=== PATIENT | female | born 1980 | race Caucasian/White ===

== ENCOUNTER 2017-10-05 00:05 | Outpatient (CLI) | payer OTHER | END 2017-10-05 00:06 | disposition critical access hospital (66) | LOC: EMS 00:05 | PROVIDERS: ATTEND Surgery | DX: R07.9 Chest pain, unspecified (principal); M54.5 Low back pain | CPT/HCPCS: A0425; A0427 ==

== ENCOUNTER 2017-10-05 00:23 | Emergency (ER) | payer OTHER ==
[2017-10-05 00:50] LABS: BASOPHILS % (AUTO) 0.3 %; EOSINOPHILS # (AUTO) 0.1 10^3/uL (0.0-0.7); HGB - HEMOGLOBIN 13.8 g/dL (12.0-16.0); LYMPHOCYTES # (AUTO) 1.8 10^3/uL (1.5-3.5); LYMPHOCYTES % (AUTO) 35.9 %; MEAN CORPUSCULAR HEMOGLOBIN 30.7 pg (27.0-31.0); MEAN CORPUSCULAR HGB CONC 33.8 g/dL (32.0-36.0); MEAN PLATELET VOLUME 7.9 fL (7.9-10.8); MONOCYTES # (AUTO) 0.5 10^3/uL (0.0-1.0); NEUTROPHILS # (AUTO) 2.5 10^3/uL (1.5-6.6); NEUTROPHILS % (AUTO) 50.8 %; PLT - PLATELET COUNT 204 10^3/uL (130-450); RED BLOOD COUNT 4.48 10^6/uL (4.20-5.40); RED CELL DISTRIBUTION WIDTH 13.4 % (12.0-15.0); WHITE BLOOD COUNT 4.9 x10^3/uL (4.8-10.8)
[2017-10-05 01:00] LABS: ALBUMIN 4.2 g/dL (3.2-5.5); ALBUMIN/GLOBULIN RATIO 1.2 (1.0-2.2); BILIRUBIN,TOTAL 0.5 mg/dL (0.2-1.0); CALCIUM 9.5 mg/dL (8.5-10.3); CREATININE 0.6 mg/dL (0.4-1.0); TOTAL PROTEIN 7.6 g/dL (6.7-8.2)
--- NOTE | 2017-10-05 02:07 | XRAY Report ---
EXAM: CHEST RADIOGRAPHY EXAM DATE: 10/05/2017 01:57 AM. CLINICAL HISTORY: Chest pain. COMPARISON: 02/28/2009 x-ray and CT cervical spine. TECHNIQUE: 2 views. FINDINGS: Lungs/Pleura: No focal opacities evident. No pleural effusion. No pneumothorax. Normal volumes. Mediastinum: Heart and mediastinal contours are unremarkable. Other: None. IMPRESSION: Normal 2-view chest radiography. [facility] Referring Provider Line: [phone] SITE ID: [id number]
--- NOTE | 2017-10-05 02:30 | ED Physician Documentation ---
PD HPI CHEST PAIN - Stated complaint Stated Complaint: CP - Chief complaint Chief Complaint: Cardiac - History obtained from History obtained from: Patient - History of Present Illness Timing - onset: Today Timing - onset during: Rest Timing - details: Abrupt onset, Waxing and waning Pain level now: 2 Quality: Pain Location: Substernal, Left chest Radiation: Left upper extremity Improved by: Nothing Worsened by: No: Exertion, Inspiration, Eating, Movement, Palpation, Position Associated symptoms: Nausea, Vomiting. No: Shortness of air Similar symptoms before: No diagnosis Recently seen: Not recently seen Review of Systems Constitutional: reports: Reviewed and negative Cardiac: reports: Chest pain / pressure. denies: Palpitations, Pedal edema, Calf pain Respiratory: reports: Reviewed and negative GI: reports: Abdominal Pain, Nausea, Vomiting : denies: Dysuria, Frequency PD PAST MEDICAL HISTORY - Past Medical History Past Medical History: Yes Respiratory: Asthma Psych: Depression Musculoskeletal: Fibromyalgia - Past Surgical History Past Surgical History: Yes Ortho: Carpal Tunnel surgery, Other - Present Medications Home Medications: Ambulatory Orders Medication Instructions Recorded Confirmed ARIPiprazole [Abilify] 1 tab PO DAILY 10/05/17 Albuterol Sulfate [Proair Hfa 2 puffs INH TID PRN 10/05/17 Inhaler] Amitriptyline [Elavil] 1 tab PO DAILY 10/05/17 Duloxetine HCl [Cymbalta] 1 cap PO DAILY 10/05/17 Meloxicam [Mobic] 1 tab PO BID 10/05/17 Methocarbamol 750 mg PO BID 10/05/17 Morphine Sulfate [Morphine Sulfate 30 mg PO BID PRN 10/05/17 ER] Pregabalin [Lyrica] 100 mg PO DAILY 10/05/17 Spironolactone 1 tab PO DAILY 10/05/17 Terazosin [Hytrin] 10 mg PO DAILY 10/05/17 oxyCODONE [Roxicodone] 30 mg PO Q6HR PRN 10/05/17 raNITIdine [Zantac] 1 tab PO DAILY 10/05/17 - Allergies Allergies/Adverse Reactions: Allergies Allergy/AdvReac Type Severity Reaction Status Date / Time carisoprodol [From Soma] Allergy Unknown Verified 10/05/17 00:29 - Social History Does the pt smoke?: Yes Smoking Status: Current every day smoker - POLST Patient has POLST: No PD ED PE NORMAL - Vitals Vital signs reviewed: Yes - General General: Alert and oriented X 3, No acute distress, Well developed/nourished - Cardiac Cardiac: RRR, No murmur, No gallop, No rub - Respiratory Respiratory: No respiratory distress, Clear bilaterally - Abdomen Abdomen: Soft, Non tender - Back Back: No CVA TTP - Derm Derm: No rash Results - Vitals Vitals: Oxygen O2 Source Room air - EKG (time done) No standard instances Rate: Rate (enter#) (122), Tachy Rhythm: Sinus tachycardia [place]: Normal Intervals: Normal [place] QRS: Normal Ischemia: Normal ST segments - Labs Labs: Laboratory Tests 10/05/17 10/05/17 10/05/17 00:40 00:40 00:40 WBC 4.9 RBC 4.48 Hgb 13.8 Hct 40.8 MCV 91.0 MCH 30.7 MCHC 33.8 RDW 13.4 Plt Count 204 MPV 7.9 Neut # 2.5 Lymph # 1.8 Lane # 0.5 Eos # 0.1 Baso # 0.0 Absolute Nucleated RBC 0.00 Nucleated RBC % 0.0 Sodium 139 Potassium 2.9 L Chloride 102 Carbon Dioxide 26 Anion Gap 11.0 BUN 8 Creatinine 0.6 Estimated GFR (MDRD) 114 Glucose 104 H Calcium 9.5 Total Bilirubin 0.5 AST 35 ALT 29 Alkaline Phosphatase 67 Troponin I < 0.04 Total Protein 7.6 Albumin 4.2 Globulin 3.4 Albumin/Globulin Ratio 1.2 Lipase 12 L - Rads (name of study) chest xray Radiology: Prelim report reviewed, See rad report CT chest Radiology: Prelim report reviewed, See rad report PD MEDICAL DECISION MAKING - ED course Complexity details: reviewed results, re-evaluated patient, considered differential, d/w patient Departure - Departure Disposition: 01 Home, Self Care Clinical Impression: Chest pain Qualifiers: Chest pain type: unspecified Qualified Code(s): R07.9 - Chest pain, unspecified Condition: Good Instructions: ED Chest Pain Atypical Unkn Cause Follow-Up: Tanya Ford MD [Physician No Access] - Within 1 week Discharge Date/Time: 10/05/17 05:24
[2017-10-05] MEDS ORDERED: POTASSIUM BICARB 25 MEQ TABLET PO STA (02:31)
[2017-10-05] MEDS ORDERED: MORPHINE 2 MG/ML CARPUJECT IVP STA (02:55)
[2017-10-05] MEDS ORDERED: IOPAMIDOL-300 100 ML VIAL ONE (03:24)
[2017-10-05] MEDS ORDERED: IOPAMIDOL-300 100 ML VIAL IVP ONE (03:48)
--- NOTE | 2017-10-05 03:57 | CT Report ---
EXAM: CT ANGIOGRAM CHEST EXAM DATE: 10/05/2017 03:48 AM. CLINICAL HISTORY: Chest pain, dyspnea, tachycardia. Back pain. COMPARISON: None. TECHNIQUE: Routine helical imaging was performed through the chest in the pulmonary arterial phase. I V Contrast: Nonionic. Reconstructions: Coronal 3-D MIP reconstructions.Sagittal and coronal. In accordance with CT protocol optimization, one or more of the following dose reduction techniques w ere utilized for this exam: automated exposure control, adjustment of mA and/or KV based on patient s ize, or use of iterative reconstructive technique. FINDINGS: Pulmonary Arteries: Diagnostic quality: Adequate through the segmental arteries. No evidence for acute or chronic pulmona ry emboli. No evidence of right heart strain. Lungs/Pleura: No alveolar consolidation or pleural effusion. There may be mild interstitial edema. No pneumothorax. Mediastinum: Mild cardiomegaly. No lymphadenopathy seen. Wall thickening in the distal esophagus. Thoracic Aorta: Unremarkable. Upper Abdomen: Unremarkable. Other: None. IMPRESSION: 1. No pulmonary emboli seen. 2. Mild cardiomegaly. There could be trace interstitial edema. 3. Wall thickening in the distal esophagus. Correlate for any symptoms of esophagitis. [facility] Referring Provider Line: [phone] SITE ID: [id number]
[2017-10-05 04:43] VITALS: BP 123/75
== END 2017-10-05 05:24 | disposition home or self-care (01) ==
LOC: EDUNIT# → ED 00:23
DX: R07.9 Chest pain, unspecified (principal); R00.0 Tachycardia, unspecified; F17.200 Nicotine dependence, unspecified, uncomplicated
CPT/HCPCS: 71046; 71275; 80053; 83690; 84484; 85025; 93005; 96374; 99284; A9270; Q9967; 36415

== ENCOUNTER 2017-11-14 20:03 | Outpatient (CLI) | payer OTHER | END 2017-11-14 20:04 | disposition critical access hospital (66) | LOC: EMS 20:03 | PROVIDERS: ATTEND Surgery | DX: R40.20 Unspecified coma (principal) | CPT/HCPCS: A0425; A0427 ==

== ENCOUNTER 2017-11-14 20:21 | Emergency (ER) | payer OTHER ==
[2017-11-14] MEDS ORDERED: SODIUM CHLORIDE 0.9% 1,000 ML IV ONE ×2 (20:53→21:40)
[2017-11-14 20:56] LABS: BASOPHILS % (AUTO) 0.5 %; EOSINOPHILS # (AUTO) 0.1 10^3/uL (0.0-0.7); EOSINOPHILS % (AUTO) 2.1 %; HGB - HEMOGLOBIN 13.1 g/dL (12.0-16.0); LYMPHOCYTES # (AUTO) 1.8 10^3/uL (1.5-3.5); LYMPHOCYTES % (AUTO) 32.2 %; MEAN CORPUSCULAR HEMOGLOBIN 31.8 pg (27.0-31.0); MEAN CORPUSCULAR HGB CONC 33.9 g/dL (32.0-36.0); MEAN CORPUSCULAR VOLUME 93.7 fL (81.0-99.0); MEAN PLATELET VOLUME 8.3 fL (7.9-10.8); MONOCYTES # (AUTO) 0.7 10^3/uL (0.0-1.0); MONOCYTES % (AUTO) 11.5 %; NEUTROPHILS # (AUTO) 3.1 10^3/uL (1.5-6.6); NEUTROPHILS % (AUTO) 53.7 %; PLT - PLATELET COUNT 216 10^3/uL (130-450); RED BLOOD COUNT 4.13 10^6/uL (4.20-5.40); RED CELL DISTRIBUTION WIDTH 13.2 % (12.0-15.0); WHITE BLOOD COUNT 5.7 x10^3/uL (4.8-10.8)
[2017-11-14] MEDS ORDERED: LORazepam 2 MG/ML VIAL ONE (21:04)
[2017-11-14 21:09] LABS: ALBUMIN 4.1 g/dL (3.2-5.5); ALBUMIN/GLOBULIN RATIO 1.2 (1.0-2.2); ALKALINE PHOSPHATASE 64 IU/L (42-121); ALT ALANINE AMINOTRANSFERASE 17 IU/L (10-60); AST ASPARTATE AMINOTRANSFERASE 21 IU/L (10-42); BILIRUBIN,TOTAL 0.4 mg/dL (0.2-1.0); BUN - BLOOD UREA NITROGEN 12 mg/dL (6-20); CALCIUM 9.1 mg/dL (8.5-10.3); CARBON DIOXIDE - CO2 28 mmol/L (21-32); CHLORIDE 107 mmol/L (101-111); CREATININE 0.7 mg/dL (0.4-1.0); GFR - MDRD 95 (>89); GLUCOSE 79 mg/dL (70-100); LIPASE 20 U/L (22-51); MAGNESIUM 2.3 mg/dL (1.7-2.8); PHOSPHORUS 2.6 mg/dL (2.5-4.6); SALICYLATE < 6.0 mg/dL; SODIUM 141 mmol/L (135-145); TOTAL PROTEIN 7.6 g/dL (6.7-8.2)
[2017-11-14 21:14] LABS: ACETAMINOPHEN < 10 ug/mL (10-30)
[2017-11-14 21:14] LABS: VBG PCO2 45.7 mmHg (41-51); VBG PH 7.253 (7.31-7.41)
[2017-11-14 21:15] LABS: VBG BASE EXCESS -7.4 mmol/L (-2 - +2); VBG TOTAL CO2 21.1 mmol/L (24-29)
[2017-11-14 21:27] LABS: MUDS CUTOFF CONCENTRATIONS CUTOFF CONC BELOW:
[2017-11-14 21:32] LABS: BILIRUBIN,URINE NEGATIVE (NEGATIVE); GLUCOSE, URINE (UA) NEGATIVE (NEGATIVE); KETONES,URINE (UA) NEGATIVE (NEGATIVE); LEUKOCYTE ESTERASE, URINE NEGATIVE (NEGATIVE); NITRITE,URINE NEGATIVE (NEGATIVE); OCCULT BLOOD,URINE NEGATIVE (NEGATIVE); PROTEIN,URINE NEGATIVE (NEGATIVE); UROBILINOGEN,URINE 0.2 (NORMAL) E.U./dL (NORMAL)
[2017-11-14 21:34] LABS: CLARITY,URINE CLEAR (CLEAR)
[2017-11-14 21:35] LABS: HCG UR QUAL NEGATIVE
[2017-11-14 21:40] LABS: AMPHETAMINE SCREEN,URINE NEGATIVE (NEGATIVE); BENZODIAZEPINES SCREEN, URINE NEGATIVE (NEGATIVE); COCAINE SCREEN URINE NEGATIVE (NEGATIVE); METHADONE SCREEN, URINE NEGATIVE (NEGATIVE); METHAMPHETAMINES SCREEN, URINE NEGATIVE (NEGATIVE); OPIATE SCREEN, URINE POSITIVE (NEGATIVE); OXYCODONE SCREEN, URINE POSITIVE (NEGATIVE); PROPOXYPHENE SCREEN, URINE NEGATIVE (NEGATIVE); TRICYCLIC ANTIDEPRESSANT,URINE NEGATIVE (NEGATIVE)
[2017-11-14 23:29] VITALS: BP 159/100
--- NOTE | 2017-11-14 23:39 | ED Physician Documentation ---
PD HPI ALTERED MENTAL STATUS - Stated complaint Stated Complaint: ETOH/ALOC - Chief complaint Chief Complaint: Neuro - History obtained from History obtained from: Patient, Family, EMS - History of Present Illness Timing - onset: Today Timing - details: Gradual onset, Still present, Still present in ED Quality / character: Less responsive, Unresponsive Contributing factors: Intoxicated, Substance abuse [place] status: Alert and oriented X 3 Treatment [employer]: Accucheck Similar symptoms before: Has not had sx before Recently seen: Not recently seen - Additional information Additional information: patient is a 36 year old female with multiple co morbidities who is presentig to the emergency department for ams. According to family and ems patient [place] the [place], vomiting and then passed out. states that she drank 4 double rum and cokes within an hour. Patient is also on chronic opiates and diazapam but he doesn't think she took any extra medication. It was not a suicide attempt. it was the husbands birthday tomorrow so they were celebrating. Review of Systems Unable to obtain: Intoxicated PD PAST MEDICAL HISTORY - Past Medical History Past Medical History: Yes Respiratory: Asthma Psych: Depression Musculoskeletal: Fibromyalgia - Past Surgical History Past Surgical History: Yes Ortho: Carpal Tunnel surgery, Other - Present Medications Home Medications: Ambulatory Orders Medication Instructions Recorded Confirmed ARIPiprazole [Abilify] 1 tab PO DAILY 10/05/17 Albuterol Sulfate [Proair Hfa 2 puffs INH TID PRN 10/05/17 Inhaler] Amitriptyline [Elavil] 1 tab PO DAILY 10/05/17 Duloxetine HCl [Cymbalta] 1 cap PO DAILY 10/05/17 Meloxicam [Mobic] 1 tab PO BID 10/05/17 Methocarbamol 750 mg PO BID 10/05/17 Morphine Sulfate [Morphine Sulfate 30 mg PO BID PRN 10/05/17 ER] Pregabalin [Lyrica] 100 mg PO DAILY 10/05/17 Spironolactone 1 tab PO DAILY 10/05/17 Terazosin [Hytrin] 10 mg PO DAILY 10/05/17 oxyCODONE [Roxicodone] 30 mg PO Q6HR PRN 10/05/17 raNITIdine [Zantac] 1 tab PO DAILY 10/05/17 - Allergies Allergies/Adverse Reactions: Allergies Allergy/AdvReac Type Severity Reaction Status Date / Time carisoprodol [From Soma] Allergy Unknown Verified 11/14/17 20:33 - Social History Does the pt smoke?: Yes Smoking Status: Current every day smoker Does the pt drink ETOH?: Yes ETOH Use: Liquor - Immunizations Immunizations are current?: Yes - POLST Patient has POLST: No PD ED PE NORMAL - HEENT HEENT: Atraumatic - Neck Neck: No JVD - Cardiac Cardiac: RRR - Respiratory Respiratory: No respiratory distress, Clear bilaterally - Abdomen Abdomen: Soft, Non distended - Derm Derm: Normal color, Warm and dry - Extremities Extremities: No deformity PD ED PE EXPANDED - General General: Unresponsive - Eyes Eyes: Both eyes (dilated pupils) - GCS Eye Opening: None Motor: Withdraws to Pain Verbal: Incomprehensible Total: 7 Results - Vitals Vitals: Vital Signs - 24 hr 11/14/17 11/14/17 11/14/17 20:25 20:51 20:55 Temperature 36.6 C Heart Rate 98 100 199 H Respiratory 20 29 H 33 H Rate Blood Pressure 146/92 H 146/92 H 146/92 H O2 Saturation 98 96 99 11/14/17 11/14/17 11/14/17 20:58 21:05 21:20 Temperature Heart Rate 128 H 108 H 85 Respiratory 24 14 19 Rate Blood Pressure 136/85 H 149/116 H 141/76 H O2 Saturation 98 98 95 11/14/17 11/14/17 11/14/17 21:21 21:46 22:20 Temperature Heart Rate 108 H 110 H 102 H Respiratory 19 16 16 Rate Blood Pressure 149/116 H 141/76 H 145/93 H O2 Saturation 97 97 96 11/14/17 23:15 Temperature Heart Rate 94 Respiratory 18 Rate Blood Pressure 159/100 H O2 Saturation 100 Oxygen O2 Source Room air - EKG (time done) 2032 Rate: Rate (enter#) (103) Rhythm: Sinus tachycardia [place]: Normal Ischemia: Normal ST segments Other comments: Other comments (rvh) Compare to prior EKG: Old EKG unavailable - Labs Labs: Laboratory Tests 11/14/17 11/14/17 11/14/17 20:49 20:49 20:49 WBC 5.7 RBC 4.13 L Hgb 13.1 Hct 38.7 MCV 93.7 MCH 31.8 H MCHC 33.9 RDW 13.2 Plt Count 216 MPV 8.3 Neut # 3.1 Lymph # 1.8 [place] # 0.7 Eos # 0.1 Baso # 0.0 Absolute Nucleated RBC 0.00 Nucleated RBC % 0.0 VBG pH VBG pCO2 VBG pO2 VBG HCO3 VBG Total CO2 VBG O2 Saturation VBG Base Excess Sodium 141 Potassium 3.8 Chloride 107 Carbon Dioxide 28 Anion Gap 6.0 BUN 12 Creatinine 0.7 Estimated GFR (MDRD) 95 Glucose 79 Calcium 9.1 Phosphorus 2.6 Magnesium 2.3 Total Bilirubin 0.4 AST 21 ALT 17 Alkaline Phosphatase 64 Troponin I < 0.04 Total Protein 7.6 Albumin 4.1 Globulin 3.5 Albumin/Globulin Ratio 1.2 Lipase 20 L Urine Color Urine Clarity Urine pH Ur Specific [place] Urine Protein Urine Glucose (UA) Urine Ketones Urine Occult Blood Urine Nitrite Urine Bilirubin Urine Urobilinogen Ur Leukocyte Esterase Ur Microscopic Review Urine Culture Comments Urine HCG, Qual Salicylates < 6.0 Urine Opiates Screen Ur Oxycodone Screen Urine Methadone Screen Ur Propoxyphene Screen Acetaminophen < 10 L Ur Barbiturates Screen Ur Tricyclics Screen Ur Phencyclidine Scrn Ur Amphetamine Screen U Methamphetamines Scrn U Benzodiazepines Scrn Urine Cocaine Screen U Cannabinoids Screen Ethyl Alcohol 122.0 11/14/17 11/14/17 11/14/17 21:05 21:18 21:18 WBC RBC Hgb Hct MCV MCH MCHC RDW Plt Count MPV Neut # Lymph # [place] # Eos # Baso # Absolute Nucleated RBC Nucleated RBC % VBG pH 7.253 L VBG pCO2 45.7 VBG pO2 40.0 VBG HCO3 19.7 L VBG Total CO2 21.1 L VBG O2 Saturation 72.6 VBG Base Excess -7.4 L Sodium Potassium Chloride Carbon Dioxide Anion Gap BUN Creatinine Estimated GFR (MDRD) Glucose Calcium Phosphorus Magnesium Total Bilirubin AST ALT Alkaline Phosphatase Troponin I Total Protein Albumin Globulin Albumin/Globulin Ratio Lipase Urine Color YELLOW Urine Clarity CLEAR Urine pH 5.0 Ur Specific [place] <=1.005 <=1.005 Urine Protein NEGATIVE Urine Glucose (UA) NEGATIVE Urine Ketones NEGATIVE Urine Occult Blood NEGATIVE Urine Nitrite NEGATIVE Urine Bilirubin NEGATIVE Urine Urobilinogen 0.2 (NORMAL) Ur Leukocyte Esterase NEGATIVE Ur Microscopic Review NOT INDICATED Urine Culture Comments NOT INDICATED Urine HCG, Qual NEGATIVE Salicylates Urine Opiates Screen POSITIVE H Ur Oxycodone Screen POSITIVE H Urine Methadone Screen NEGATIVE Ur Propoxyphene Screen NEGATIVE Acetaminophen Ur Barbiturates Screen NEGATIVE Ur Tricyclics Screen NEGATIVE Ur Phencyclidine Scrn NEGATIVE Ur Amphetamine Screen NEGATIVE U Methamphetamines Scrn NEGATIVE U Benzodiazepines Scrn NEGATIVE Urine Cocaine Screen NEGATIVE U Cannabinoids Screen NEGATIVE Ethyl Alcohol PD MEDICAL DECISION MAKING - ED course Complexity details: reviewed old records, reviewed results, re-evaluated patient , considered differential, d/w patient, d/w family ED course: Patient was seen and examined at bedside. patient was unresponsive but maintaining her airway. IV access was gained and labs were drawn. Urine was collected. patient was observed. Within about an hour patient started to wake up and become combative. Patient had to be restrained for the safety of herself and others. Patient was allowed to metabolize her alcohol with her at bedside. patient was observed until she could attend to conversation and ambulate without difficulty. Patient was stable for discharge home in the care of the who agreed to take care of her. Departure - Departure Disposition: 01 Home, Self Care Clinical Impression: Alcohol intoxication Condition: Good Instructions: ED Alcohol Intoxication Follow-Up: primary,care provider [Other] - As Needed Comments: Your symptoms today are secondary to alcohol intoxication. You should refrain from such excessive alcohol use. With all of your other medications, there are many sedatives and you should not combine with alcohol. You may return to the emergency department at any time for new, worsening or uncontrollable symptoms. Discharge Date/Time: 11/14/17 23:45
== END 2017-11-14 23:45 | disposition home or self-care (01) ==
LOC: EDUNIT# → ED 20:21
DX: F10.129 Alcohol abuse with intoxication, unspecified (principal); F17.200 Nicotine dependence, unspecified, uncomplicated; M79.7 Fibromyalgia; F32.9 Major depressive disorder, single episode, unspecified; J45.909 Unspecified asthma, uncomplicated
CPT/HCPCS: 36415; 51702; 80053; 80306; 80307; 80320; 80329; 81001; 81003; 81025; 82803; 83690; 83735; 84100; 84484; 85025; 87086; 93005; 96360; 99284; 99285

== ENCOUNTER 2018-07-08 20:43 | Emergency (ER) | payer OTHER ==
--- NOTE | 2018-07-08 22:49 | ED Physician Documentation ---
History of Present Illness - Stated complaint Stated Complaint: FEMALE - Chief complaint Chief Complaint: Abd Pain - History obtained from History obtained from: Patient, Family - History of Present Illness Timing: How many hours ago (3) Pain level max: 5 Pain level now: 5 - Additonal information Additional information: Patient is a 37-year-old female who states she has been unable to urinate today. States this is happened 3 times in the past. Normally has a catheter inserted for a few days. States it is usually due to her medications that she is taking. Has chronic back pain and is on chronic narcotic pain medication, no changes in her back pain. Denies any fevers. States had mild dysuria. No vaginal discharge or bleeding. No recent fall or injury. nothing makes it better or worse. 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 HEENT: None Psych: Depression Musculoskeletal: Fibromyalgia Derm: None - Past Surgical History Past Surgical History: Yes Ortho: Carpal Tunnel surgery, Other - Present Medications Home Medications: Ambulatory Orders Medication Instructions Recorded Confirmed ARIPiprazole [Abilify] 1 tab PO DAILY 10/05/17 Albuterol Sulfate [Proair Hfa 2 puffs INH TID PRN 10/05/17 Inhaler] Amitriptyline [Elavil] 1 tab PO DAILY 10/05/17 Duloxetine HCl [Cymbalta] 1 cap PO DAILY 10/05/17 Meloxicam [Mobic] 1 tab PO BID 10/05/17 Methocarbamol 750 mg PO BID 10/05/17 Morphine Sulfate [Morphine Sulfate 30 mg PO BID PRN 10/05/17 ER] Pregabalin [Lyrica] 100 mg PO DAILY 10/05/17 Spironolactone 1 tab PO DAILY 10/05/17 Terazosin [Hytrin] 10 mg PO DAILY 10/05/17 oxyCODONE [Roxicodone] 30 mg PO Q6HR PRN 10/05/17 raNITIdine [Zantac] 1 tab PO DAILY 10/05/17 - Allergies Allergies/Adverse Reactions: Allergies Allergy/AdvReac Type Severity Reaction Status Date / Time carisoprodol [From Soma] Allergy Unknown Verified 11/14/17 20:33 - Social History Does the pt smoke?: Yes Smoking Status: Current every day smoker Does the pt drink ETOH?: No Does the pt have substance abuse?: No - Immunizations Immunizations are current?: Yes - POLST Patient has POLST: No PD ED PE NORMAL - Vitals Vital signs reviewed: Yes - General General: Alert and oriented X 3, No acute distress - HEENT HEENT: PERRL - Neck Neck: Supple, no meningeal sign - Cardiac Cardiac: RRR - Respiratory Respiratory: No respiratory distress, Clear bilaterally - Abdomen Abdomen: Soft, Non tender, Non distended - Back Back: No spinal TTP (no midline TTP to palpation or percussion. ) - Derm Derm: Warm and dry - Extremities Extremities: Other (normal bilateral lower extremity patellar and ankle jerk reflexes. Normal great toe extension bilaterally. no saddle anesthesia) - Neuro Neuro: Alert and oriented X 3, No motor deficit, No sensory deficit - Psych Psych: Normal mood, Normal affect Results - Vitals Vitals: Oxygen O2 Source Room air - Labs Labs: Laboratory Tests 07/08/18 23:05 Urine Color YELLOW Urine Clarity CLEAR Urine pH 5.5 Ur Specific [place] <=1.005 Urine Protein NEGATIVE Urine Glucose (UA) NEGATIVE Urine Ketones NEGATIVE Urine Occult Blood NEGATIVE Urine Nitrite NEGATIVE Urine Bilirubin NEGATIVE Urine Urobilinogen 0.2 (NORMAL) Ur Leukocyte Esterase NEGATIVE Ur Microscopic Review NOT INDICATED Urine Culture Comments NOT INDICATED Urine HCG, Qual NEGATIVE PD MEDICAL DECISION MAKING - ED course Complexity details: reviewed results, re-evaluated patient, considered differential, d/w patient ED course: 37-year-old female with urinary retention. Unclear etiology. Likely related to her medications. This is happened to her in the past. Recommend she follow-up with her doctor for an outpatient MRI of her back to ensure that this is not worsened. Currently has no saddle anesthesia or numbness or tingling in the legs. Also does not have any fecal incontinence. No cauda equina or epidural abscess. Patient counseled regarding signs and symptoms for which I believe and urgent re-evaluation would be necessary. Patient with good understanding of and agreement to plan and is comfortable going home at this time This document was made in part using voice recognition software. While efforts are made to proofread this document, sound alike and grammatical errors may occur. Departure - Departure Disposition: 01 Home, Self Care Clinical Impression: Urinary retention Condition: Good Instructions: ED Retention Urinary Female Follow-Up: MONO BERNARDO [Primary Care Provider] - Within 3 Days Comments: Follow-up with your doctor in 3 days for catheter removal. This may be due to your medications, but they may want to repeat an MRI of your lower back to ensure there are no changes. Return if you worsen Discharge Date/Time: 07/09/18 00:12
[2018-07-08 23:13] LABS: BILIRUBIN,URINE NEGATIVE (NEGATIVE); GLUCOSE, URINE (UA) NEGATIVE (NEGATIVE); KETONES,URINE (UA) NEGATIVE (NEGATIVE); LEUKOCYTE ESTERASE, URINE NEGATIVE (NEGATIVE); NITRITE,URINE NEGATIVE (NEGATIVE); OCCULT BLOOD,URINE NEGATIVE (NEGATIVE); PH,URINE 5.5 PH (5.0-7.5); PROTEIN,URINE NEGATIVE (NEGATIVE); UROBILINOGEN,URINE 0.2 (NORMAL) E.U./dL (NORMAL)
[2018-07-08 23:16] LABS: CLARITY,URINE CLEAR (CLEAR); HCG UR QUAL NEGATIVE
[2018-07-09 00:08] VITALS: BP 138/81
== END 2018-07-09 00:12 | disposition home or self-care (01) ==
LOC: ED 20:43
DX: R33.9 Retention of urine, unspecified (principal); Z96.0 Presence of urogenital implants; F17.200 Nicotine dependence, unspecified, uncomplicated; Z79.1 Long term (current) use of non-steroidal anti-inflammatories (NSAID)
CPT/HCPCS: 51702; 81001; 81003; 81025; 87086; 99283

== ENCOUNTER 2018-10-08 03:43 | Outpatient (CLI) | payer OTHER | END 2018-10-08 03:44 | disposition critical access hospital (66) | LOC: EMS 03:43 | PROVIDERS: ATTEND Surgery | DX: R40.4 Transient alteration of awareness (principal) | CPT/HCPCS: A0425; A0429 ==

== ENCOUNTER 2018-10-08 04:02 | Emergency (ER) | payer OTHER ==
[2018-10-08] MEDS ORDERED: SODIUM CHLORIDE 0.9% 2,000 ML IV ONE (04:11)
[2018-10-08] MEDS ORDERED: NALOXONE 2 MG in SODIUM CHLORIDE 0.9% 495 ML IV STA (04:12)
[2018-10-08] MEDS ORDERED: NALOXONE 0.4 MG/ML VIAL IVP STA (04:19)
[2018-10-08] MEDS ORDERED: NALOXONE 0.4 MG/ML VIAL ONE (04:22)
[2018-10-08] MEDS ORDERED: ONDANSETRON 4 MG/2 ML VIAL IVP STA (04:25)
[2018-10-08 04:26] LABS: BASOPHILS % (AUTO) 0.5 %; EOSINOPHILS # (AUTO) 0.1 10^3/uL (0.0-0.7); EOSINOPHILS % (AUTO) 1.8 %; HGB - HEMOGLOBIN 12.3 g/dL (12.0-16.0); LYMPHOCYTES # (AUTO) 1.8 10^3/uL (1.5-3.5); LYMPHOCYTES % (AUTO) 32.7 %; MEAN CORPUSCULAR HEMOGLOBIN 27.4 pg (27.0-31.0); MEAN CORPUSCULAR HGB CONC 33.3 g/dL (32.0-36.0); MEAN CORPUSCULAR VOLUME 82.3 fL (81.0-99.0); MEAN PLATELET VOLUME 8.2 fL (7.9-10.8); MONOCYTES # (AUTO) 0.5 10^3/uL (0.0-1.0); MONOCYTES % (AUTO) 9.7 %; NEUTROPHILS % (AUTO) 55.3 %; PLT - PLATELET COUNT 205 10^3/uL (130-450); RED BLOOD COUNT 4.48 10^6/uL (4.20-5.40); RED CELL DISTRIBUTION WIDTH 14.1 % (12.0-15.0); WHITE BLOOD COUNT 5.4 x10^3/uL (4.8-10.8)
[2018-10-08] MEDS ORDERED: ONDANSETRON 4 MG/2 ML VIAL ONE (04:29)
[2018-10-08 04:37] LABS: ACETAMINOPHEN < 10 ug/mL (10-30); ALBUMIN/GLOBULIN RATIO 1.1 (1.0-2.2); SALICYLATE < 6.0 mg/dL
[2018-10-08] MEDS ORDERED: HALOPERIDOL 5 MG/ML VIAL IVP ONE (04:38)
[2018-10-08] MEDS ORDERED: FAMOTIDINE 20 MG/2 ML VIAL IVP STA (04:39)
[2018-10-08 04:41] LABS: ALBUMIN 4.1 g/dL (3.2-5.5); ALKALINE PHOSPHATASE 74 IU/L (42-121); ALT ALANINE AMINOTRANSFERASE 19 IU/L (10-60); AST ASPARTATE AMINOTRANSFERASE 22 IU/L (10-42); BILIRUBIN,TOTAL 0.5 mg/dL (0.2-1.0); BUN - BLOOD UREA NITROGEN 8 mg/dL (6-20); CALCIUM 9.3 mg/dL (8.5-10.3); CARBON DIOXIDE - CO2 27 mmol/L (21-32); CHLORIDE 104 mmol/L (101-111); CREATININE 0.5 mg/dL (0.4-1.0); GFR - MDRD 140 (>89); GLUCOSE 135 mg/dL (70-100); LIPASE 26 U/L (22-51); SODIUM 142 mmol/L (135-145); TOTAL PROTEIN 7.8 g/dL (6.7-8.2)
[2018-10-08 05:14] LABS: MUDS CUTOFF CONCENTRATIONS CUTOFF CONC BELOW:
[2018-10-08 05:20] LABS: BILIRUBIN,URINE NEGATIVE (NEGATIVE); GLUCOSE, URINE (UA) NEGATIVE (NEGATIVE); KETONES,URINE (UA) NEGATIVE (NEGATIVE); LEUKOCYTE ESTERASE, URINE NEGATIVE (NEGATIVE); NITRITE,URINE NEGATIVE (NEGATIVE); OCCULT BLOOD,URINE NEGATIVE (NEGATIVE); PH,URINE 6.5 PH (5.0-7.5); PROTEIN,URINE NEGATIVE (NEGATIVE); UROBILINOGEN,URINE 0.2 (NORMAL) E.U./dL (NORMAL)
[2018-10-08 05:26] LABS: CLARITY,URINE CLEAR (CLEAR)
[2018-10-08 05:27] LABS: HCG UR QUAL NEGATIVE
[2018-10-08 05:28] LABS: AMPHETAMINE SCREEN,URINE NEGATIVE (NEGATIVE); BENZODIAZEPINES SCREEN, URINE NEGATIVE (NEGATIVE); COCAINE SCREEN URINE NEGATIVE (NEGATIVE); METHADONE SCREEN, URINE NEGATIVE (NEGATIVE); METHAMPHETAMINES SCREEN, URINE NEGATIVE (NEGATIVE); OPIATE SCREEN, URINE POSITIVE (NEGATIVE); OXYCODONE SCREEN, URINE POSITIVE (NEGATIVE); PROPOXYPHENE SCREEN, URINE NEGATIVE (NEGATIVE); TRICYCLIC ANTIDEPRESSANT,URINE NEGATIVE (NEGATIVE)
[2018-10-08 05:45] LABS: HCG,QUALITATIVE BLOOD NEGATIVE
--- NOTE | 2018-10-08 05:52 | XRAY Report ---
Reason: ALOC Procedure Date: 10/08/2018 Accession Number: [id number] / [id number] Procedure: XR - Chest 1 View X-Ray CPT Code: 31077 FULL RESULT: EXAM: CHEST RADIOGRAPHY EXAM DATE: 10/08/2018 05:36 AM. CLINICAL HISTORY: Altered level of consciousness. COMPARISON: CHEST 2 VIEW 10/05/2017 1:44 AM, CHEST ANGIO 10/05/2017 3:35 AM. TECHNIQUE: 1 view. FINDINGS: Lungs/Pleura: No focal opacities evident. No pleural effusion. No pneumothorax. Mediastinum: Within exam limitations, the cardiomediastinal contour is normal. Other: None. IMPRESSION: Stable negative single view chest. [facility]
--- NOTE | 2018-10-08 06:14 | ED Physician Documentation ---
PD HPI OVERDOSE - Stated complaint Stated Complaint: UNRESPONSIVE - Chief complaint Chief Complaint: Critical Care - History obtained from History obtained from: EMS - History of Present Illness Timing - onset: Unknown Subtance(s) ingested: EtOH Associated symptoms: Resp depression, Unresponsive Pain level max: 0 Pain level now: 0 Severity Comments: severe Treatment HADOOP ARCHITECT: No: Narcan, D50, Zofran - Additional information Additional information: 37-year-old female found down after drinking approximately 1 bottle of rum. No other known ingestions. 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 HEENT: None Psych: Depression Musculoskeletal: Fibromyalgia Derm: None - Past Surgical History Past Surgical History: Yes Ortho: Carpal Tunnel surgery, Other - Present Medications Home Medications: Ambulatory Orders Medication Instructions Recorded Confirmed ARIPiprazole [Abilify] 5 mg PO DAILY 10/05/17 Albuterol Sulfate [Proair Hfa 2 puffs INH TID PRN 10/05/17 Inhaler] Amitriptyline [Elavil] 25 tab PO DAILY 10/05/17 Duloxetine HCl [Cymbalta] 60 mg PO DAILY 10/05/17 Meloxicam [Mobic] 1 tab PO BID 10/05/17 Morphine Sulfate [Morphine Sulfate 30 mg PO BID PRN 10/05/17 ER] Pregabalin [Lyrica] 150 mg PO BID 10/05/17 Spironolactone 50 mg PO BID 10/05/17 Terazosin [Hytrin] 10 mg PO DAILY 10/05/17 oxyCODONE [Roxicodone] 30 mg PO Q6HR PRN 10/05/17 raNITIdine [Zantac] 150 mg PO DAILY 10/05/17 Cyclobenzaprine [Flexeril] 10 mg PO QID 10/08/18 10/08/18 Furosemide [Lasix] 20 mg PO DAILY 10/08/18 10/08/18 Levothyroxine [Synthroid] 50 mcg PO QDAC 10/08/18 10/08/18 Lubiprostone [Amitiza] 24 mcg PO BID 10/08/18 10/08/18 Metoprolol Succinate 25 mg PO DAILY 10/08/18 10/08/18 Metoprolol Tartrate [Lopressor] 50 mg PO BID 10/08/18 10/08/18 Omeprazole 20 mg PO DAILY 10/08/18 10/08/18 Oxycodone HCl [Roxicodone] 15 mg PO QID 10/08/18 10/08/18 diazePAM [Diazepam] 5 mg PO PRN PRN 10/08/18 10/08/18 tiZANidine [Zanaflex] 4 mg PO Q8H 10/08/18 10/08/18 - Allergies Allergies/Adverse Reactions: Allergies Allergy/AdvReac Type Severity Reaction Status Date / Time carisoprodol [From Soma] Allergy Unknown Verified 11/14/17 20:33 - Social History Does the pt smoke?: Yes Smoking Status: Current every day smoker Does the pt drink ETOH?: Yes ETOH Use: Liquor Does the pt have substance abuse?: No - Immunizations Immunizations are current?: Yes - POLST Patient has POLST: No PD ED PE NORMAL - Vitals Vital signs reviewed: Yes - General General: No acute distress, Other (Obtunded) - HEENT HEENT: Atraumatic, PERRL - Neck Neck: Supple, no meningeal sign - Cardiac Cardiac: No murmur, Other (Tachycardic) - Respiratory Respiratory: Clear bilaterally - Abdomen Abdomen: Normal bowel sounds, Soft, Non tender, Non distended - Derm Derm: Warm and dry - Extremities Extremities: No deformity - Neuro Neuro: Other (Obtunded with GCS of 3.) Eye Opening: None Motor: None Verbal: None GCS Score: 3 - Psych Psych: Normal mood, Normal affect Results - Vitals Vitals: Vital Signs - 24 hr 10/08/18 10/08/18 10/08/18 03:59 04:15 04:39 Heart Rate 108 H 136 H 138 H Respiratory 19 19 Rate Blood Pressure 152/94 H 137/74 H O2 Saturation 98 100 99 10/08/18 10/08/18 05:09 05:37 Heart Rate 108 H 107 H Respiratory 12 12 Rate Blood Pressure 138/80 H 122/93 H O2 Saturation 98 96 Oxygen O2 Source Nasal cannula - EKG (time done) 0408 Rate: Rate (enter#) (111), Tachy Rhythm: Sinus tachycardia [place]: Normal Intervals: Normal LA, RBBB QRS: Normal Ischemia: Normal ST segments. No: T wave inversion - Labs Labs: Laboratory Tests 10/08/18 10/08/18 10/08/18 04:11 04:11 04:11 WBC 5.4 RBC 4.48 Hgb 12.3 Hct 36.9 L MCV 82.3 MCH 27.4 MCHC 33.3 RDW 14.1 Plt Count 205 MPV 8.2 Neut # (Auto) 3.0 Lymph # (Auto) 1.8 [place] # (Auto) 0.5 Eos # (Auto) 0.1 Baso # (Auto) 0.0 Absolute Nucleated RBC 0.00 Nucleated RBC % 0.0 Sodium 142 Potassium 3.2 L Chloride 104 Carbon Dioxide 27 Anion Gap 11.0 BUN 8 Creatinine 0.5 Estimated GFR (MDRD) 140 Glucose 135 H Calcium 9.3 Total Bilirubin 0.5 AST 22 ALT 19 Alkaline Phosphatase 74 Total Protein 7.8 Albumin 4.1 Globulin 3.7 Albumin/Globulin Ratio 1.1 Lipase 26 TSH 3.15 Serum HCG, Qual Urine Color Urine Clarity Urine pH Ur Specific [place] Urine Protein Urine Glucose (UA) Urine Ketones Urine Occult Blood Urine Nitrite Urine Bilirubin Urine Urobilinogen Ur Leukocyte Esterase Ur Microscopic Review Urine Culture Comments Urine HCG, Qual Salicylates < 6.0 Urine Opiates Screen Ur Oxycodone Screen Urine Methadone Screen Ur Propoxyphene Screen Acetaminophen < 10 L Ur Barbiturates Screen Ur Tricyclics Screen Ur Phencyclidine Scrn Ur Amphetamine Screen U Methamphetamines Scrn U Benzodiazepines Scrn Urine Cocaine Screen U Cannabinoids Screen Ethyl Alcohol 95.8 10/08/18 10/08/18 10/08/18 04:11 05:00 05:00 WBC RBC Hgb Hct MCV MCH MCHC RDW Plt Count MPV Neut # (Auto) Lymph # (Auto) [place] # (Auto) Eos # (Auto) Baso # (Auto) Absolute Nucleated RBC Nucleated RBC % Sodium Potassium Chloride Carbon Dioxide Anion Gap BUN Creatinine Estimated GFR (MDRD) Glucose Calcium Total Bilirubin AST ALT Alkaline Phosphatase Total Protein Albumin Globulin Albumin/Globulin Ratio Lipase TSH Serum HCG, Qual NEGATIVE Urine Color YELLOW Urine Clarity CLEAR Urine pH 6.5 Ur Specific [place] <=1.005 Urine Protein NEGATIVE Urine Glucose (UA) NEGATIVE Urine Ketones NEGATIVE Urine Occult Blood NEGATIVE Urine Nitrite NEGATIVE Urine Bilirubin NEGATIVE Urine Urobilinogen 0.2 (NORMAL) Ur Leukocyte Esterase NEGATIVE Ur Microscopic Review NOT INDICATED Urine Culture Comments NOT INDICATED Urine HCG, Qual NEGATIVE Salicylates Urine Opiates Screen POSITIVE H Ur Oxycodone Screen POSITIVE H Urine Methadone Screen NEGATIVE Ur Propoxyphene Screen NEGATIVE Acetaminophen Ur Barbiturates Screen NEGATIVE Ur Tricyclics Screen NEGATIVE Ur Phencyclidine Scrn NEGATIVE Ur Amphetamine Screen NEGATIVE U Methamphetamines Scrn NEGATIVE U Benzodiazepines Scrn NEGATIVE Urine Cocaine Screen NEGATIVE U Cannabinoids Screen NEGATIVE Ethyl Alcohol - Rads (name of study) Chest xray Radiology: Final report received (WNL) PD MEDICAL DECISION MAKING - ED course Complexity details: reviewed results, re-evaluated patient, considered differential, d/w patient, d/w family ED course: 37-year-old female arrives in severe respiratory distress and with altered mental status. Patient obtunded. No response to pain. Patient placed on supplemental oxygen given 2 mg IV Narcan. Patient became awake and began active ly withdrawing. Patient treated with IV Zofran and Haldol. After some time patient requested to leave AGAINST MEDICAL ADVICE. Patient verbalized understanding of the risks of discharge including or permanent disability. Given patient's intoxication she was held in the emergency department until she could be released with a responsible family member. She is encouraged to return any time to continue treatment. - Critical Care Time(min): 30 Time Includes: Direct patient care, Review records, Reassess patient, Document care, Coordinate care, Family consult for tx dec, See progress note Data interpretation: Labs, Pulse ox, CXR, See progress note Procedures included in critical care time: See progress note Procedures excluded from critical care time: See progress note Departure - Departure Disposition: 01 Home, Self Care Clinical Impression: Alcohol abuse Opioid overdose Qualifiers: Encounter type: initial encounter Injury intent: accidental or unintentional Qualified Code(s): T40.2X1A - Poisoning by other opioids, accidental (unintentional), initial encounter Condition: Serious
[2018-10-08 06:34] VITALS: BP 124/75
== END 2018-10-08 06:47 | disposition left against medical advice (07) ==
LOC: EDUNIT# → EDBD → ED 04:02
DX: F10.129 Alcohol abuse with intoxication, unspecified (principal); T40.2X1A Poisoning by other opioids, accidental (unintentional), initial encounter; R06.03 Acute respiratory distress; R40.2432 Glasgow coma scale score 3-8, at arrival to emergency department; R00.0 Tachycardia, unspecified; I45.10 Unspecified right bundle-branch block; F17.200 Nicotine dependence, unspecified, uncomplicated; Z53.20 Procedure and treatment not carried out because of patient's decision for unspecified reasons
CPT/HCPCS: 36415; 71045; 80053; 80306; 80307; 80320; 80329; 81001; 81003; 81025; 83690; 84443; 84703; 85025; 87086; 93005; 96361; 96374; 96375; 99285; 99291

== ENCOUNTER 2018-11-22 10:20 | Outpatient (CLI) | payer OTHER | END 2018-11-22 10:21 | disposition home or self-care (01) | LOC: NS 10:20 | PROVIDERS: ATTEND Family Medicine | DX: Z71.3 Dietary counseling and surveillance (principal); E66.01 Morbid (severe) obesity due to excess calories; Z68.39 Body mass index [BMI] 39.0-39.9, adult | CPT/HCPCS: 97802 ==

== ENCOUNTER 2019-05-05 16:26 | Outpatient (CLI) | payer OTHER | END 2019-05-05 16:27 | disposition critical access hospital (66) | LOC: EMS 16:26 | PROVIDERS: ATTEND Surgery | DX: R07.9 Chest pain, unspecified (principal) | CPT/HCPCS: A0425; A0427 ==

== ENCOUNTER 2019-05-05 16:45 | Observation (INO) | payer OTHER ==
--- NOTE | 2019-05-05 17:14 | ED Physician Documentation ---
PD HPI CHEST PAIN - Stated complaint Stated Complaint: CP - Chief complaint Chief Complaint: Cardiac - History obtained from History obtained from: Patient - History of Present Illness Timing - onset: How many days ago (4) Timing - onset during: Light activity Timing - duration: Days (4) Timing - details: Abrupt onset, Still present Quality: Aching, Sharp, Pain Location: Substernal, Left chest Radiation: Back Improved by: No: Rest Worsened by: Exertion (just walking in house), Inspiration. No: Movement, Palpation Associated symptoms: Shortness of air, Feeling faint / dizzy, General Weakness. No: Nausea, Palpitations, Cough Similar symptoms before: Has not had sx before Recently seen: Emergency Dept (She was seen at [facility] 3 days ago for leg swelling in the chest pain. We will obtain records from there. The patient says it sounds like they ultrasound her leg and did some basic labs.) Review of Systems Constitutional: denies: Fever, Chills Nose: denies: Rhinorrhea / runny nose, Congestion Throat: denies: Sore throat Cardiac: reports: Chest pain / pressure, Pedal edema (for a week or so, both legs), Calf pain (for few days). denies: Palpitations Respiratory: reports: Dyspnea. denies: Cough GI: reports: Nausea. denies: Abdominal Pain, Vomiting, Diarrhea, Hematemesis, Bloody / black stool : denies: Dysuria, Frequency, Hematuria Musculoskeletal: reports: Back pain (chronic). denies: Neck pain Neurologic: reports: Generalized weakness. 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 HEENT: None Psych: Depression Musculoskeletal: Fibromyalgia, Chronic back pain Derm: None - Past Surgical History Past Surgical History: Yes Ortho: Carpal Tunnel surgery, Other - Present Medications Home Medications: Ambulatory Orders Medication Instructions Recorded Confirmed ARIPiprazole [Abilify] 5 mg PO DAILY 10/05/17 Albuterol Sulfate [Proair Hfa 2 puffs INH TID PRN 10/05/17 Inhaler] Amitriptyline [Elavil] 25 tab PO DAILY 10/05/17 Duloxetine HCl [Cymbalta] 60 mg PO DAILY 10/05/17 Meloxicam [Mobic] 1 tab PO BID 10/05/17 Morphine Sulfate [Morphine Sulfate 30 mg PO BID PRN 10/05/17 ER] Pregabalin [Lyrica] 150 mg PO BID 10/05/17 Spironolactone 50 mg PO BID 10/05/17 Terazosin [Hytrin] 10 mg PO DAILY 10/05/17 oxyCODONE [Roxicodone] 30 mg PO Q6HR PRN 10/05/17 raNITIdine [Zantac] 150 mg PO DAILY 10/05/17 Cyclobenzaprine [Flexeril] 10 mg PO QID 10/08/18 10/08/18 Furosemide [Lasix] 20 mg PO DAILY 10/08/18 10/08/18 Levothyroxine [Synthroid] 50 mcg PO QDAC 10/08/18 10/08/18 Lubiprostone [Amitiza] 24 mcg PO BID 10/08/18 10/08/18 Metoprolol Succinate 25 mg PO DAILY 10/08/18 10/08/18 Metoprolol Tartrate [Lopressor] 50 mg PO BID 10/08/18 10/08/18 Omeprazole 20 mg PO DAILY 10/08/18 10/08/18 Oxycodone HCl [Roxicodone] 15 mg PO QID 10/08/18 10/08/18 diazePAM [Diazepam] 5 mg PO PRN PRN 10/08/18 10/08/18 tiZANidine [Zanaflex] 4 mg PO Q8H 10/08/18 10/08/18 - Allergies Allergies/Adverse Reactions: Allergies Allergy/AdvReac Type Severity Reaction Status Date / Time carisoprodol [From Soma] Allergy Unknown Verified 05/05/19 17:02 - Living Situation Living Situation: reports: With spouse/s.o. Living Arrangement: reports: At home, Other (Fairly sedentary lifestyle due to chronic pains of fibromyalgia and back pain.) - Social History Does the pt smoke?: Yes Smoking Status: Current every day smoker Does the pt drink ETOH?: Yes Does the pt have substance abuse?: No - Immunizations Immunizations are current?: Yes - POLST Patient has POLST: No PD ED PE NORMAL - Vitals Vital signs reviewed: Yes (tachycardic and tachypneic with guarded respirations) - General General: Alert and oriented X 3, Well developed/nourished - HEENT HEENT: Moist mucous membranes, Pharynx benign - Neck Neck: Supple, no meningeal sign, No adenopathy, No JVD - Cardiac Cardiac: No murmur, No rub. No: RRR (tachycardic but regular) - Respiratory Respiratory: Clear bilaterally, Other (no chestwall tenderness) - Abdomen Abdomen: Normal bowel sounds, Soft, Non distended, No organomegaly, Other (some tenderness RUQ abdomen) - Female Female : Deferred - Rectal Rectal: Deferred - Back Back: No CVA TTP - Derm Derm: Normal color, Warm and dry - Extremities Extremities: No tenderness to palpate, Other (She has some edema in both legs. She has calf tenderness and medial thigh tenderness on the left leg.) - Neuro Neuro: Alert and oriented X 3, No motor deficit, Normal speech Eye Opening: Spontaneous Motor: Obeys Commands Verbal: Oriented GCS Score: 15 Results - Vitals Vitals: Vital Signs - 24 hr 05/05/19 05/05/19 05/05/19 16:48 19:01 19:26 Temperature 36.6 C Heart Rate 104 H 106 H 98 Respiratory 18 17 16 Rate Blood Pressure 148/76 H 132/81 H 119/93 H O2 Saturation 95 95 95 Oxygen O2 Source Room air - Labs Labs: Laboratory Tests 05/05/19 05/05/19 05/05/19 17:30 17:30 17:30 WBC 5.9 RBC 3.77 L Hgb 10.9 L Hct 33.9 L MCV 89.9 MCH 28.9 MCHC 32.2 RDW 13.4 Plt Count 173 MPV 9.6 Neut # (Auto) 4.3 Lymph # (Auto) 0.9 L [place] # (Auto) 0.5 Eos # (Auto) 0.1 Baso # (Auto) 0.0 Absolute Nucleated RBC 0.00 Nucleated RBC % 0.0 D-Dimer 398.9 H Sodium 142 Potassium 4.0 Chloride 104 Carbon Dioxide 32 Anion Gap 6.0 BUN 7 Creatinine 0.6 Estimated GFR (MDRD) 112 Glucose 133 H Calcium 9.0 Total Bilirubin 0.4 AST 19 ALT 18 Alkaline Phosphatase 64 Troponin I High Sens B-Natriuretic Peptide Total Protein 6.7 Albumin 3.5 Globulin 3.2 Albumin/Globulin Ratio 1.1 Lipase 21 L 05/05/19 05/05/19 17:30 17:30 WBC RBC Hgb Hct MCV MCH MCHC RDW Plt Count MPV Neut # (Auto) Lymph # (Auto) [place] # (Auto) Eos # (Auto) Baso # (Auto) Absolute Nucleated RBC Nucleated RBC % D-Dimer Sodium Potassium Chloride Carbon Dioxide Anion Gap BUN Creatinine Estimated GFR (MDRD) Glucose Calcium Total Bilirubin AST ALT Alkaline Phosphatase Troponin I High Sens 2.4 B-Natriuretic Peptide 32 Total Protein Albumin Globulin Albumin/Globulin Ratio Lipase PD MEDICAL DECISION MAKING - ED course Complexity details: reviewed results (The patient does have [address] angiogram as read by the radiologist. Presumably 1 of them was 4 days ago when her symptoms first started. Unclear whether she has had a second embolus more recently she did feel more short of breath today. We will start her on blood thinners. I will talk with the hospitalist regarding having her in the hospital for further evaluation and ensure she is stable. She is still tachycardic and having pleuritic pain though is improved after medicines. There is no signs of heart failure.), re-evaluated patient, considered differential (Concern for OK versus angina versus pneumonia versus heart failure versus blood clots. We will test for high risk processes.), d/w patient Departure - Departure Disposition: ED Place in Observation Clinical Impression: Leg edema Chest pain Qualifiers: Chest pain type: chest pain on breathing Qualified Code(s): R07.1 - Chest pain on breathing; R07.81 - Pleurodynia Dyspnea Qualifiers: Dyspnea type: dyspnea on exertion Qualified Code(s): R06.09 - Other forms of dyspnea Acute pulmonary embolism without acute cor pulmonale Qualifiers: Pulmonary embolism type: other Qualified Code(s): I26.99 - Other pulmonary embolism without acute cor pulmonale Condition: Stable Record reviewed to determine appropriate education?: Yes
[2019-05-05 17:33] LABS: BASOPHILS % (AUTO) 0.3 %; EOSINOPHILS # (AUTO) 0.1 10^3/uL (0.0-0.7); EOSINOPHILS % (AUTO) 1.9 %; HGB - HEMOGLOBIN 10.9 g/dL (12.0-16.0); LYMPHOCYTES # (AUTO) 0.9 10^3/uL (1.5-3.5); LYMPHOCYTES % (AUTO) 15.5 %; MEAN CORPUSCULAR HEMOGLOBIN 28.9 pg (27.0-31.0); MEAN CORPUSCULAR HGB CONC 32.2 g/dL (32.0-36.0); MEAN CORPUSCULAR VOLUME 89.9 fL (81.0-99.0); MEAN PLATELET VOLUME 9.6 fL (7.9-10.8); MONOCYTES # (AUTO) 0.5 10^3/uL (0.0-1.0); MONOCYTES % (AUTO) 9.2 %; NEUTROPHILS # (AUTO) 4.3 10^3/uL (1.5-6.6); NEUTROPHILS % (AUTO) 72.6 %; PLT - PLATELET COUNT 173 10^3/uL (130-450); RED BLOOD COUNT 3.77 10^6/uL (4.20-5.40); RED CELL DISTRIBUTION WIDTH 13.4 % (12.0-15.0); WHITE BLOOD COUNT 5.9 x10^3/uL (4.8-10.8)
[2019-05-05] MEDS ORDERED: HYDROmorphone 1 MG/ML CARPUJECT IVP STA (17:34)
[2019-05-05] MEDS ORDERED: KETOROLAC 15 MG/ML VIAL IVP STA (17:34)
[2019-05-05 17:48] LABS: ALBUMIN 3.5 g/dL (3.2-5.5); ALBUMIN/GLOBULIN RATIO 1.1 (1.0-2.2); BILIRUBIN,TOTAL 0.4 mg/dL (0.2-1.0); CREATININE 0.6 mg/dL (0.4-1.0); TOTAL PROTEIN 6.7 g/dL (6.7-8.2)
--- NOTE | 2019-05-05 17:55 | XRAY Report ---
Reason: chest pain Procedure Date: 05/05/2019 Accession Number: [id number] / [id number] Procedure: XR - Chest 1 View X-Ray CPT Code: 32624 FULL RESULT: EXAM: CHEST RADIOGRAPHY EXAM DATE: 05/05/2019 05:22 PM. CLINICAL HISTORY: Chest pain. COMPARISON: CHEST 1 VIEW 10/08/2018 5:25 AM. TECHNIQUE: 1 view. FINDINGS: Lungs/Pleura: No focal opacities evident. No pleural effusion. No pneumothorax. Mediastinum: Within exam limitations, the cardiomediastinal contour is normal. Other: None. IMPRESSION: No focal consolidation. RADIA
[2019-05-05] MEDS ORDERED: IOVERSOL 320 100 ML VIAL IVP ONE ×2 (18:48→19:16)
[2019-05-05] MEDS ORDERED: FUROSEMIDE 40 MG/4 ML VIAL IVP STA (19:05)
--- NOTE | 2019-05-05 19:15 | Ultrasound Report ---
Reason: RUQ/chest pain for several days Procedure Date: 05/05/2019 Accession Number: [id number] / [id number] Procedure: US - Abdomen Limited CPT Code: FULL RESULT: EXAM: ABDOMEN ULTRASOUND LIMITED, RUQ EXAM DATE: 05/05/2019 06:39 PM. CLINICAL HISTORY: RUQ/chest pain for several days. COMPARISON: None. TECHNIQUE: Real-time scanning was performed with static images obtained. FINDINGS: Liver: Borderline in size. Heterogeneous without focal solid mass identified. 18.6 cm. Main portal vein flow: Hepatopetal. Gallbladder: Normal. No stones, wall thickening, or sonographic Masterson's sign. Biliary System: CBD measures 4 mm. No intrahepatic or extrahepatic ductal dilatation. Other: Right kidney measures 12.5 cm in length without evidence of hydronephrosis. IMPRESSION: No gallstones or findings of acute cholecystitis or biliary dilatation. RADIA
--- NOTE | 2019-05-05 19:57 | CT Report ---
Reason: chest pain; dyspnea; elevated d-dimer Procedure Date: 05/05/2019 Accession Number: [id number] / [id number] Procedure: CT - ANGIO CHEST W/WO CPT Code: FULL RESULT: EXAM: CT ANGIOGRAM CHEST EXAM DATE: 05/05/2019 07:16 PM. CLINICAL HISTORY: Chest pain; dyspnea; elevated d-dimer. COMPARISON: CHEST ANGIO 10/05/2017 3:35 AM. TECHNIQUE: Routine helical imaging was performed through the chest in the pulmonary arterial phase. IV Contrast: OPTI 320 80ML. Reconstructions: Coronal 3-D MIP reconstructions.Sagittal and coronal. In accordance with CT protocol optimization, one or more of the following dose reduction techniques were utilized for this exam: automated exposure control, adjustment of mA and/or KV based on patient size, or use of iterative reconstructive technique. FINDINGS: Pulmonary Arteries: Diagnostic quality: Suboptimal through the segmental arteries. Acute pulmonary embolus in the segmental branch of the pulmonary artery supplying the right upper lobe posteriorly. There is thrombus in the subsegmental pulmonary artery supplying the right lung base. RV/LV is within normal limits. There is no interventricular septal bowing. There is no reflux of contrast material in the IVC. Lungs/Pleura: No consolidation, nodules, or edema. No effusions or pneumothorax. Mediastinum: Normal. No cardiac enlargement or adenopathy. Thoracic Aorta: Unremarkable. Upper Abdomen: Unremarkable. Other: None. IMPRESSION: 1. Acute pulmonary emboli in the segmental arteries supplying the right upper lobe posteriorly and right lung base. 2. No evidence of heart strain. RADIA The above critical result findings were discussed with Yury Mccullough by Dr. Zo Machuca at 07:56 PM on 05/05/2019.
[2019-05-05] MEDS ORDERED: ENOXAPARIN 100 MG/ML SYRINGE SUBQ STA (20:23)
[2019-05-05] MEDS ORDERED: RIVAROXABAN 15 MG TABLET PO STA (20:23)
[2019-05-05] MEDS ORDERED: SODIUM CHLORIDE FLUSH 0.9% 10 ML SYRINGE IVP PRN (20:34)
[2019-05-05] MEDS ORDERED: ACETAMINOPHEN 325 MG TABLET PO PRN (20:34)
--- NOTE | 2019-05-05 20:47 | HISTORY & PHYSICAL EXAMINATION ---
Chief Complaint - Chief Complaint Chief Complaint: Chest pain History of Present Illness - Admitted From Admitted From:: Home - History Obtained From Records Reviewed: Yes History obtained from: Patient, ER Physician - History of Present Illness HPI Comment/Other: This is a 38 year old female with a past medical history significant for hypertension, obesity, mood disorder, hypothyroidism, and chronic pain who presents from home complaining of chest pain for the past four days. Her chest pain became more severe and so she sought medical attention. The pain is located substernally and also over the right chest. She reports it radiates to her right arm. Denies nausea, vomiting, dyspnea, diaphoresis. She reports no cough, fevers, and chills. She did notice her lower extremites becoming swollen over the last 2-3 days. She denies a personal and family history of DVT/PE. She reports having an L4/L5 fusion surgery on March 12. She reports being h ospitalized for two days and that she was active postoperatively. Denies recent trauma, long flight/car rides, and OCP use. She does not believe that she can be . Denies history of malignancy. Reports last PAP smear was a few years ago and was normal from what she can recall. She denies a history of bleeding but she does report heavy menses. In the ER, she was found to be tachycardic but not hypoxic or tachypinic. Labs were significant for a hemoglobin of 10.9, and an elevated D-dimer. Troponin and BNP were negative. She underwent a CTA of the chest which revealed right segmental PE's. She was given Lovenox in the ER. Medicine was consulted for admission given that the patient is tachycardic. History - Past Medical History Cardiovascular: reports: None Respiratory: reports: Asthma Neuro: reports: None Endocrine/Autoimmune: reports: None GI: reports: None ONSITE CASE MANAGER: reports: None : reports: Retention HEENT: reports: None Psych: reports: Depression Musculoskeletal: reports: Fibromyalgia, Chronic back pain Derm: reports: None MRSA Hx?: No - Past Surgical History Ortho: reports: Carpal Tunnel surgery, Other (L4/L5 spinal fusion.) - Family & Social History Family History Comment/Other: She reports no family history of DVT/PE. She has one uncle that had pancreatic cancer and diabetes. Living arrangement: At home, Other (Fairly sedentary lifestyle due to chronic pains of fibromyalgia and back pain.) Living Situation: With spouse/s.o. 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 No longer working due to her chronic back pain. She no longer smokes after quiting this past November. Previously smoked a pack per day for approximately 20 years. Drinks alcohol occasionally. Does not use illict drugs. - Substance History Use: Uses substance without health or social issues: NONE - POLST Patient has POLST: No Meds/Allgy - Home Medications Home Medications: Ambulatory Orders Medication Instructions Recorded Confirmed ARIPiprazole [Abilify] 5 mg PO DAILY 10/05/17 Albuterol Sulfate [Proair Hfa 2 puffs INH TID PRN 10/05/17 Inhaler] Amitriptyline [Elavil] 25 tab PO DAILY 10/05/17 Duloxetine HCl [Cymbalta] 60 mg PO DAILY 10/05/17 Meloxicam [Mobic] 1 tab PO BID 10/05/17 Morphine Sulfate [Morphine Sulfate 30 mg PO BID PRN 10/05/17 ER] Pregabalin [Lyrica] 150 mg PO BID 10/05/17 Spironolactone 50 mg PO BID 10/05/17 Terazosin [Hytrin] 10 mg PO DAILY 10/05/17 oxyCODONE [Roxicodone] 30 mg PO Q6HR PRN 10/05/17 raNITIdine [Zantac] 150 mg PO DAILY 10/05/17 Cyclobenzaprine [Flexeril] 10 mg PO QID 10/08/18 10/08/18 Furosemide [Lasix] 20 mg PO DAILY 10/08/18 10/08/18 Levothyroxine [Synthroid] 50 mcg PO QDAC 10/08/18 10/08/18 Lubiprostone [Amitiza] 24 mcg PO BID 10/08/18 10/08/18 Metoprolol Succinate 25 mg PO DAILY 10/08/18 10/08/18 Metoprolol Tartrate [Lopressor] 50 mg PO BID 10/08/18 10/08/18 Omeprazole 20 mg PO DAILY 10/08/18 10/08/18 Oxycodone HCl [Roxicodone] 15 mg PO QID 10/08/18 10/08/18 diazePAM [Diazepam] 5 mg PO PRN PRN 10/08/18 10/08/18 tiZANidine [Zanaflex] 4 mg PO Q8H 10/08/18 10/08/18 - Allergies Allergies/Adverse Reactions: Allergies Allergy/AdvReac Type Severity Reaction Status Date / Time carisoprodol [From Soma] Allergy Unknown Verified 05/05/19 17:02 Review of Systems - Constitutional Constitutional: denies: Fatigue, Fever, Chills, Weakness, Diaphoresis - Cardiovascular Cariovascular: reports: Chest pain. denies: Palpitations, Exertional dyspnea, Decr. exercise tolerance - Respiratory Respiratory: denies: Cough, SOB at rest, SOB with exertion - Gastrointestinal Gastrointestinal: denies: Abdominal pain, Constipation, Diarrhea, Nausea, Vomiting - Genitourinary Genitourinary: denies: Dysuria, Frequency, Urgency - Integumentary Integumentary: denies: Rash - Neurological Neurological: reports: Numbness - Hematologic/Lymphatic Hematologic/Lymphatic: denies: Bruising, Bleeding tendencies - All Other Systems All Other Systems: reports: Reviewed and negative Prior Level of Functionality: Independent with ADL's. Exam - Vital Signs Reviewed Vital Signs: Yes Vital Signs: Vital Signs x48h Temp Pulse Resp BP Pulse Ox 05/05/19 19:26 98 16 119/93 H 95 05/05/19 19:01 106 H 17 132/81 H 95 05/05/19 16:48 36.6 C 104 H 18 148/76 H 95 - Physical Exam General Appearance: positive: No acute distress Eyes Bilateral: positive: Normal inspection ENT: positive: ENT inspection nml Neck: positive: Nml inspection Respiratory: positive: No respiratory distress. negative: Wheezes, Rales, Rhonchi Cardiovascular: positive: No murmur, Tachycardia. negative: Systolic murmur, Diastolic murmur Abdomen: positive: Non-tender, Nml bowel sounds, No distention. negative: Tenderness, Guarding, Rebound Skin: positive: Color nml, No rash, Warm Extremities: positive: Full ROM, Pedal edema (+1 pitting edema in bilateral lower extremities.), Guillermo's sign/cords (Postive Guillermo's sign.) Neurologic/Psychiatric: positive: Oriented x3, Disoriented to time. negative: Disoriented to person, Disoriented to place Conclusion/Plan - Problem List (1) Acute pulmonary embolism without acute cor pulmonale Conclusion/Plan: She has acute PE in the segmental arteries of the right upper lobe and right lung base. May be provoked secondary to her spinal fusion surgery back on March 12. No other risk factors except for obesity. Not hypoxic but she is tachycardic. Troponin and BNP negative. No evidence of right heart stain on EKG or CT. - Lovenox 1 mg/kg as her BMI is >40 and NOAC's have not been studied in these patients - She will require Coumadin on penitentiary basis for minimum of 3 months - Check lower extremity doppler - Will hold off on Echocardiogram as these are small PE's and she has no elevation in troponin or BNP and is otherwise hemodynamically stable - Check urine for - Monitor for bleeding Qualifiers: Pulmonary embolism type: other Qualified Code(s): I26.99 - Other pulmonary embolism without acute cor pulmonale (2) Hypertension Conclusion/Plan: Hypertensive at this time. Will resume home Metoprolol. (3) Mood disorder Conclusion/Plan: Stable. Will continue home Abilify. (4) Chronic back pain Conclusion/Plan: Stable. Will resume home Morphine, Oxycodone, and Lyrica. (5) Urinary retention Conclusion/Plan: Newly diagnosed last week. Has cho catheter in place and is scheduled to follow up with PCP tomorrow. - Continue cho catheter - Consider voiding trial in AM (6) Hypothyroidism Conclusion/Plan: Stable. Continue home Synthroid. - Lab Results Lab results reviewed: Yes Fish Bones: 05/05/19 17:30 05/05/19 17:30 - Diagnostic Imaging Results Diagnostic Imaging Results: positive: Final report reviewed - EKG Results EKG Interpreted Independently: Yes EKG Comparison: Unchanged from prior EKG EKG Findings: Sinus tachycardia with RBBB. Core Measures - Anticipated LOS I expect patient to be DC'd or transferred within 96 hours.: Yes - Issues Hospital Issues and Management Plan: Acute PE with tachycardia. Will admit to initiate anticoagulation. - DVT/VTE - Prophylaxis VTE/DVT Device ordered at admit?: No Not Ordered - Medical Reason: Contraindicated VTE/DVT Prophylaxis med ordered at admit?: Yes
[2019-05-05 20:55] LABS: INR 0.9 (0.8-1.2); PT - PROTHROMBIN TIME 10.8 secs (9.9-12.6)
[2019-05-05 21:08] LABS: HCG UR QUAL NEGATIVE
[2019-05-05] MEDS ORDERED: MORPHINE 2 MG/ML CARPUJECT IVP STA (21:50)
[2019-05-05] MEDS ORDERED: oxyCODONE 5 MG TABLET PO PRN (22:41)
[2019-05-05] MEDS ORDERED: AMITRIPTYLINE 25 MG TABLET PO SCH (22:42)
[2019-05-05] MEDS ORDERED: ARIPiprazole 5 MG TABLET PO SCH (22:42)
[2019-05-05] MEDS ORDERED: traZODone 50 MG TABLET PO STA (23:07)
[2019-05-05] MEDS: MORPHINE SULFATE ER 30 MG TABLET PO SCH (23:13)
[2019-05-05] MEDS: PREGABALIN 25 MG CAPSULE PO SCH (23:14)
[2019-05-05] MEDS: METOPROLOL TARTRATE 50 MG TABLET PO SCH (23:15)
--- NOTE | 2019-05-06 00:02 | Ultrasound Report ---
Reason: Pulmonary Embolism. Procedure Date: 05/05/2019 Accession Number: [id number] / [id number] Procedure: US - Duplex Ext Veins Bilateral CPT Code: FULL RESULT: EXAM: BILATERAL LOWER EXTREMITY VENOUS ULTRASOUND. EXAM DATE: 05/05/2019 09:54 PM. CLINICAL HISTORY: Pulmonary embolism. COMPARISON: CHEST ANGIO 05/05/2019 7:05 PM. TECHNIQUE: Real-time sonographic vascular imaging was performed by the fire extinguisher technician through the lower extremities utilizing both color-flow and Doppler spectral analysis. Multiple claims customer service representative static images were saved for review. FINDINGS: Right: Common Femoral Vein (CFV): Normal. CFV-GSV Junction: Normal. Profunda Femoral Vein (PFV): Normal. Femoral Vein (FV) Prox: Normal. Femoral Vein (FV) Mid: Normal. Femoral Vein (FV) Dist: Poorly seen without gross thrombus. Popliteal Vein: Poorly seen without gross thrombus. Posterior Tibial Veins: Poorly seen without gross thrombus. Peroneal Veins: Not seen due to body habitus. Left: Common Femoral Vein (CFV): Normal. CFV-GSV Junction: Normal. Profunda Femoral Vein (PFV): Normal. Femoral Vein (FV) Prox: Normal. Femoral Vein (FV) Mid: Poorly seen without gross thrombus. Femoral Vein (FV) Dist: Poorly seen without gross thrombus. Popliteal Vein: Poorly seen without gross thrombus. Posterior Tibial Veins: Poorly seen without gross thrombus. Peroneal Veins: Not seen due to body habitus. Other: None. IMPRESSION: No evidence for deep venous thrombosis bilaterally with limitations as above. RADIA
[2019-05-06] MEDS: SODIUM CHLORIDE FLUSH 0.9% 10 ML SYRINGE IVP SCH ×2 (01:30→09:10)
[2019-05-06 05:40] LABS: BASOPHILS % (AUTO) 0.3 %; EOSINOPHILS # (AUTO) 0.1 10^3/uL (0.0-0.7); HGB - HEMOGLOBIN 10.5 g/dL (12.0-16.0); LYMPHOCYTES # (AUTO) 1.4 10^3/uL (1.5-3.5); LYMPHOCYTES % (AUTO) 23.2 %; MEAN CORPUSCULAR HEMOGLOBIN 27.9 pg (27.0-31.0); MEAN CORPUSCULAR HGB CONC 31.3 g/dL (32.0-36.0); MEAN CORPUSCULAR VOLUME 89.4 fL (81.0-99.0); MONOCYTES # (AUTO) 0.5 10^3/uL (0.0-1.0); MONOCYTES % (AUTO) 8.7 %; NEUTROPHILS # (AUTO) 3.9 10^3/uL (1.5-6.6); NEUTROPHILS % (AUTO) 65.5 %; PLT - PLATELET COUNT 184 10^3/uL (130-450); RED BLOOD COUNT 3.76 10^6/uL (4.20-5.40); RED CELL DISTRIBUTION WIDTH 13.7 % (12.0-15.0)
[2019-05-06 05:47] LABS: CALCIUM 8.7 mg/dL (8.5-10.3); CREATININE 0.6 mg/dL (0.4-1.0)
[2019-05-06] MEDS ORDERED: LEVOTHYROXINE 25 MCG TABLET PO SCH (07:00)
--- NOTE | 2019-05-06 08:04 | Discharge Plan ---
Discharge Plan Problem Reviewed?: Yes Disposition: Home, Self Care Condition: Stable Prescriptions: Enoxaparin [Lovenox] 120 mg SUBQ BID #14 syringe Warfarin [Coumadin] 5 mg PO QDWARFARIN #30 tablet Diet: Regular Activity Restrictions: Activity as Tolerated Shower Restrictions: No Driving Restrictions: No Instruction Topics: Embolism Pulmonary Health Concerns: Admitted with chest pain and found to have clot in lung (pulmonary embolism). Plan of Treatment: Lovenox injections until the Coumadin dose is in correct range of INRs (blood tests). This will need close follow-up and management by your PCP. Care Goals: Management of clot in lings. Assessment: Patient is agreeable with the plan. Additional Instructions or Follow Up instructions: You will need blood tests frequently (possibly daily) for several days, until the Coumadin dose is right. Until then, you will need twice a day Lovenox injections. This should all be managed, and any questions directed to your PCP, or to Dr Vargas while your PCP is out. No Smoking: If you smoke, Please STOP! Call for help. Follow-up with: MONO BERNARDO [Physician No Access] -
[2019-05-06 08:21] VITALS: BP 139/81
[2019-05-06] MEDS ORDERED: WARFARIN 5 MG TABLET PO SCH (08:30)
[2019-05-06] MEDS ORDERED: DOCUSATE SODIUM 250 MG CAPSULE PO SCH (09:00)
[2019-05-06] MEDS ORDERED: ENOXAPARIN 120 MG/0.8 ML SYRINGE SUBQ SCH (09:00)
[2019-05-06] MEDS ORDERED: POLYETHYLENE GLYCOL 3350 17 GM PACKET PO SCH (09:00)
[2019-05-06] MEDS: PREGABALIN 25 MG CAPSULE PO SCH (09:07)
[2019-05-06] MEDS: MORPHINE SULFATE ER 30 MG TABLET PO SCH (09:08)
[2019-05-06] MEDS: METOPROLOL TARTRATE 50 MG TABLET PO SCH (09:08)
--- NOTE | 2019-05-12 16:36 | DISCHARGE SUMMARY ---
Discharge Summary Admit Date: 05/05/19 Discharge Date: 05/06/19 Discharging Provider: Dr Erin Story Primary Care Provider: Dr Lilo Villanueva Code Status: Attempt Resuscitation Condition at Discharge: Stable Discharge Disposition: 01 Home, Self Care - DIAGNOSES Admission Diagnoses: (1) Acute pulmonary embolism without acute cor pulmonale (2) Hypertension (3) Mood disorder (4) Chronic back pain (5) Urinary retention (6) Hypothyroidism Discharge Diagnoses with Status of Each Condition: See below - HPI History of Present Illness: From the admission H&P of Dr Edwin Thomas: This is a 38 year old female with a past medical history significant for hypertension, obesity, mood disorder, hypothyroidism, and chronic pain who prese nts from home complaining of chest pain for the past four days. Her chest pain became more severe and so she sought medical attention. The pain is located substernally and also over the right chest. She reports it radiates to her right arm. Denies nausea, vomiting, dyspnea, diaphoresis. She reports no cough, fevers, and chills. She did notice her lower extremities becoming swollen over the last 2-3 days. She denies a personal and family history of DVT/PE. She reports having an L4/L5 fusion surgery on March 12. She reports being hospitalized for two days and that she was active postoperatively. Denies recent trauma, long flight/car rides, and OCP use. She does not believe that she can be . Denies history of malignancy. Reports last PAP smear was a few years ago and was normal from what she can recall. She denies a history of bleeding but she does report heavy menses. In the ER, she was found to be tachycardic but not hypoxic or tachypinic. Labs were significant for a hemoglobin of 10.9, and an elevated D-dimer. Troponin and BNP were negative. She underwent a CTA of the chest which revealed right segmental Pulmonary Emboli. She was given Lovenox in the ER. Hospitalist team was consulted for further management, given that the patient is tachycardic. - HOSPITAL COURSE Hospital Course: (1) Acute pulmonary embolism without acute cor pulmonale She had acute PE's in the segmental arteries of the right upper lobe and right lung base. These may have been "provoked PE's" secondary to her spinal fusion surgery back on March 12, 2019. No other risk factors noted, except for obesity. She was not hypoxic but she was tachycardic. Troponin and BNP negative. No evidence of right heart stain on EKG or CT. She had lower extremity Dopplers done that were neg for DVT. She was put on Lovenox 1 mg/kg, as a bridge to Coumadin. Since her BMI is >40, the NOAC's are not indicated for use as they have not been studied in these patients. She will require Coumadin on a relatively shelter basis: for minimum of 3 months. She did not undergo an Echocardiogram, as these were small PE's and she had no elevation in troponin or BNP and was relatively hemodynamically stable. She was educated about bleeding risk and told that she needs close outpatient monitoring of INR lab tests and Coumadin dosing. Her first appointment with her PCP was later that day of discharge. (2) Hypertension Her home Metoprolol was used while here. (3) Mood disorder Continued on home Abilify. (4) Chronic back pain Stable. Her home doses of Morphine, Oxycodone, and Lyrica were ordered. (5) Urinary retention This was newly diagnosed last week. She had a Carey catheter in place while here, and was scheduled to follow up with PCP for this on the day of discharge. (6) Hypothyroidism She was continued on her home Synthroid dose. - ALLERGIES Allergies/Adverse Reactions: Allergies Allergy/AdvReac Type Severity Reaction Status Date / Time carisoprodol [From Soma] Allergy Unknown Verified 05/09/19 21:53 - MEDICATIONS Home Medications: Ambulatory Orders Medication Instructions Recorded Confirmed ARIPiprazole [Abilify] 5 mg PO DAILY 10/05/17 05/09/19 Albuterol Sulfate [Proair Hfa 2 puffs INH TID PRN 10/05/17 05/09/19 Inhaler] Amitriptyline [Elavil] 25 tab PO DAILY 10/05/17 05/09/19 Duloxetine HCl [Cymbalta] 60 mg PO DAILY 10/05/17 05/09/19 Meloxicam [Mobic] 1 tab PO BID 10/05/17 05/09/19 Pregabalin [Lyrica] 150 mg PO BID 10/05/17 05/09/19 Terazosin [Hytrin] 5 mg PO QPM 10/05/17 05/09/19 raNITIdine [Zantac] 150 mg PO DAILY 10/05/17 05/09/19 Cyclobenzaprine [Flexeril] 10 mg PO TID PRN 10/08/18 05/09/19 Furosemide [Lasix] 20 mg PO DAILY 10/08/18 05/09/19 Levothyroxine [Synthroid] 50 mcg PO QDAC 10/08/18 05/09/19 Lubiprostone [Amitiza] 24 mcg PO BID 10/08/18 05/09/19 Metoprolol Tartrate [Lopressor] 50 mg PO BID 10/08/18 05/09/19 Omeprazole 20 mg PO BID 10/08/18 05/09/19 diazePAM [Diazepam] 5 mg PO PRN PRN 10/08/18 05/09/19 tiZANidine [Zanaflex] 4 mg PO Q8H 10/08/18 05/09/19 Docusate Calcium 240 mg PO BID 05/06/19 05/09/19 Enoxaparin [Lovenox] 120 mg SUBQ BID #14 syringe 05/06/19 05/09/19 Ibuprofen [Motrin] 05/06/19 Morphine ER [Ms Contin] 15 mg PO Q12H 05/06/19 05/09/19 Oxycodone HCl [Roxicodone] 7.5 - 15 mg PO .Q6-8H PRN MDD 15 MG 05/06/19 05/09/19 Warfarin [Coumadin] 5 mg PO QDWARFARIN #30 tablet 05/06/19 05/09/19 traZODone [Desyrel] 50 mg PO HS PRN 05/06/19 05/09/19 HYDROmorphone [Dilaudid] 4 mg PO Q4HR PRN 05/09/19 05/09/19 - PHYSICAL EXAM AT DISCHARGE General Appearance: positive: No acute distress, Alert Eyes Bilateral: positive: Normal inspection ENT: positive: ENT inspection nml Neck: positive: No JVD, Other (Sipple neck, Obses) Respiratory: positive: No respiratory distress, Breath sounds nml Cardiovascular: positive: Regular rate & rhythm, No murmur, Other (Distant heart sounds) Abdomen: positive: Non-tender, Other (Obese with a pannus) Skin: positive: Color nml Extremities: positive: Other (Trace pre-tibial edema, no tenderness) - LABS Result Diagrams: 05/06/19 05:24 05/06/19 05:24 - DIAGNOSTIC IMAGING Diagnostic Imaging Results: Final report reviewed - FOLLOW UP Follow Up: See PCP (or her substitute), keep the appointment for today, for further management of Coumadin dosing and lab tests and for hosptal follow-up and management of the Carey catheter. - TIME SPENT Time Spent in Discharge (Minutes): 45
== END 2019-05-06 10:05 | disposition home or self-care (01) ==
LOC: EDUNIT# → ED 16:45 → MS2 20:34
PROVIDERS: ADMIT Internal Medicine; ATTEND Internal Medicine
DX: I26.99 Other pulmonary embolism without acute cor pulmonale (principal); I10 Essential (primary) hypertension; F39 Unspecified mood [affective] disorder; G89.29 Other chronic pain; M54.9 Dorsalgia, unspecified; R33.9 Retention of urine, unspecified; E03.9 Hypothyroidism, unspecified; E66.9 Obesity, unspecified; Z68.41 Body mass index [BMI] 40.0-44.9, adult; F32.9 Major depressive disorder, single episode, unspecified; M79.7 Fibromyalgia; Z87.891 Personal history of nicotine dependence; Z79.51 Long term (current) use of inhaled steroids; Z79.891 Long term (current) use of opiate analgesic
CPT/HCPCS: 36415; 71045; 71275; 76705; 80048; 80053; 81025; 83690; 83880; 84484; 85025; 85379; 85610; 93005; 93970; 96372; 96374; 96375; 99285; A9270; G0378; J1170; J1650; Q9967

== ENCOUNTER 2019-05-09 19:10 | Outpatient (CLI) | payer OTHER | END 2019-05-09 19:11 | disposition critical access hospital (66) | LOC: EMS 19:10 | PROVIDERS: ATTEND Surgery | DX: R07.9 Chest pain, unspecified (principal); R10.10 Upper abdominal pain, unspecified | CPT/HCPCS: A0425; A0427 ==

== ENCOUNTER 2019-07-07 08:50 | Emergency (ER) | payer OTHER ==
[2019-07-07] MEDS ORDERED: IOVERSOL 320 100 ML VIAL IVP ONE ×2 (09:19→10:53)
--- NOTE | 2019-07-07 09:20 | ED Physician Documentation ---
History of Present Illness - Stated complaint Stated Complaint: CHEST PAIN - Chief complaint Chief Complaint: Cardiac - Additonal information Additional information: This is a 38-year-old female with a history of pulmonary embolisms in the s etting of lumbar fusion, these were diagnosed on 05/05 of this year, she was discharged on warfarin Lovenox. She is now on warfarin along but has at times been subtherapeutic as her INR is at times been below 2. She presents with continued chest pain and shortness of breath, which has increased over the last 48 hours. No vomiting, no radiation to the arms or jaw. 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 HEENT: None Psych: Depression Musculoskeletal: Fibromyalgia, Chronic back pain Derm: None - Past Surgical History Past Surgical History: Yes Ortho: Carpal Tunnel surgery, Other (L4/L5 spinal fusion.) - Present Medications Home Medications: Ambulatory Orders Medication Instructions Recorded Confirmed ARIPiprazole [Abilify] 5 mg PO DAILY 10/05/17 05/09/19 Albuterol Sulfate [Proair Hfa 2 puffs INH TID PRN 10/05/17 05/09/19 Inhaler] Amitriptyline [Elavil] 25 tab PO DAILY 10/05/17 05/09/19 Duloxetine HCl [Cymbalta] 60 mg PO DAILY 10/05/17 05/09/19 Meloxicam [Mobic] 1 tab PO BID 10/05/17 05/09/19 Pregabalin [Lyrica] 150 mg PO BID 10/05/17 05/09/19 Terazosin [Hytrin] 5 mg PO QPM 10/05/17 05/09/19 raNITIdine [Zantac] 150 mg PO DAILY 10/05/17 05/09/19 Cyclobenzaprine [Flexeril] 10 mg PO TID PRN 10/08/18 05/09/19 Furosemide [Lasix] 20 mg PO DAILY 10/08/18 05/09/19 Levothyroxine [Synthroid] 50 mcg PO QDAC 10/08/18 05/09/19 Lubiprostone [Amitiza] 24 mcg PO BID 10/08/18 05/09/19 Metoprolol Tartrate [Lopressor] 50 mg PO BID 10/08/18 05/09/19 Omeprazole 20 mg PO BID 10/08/18 05/09/19 diazePAM [Diazepam] 5 mg PO PRN PRN 10/08/18 05/09/19 tiZANidine [Zanaflex] 4 mg PO Q8H 10/08/18 05/09/19 Docusate Calcium 240 mg PO BID 05/06/19 05/09/19 Enoxaparin [Lovenox] 120 mg SUBQ BID #14 syringe 05/06/19 05/09/19 Ibuprofen [Motrin] 05/06/19 Morphine ER [Ms Contin] 15 mg PO Q12H 05/06/19 05/09/19 Oxycodone HCl [Roxicodone] 7.5 - 15 mg PO .Q6-8H PRN MDD 15 MG 05/06/19 05/09/19 Warfarin [Coumadin] 5 mg PO QDWARFARIN #30 tablet 05/06/19 05/09/19 traZODone [Desyrel] 50 mg PO HS PRN 05/06/19 05/09/19 HYDROmorphone [Dilaudid] 4 mg PO Q4HR PRN 05/09/19 05/09/19 Doxycycline Hyclate 100 mg PO BID #14 capsule 07/07/19 - Allergies Allergies/Adverse Reactions: Allergies Allergy/AdvReac Type Severity Reaction Status Date / Time carisoprodol [From Soma] Allergy Unknown Verified 07/07/19 09:08 - Social History Does the pt smoke?: Yes Smoking Status: Never smoker Does the pt drink ETOH?: Yes Does the pt have substance abuse?: No - Immunizations Immunizations are current?: Yes - POLST Patient has POLST: No PD ED PE NORMAL - Vitals Vital signs reviewed: Yes - General General: Alert and oriented X 3, No acute distress - HEENT HEENT: PERRL - Neck Neck: Supple, no meningeal sign - Cardiac Cardiac: RRR, No murmur - Respiratory Respiratory: Clear bilaterally - Abdomen Abdomen: Soft, Non tender, Non distended - Derm Derm: Warm and dry - Extremities Extremities: No deformity - Neuro Neuro: Alert and oriented X 3 - Psych Psych: Normal mood, Normal affect Results - Vitals Vitals: Oxygen O2 Source Room air - EKG (time done) 9:06 Other comments: Other comments (Rate 93, rhythm sinus, there is a right bundle branch block. There is no ST segment elevation or depression, no significant change from prior. Computer is reading a recent lateral infarct, I disagree with this interpretation.) - Labs Labs: Laboratory Tests 07/07/19 07/07/19 07/07/19 09:38 09:38 09:38 WBC 5.7 RBC 3.93 L Hgb 10.3 L Hct 35.2 L MCV 89.6 MCH 26.2 L MCHC 29.3 L RDW 14.6 Plt Count 240 MPV 10.1 Neut # (Auto) 3.9 Lymph # (Auto) 1.0 L Pepin # (Auto) 0.5 Eos # (Auto) 0.2 Baso # (Auto) 0.0 Absolute Nucleated RBC 0.00 Nucleated RBC % 0.0 PT 24.4 H INR 2.2 H Sodium 138 Potassium 4.2 Chloride 101 Carbon Dioxide 28 Anion Gap 9.0 BUN 8 Creatinine 0.6 Estimated GFR (MDRD) 112 Glucose 130 H Calcium 8.9 Total Bilirubin 0.4 AST 24 ALT 25 Alkaline Phosphatase 64 Troponin I High Sens Total Protein 7.5 Albumin 3.9 Globulin 3.6 Albumin/Globulin Ratio 1.1 Lipase 24 07/07/19 09:38 WBC RBC Hgb Hct MCV MCH MCHC RDW Plt Count MPV Neut # (Auto) Lymph # (Auto) Pepin # (Auto) Eos # (Auto) Baso # (Auto) Absolute Nucleated RBC Nucleated RBC % PT INR Sodium Potassium Chloride Carbon Dioxide Anion Gap BUN Creatinine Estimated GFR (MDRD) Glucose Calcium Total Bilirubin AST ALT Alkaline Phosphatase Troponin I High Sens < 2.3 L Total Protein Albumin Globulin Albumin/Globulin Ratio Lipase - Rads (name of study) CT PE Radiology: Other (No pulmonary embolism. Right middle lobe infiltrate.) PD MEDICAL DECISION MAKING - ED course Complexity details: considered differential (Pulmonary embolism, subtherapeutic anticoagulation, ACS, dysrhythmia, pneumothorax, pneumonia, musculoskeletal pain) ED course: On arrival patient is nontoxic-appearing. She has normal oxygen saturation and heart rate. Her EKG reveals a stable right bundle branch block, no acute changes suggestive of ischemia or dysrhythmia. Labs reveal stable anemia, negative troponin. Given the fact that her symptoms have been ongoing for 48 hours, a single troponin is sufficient. No signs of ACS at this time. Given the worsening of her symptoms as well as her reported intermittent subtherapeutic INR, CT PE scan was obtained showing No pulmonary embolism but it does show a right middle lobe infiltrate. Patient is afebrile but she does have a cough, and given her symptoms we will treat for early pneumonia with a course of doxycycline. She has a therapeutic INR. I discussed the results of her work- up, return precautions, and primary care follow-up with the patient. She agrees with this plan and was discharged home in care of family. Departure - Departure Disposition: 01 Home, Self Care Clinical Impression: Pneumonia Qualifiers: Pneumonia type: due to unspecified organism Laterality: right Lung location: middle lobe of lung Qualified Code(s): J18.9 - Pneumonia, unspecified organism Condition: Good Instructions: Pneumonia Dc Follow-Up: MONO BERNARDO [Primary Care Provider] - Within 1 week Prescriptions: Doxycycline Hyclate 100 mg PO BID #14 capsule Comments: We do not see signs of blood clots in your lungs, you do appear to have an early pneumonia, please take the antibiotic as prescribed, you may take Tylenol for fever or discomfort. If you are having severely worsening pain, or increased difficulty breathing, or other concerning symptoms return to the emergency department Discharge Date/Time: 07/07/19 12:30
[2019-07-07 10:07] LABS: BASOPHILS % (AUTO) 0.5 %; EOSINOPHILS # (AUTO) 0.2 10^3/uL (0.0-0.7); EOSINOPHILS % (AUTO) 3.3 %; HGB - HEMOGLOBIN 10.3 g/dL (12.0-16.0); LYMPHOCYTES % (AUTO) 18.2 %; MEAN CORPUSCULAR HEMOGLOBIN 26.2 pg (27.0-31.0); MEAN CORPUSCULAR HGB CONC 29.3 g/dL (32.0-36.0); MEAN CORPUSCULAR VOLUME 89.6 fL (81.0-99.0); MEAN PLATELET VOLUME 10.1 fL (7.9-10.8); MONOCYTES # (AUTO) 0.5 10^3/uL (0.0-1.0); MONOCYTES % (AUTO) 9.4 %; NEUTROPHILS # (AUTO) 3.9 10^3/uL (1.5-6.6); NEUTROPHILS % (AUTO) 68.3 %; PLT - PLATELET COUNT 240 10^3/uL (130-450); RED BLOOD COUNT 3.93 10^6/uL (4.20-5.40); RED CELL DISTRIBUTION WIDTH 14.6 % (12.0-15.0); WHITE BLOOD COUNT 5.7 x10^3/uL (4.8-10.8)
[2019-07-07 10:19] LABS: ALBUMIN 3.9 g/dL (3.2-5.5); ALBUMIN/GLOBULIN RATIO 1.1 (1.0-2.2); BILIRUBIN,TOTAL 0.4 mg/dL (0.2-1.0); CALCIUM 8.9 mg/dL (8.5-10.3); CREATININE 0.6 mg/dL (0.4-1.0); TOTAL PROTEIN 7.5 g/dL (6.7-8.2)
[2019-07-07 10:35] LABS: INR 2.2 (0.8-1.2); PT - PROTHROMBIN TIME 24.4 secs (9.9-12.6)
--- NOTE | 2019-07-07 11:11 | CT Report ---
Reason: Hx PE, increasing CP and SOB Procedure Date: 07/07/2019 Accession Number: [id number] / [id number] Procedure: CT - ANGIO CHEST W/WO CPT Code: Final Report FULL RESULT: EXAM: CT ANGIOGRAM CHEST EXAM DATE: 07/07/2019 10:40 AM. CLINICAL HISTORY: Hx PE, increasing CP and SOB. COMPARISON: CHEST ANGIO 05/05/2019 7:05 PM. TECHNIQUE: Routine helical imaging was performed through the chest in the pulmonary arterial phase. IV Contrast: OPTI 320 80ML. Reconstructions: Coronal 3-D MIP reconstructions.Sagittal and coronal. In accordance with CT protocol optimization, one or more of the following dose reduction techniques were utilized for this exam: automated exposure control, adjustment of mA and/or KV based on patient size, or use of iterative reconstructive technique. FINDINGS: Pulmonary Arteries: Diagnostic quality: Adequate through the segmental arteries. No evidence for acute or chronic pulmonary emboli. RV/LV is within normal limits. There is no interventricular septal bowing. There is no reflux of contrast material in the IVC. Lungs/Pleura: Right middle lobe peribronchial thickening, infiltrate. No effusion. No pneumothorax Mediastinum: Normal. No cardiac enlargement or adenopathy. Thoracic Aorta: Unremarkable. Upper Abdomen: Unremarkable. Other: None. IMPRESSION: 1. No pulmonary emboli. 2. Right middle lobe infiltrate RADIA
[2019-07-07] MEDS ORDERED: DOXYCYCLINE 100 MG TABLET PO STA (12:10)
[2019-07-07 12:26] VITALS: BP 146/82
== END 2019-07-07 12:30 | disposition home or self-care (01) ==
LOC: ED 08:50
DX: J18.9 Pneumonia, unspecified organism (principal)
CPT/HCPCS: 36415; 71275; 80053; 83690; 84484; 85025; 85610; 93005; 99284; A9270; Q9967

== ENCOUNTER 2019-07-12 04:08 | Emergency (ER) | payer OTHER ==
[2019-07-12] MEDS ORDERED: DEXAMETHASONE 10 MG/ML VIAL PO STA (05:18)
[2019-07-12] MEDS ORDERED: KETOROLAC 60 MG/2 ML VIAL IM STA (05:18)
[2019-07-12] MEDS ORDERED: CHERRY SYRUP 10 ML UDC PO ONE (05:18)
[2019-07-12] MEDS ORDERED: cefTRIAXone 1 GM VIAL IM STA (05:18)
[2019-07-12] MEDS ORDERED: LIDOCAINE 1% 2 ML VIAL MC ONE (05:18)
[2019-07-12] MEDS ORDERED: IPRATROPIUM/ALBUTEROL 3 ML NEB INH STA (05:18)
--- NOTE | 2019-07-12 05:54 | XRAY Report ---
Reason: cough RML pneumonia persistent Procedure Date: 07/12/2019 Accession Number: [id number] / [id number] Procedure: XR - Chest 2 View X-Ray CPT Code: 18840 Final Report FULL RESULT: EXAM: CHEST RADIOGRAPHY EXAM DATE: 07/12/2019 05:40 AM. CLINICAL HISTORY: Cough RML pneumonia persistent. COMPARISON: CHEST 1 VIEW 05/09/2019 9:21 PM CHEST ANGIO 07/07/2019 10:32 AM. TECHNIQUE: 2 views. FINDINGS: Lungs/Pleura: Subsegmental opacity in the middle lobe. The remaining portions of the lungs are clear. No pleural effusion. No pneumothorax. Normal volumes. Mediastinum: Heart and mediastinal contours are unremarkable. Other: None. IMPRESSION: Right middle lobe pneumonia versus atelectasis. RADIA
--- NOTE | 2019-07-12 05:57 | ED Physician Documentation ---
PD HPI URI - Stated complaint Stated Complaint: COUGH - Chief complaint Chief Complaint: Resp - History obtained from History obtained from: Patient, Family - History of Present Illness Timing - onset: How many weeks ago (2) Timing duration: Weeks (2) Timing details: Gradual onset, Still present Associated symptoms: Nasal congestion, Productive cough, Chest pain, Dyspnea Improves by: Rest, Medication Similar symptoms before: Diagnosis (pneumonia and PE) Recently seen: Emergency Dept - Additional information Additional information: 38-year-old female with a history of pulmonary embolism has been diagnosed with pneumonia about [address] angiogram. She was placed on doxycycline and she has finished 6 days of the doxycycline and has worsening of her symptoms. She has now developed chest pain across the lower portion of her chest and it hurts to take a breath. She has used an inhaler previously and feels like she could probably use an inhaler now but she has not been using her inhaler. She is continuing to cough up yellow and green phlegm and she has come back to the emergency department with no improvement in the past week and increased chest pain. Review of Systems Constitutional: denies: Fever Eyes: denies: Decreased vision Ears: denies: Ear pain Nose: reports: Rhinorrhea / runny nose, Congestion Throat: denies: Sore throat Cardiac: reports: Chest pain / pressure. 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 HEENT: None Psych: Depression Musculoskeletal: Fibromyalgia, Chronic back pain Derm: None - Past Surgical History Past Surgical History: Yes Ortho: Carpal Tunnel surgery, Other - Present Medications Home Medications: Ambulatory Orders Medication Instructions Recorded Confirmed ARIPiprazole [Abilify] 5 mg PO DAILY 10/05/17 05/09/19 Albuterol Sulfate [Proair Hfa 2 puffs INH TID PRN 10/05/17 05/09/19 Inhaler] Amitriptyline [Elavil] 25 tab PO DAILY 10/05/17 05/09/19 Duloxetine HCl [Cymbalta] 60 mg PO DAILY 10/05/17 05/09/19 Meloxicam [Mobic] 1 tab PO BID 10/05/17 05/09/19 Pregabalin [Lyrica] 150 mg PO BID 10/05/17 05/09/19 Terazosin [Hytrin] 5 mg PO QPM 10/05/17 05/09/19 raNITIdine [Zantac] 150 mg PO DAILY 10/05/17 05/09/19 Cyclobenzaprine [Flexeril] 10 mg PO TID PRN 10/08/18 05/09/19 Furosemide [Lasix] 20 mg PO DAILY 10/08/18 05/09/19 Levothyroxine [Synthroid] 50 mcg PO QDAC 10/08/18 05/09/19 Lubiprostone [Amitiza] 24 mcg PO BID 10/08/18 05/09/19 Metoprolol Tartrate [Lopressor] 50 mg PO BID 10/08/18 05/09/19 Omeprazole 20 mg PO BID 10/08/18 05/09/19 diazePAM [Diazepam] 5 mg PO PRN PRN 10/08/18 05/09/19 tiZANidine [Zanaflex] 4 mg PO Q8H 10/08/18 05/09/19 Docusate Calcium 240 mg PO BID 05/06/19 05/09/19 Enoxaparin [Lovenox] 120 mg SUBQ BID #14 syringe 05/06/19 05/09/19 Ibuprofen [Motrin] 05/06/19 Morphine ER [Ms Contin] 15 mg PO Q12H 05/06/19 05/09/19 Oxycodone HCl [Roxicodone] 7.5 - 15 mg PO .Q6-8H PRN MDD 15 MG 05/06/19 05/09/19 Warfarin [Coumadin] 5 mg PO QDWARFARIN #30 tablet 05/06/19 05/09/19 traZODone [Desyrel] 50 mg PO HS PRN 05/06/19 05/09/19 HYDROmorphone [Dilaudid] 4 mg PO Q4HR PRN 05/09/19 05/09/19 Doxycycline Hyclate 100 mg PO BID #14 capsule 07/07/19 Albuterol Sulf [Ventolin Hfa 1 - 2 puffs INH Q4HR PRN #1 inhaler 07/12/19 Inhaler] Amox/Clav 875/125 [Augmentin] 1 each PO Q12H #20 tablet 07/12/19 predniSONE [Prednisone] 40 mg PO DAILY #10 tablet 07/12/19 - Allergies Allergies/Adverse Reactions: Allergies Allergy/AdvReac Type Severity Reaction Status Date / Time carisoprodol [From Soma] Allergy Unknown Verified 07/12/19 04:36 - Social History Does the pt smoke?: Yes Smoking Status: Current every day smoker Does the pt drink ETOH?: Yes Does the pt have substance abuse?: No - Immunizations Immunizations are current?: Yes - POLST Patient has POLST: No PD ED PE NORMAL - Vitals Vital signs reviewed: Yes (tachy and hypertensive) - General General: Alert and oriented X 3, No acute distress, Well developed/nourished - HEENT HEENT: Atraumatic, PERRL, EOMI, Other (TM's are obscured bilaterally with cerumen ) - Neck Neck: Supple, no meningeal sign, No bony TTP - Cardiac Cardiac: RRR, No murmur - Respiratory Respiratory: No respiratory distress, Other (diminished breath sounds and anterior chest wall tenderness. ) - Abdomen Abdomen: Soft, Non tender - Back Back: No CVA TTP, No spinal TTP - Derm Derm: Normal color, Warm and dry, No rash - Extremities Extremities: No deformity, No edema, No calf tenderness / cord - Neuro Neuro: Alert and oriented X 3, No motor deficit, No sensory deficit, Normal speech Eye Opening: Spontaneous Motor: Obeys Commands Verbal: Oriented GCS Score: 15 - Psych Psych: Normal mood, Normal affect Results - Vitals Vitals: Vital Signs - 24 hr 07/12/19 07/12/19 07/12/19 04:29 05:48 06:25 Temperature 36.7 C Heart Rate 129 H 114 H 96 Respiratory 18 99 H 16 Rate Blood Pressure 138/81 H O2 Saturation 95 96 Oxygen O2 Source Room air - Labs Labs: Laboratory Tests 07/12/19 06:26 Whole Blood INR 2.0 H - Rads (name of study) chest 2 view Radiology: Prelim report reviewed (Pression: Right middle lobe pneumonia versus atelectasis.), EMP read indepedently, See rad report PD MEDICAL DECISION MAKING - ED course Complexity details: reviewed results, re-evaluated patient, considered differential, d/w patient, d/w family ED course: 38-year-old female failing outpatient management of pneumonia with doxycycline appears to have some reactive airway disease associated with her illness and she has now got chest wall fatigue. Here in the emergency department she is administered dexamethasone 10 mg orally Rocephin 1 g IM and a DuoNeb treatment she feels much improved after the DuoNeb treatment and she is given Toradol as well with some improvement in her chest pain. A repeat chest x-ray shows persistence of a right middle lobe infiltrate. We have given her an injection of Rocephin this morning and we will change her antibiotic to Augmentin and prescribe an inhaler as well as a 5-day course of prednisone. Her INR is rechecked at 2. Departure - Departure Disposition: 01 Home, Self Care Clinical Impression: Pneumonia Qualifiers: Pneumonia type: due to unspecified organism Laterality: right Lung location: middle lobe of lung Qualified Code(s): J18.9 - Pneumonia, unspecified organism Reactive airway disease Qualifiers: Asthma severity: mild Asthma persistence: intermittent Asthma complication type: with acute exacerbation Qualified Code(s): J45.21 - Mild intermittent asthma with (acute) exacerbation Condition: Stable Instructions: ED Reactive Airway Disease, ED Pneumonia Adult Follow-Up: MONO BERNARDO [Primary Care Provider] - Prescriptions: Albuterol Sulf [Ventolin Hfa Inhaler] 1 - 2 puffs INH Q4HR PRN #1 inhaler PRN Reason: Shortness Of Air/Wheezing Amox/Clav 875/125 [Augmentin] 1 each PO Q12H #20 tablet predniSONE [Prednisone] 40 mg PO DAILY #10 tablet Comments: Today we have placed you on an antibiotic and the recommendation is to have your INR rechecked in about 3 days.
[2019-07-12 06:49] VITALS: BP 129/80
== END 2019-07-12 06:49 | disposition home or self-care (01) ==
LOC: ED 04:08
DX: J18.9 Pneumonia, unspecified organism (principal); J45.21 Mild intermittent asthma with (acute) exacerbation; F17.200 Nicotine dependence, unspecified, uncomplicated; Z86.711 Personal history of pulmonary embolism; Z79.01 Long term (current) use of anticoagulants
CPT/HCPCS: 71046; 85610; 94640; 96372; 99283; 99284; A9270

== ENCOUNTER 2019-08-15 10:04 | Emergency (ER) | payer OTHER ==
--- NOTE | 2019-08-15 10:42 | ED Physician Documentation ---
History of Present Illness - Stated complaint Stated Complaint: CHEST PX/TIMOTEO LEG SWELLING - Chief complaint Chief Complaint: Resp - Additonal information Additional information: This is a 38-year-old female with a history pulmonary embolism was provoked by a lumbar fusion who presents with chest pain and shortness of breath. Patient was diagnosed with a pneumonia in the last week but she has Not been improving on treatment. She states that she stopped her warfarin around a week ago, and today she developed sharp chest discomfort which is over the left side of her chest and worse with breathing. She also has some increased swelling in her legs despite taking 40 mg of Lasix in the morning 20 mg Lasix at night. She was seen in the walk-in clinic today and sent here given her history of pulmonary embolism. 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 HEENT: None Psych: Depression Musculoskeletal: Fibromyalgia, Chronic back pain Derm: None - Past Surgical History Past Surgical History: Yes Ortho: Carpal Tunnel surgery, Other - Present Medications Home Medications: Ambulatory Orders Medication Instructions Recorded Confirmed ARIPiprazole [Abilify] 5 mg PO DAILY 10/05/17 05/09/19 Albuterol Sulfate [Proair Hfa 2 puffs INH TID PRN 10/05/17 05/09/19 Inhaler] Amitriptyline [Elavil] 25 tab PO DAILY 10/05/17 05/09/19 Duloxetine HCl [Cymbalta] 60 mg PO DAILY 10/05/17 05/09/19 Meloxicam [Mobic] 1 tab PO BID 10/05/17 05/09/19 Pregabalin [Lyrica] 150 mg PO BID 10/05/17 05/09/19 Terazosin [Hytrin] 5 mg PO QPM 10/05/17 05/09/19 raNITIdine [Zantac] 150 mg PO DAILY 10/05/17 05/09/19 Cyclobenzaprine [Flexeril] 10 mg PO TID PRN 10/08/18 05/09/19 Furosemide [Lasix] 20 mg PO DAILY 10/08/18 05/09/19 Levothyroxine [Synthroid] 50 mcg PO QDAC 10/08/18 05/09/19 Lubiprostone [Amitiza] 24 mcg PO BID 10/08/18 05/09/19 Metoprolol Tartrate [Lopressor] 50 mg PO BID 10/08/18 05/09/19 Omeprazole 20 mg PO BID 10/08/18 05/09/19 diazePAM [Diazepam] 5 mg PO PRN PRN 10/08/18 05/09/19 tiZANidine [Zanaflex] 4 mg PO Q8H 10/08/18 05/09/19 Docusate Calcium 240 mg PO BID 05/06/19 05/09/19 Enoxaparin [Lovenox] 120 mg SUBQ BID #14 syringe 05/06/19 05/09/19 Ibuprofen [Motrin] 05/06/19 Morphine ER [Ms Contin] 15 mg PO Q12H 05/06/19 05/09/19 Oxycodone HCl [Roxicodone] 7.5 - 15 mg PO .Q6-8H PRN MDD 15 MG 05/06/19 05/09/19 Warfarin [Coumadin] 5 mg PO QDWARFARIN #30 tablet 05/06/19 05/09/19 traZODone [Desyrel] 50 mg PO HS PRN 05/06/19 05/09/19 HYDROmorphone [Dilaudid] 4 mg PO Q4HR PRN 05/09/19 05/09/19 Doxycycline Hyclate 100 mg PO BID #14 capsule 07/07/19 Albuterol Sulf [Ventolin Hfa 1 - 2 puffs INH Q4HR PRN #1 inhaler 07/12/19 Inhaler] Amox/Clav 875/125 [Augmentin] 1 each PO Q12H #20 tablet 07/12/19 predniSONE [Prednisone] 40 mg PO DAILY #10 tablet 07/12/19 Levofloxacin [Levaquin] 750 mg PO DAILY 5 Days #5 tablet 08/15/19 - Allergies Allergies/Adverse Reactions: Allergies Allergy/AdvReac Type Severity Reaction Status Date / Time carisoprodol [From Soma] Allergy Unknown Verified 08/15/19 10:14 - Social History Does the pt smoke?: Yes Smoking Status: Current every day smoker Does the pt drink ETOH?: Yes Does the pt have substance abuse?: No - Immunizations Immunizations are current?: Yes - POLST Patient has POLST: No PD ED PE NORMAL - Vitals Vital signs reviewed: Yes - General General: Alert and oriented X 3, No acute distress - HEENT HEENT: PERRL - Neck Neck: Supple, no meningeal sign - Cardiac Cardiac: No murmur, Other (Borderline tachycardia on my exam, Regular rhythm) - Respiratory Respiratory: No respiratory distress, Clear bilaterally - Abdomen Abdomen: Soft, Non tender - Derm Derm: Warm and dry - Extremities Extremities: No deformity, Other (Trace edema in the bilateral lower extremities, symmetric.) - Neuro Neuro: Alert and oriented X 3 - Psych Psych: Normal mood, Normal affect Results - Vitals Vitals: Vital Signs - 24 hr 08/15/19 08/15/19 08/15/19 10:12 10:14 12:14 Temperature 36.6 C Heart Rate 98 98 88 Respiratory 16 14 14 Rate Blood Pressure 145/75 H 145/75 H 123/84 H O2 Saturation 100 100 97 08/15/19 14:08 Temperature Heart Rate 89 Respiratory 16 Rate Blood Pressure 110/56 L O2 Saturation 96 Oxygen O2 Source Room air - EKG (time done) 10:08 Other comments: Other comments (Time 10: Awake, rhythm sinus, rate 94, there is no ST segment elevation or depression. There is a right bundle branch block, EKG is unchanged from prior.) - Labs Labs: Laboratory Tests 08/15/19 08/15/19 08/15/19 11:35 11:35 11:35 WBC 6.6 RBC 3.68 L Hgb 9.7 L Hct 32.8 L MCV 89.1 MCH 26.4 L MCHC 29.6 L RDW 14.4 Plt Count 298 MPV 9.9 Neut # (Auto) 4.7 Lymph # (Auto) 1.0 L Hardy # (Auto) 0.6 Eos # (Auto) 0.2 Baso # (Auto) 0.0 Absolute Nucleated RBC 0.00 Nucleated RBC % 0.0 PT INR Sodium 137 Potassium 4.4 Chloride 100 L Carbon Dioxide 30 Anion Gap 7.0 BUN 10 Creatinine 0.7 Estimated GFR (MDRD) 94 Glucose 128 H Calcium 8.9 Total Bilirubin 0.6 AST 17 ALT 14 Alkaline Phosphatase 70 Troponin I High Sens 2.4 B-Natriuretic Peptide Total Protein 7.1 Albumin 3.6 Globulin 3.5 Albumin/Globulin Ratio 1.0 Lipase 27 Serum HCG, Qual 08/15/19 08/15/19 08/15/19 11:35 11:35 11:35 WBC RBC Hgb Hct MCV MCH MCHC RDW Plt Count MPV Neut # (Auto) Lymph # (Auto) Hardy # (Auto) Eos # (Auto) Baso # (Auto) Absolute Nucleated RBC Nucleated RBC % PT 13.6 H INR 1.2 Sodium Potassium Chloride Carbon Dioxide Anion Gap BUN Creatinine Estimated GFR (MDRD) Glucose Calcium Total Bilirubin AST ALT Alkaline Phosphatase Troponin I High Sens B-Natriuretic Peptide 48 Total Protein Albumin Globulin Albumin/Globulin Ratio Lipase Serum HCG, Qual NEGATIVE - Rads (name of study) CT PE Radiology: Other (No signs of pulmonary embolism. Persistent right middle lobe infiltrate.) PD MEDICAL DECISION MAKING - ED course Complexity details: considered differential (Pulmonary embolism, pneumonia, pneumothorax, pleural effusion, ACS, dysrhythmia, musculoskeletal pain) ED course: On arrival patient is nontoxic-appearing, her heart rate is in the 90s, her oxygen saturation is normal on room air. Her EKG is unchanged from prior with a right bundle branch block. Labs were drawn and she has no leukocytosis, she is a stable anemia, her high-sensitivity troponin is normal, and her BNP is also within normal range. ACS unlikely given her negative troponin, or unchanged EKG, and she does not have a history of CAD. Her hCG is negative. Given her history of pulmonary embolism and the fact that she recently stopped her warfarin, a CT PE was obtained and this is negative for pulmonary embolism. It does show a persistent right middle lobe infiltrate. This is been treated with antibiotics, but patient still does have symptoms of pneumonia with intermittent fever as well as cough. She is currently on doxycycline, I discussed options of treatment with her, and she would like to broaden coverage, which we will do with levofloxacin. I did discuss the black box warnings of fluoroquinolones with the patient. 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 I recommend that she follow-up with her primary care provider to recheck her symptoms and discuss referral to pulmonology if needed. Regarding her trace bilateral lower extremity edema, she states that she has a history of an enlarged heart, and she is on Lasix for this. She also said that she has had dietary changes recently after coming off warfarin, and I am concerned she may have some low level of cardiac dysfunction which was exacerbated by saltier meals or other dietary changes during the holidays. No signs of pulmonary edema or hypoxia. I recommend that she monitor her diet carefully, follow-up with her primary care provider closely and monitor her weight to ensure that she is not continuing to swell or gain water weight. Patient agrees with this plan and was discharged home. Departure - Departure Disposition: 01 Home, Self Care Clinical Impression: Pneumonia Qualifiers: Pneumonia type: due to unspecified organism Laterality: right Lung location: middle lobe of lung Qualified Code(s): J18.9 - Pneumonia, unspecified organism Condition: Good Follow-Up: MONO BERNARDO [Primary Care Provider] - Within 1 week (For follow up on your right middle lobe infiltrate, your symptoms, and consideration of referral to pulmonology) Prescriptions: Levofloxacin [Levaquin] 750 mg PO DAILY 5 Days #5 tablet Comments: Your CT scan today showed a persistent infiltrate in your right middle lobe. Given that you have a fever and cough I worry this is a persistent pneumonia that may not been treated appropriately with the past antibiotics. There is also possibility that it is another inflammatory or infectious process. Given that you have had this for many weeks, if you are not improving with the new antibiotic please discuss with your primary care provider a referral to pulmonology. If you develop worsening symptoms such as increased difficulty breathing or chest pain, return to the emergency department. You also have an anemia which is stable, follow-up with your primary care provider on this Discharge Date/Time: 08/15/19 15:56
[2019-08-15] MEDS ORDERED: IOVERSOL 320 100 ML VIAL IVP ONE (11:16)
[2019-08-15 11:51] LABS: BASOPHILS % (AUTO) 0.6 %; EOSINOPHILS # (AUTO) 0.2 10^3/uL (0.0-0.7); HGB - HEMOGLOBIN 9.7 g/dL (12.0-16.0); LYMPHOCYTES % (AUTO) 15.7 %; MEAN CORPUSCULAR HEMOGLOBIN 26.4 pg (27.0-31.0); MEAN CORPUSCULAR HGB CONC 29.6 g/dL (32.0-36.0); MEAN CORPUSCULAR VOLUME 89.1 fL (81.0-99.0); MEAN PLATELET VOLUME 9.9 fL (7.9-10.8); MONOCYTES # (AUTO) 0.6 10^3/uL (0.0-1.0); MONOCYTES % (AUTO) 8.9 %; NEUTROPHILS # (AUTO) 4.7 10^3/uL (1.5-6.6); NEUTROPHILS % (AUTO) 71.3 %; PLT - PLATELET COUNT 298 10^3/uL (130-450); RED BLOOD COUNT 3.68 10^6/uL (4.20-5.40); RED CELL DISTRIBUTION WIDTH 14.4 % (12.0-15.0); WHITE BLOOD COUNT 6.6 x10^3/uL (4.8-10.8)
[2019-08-15 11:57] LABS: INR 1.2 (0.8-1.2); PT - PROTHROMBIN TIME 13.6 secs (9.9-12.6)
[2019-08-15 12:03] LABS: ALBUMIN 3.6 g/dL (3.2-5.5); BILIRUBIN,TOTAL 0.6 mg/dL (0.2-1.0); CALCIUM 8.9 mg/dL (8.5-10.3); CREATININE 0.7 mg/dL (0.4-1.0); TOTAL PROTEIN 7.1 g/dL (6.7-8.2)
[2019-08-15 13:49] LABS: HCG,QUALITATIVE BLOOD NEGATIVE
[2019-08-15 14:08] VITALS: BP 110/56
--- NOTE | 2019-08-15 14:58 | CT Report ---
Reason: Hx PE, recently off warfarin. CP, SOB Procedure Date: 08/15/2019 Accession Number: [id number] / [id number] Procedure: CT - ANGIO CHEST W/WO CPT Code: Final Report FULL RESULT: EXAM: CT ANGIOGRAM CHEST EXAM DATE: 08/15/2019 02:23 PM. CLINICAL HISTORY: Hx PE, recently off warfarin. CP, SOB. COMPARISON: CHEST ANGIO 07/07/2019 10:32 AM. TECHNIQUE: Routine helical imaging was performed through the chest in the pulmonary arterial phase. IV Contrast: OPTI 320 80 mL. Reconstructions: Coronal 3-D MIP reconstructions.Sagittal and coronal. In accordance with CT protocol optimization, one or more of the following dose reduction techniques were utilized for this exam: automated exposure control, adjustment of mA and/or KV based on patient size, or use of iterative reconstructive technique. Examination is limited by patient body habitus, motion and what appears to be interrupted bolus presumably by Valsalva maneuver. FINDINGS: Pulmonary Arteries: Diagnostic quality: Adequate through the most proximal segmental arteries. No evidence for acute or chronic pulmonary emboli. RV/LV is within normal limits. There is no interventricular septal bowing. There is no reflux of contrast material in the IVC. Lungs/Pleura: Evaluation of the lungs is markedly limited by motion artifact. The previously seen right middle lobe infiltrate is redemonstrated, possibly minimally increased. No pleural effusion or pneumothorax. Mediastinum: No hilar or mediastinal lymphadenopathy by size criteria. No pericardial effusion. Thoracic Aorta: Unremarkable. Upper Abdomen: Unremarkable. Other: None. IMPRESSION: Redemonstration of right middle lobe infiltrate. No pulmonary embolism. RADIA
== END 2019-08-15 15:56 | disposition home or self-care (01) ==
LOC: ED 10:04
DX: J18.9 Pneumonia, unspecified organism (principal); I45.10 Unspecified right bundle-branch block; D64.9 Anemia, unspecified; Z86.711 Personal history of pulmonary embolism; F17.200 Nicotine dependence, unspecified, uncomplicated
CPT/HCPCS: 36415; 71275; 80053; 83690; 83880; 84484; 84703; 85025; 85610; 93005; 99284; Q9967

== ENCOUNTER 2019-11-28 15:44 | Emergency (ER) | payer OTHER ==
--- NOTE | 2019-11-28 16:06 | ED Physician Documentation ---
History of Present Illness - Stated complaint Stated Complaint: CATHETER ISSUE - Chief complaint Chief Complaint: UTI - History obtained from History obtained from: Patient - History of Present Illness Timing: Today Pain level max: 3 Pain level now: 3 - Additonal information Additional information: 38 year old female, had a catheter placed yesterday. States increased pain today. Draining clear urine. 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 HEENT: None Psych: Depression Musculoskeletal: Fibromyalgia, Chronic back pain Derm: None - Past Surgical History Past Surgical History: Yes Ortho: Carpal Tunnel surgery, Other - Present Medications Home Medications: Ambulatory Orders Medication Instructions Recorded Confirmed ARIPiprazole [Abilify] 5 mg PO DAILY 10/05/17 05/09/19 Albuterol Sulfate [Proair Hfa 2 puffs INH TID PRN 10/05/17 05/09/19 Inhaler] Amitriptyline [Elavil] 25 tab PO DAILY 10/05/17 05/09/19 Duloxetine HCl [Cymbalta] 60 mg PO DAILY 10/05/17 05/09/19 Meloxicam [Mobic] 1 tab PO BID 10/05/17 05/09/19 Pregabalin [Lyrica] 150 mg PO BID 10/05/17 05/09/19 Terazosin [Hytrin] 5 mg PO QPM 10/05/17 05/09/19 raNITIdine [Zantac] 150 mg PO DAILY 10/05/17 05/09/19 Cyclobenzaprine [Flexeril] 10 mg PO TID PRN 10/08/18 05/09/19 Furosemide [Lasix] 20 mg PO DAILY 10/08/18 05/09/19 Levothyroxine [Synthroid] 50 mcg PO QDAC 10/08/18 05/09/19 Lubiprostone [Amitiza] 24 mcg PO BID 10/08/18 05/09/19 Metoprolol Tartrate [Lopressor] 50 mg PO BID 10/08/18 05/09/19 Omeprazole 20 mg PO BID 10/08/18 05/09/19 diazePAM [Diazepam] 5 mg PO PRN PRN 10/08/18 05/09/19 tiZANidine [Zanaflex] 4 mg PO Q8H 10/08/18 05/09/19 Docusate Calcium 240 mg PO BID 05/06/19 05/09/19 Enoxaparin [Lovenox] 120 mg SUBQ BID #14 syringe 05/06/19 05/09/19 Ibuprofen [Motrin] 05/06/19 Morphine ER [Ms Contin] 15 mg PO Q12H 05/06/19 05/09/19 Oxycodone HCl [Roxicodone] 7.5 - 15 mg PO .Q6-8H PRN MDD 15 MG 05/06/19 05/09/19 Warfarin [Coumadin] 5 mg PO QDWARFARIN #30 tablet 05/06/19 05/09/19 traZODone [Desyrel] 50 mg PO HS PRN 05/06/19 05/09/19 HYDROmorphone [Dilaudid] 4 mg PO Q4HR PRN 05/09/19 05/09/19 Doxycycline Hyclate 100 mg PO BID #14 capsule 07/07/19 Albuterol Sulf [Ventolin Hfa 1 - 2 puffs INH Q4HR PRN #1 inhaler 07/12/19 Inhaler] Amox/Clav 875/125 [Augmentin] 1 each PO Q12H #20 tablet 07/12/19 predniSONE [Prednisone] 40 mg PO DAILY #10 tablet 07/12/19 Levofloxacin [Levaquin] 750 mg PO DAILY 5 Days #5 tablet 08/15/19 - Allergies Allergies/Adverse Reactions: Allergies Allergy/AdvReac Type Severity Reaction Status Date / Time carisoprodol [From Soma] Allergy Unknown Verified 11/28/19 15:47 - Social History Does the pt smoke?: Yes Smoking Status: Current every day smoker Does the pt drink ETOH?: Yes Does the pt have substance abuse?: No - Immunizations Immunizations are current?: Yes - POLST Patient has POLST: No PD ED PE NORMAL - Vitals Vital signs reviewed: Yes - General General: Alert and oriented X 3, No acute distress - HEENT HEENT: Moist mucous membranes - Neck Neck: Supple, no meningeal sign - Cardiac Cardiac: RRR - Respiratory Respiratory: No respiratory distress, Clear bilaterally - Abdomen Abdomen: Soft, Non tender, Non distended - Derm Derm: Warm and dry - Neuro Neuro: Alert and oriented X 3 - Psych Psych: Normal mood, Normal affect Results - Vitals Vitals: Vital Signs - 24 hr 11/28/19 15:47 Temperature 36.8 C Heart Rate 98 Respiratory 15 Rate Blood Pressure 146/79 H O2 Saturation 99 Oxygen O2 Source Room air PD MEDICAL DECISION MAKING - ED course Complexity details: reviewed results, re-evaluated patient, considered differential, d/w patient ED course: Carey catheter removed. Patient drank water and passed a voiding trial. We will leave the catheter out at this time. We will have her follow-up with her doctor for further care. Patient counseled regarding signs and symptoms for which I believe and urgent re-evaluation would be necessary. Patient with good understanding of and agreement to plan and is comfortable going home at this time This document was made in part using voice recognition software. While efforts are made to proofread this document, sound alike and grammatical errors may occur. Departure - Departure Disposition: 01 Home, Self Care Clinical Impression: Encounter for Carey catheter removal Condition: Good Instructions: ED Retention Urinary Female Follow-Up: MONO BERNARDO [Primary Care Provider] - Within 1 week Comments: Your catheter was removed today. Return if you worsen. Follow-up with your doctor for further care.
[2019-11-28 17:07] VITALS: BP 138/76
== END 2019-11-28 17:08 | disposition home or self-care (01) ==
LOC: ED 15:44
DX: R52 Pain, unspecified (principal); R33.9 Retention of urine, unspecified; F17.200 Nicotine dependence, unspecified, uncomplicated; Z46.6 Encounter for fitting and adjustment of urinary device
CPT/HCPCS: 51702; 51798; 81001; 81003; 81025; 99282; 99283; 99284

== ENCOUNTER 2019-12-01 20:27 | Outpatient (CLI) | payer OTHER | END 2019-12-01 20:28 | disposition EMS.NT | LOC: EMS 20:27 | PROVIDERS: ATTEND Surgery | DX: R06.00 Dyspnea, unspecified (principal); R40.0 Somnolence; R46.4 Slowness and poor responsiveness ==

== ENCOUNTER 2019-12-05 22:19 | Outpatient (CLI) | payer OTHER | END 2019-12-05 23:59 | disposition critical access hospital (66) | LOC: EMS 22:19 | PROVIDERS: ATTEND Surgery | DX: R40.20 Unspecified coma (principal) | CPT/HCPCS: A0425; A0427 ==

== ENCOUNTER 2019-12-05 22:36 | Emergency (ER) | payer OTHER ==
--- NOTE | 2019-12-05 22:40 | ED Physician Documentation ---
PD HPI ALTERED MENTAL STATUS - Stated complaint Stated Complaint: UNRESPONSIVE - History obtained from History obtained from: EMS - History of Present Illness Timing - onset: Today Timing - details: Still present in ED Quality / character: Less responsive, Unresponsive, Agitated Basline status: Alert and oriented X 3, Ambulatory, Independent Recently seen: Other (12th [facility] ED visit since September 2017) - Additional information Additional information: BIBA for AMS. per medic report, patients called 911 due to patient being unresponsive. medics were told by that patient drank some alcohol tonight and then took one dose each of her prescribed medications (oxycodone and morphine). medics state that on their arrival, patient was unresponsive to verbal/tactile, and also had difficulty keeping her head in a position that didnt compromise her airway. given narcan en route by medics significant response (more awake, alert, although she then had emesis). on arrival, patient is drowsy but responds to some questions, albeit with glib/flippant responses that often dont answer question being asked. I ask her what happened, and she tells me I dont know, I wasnt there. 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 HEENT: None Psych: Depression Musculoskeletal: Fibromyalgia, Chronic back pain Derm: None - Past Surgical History Past Surgical History: Yes Ortho: Carpal Tunnel surgery, Other - Present Medications Home Medications: Ambulatory Orders Medication Instructions Recorded Confirmed ARIPiprazole [Abilify] 5 mg PO DAILY 10/05/17 05/09/19 Albuterol Sulfate [Proair Hfa 2 puffs INH TID PRN 10/05/17 05/09/19 Inhaler] Amitriptyline [Elavil] 25 tab PO DAILY 10/05/17 05/09/19 Duloxetine HCl [Cymbalta] 60 mg PO DAILY 10/05/17 05/09/19 Meloxicam [Mobic] 1 tab PO BID 10/05/17 05/09/19 Pregabalin [Lyrica] 150 mg PO BID 10/05/17 05/09/19 Terazosin [Hytrin] 5 mg PO QPM 10/05/17 05/09/19 raNITIdine [Zantac] 150 mg PO DAILY 10/05/17 05/09/19 Cyclobenzaprine [Flexeril] 10 mg PO TID PRN 10/08/18 05/09/19 Furosemide [Lasix] 20 mg PO DAILY 10/08/18 05/09/19 Levothyroxine [Synthroid] 50 mcg PO QDAC 10/08/18 05/09/19 Lubiprostone [Amitiza] 24 mcg PO BID 10/08/18 05/09/19 Metoprolol Tartrate [Lopressor] 50 mg PO BID 10/08/18 05/09/19 Omeprazole 20 mg PO BID 10/08/18 05/09/19 diazePAM [Diazepam] 5 mg PO PRN PRN 10/08/18 05/09/19 tiZANidine [Zanaflex] 4 mg PO Q8H 10/08/18 05/09/19 Docusate Calcium 240 mg PO BID 05/06/19 05/09/19 Enoxaparin [Lovenox] 120 mg SUBQ BID #14 syringe 05/06/19 05/09/19 Ibuprofen [Motrin] 05/06/19 Morphine ER [Ms Contin] 15 mg PO Q12H 05/06/19 05/09/19 Oxycodone HCl [Roxicodone] 7.5 - 15 mg PO .Q6-8H PRN MDD 15 MG 05/06/19 05/09/19 Warfarin [Coumadin] 5 mg PO QDWARFARIN #30 tablet 05/06/19 05/09/19 traZODone [Desyrel] 50 mg PO HS PRN 05/06/19 05/09/19 HYDROmorphone [Dilaudid] 4 mg PO Q4HR PRN 05/09/19 05/09/19 Doxycycline Hyclate 100 mg PO BID #14 capsule 07/07/19 Albuterol Sulf [Ventolin Hfa 1 - 2 puffs INH Q4HR PRN #1 inhaler 07/12/19 Inhaler] Amox/Clav 875/125 [Augmentin] 1 each PO Q12H #20 tablet 07/12/19 predniSONE [Prednisone] 40 mg PO DAILY #10 tablet 07/12/19 Levofloxacin [Levaquin] 750 mg PO DAILY 5 Days #5 tablet 08/15/19 - Allergies Allergies/Adverse Reactions: Allergies Allergy/AdvReac Type Severity Reaction Status Date / Time carisoprodol [From Soma] Allergy Unknown Verified 12/05/19 22:46 - Social History Does the pt smoke?: Yes Smoking Status: Current every day smoker Does the pt drink ETOH?: Yes Does the pt have substance abuse?: No - Immunizations Immunizations are current?: Yes - POLST Patient has POLST: No PD ED PE NORMAL - Vitals Vital signs reviewed: Yes - General General: Well developed/nourished, Other (asleep but awakens to tactile, then agitated and argumentative. does not answer any orietation questions) - HEENT HEENT: Atraumatic, PERRL, EOMI, Moist mucous membranes - Neck Neck: Supple, no meningeal sign - Cardiac Cardiac: RRR, No murmur - Respiratory Respiratory: No respiratory distress - Abdomen Abdomen: Soft, Non tender - Back Back: No CVA TTP, No spinal TTP - Derm Derm: Normal color, Warm and dry, No rash Results - Vitals Vitals: Vital Signs - 24 hr 12/06/19 12/06/19 04:18 06:11 Heart Rate 90 98 Respiratory 14 16 Rate Blood Pressure 131/70 H 131/76 H O2 Saturation 93 95 Oxygen O2 Source Nasal cannula - Labs Labs: Laboratory Tests 12/06/19 12/06/19 12/06/19 00:25 00:25 00:25 WBC 6.0 RBC 3.77 L Hgb 9.4 L Hct 31.6 L MCV 83.8 MCH 24.9 L MCHC 29.7 L RDW 16.6 H Plt Count 213 MPV 10.3 Neut # (Auto) 3.5 Lymph # (Auto) 1.6 [place] # (Auto) 0.7 Eos # (Auto) 0.3 Baso # (Auto) 0.0 Absolute Nucleated RBC 0.00 Nucleated RBC % 0.0 Sodium 140 Potassium 3.1 L Chloride 102 Carbon Dioxide 25 Anion Gap 13.0 BUN 13 Creatinine 0.7 Estimated GFR (MDRD) 94 Glucose 134 H Calcium 8.5 Total Bilirubin < 0.2 L AST 23 ALT 14 Alkaline Phosphatase 76 Total Creatine Kinase 327 H CK-MB (CK-2) 7.3 H Total Protein 7.0 Albumin 3.5 Globulin 3.5 Albumin/Globulin Ratio 1.0 Lipase 31 Urine Color Urine Clarity Urine pH Ur Specific [place] Urine Protein Urine Glucose (UA) Urine Ketones Urine Occult Blood Urine Nitrite Urine Bilirubin Urine Urobilinogen Ur Leukocyte Esterase Ur Microscopic Review Urine Culture Comments Urine HCG, Qual Salicylates < 6.0 Urine Opiates Screen Ur Oxycodone Screen Urine Methadone Screen Ur Propoxyphene Screen Acetaminophen < 10 L Ur Barbiturates Screen Ur Tricyclics Screen Ur Phencyclidine Scrn Ur Amphetamine Screen U Methamphetamines Scrn U Benzodiazepines Scrn Urine Cocaine Screen U Cannabinoids Screen Ethyl Alcohol 86.4 12/06/19 12/06/19 02:05 02:05 WBC RBC Hgb Hct MCV MCH MCHC RDW Plt Count MPV Neut # (Auto) Lymph # (Auto) [place] # (Auto) Eos # (Auto) Baso # (Auto) Absolute Nucleated RBC Nucleated RBC % Sodium Potassium Chloride Carbon Dioxide Anion Gap BUN Creatinine Estimated GFR (MDRD) Glucose Calcium Total Bilirubin AST ALT Alkaline Phosphatase Total Creatine Kinase CK-MB (CK-2) Total Protein Albumin Globulin Albumin/Globulin Ratio Lipase Urine Color YELLOW Urine Clarity CLEAR Urine pH 6.0 Ur Specific [place] 1.010 Urine Protein NEGATIVE Urine Glucose (UA) NEGATIVE Urine Ketones NEGATIVE Urine Occult Blood NEGATIVE Urine Nitrite NEGATIVE Urine Bilirubin NEGATIVE Urine Urobilinogen 0.2 (NORMAL) Ur Leukocyte Esterase NEGATIVE Ur Microscopic Review NOT INDICATED Urine Culture Comments NOT INDICATED Urine HCG, Qual NEGATIVE Salicylates Urine Opiates Screen POSITIVE H Ur Oxycodone Screen POSITIVE H Urine Methadone Screen NEGATIVE Ur Propoxyphene Screen NEGATIVE Acetaminophen Ur Barbiturates Screen NEGATIVE Ur Tricyclics Screen POSITIVE H Ur Phencyclidine Scrn NEGATIVE Ur Amphetamine Screen NEGATIVE U Methamphetamines Scrn NEGATIVE U Benzodiazepines Scrn NEGATIVE Urine Cocaine Screen NEGATIVE U Cannabinoids Screen NEGATIVE Ethyl Alcohol PD MEDICAL DECISION MAKING - ED course Complexity details: reviewed old records, reviewed results, re-evaluated patient, considered differential, d/w patient ED course: early in ED stay, patient became angry and argumentative, demanding to leave despite gait that is so unsteady as to not allow her to ambulate more than 2-3 steps. she tried to leave but had to be helped to ground due to drowsiness and unsteady gait. upon being helped to ground, she immediately fell asleep. ED RNs got patient back onto stretcher, patient awoke and was beligerent, combative, required physical and chemical restraints (yelling loudly, combative, not amenable to discussion/redirection). she eventually slept after IM zyprexa, then haldol and ativan. reassessed in AM, eventually woke and was AAOX3, conversant and appropriate. she still does not recall events leading to ED transport. she says she feels well and at baseline and requests d/c home. denies si/hi Departure - Departure Disposition: 01 Home, Self Care Clinical Impression: Hypokalemia Altered mental status Qualifiers: Altered mental status type: delirium Qualified Code(s): R41.0 - Disorientation, unspecified Condition: Good Instructions: ED Altered Loc, ED Potassium Deficiency Follow-Up: MONO BERNARDO [Primary Care Provider] - Discharge Date/Time: 12/06/19 06:11
[2019-12-05] MEDS ORDERED: SODIUM CHLORIDE 0.9% 1,000 ML IV STA (23:06)
[2019-12-05] MEDS ORDERED: OLANZapine 10 MG VIAL IM STA (23:08)
[2019-12-05] MEDS ORDERED: OLANZapine 10 MG VIAL IM ONE (23:12)
[2019-12-05] MEDS ORDERED: HALOPERIDOL 5 MG/ML VIAL IM STA (23:46)
[2019-12-05] MEDS ORDERED: LORazepam 2 MG/ML VIAL IVP STA (23:46)
[2019-12-05] MEDS ORDERED: LORazepam 2 MG/ML VIAL ONE (23:51)
[2019-12-06 00:45] LABS: BASOPHILS % (AUTO) 0.3 %; EOSINOPHILS # (AUTO) 0.3 10^3/uL (0.0-0.7); HGB - HEMOGLOBIN 9.4 g/dL (12.0-16.0); LYMPHOCYTES # (AUTO) 1.6 10^3/uL (1.5-3.5); LYMPHOCYTES % (AUTO) 25.9 %; MEAN CORPUSCULAR HEMOGLOBIN 24.9 pg (27.0-31.0); MEAN CORPUSCULAR HGB CONC 29.7 g/dL (32.0-36.0); MEAN CORPUSCULAR VOLUME 83.8 fL (81.0-99.0); MEAN PLATELET VOLUME 10.3 fL (7.9-10.8); MONOCYTES # (AUTO) 0.7 10^3/uL (0.0-1.0); MONOCYTES % (AUTO) 11.1 %; NEUTROPHILS # (AUTO) 3.5 10^3/uL (1.5-6.6); NEUTROPHILS % (AUTO) 57.5 %; PLT - PLATELET COUNT 213 10^3/uL (130-450); RED BLOOD COUNT 3.77 10^6/uL (4.20-5.40); RED CELL DISTRIBUTION WIDTH 16.6 % (12.0-15.0)
[2019-12-06 00:50] LABS: ACETAMINOPHEN < 10 ug/mL (10-30); ALBUMIN 3.5 g/dL (3.2-5.5); ALKALINE PHOSPHATASE 76 IU/L (42-121); ALT ALANINE AMINOTRANSFERASE 14 IU/L (10-60); AST ASPARTATE AMINOTRANSFERASE 23 IU/L (10-42); BILIRUBIN,TOTAL < 0.2 mg/dL (0.2-1.0); BUN - BLOOD UREA NITROGEN 13 mg/dL (6-20); CALCIUM 8.5 mg/dL (8.5-10.3); CARBON DIOXIDE - CO2 25 mmol/L (21-32); CHLORIDE 102 mmol/L (101-111); CK- CREATINE KINASE 327 IU/L (22-269); CREATININE 0.7 mg/dL (0.4-1.0); GLUCOSE 134 mg/dL (70-100); LIPASE 31 U/L (22-51); SALICYLATE < 6.0 mg/dL; SODIUM 140 mmol/L (135-145)
[2019-12-06 02:08] LABS: MUDS CUTOFF CONCENTRATIONS CUTOFF CONC BELOW:
[2019-12-06 02:12] LABS: BILIRUBIN,URINE NEGATIVE (NEGATIVE); GLUCOSE, URINE (UA) NEGATIVE (NEGATIVE); KETONES,URINE (UA) NEGATIVE (NEGATIVE); LEUKOCYTE ESTERASE, URINE NEGATIVE (NEGATIVE); NITRITE,URINE NEGATIVE (NEGATIVE); OCCULT BLOOD,URINE NEGATIVE (NEGATIVE); PROTEIN,URINE NEGATIVE (NEGATIVE); UROBILINOGEN,URINE 0.2 (NORMAL) E.U./dL (NORMAL)
[2019-12-06 02:15] LABS: CLARITY,URINE CLEAR (CLEAR); HCG UR QUAL NEGATIVE
[2019-12-06 02:28] LABS: AMPHETAMINE SCREEN,URINE NEGATIVE (NEGATIVE); BENZODIAZEPINES SCREEN, URINE NEGATIVE (NEGATIVE); COCAINE SCREEN URINE NEGATIVE (NEGATIVE); METHAMPHETAMINES SCREEN, URINE NEGATIVE (NEGATIVE); OPIATE SCREEN, URINE POSITIVE (NEGATIVE)
[2019-12-06 02:29] LABS: METHADONE SCREEN, URINE NEGATIVE (NEGATIVE); OXYCODONE SCREEN, URINE POSITIVE (NEGATIVE); PROPOXYPHENE SCREEN, URINE NEGATIVE (NEGATIVE); TRICYCLIC ANTIDEPRESSANT,URINE POSITIVE (NEGATIVE)
[2019-12-06] MEDS ORDERED: POTASSIUM CHLORIDE 20 MEQ TABLET PO STA (06:02)
[2019-12-06 06:13] VITALS: BP 131/76
== END 2019-12-06 06:11 | disposition home or self-care (01) ==
LOC: EDUNIT# → ED 22:36
DX: R41.0 Disorientation, unspecified (principal); E87.6 Hypokalemia; F17.200 Nicotine dependence, unspecified, uncomplicated; Z78.1 Physical restraint status
CPT/HCPCS: 36415; 80053; 80320; 80329; 81003; 81025; 82550; 82553; 83690; 85025; 96361; 96372; 96374; 99281; 99285; A9270; J2060; 80306; 80307; 81001; 87086

== ENCOUNTER 2019-12-09 16:29 | Outpatient (CLI) | payer OTHER | END 2019-12-09 16:30 | disposition critical access hospital (66) | LOC: EMS 16:29 | PROVIDERS: ATTEND Surgery | DX: R41.82 Altered mental status, unspecified (principal) | CPT/HCPCS: A0425; A0427 ==

== ENCOUNTER 2019-12-09 16:48 | Observation (INO) | payer OTHER ==
--- NOTE | 2019-12-09 16:56 | ED Physician Documentation ---
<Yury Layne - Last Filed: 12/09/19 19:11> PD HPI ALTERED MENTAL STATUS - Stated complaint Stated Complaint: ALOC - History obtained from History obtained from: Patient - History of Present Illness Timing - onset: Today (Patient is brought in because of decreased responsiveness at home. Reportedly she had been having some alcohol ingestion but states she does not daily and has not really had an increased amount over baseline. She is on chronic pain medicines but has not taken any extra above normal and states her gives out and controls her medication dosings. She has had a few episodes of poor responsiveness where her could not rouse her. She was seen here in the ER at [facility] for 5 days ago with an episode and then was at [facility] yesterday with a similar as well. During her stay at [facility] she had an episode of shallow rapid breathing associated with increased muscle tone generally but did not have tremors per se. There was consideration of a seizure episode. Records from [facility] are obtained. She had another episode of poor responsiveness today and was brought in. Medics gave Narcan on route and there seemed to be some slight improvement. She is also having chest pain today which she states is her main complaint for coming to the hospital.) Timing - duration: Minutes Timing - details: Abrupt onset, Now resolved (Improved alertness on route and if she is able to talk and answer questions.) Quality / character: Less responsive, Unresponsive Associated symptoms: Cough, Other (chest pain). No: Fever, Headache Contributing factors: Diabetic. 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 denies: Fever, Chills Nose: denies: Rhinorrhea / runny nose, Congestion Throat: denies: Sore throat Cardiac: reports: Chest pain / pressure (today, with increased cough overnight into today. Chest pain right sided.) Respiratory: reports: Dyspnea, Cough GI: denies: Abdominal Pain, Nausea, Vomiting : denies: Dysuria Skin: denies: Rash, Lesions Neurologic: reports: Generalized weakness, Altered mental status. 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 HEENT: None Psych: Depression Musculoskeletal: Fibromyalgia, Chronic back pain Derm: None - Past Surgical History Past Surgical History: Yes Ortho: Carpal Tunnel surgery, Other - Present Medications Home Medications: Ambulatory Orders Medication Instructions Recorded Confirmed ARIPiprazole [Abilify] 5 mg PO DAILY 10/05/17 05/09/19 Albuterol Sulfate [Proair Hfa 2 puffs INH TID PRN 10/05/17 05/09/19 Inhaler] Amitriptyline [Elavil] 25 tab PO DAILY 10/05/17 05/09/19 Duloxetine HCl [Cymbalta] 60 mg PO DAILY 10/05/17 05/09/19 Meloxicam [Mobic] 1 tab PO BID 10/05/17 05/09/19 Pregabalin [Lyrica] 150 mg PO BID 10/05/17 05/09/19 Terazosin [Hytrin] 5 mg PO QPM 10/05/17 05/09/19 raNITIdine [Zantac] 150 mg PO DAILY 10/05/17 05/09/19 Cyclobenzaprine [Flexeril] 10 mg PO TID PRN 10/08/18 05/09/19 Furosemide [Lasix] 20 mg PO DAILY 10/08/18 05/09/19 Levothyroxine [Synthroid] 50 mcg PO QDAC 10/08/18 05/09/19 Lubiprostone [Amitiza] 24 mcg PO BID 10/08/18 05/09/19 Metoprolol Tartrate [Lopressor] 50 mg PO BID 10/08/18 05/09/19 Omeprazole 20 mg PO BID 10/08/18 05/09/19 diazePAM [Diazepam] 5 mg PO PRN PRN 10/08/18 05/09/19 tiZANidine [Zanaflex] 4 mg PO Q8H 10/08/18 05/09/19 Docusate Calcium 240 mg PO BID 05/06/19 05/09/19 Enoxaparin [Lovenox] 120 mg SUBQ BID #14 syringe 05/06/19 05/09/19 Ibuprofen [Motrin] 05/06/19 Morphine ER 15 mg PO Q12H 05/06/19 05/09/19 Oxycodone HCl [Roxicodone] 7.5 - 15 mg PO .Q6-8H PRN MDD 15 MG 05/06/19 05/09/19 Warfarin [Coumadin] 5 mg PO QDWARFARIN #30 tablet 05/06/19 05/09/19 traZODone [Desyrel] 50 mg PO HS PRN 05/06/19 05/09/19 HYDROmorphone [Dilaudid] 4 mg PO Q4HR PRN 05/09/19 05/09/19 Doxycycline Hyclate 100 mg PO BID #14 capsule 07/07/19 Albuterol Sulf [Ventolin Hfa 1 - 2 puffs INH Q4HR PRN #1 inhaler 07/12/19 Inhaler] Amox/Clav 875/125 [Augmentin 1 each PO Q12H #20 tablet 07/12/19 875/125] predniSONE [Prednisone] 40 mg PO DAILY #10 tablet 07/12/19 Levofloxacin [Levaquin] 750 mg PO DAILY 5 Days #5 tablet 08/15/19 Enoxaparin [Lovenox] 135 mg SUBQ BID #20 syringe 12/10/19 Warfarin [Coumadin] 5 mg PO QDWARFARIN #30 tablet 12/10/19 - Allergies Allergies/Adverse Reactions: Allergies Allergy/AdvReac Type Severity Reaction Status Date / Time carisoprodol [From Soma] Allergy Unknown Verified 12/05/19 22:46 - Social History Does the pt smoke?: Yes Smoking Status: Current every day smoker Does the pt drink ETOH?: Yes Does the pt have substance abuse?: No - Immunizations Immunizations are current?: Yes - POLST Patient has POLST: No PD ED PE NORMAL - Vitals Vital signs reviewed: Yes - General General: Alert and oriented X 3, Well developed/nourished - HEENT HEENT: Pharynx benign - Neck Neck: Supple, no meningeal sign, No adenopathy - Cardiac Cardiac: RRR (mild tachycardia), No murmur - Respiratory Respiratory: Clear bilaterally - Abdomen Abdomen: Soft - Derm Derm: Normal color, Warm and dry - Extremities Extremities: No deformity, Other (Generalized edema in both legs and arms which she states she has had for a month or 2.) - Neuro Neuro: Alert and oriented X 3, No motor deficit, Normal speech Results - Rads (name of study) chest xray Radiology: Prelim report reviewed (No acute process), See rad report PD MEDICAL DECISION MAKING - ED course Complexity details: reviewed results (The patient is concerned about some cough and trouble breathing that developed overnight into today and some chest pain with history of blood clots in the past. She is not currently on any anticoagulants. D-dimer is moderately elevated by our lab so we can get a scan to further evaluate.), re-evaluated patient (The patient did have an episode abruptly of shallow rapid breathing associated with general muscle tone in both arms and legs but then would be limp in her arms as well. There is no tremoring or seizure-like activity per se. She did seem to flinch a bit in response to an Accu-Chek. I put her arm overhead and there was no arm drop onto herself. Unclear if this was hyperventilating episode or such. It did last for several minutes and was given Ativan 1 mg IV which did seem to improve her symptoms.), considered differential, d/w patient ED course: The patient with several episodes now of's and not clearly seizure type activity. The notes from [facility] yesterday's refer to her consultation with neurology that suggested starting Keppra twice daily. However the ER physician held that as not wanting to increase her polypharmacy. The patient does have general edema and of her medicines Lyrica does list edema as a side effect. She has an appointment with a line crewman tomorrow. Her kidney function however seems normal. At this point we can get a chest GONZALEZ to exclude blood clots. Consider starting the low-dose Keppra at this point and could decrease her Lyrica slightly to see if that helps with the edema. Follow-up with her line crewman appointment tomorrow and then her primary care regarding neurology consultation. At this point the CT is yet pending. Departure - Departure Disposition: 66 [facility] DC/Xfer Clinical Impression: Pulmonary embolism Qualifiers: Pulmonary embolism type: unspecified Chronicity: acute Acute cor pulmonale presence: unspecified Qualified Code(s): I26.99 - Other pulmonary embolism without acute cor pulmonale Condition: Poor Discharge Date/Time: 12/09/19 22:45 <Jermaine Reich - Last Filed: 12/10/19 07:13> Results - Vitals Vitals: Vital Signs - 24 hr 04/28/20 04/28/20 04/28/20 16:49 17:22 18:28 Temperature 36.8 C Heart Rate 106 H 111 H Respiratory 16 19 Rate Blood Pressure 132/80 H 157/114 H O2 Saturation 97 96 12/09/19 12/09/19 20:13 20:59 Temperature Heart Rate 104 H 104 H Respiratory 13 17 Rate Blood Pressure 145/81 H 141/85 H O2 Saturation 95 94 Oxygen O2 Source Room air - Labs Labs: Laboratory Tests 12/09/19 12/09/19 12/09/19 18:04 18:25 18:25 WBC RBC Hgb Hct MCV MCH MCHC RDW Plt Count MPV Neut # (Auto) Lymph # (Auto) [place] # (Auto) Eos # (Auto) Baso # (Auto) Absolute Nucleated RBC Nucleated RBC % PT INR APTT D-Dimer 338.4 H Sodium Potassium Chloride Carbon Dioxide Anion Gap BUN Creatinine Estimated GFR (MDRD) Glucose POC Whole Bld Glucose 117 H Calcium Magnesium Total Bilirubin AST ALT Alkaline Phosphatase Troponin I High Sens B-Natriuretic Peptide 63 Total Protein Albumin Globulin Albumin/Globulin Ratio Lipase TSH Urine Color Urine Clarity Urine pH Ur Specific [place] Urine Protein Urine Glucose (UA) Urine Ketones Urine Occult Blood Urine Nitrite Urine Bilirubin Urine Urobilinogen Ur Leukocyte Esterase Ur Microscopic Review Urine Culture Comments Urine Opiates Screen Ur Oxycodone Screen Urine Methadone Screen Ur Propoxyphene Screen Ur Barbiturates Screen Ur Tricyclics Screen Ur Phencyclidine Scrn Ur Amphetamine Screen U Methamphetamines Scrn U Benzodiazepines Scrn Urine Cocaine Screen U Cannabinoids Screen Ethyl Alcohol 12/09/19 12/09/19 12/09/19 18:25 18:25 18:25 WBC 5.1 RBC 3.92 L Hgb 9.8 L Hct 32.5 L MCV 82.9 MCH 25.0 L MCHC 30.2 L RDW 17.0 H Plt Count 192 MPV 9.8 Neut # (Auto) 3.2 Lymph # (Auto) 1.0 L [place] # (Auto) 0.6 Eos # (Auto) 0.3 Baso # (Auto) 0.0 Absolute Nucleated RBC 0.00 Nucleated RBC % 0.0 PT INR APTT D-Dimer Sodium Potassium Chloride Carbon Dioxide Anion Gap BUN Creatinine Estimated GFR (MDRD) Glucose POC Whole Bld Glucose Calcium Magnesium Total Bilirubin AST ALT Alkaline Phosphatase Troponin I High Sens 5.8 B-Natriuretic Peptide Total Protein Albumin Globulin Albumin/Globulin Ratio Lipase TSH 2.20 Urine Color Urine Clarity Urine pH Ur Specific [place] Urine Protein Urine Glucose (UA) Urine Ketones Urine Occult Blood Urine Nitrite Urine Bilirubin Urine Urobilinogen Ur Leukocyte Esterase Ur Microscopic Review Urine Culture Comments Urine Opiates Screen Ur Oxycodone Screen Urine Methadone Screen Ur Propoxyphene Screen Ur Barbiturates Screen Ur Tricyclics Screen Ur Phencyclidine Scrn Ur Amphetamine Screen U Methamphetamines Scrn U Benzodiazepines Scrn Urine Cocaine Screen U Cannabinoids Screen Ethyl Alcohol 12/09/19 12/09/19 12/09/19 18:25 21:08 21:15 WBC RBC Hgb Hct MCV MCH MCHC RDW Plt Count MPV Neut # (Auto) Lymph # (Auto) [place] # (Auto) Eos # (Auto) Baso # (Auto) Absolute Nucleated RBC Nucleated RBC % PT 10.8 INR 0.9 APTT 24.8 L D-Dimer Sodium 137 Potassium 3.1 L Chloride 98 L Carbon Dioxide 27 Anion Gap 12.0 BUN 7 Creatinine 0.6 Estimated GFR (MDRD) 112 Glucose 116 H POC Whole Bld Glucose Calcium 8.8 Magnesium 2.2 Total Bilirubin < 0.2 L AST 25 ALT 18 Alkaline Phosphatase 86 Troponin I High Sens B-Natriuretic Peptide Total Protein 7.4 Albumin 3.8 Globulin 3.6 Albumin/Globulin Ratio 1.1 Lipase 18 L TSH Urine Color YELLOW Urine Clarity CLEAR Urine pH 7.0 Ur Specific [place] <=1.005 Urine Protein NEGATIVE Urine Glucose (UA) NEGATIVE Urine Ketones NEGATIVE Urine Occult Blood NEGATIVE Urine Nitrite NEGATIVE Urine Bilirubin NEGATIVE Urine Urobilinogen 0.2 (NORMAL) Ur Leukocyte Esterase NEGATIVE Ur Microscopic Review NOT INDICATED Urine Culture Comments NOT INDICATED Urine Opiates Screen POSITIVE H Ur Oxycodone Screen POSITIVE H Urine Methadone Screen NEGATIVE Ur Propoxyphene Screen NEGATIVE Ur Barbiturates Screen POSITIVE H Ur Tricyclics Screen POSITIVE H Ur Phencyclidine Scrn NEGATIVE Ur Amphetamine Screen NEGATIVE U Methamphetamines Scrn NEGATIVE U Benzodiazepines Scrn POSITIVE H Urine Cocaine Screen NEGATIVE U Cannabinoids Screen NEGATIVE Ethyl Alcohol < 5.0 PD MEDICAL DECISION MAKING - ED course Complexity details: other (Patient signed out to me at shift change by dr. layne, cta shows pe, will admit. ) - Consults Consults: Discussed case with (21:[address] buck, will admit, patient updated and agreeable to be admitted.), Request economic consultant admit patient
[2019-12-09] MEDS ORDERED: KETOROLAC 30 MG/ML VIAL IVP STA (17:51)
[2019-12-09] MEDS ORDERED: ACETAMINOPHEN 1,000 MG/100 ML 100 ML IV ONE (17:52)
[2019-12-09] MEDS ORDERED: LORazepam 2 MG/ML VIAL ONE (18:03)
[2019-12-09] MEDS ORDERED: LORazepam 2 MG/ML VIAL IVP STA (18:08)
[2019-12-09 18:36] LABS: BASOPHILS % (AUTO) 0.8 %; EOSINOPHILS # (AUTO) 0.3 10^3/uL (0.0-0.7); EOSINOPHILS % (AUTO) 4.9 %; HGB - HEMOGLOBIN 9.8 g/dL (12.0-16.0); MEAN CORPUSCULAR HGB CONC 30.2 g/dL (32.0-36.0); MEAN CORPUSCULAR VOLUME 82.9 fL (81.0-99.0); MEAN PLATELET VOLUME 9.8 fL (7.9-10.8); MONOCYTES # (AUTO) 0.6 10^3/uL (0.0-1.0); MONOCYTES % (AUTO) 11.7 %; NEUTROPHILS # (AUTO) 3.2 10^3/uL (1.5-6.6); NEUTROPHILS % (AUTO) 62.2 %; PLT - PLATELET COUNT 192 10^3/uL (130-450); RED BLOOD COUNT 3.92 10^6/uL (4.20-5.40); WHITE BLOOD COUNT 5.1 x10^3/uL (4.8-10.8)
--- NOTE | 2019-12-09 18:47 | XRAY Report ---
Reason: chest pain/cough Procedure Date: 12/09/2019 Accession Number: [id number] / [id number] Procedure: XR - Chest 1 View X-Ray CPT Code: 89935 Final Report FULL RESULT: EXAM: CHEST RADIOGRAPHY EXAM DATE: 12/09/2019 06:38 PM. CLINICAL HISTORY: Chest pain/cough. COMPARISON: CHEST 2 VIEW 07/12/2019 5:32 AM. TECHNIQUE: Upright AP view. FINDINGS: The study is underpenetrated. Lungs/Pleura: No focal opacities evident. No pleural effusion. No pneumothorax. Mediastinum: Within exam limitations, the cardiomediastinal contour is normal. Other: None. IMPRESSION: Normal single view chest accounting for underpenetration. RADIA
[2019-12-09 19:17] LABS: ALBUMIN 3.8 g/dL (3.2-5.5); ALBUMIN/GLOBULIN RATIO 1.1 (1.0-2.2); ALKALINE PHOSPHATASE 86 IU/L (42-121); ALT ALANINE AMINOTRANSFERASE 18 IU/L (10-60); AST ASPARTATE AMINOTRANSFERASE 25 IU/L (10-42); BILIRUBIN,TOTAL < 0.2 mg/dL (0.2-1.0); BUN - BLOOD UREA NITROGEN 7 mg/dL (6-20); CALCIUM 8.8 mg/dL (8.5-10.3); CARBON DIOXIDE - CO2 27 mmol/L (21-32); CHLORIDE 98 mmol/L (101-111); CREATININE 0.6 mg/dL (0.4-1.0); GLUCOSE 116 mg/dL (70-100); LIPASE 18 U/L (22-51); MAGNESIUM 2.2 mg/dL (1.7-2.8); SODIUM 137 mmol/L (135-145); TOTAL PROTEIN 7.4 g/dL (6.7-8.2)
[2019-12-09] MEDS ORDERED: IOVERSOL 320 100 ML VIAL IVP ONE ×2 (19:23→20:06)
--- NOTE | 2019-12-09 20:25 | CT Report ---
Reason: chest pain, elevated d-dimer Procedure Date: 12/09/2019 Accession Number: [id number] / [id number] Procedure: CT - ANGIO CHEST W/WO CPT Code: Final Report FULL RESULT: EXAM: CT ANGIOGRAM CHEST EXAM DATE: 12/09/2019 08:02 PM. CLINICAL HISTORY: Chest pain, elevated d-dimer. COMPARISON: CHEST ANGIO 08/15/2019 2:17 PM. TECHNIQUE: Routine helical imaging was performed through the chest in the pulmonary arterial phase. IV Contrast: 56 ml of OPTIRAY 320. Reconstructions: Coronal 3-D MIP reconstructions. Sagittal and coronal. In accordance with CT protocol optimization, one or more of the following dose reduction techniques were utilized for this exam: automated exposure control, adjustment of mA and/or KV based on patient size, or use of iterative reconstructive technique. FINDINGS: Pulmonary Arteries: Diagnostic quality: Adequate through the segmental arteries. Hypodense linear filling defects in right lower lobe pulmonary artery extending into segmental arteries (image 67 series 5). Hypodense filling defect also seen in right upper lobe pulmonary artery (image 55 on series 5). RV/LV is within normal limits. There is no interventricular septal bowing. There is no reflux of contrast material in the IVC. Lungs/Pleura: No consolidation, nodules, or edema. No effusions or pneumothorax. Mediastinum: Normal. No cardiac enlargement or adenopathy. Thoracic Aorta: Unremarkable. Upper Abdomen: Unremarkable. Other: None. IMPRESSION: Pulmonary emboli in right upper lobe and right lower lobe pulmonary arteries. Emboli extend into segmental arteries in right lower lobe. Overall mild to moderate clot burden. No pulmonary infarcts. No right heart strain. No suggestion of acute pulmonary arterial hypertension. RADIA
[2019-12-09 21:22] LABS: INR 0.9 (0.8-1.2); PT - PROTHROMBIN TIME 10.8 secs (9.9-12.6)
[2019-12-09 21:25] LABS: BILIRUBIN,URINE NEGATIVE (NEGATIVE); GLUCOSE, URINE (UA) NEGATIVE (NEGATIVE); KETONES,URINE (UA) NEGATIVE (NEGATIVE); LEUKOCYTE ESTERASE, URINE NEGATIVE (NEGATIVE); MUDS CUTOFF CONCENTRATIONS CUTOFF CONC BELOW:; NITRITE,URINE NEGATIVE (NEGATIVE); OCCULT BLOOD,URINE NEGATIVE (NEGATIVE); PROTEIN,URINE NEGATIVE (NEGATIVE); UROBILINOGEN,URINE 0.2 (NORMAL) E.U./dL (NORMAL)
[2019-12-09 21:27] LABS: CLARITY,URINE CLEAR (CLEAR)
[2019-12-09 21:29] LABS: PARTIAL THROMBOPLASTIN TIME 24.8 secs (24.9-33.3)
[2019-12-09 21:38] LABS: AMPHETAMINE SCREEN,URINE NEGATIVE (NEGATIVE); BENZODIAZEPINES SCREEN, URINE POSITIVE (NEGATIVE); COCAINE SCREEN URINE NEGATIVE (NEGATIVE); METHADONE SCREEN, URINE NEGATIVE (NEGATIVE); METHAMPHETAMINES SCREEN, URINE NEGATIVE (NEGATIVE); OPIATE SCREEN, URINE POSITIVE (NEGATIVE); OXYCODONE SCREEN, URINE POSITIVE (NEGATIVE); PROPOXYPHENE SCREEN, URINE NEGATIVE (NEGATIVE); TRICYCLIC ANTIDEPRESSANT,URINE POSITIVE (NEGATIVE)
[2019-12-09] MEDS ORDERED: CYCLOBENZAPRINE 10 MG TABLET PO PRN (21:59)
[2019-12-09] MEDS ORDERED: diazePAM 5 MG TABLET PO PRN (21:59)
[2019-12-09] MEDS ORDERED: traZODone 50 MG TABLET PO PRN (21:59)
[2019-12-09] MEDS ORDERED: MORPHINE ER 15 MG TABLET PO SCH (22:00)
[2019-12-09] MEDS ORDERED: ACETAMINOPHEN 325 MG TABLET PO PRN (22:03)
[2019-12-09] MEDS ORDERED: IBUPROFEN 600 MG TABLET PO PRN (22:03)
[2019-12-09] MEDS ORDERED: ONDANSETRON ODT 4 MG TABLET TL PRN (22:03)
[2019-12-09] MEDS ORDERED: SODIUM CHLORIDE FLUSH 0.9% 10 ML SYRINGE IVP PRN (22:03)
[2019-12-09] MEDS ORDERED: ZOLPIDEM 5 MG TABLET PO PRN (22:03)
--- NOTE | 2019-12-09 22:07 | HISTORY & PHYSICAL EXAMINATION ---
Chief Complaint - Chief Complaint Chief Complaint: Chest pain History of Present Illness - Admitted From Admitted From:: Home - History Obtained From Records Reviewed: Yes History obtained from: Patient and ER records Exam Limitations: None - History of Present Illness HPI Comment/Other: Patient is a 38-year-old female with a past medical history significant for morbid obesity, chronic pain status post 4 spinal fusions with opioid dependence, hypertension, asthma, alcohol abuse, diabetes mellitus type 2, GERD, depression, obstructive sleep apnea and a history of pulmonary embolism previously on anticoagulation with Coumadin but it was stopped by her primary care physician who now presented to the emergency department with chest pain. The patient states that this is her fourth emergency room visit in the last week . She states that last week she was having urinary retention for which she was seen in the emergency department, then later in the week she had an episode where after drinking and taking her opiate pain medication she became unresponsive and had to be brought to the emergency department to receive reversal of her narcotics and was also in the emergency room last night and [facility] due to having seizure activity. The patient states the seizure was aborted and she did not get placed on any antiepileptic medications but will follow-up with neurology. The patient is also scheduled to see nephrology tomorrow due to bilateral lower extremity swelling. The patient states that she was in her normal state of health today when this evening she had 4 glasses of vodka and cranberry juice. She states that during the time she was drinking she noticed she was having severe chest pain. She states that it was located in the substernal area without radiation. She states that she has had chronic chest pain since her previous PE but stated that this was much worse than her usual pain. She states that it made it hard for her to take a deep breath but she denies feeling short of breath. She does admit to feeling fatigued but that is been going on for some time. She then passed out on her couch and when her came to wake her up he could not therefore he called 911. On arrival paramedics also had a difficult time arousing the patient therefore she was given several doses of Narcan and brought to the emergency department. The patient denies any headaches, blurred vision, runny nose, sore throat, nasal congestion, she does admit to some wheezing and mild shortness of breath. She denies any orthopnea, PND, abdominal pain, vomiting or diarrhea. She does admit to some nausea. She denies any dysuria, increased urinary frequency, neck stiffness, recent unintentional weight loss, night sweats, polyuria, polydipsia or any focal neurologic deficits. On presentation to the emergency department the patient was hypertensive, tachycardic with a heart rate of 111 but was not in any respiratory distress. Her oxygen saturation remained above 92%. The patient's lab work did reveal a low potassium of 3.1, mild anemia with hemoglobin of 9.8 and an elevated d- dimer. The patient's INR was 0.9. Patient's blood glucose was 116. The patient's UA was negative. The patient's urine tox screen was positive for benzodiazepines, tricyclics, oxycodone and opiates. The patient's alcohol screen was negative. Given her tachycardia and elevated d-dimer in the setting of her previous pulmonary embolism for which she was no longer on anticoagulation the patient underwent a CT angiogram of her lungs. The CT angiogram revealed pulmonary embolism in the right upper lobe and right lower lobe pulmonary arteries. Emboli extended into segmental arteries in the right lower lobe. Overall mild to moderate clot burden. No pulmonary infarcts. No right heart strain. No suggestion of acute pulmonary arterial hypertension. Although the patient remained hemodynamically stable she was placed in observation for close monitoring overnight as she was at high risk for deterioration. 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 She has one uncle that had pancreatic cancer and diabetes. 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 No longer working due to her chronic back pain. She no longer smokes a fter quiting this past November. Previously smoked a pack per day for approximately 20 years. Drinks alcohol occasionally. Does not use illict drugs. - Substance History Use: Uses substance without health or social issues: NONE - POLST Patient has POLST: No POLST Status: Full Code Meds/Allgy - Home Medications Home Medications: Ambulatory Orders Medication Instructions Recorded Confirmed ARIPiprazole [Abilify] 5 mg PO DAILY 10/05/17 05/09/19 Albuterol Sulfate [Proair Hfa 2 puffs INH TID PRN 10/05/17 05/09/19 Inhaler] Amitriptyline [Elavil] 25 tab PO DAILY 10/05/17 05/09/19 Duloxetine HCl [Cymbalta] 60 mg PO DAILY 10/05/17 05/09/19 Meloxicam [Mobic] 1 tab PO BID 10/05/17 05/09/19 Pregabalin [Lyrica] 150 mg PO BID 10/05/17 05/09/19 Terazosin [Hytrin] 5 mg PO QPM 10/05/17 05/09/19 raNITIdine [Zantac] 150 mg PO DAILY 10/05/17 05/09/19 Cyclobenzaprine [Flexeril] 10 mg PO TID PRN 10/08/18 05/09/19 Furosemide [Lasix] 20 mg PO DAILY 10/08/18 05/09/19 Levothyroxine [Synthroid] 50 mcg PO QDAC 10/08/18 05/09/19 Lubiprostone [Amitiza] 24 mcg PO BID 10/08/18 05/09/19 Metoprolol Tartrate [Lopressor] 50 mg PO BID 10/08/18 05/09/19 Omeprazole 20 mg PO BID 10/08/18 05/09/19 diazePAM [Diazepam] 5 mg PO PRN PRN 10/08/18 05/09/19 tiZANidine [Zanaflex] 4 mg PO Q8H 10/08/18 05/09/19 Docusate Calcium 240 mg PO BID 05/06/19 05/09/19 Enoxaparin [Lovenox] 120 mg SUBQ BID #14 syringe 05/06/19 05/09/19 Ibuprofen [Motrin] 05/06/19 Morphine ER [Ms Contin] 15 mg PO Q12H 05/06/19 05/09/19 Oxycodone HCl [Roxicodone] 7.5 - 15 mg PO .Q6-8H PRN MDD 15 MG 05/06/19 05/09/19 Warfarin [Coumadin] 5 mg PO QDWARFARIN #30 tablet 05/06/19 05/09/19 traZODone [Desyrel] 50 mg PO HS PRN 05/06/19 05/09/19 HYDROmorphone [Dilaudid] 4 mg PO Q4HR PRN 05/09/19 05/09/19 Doxycycline Hyclate 100 mg PO BID #14 capsule 07/07/19 Albuterol Sulf [Ventolin Hfa 1 - 2 puffs INH Q4HR PRN #1 inhaler 07/12/19 Inhaler] Amox/Clav 875/125 [Augmentin] 1 each PO Q12H #20 tablet 07/12/19 predniSONE [Prednisone] 40 mg PO DAILY #10 tablet 07/12/19 Levofloxacin [Levaquin] 750 mg PO DAILY 5 Days #5 tablet 08/15/19 - Allergies Allergies/Adverse Reactions: Allergies Allergy/AdvReac Type Severity Reaction Status Date / Time carisoprodol [From Soma] Allergy Unknown Verified 12/05/19 22:46 Review of Systems - Other Findings Other Findings: A comprehensive review of systems was performed the pertinent positives and negatives are stated above in the HPI and the remainder of the review of systems is negative. Prior Level of Functionality: Patient lives at home with her . They live in [place]. They do not have any children. She is limited by her back pain and asthma but is able to ambulate without any assistance. Exam - Vital Signs Reviewed Vital Signs: Yes Vital Signs: Vital Signs x48h Temp Pulse Resp BP Pulse Ox 12/09/19 22:04 112 H 18 152/110 H 95 12/09/19 20:59 104 H 17 141/85 H 94 12/09/19 20:13 104 H 13 145/81 H 95 12/09/19 18:28 111 H 19 157/114 H 96 12/09/19 17:22 132/80 H 12/09/19 16:49 36.8 C 106 H 16 97 - Physical Exam General Appearance: positive: No acute distress, Alert, Other (Morbidly obese) Eyes Bilateral: positive: Normal inspection, PERRL, EOMI, No lid inflammation, Conjunctivae nml, No scleral icterus ENT: positive: ENT inspection nml, Pharynx nml, No signs of dehydration. negative: Purulent nasal drainage, Pharyngeal erythema, Oral lesions, Dry mucous membranes Neck: positive: Nml inspection, Thyroid nml, No JVD, Trachea midline. negative: Thyromegaly, Lymphadenopathy (R), Lymphadenopathy (L), Stiff neck Respiratory: positive: Chest non-tender, No respiratory distress, Wheezes, Other (Mild wheezes in the right lung) Cardiovascular: positive: No murmur, No gallop, Tachycardia Peripheral Pulses: positive: 2+ Abdomen: positive: Non-tender, No organomegaly, Nml bowel sounds, Other (Obese abdomen). negative: Tenderness, Guarding, Rebound, Hepatomegaly Back: positive: Nml inspection. negative: CVA tenderness (R), CVA tenderness (L) Skin: positive: Color nml, No rash, Warm. negative: Cyanosis Extremities: positive: Non-tender, Full ROM, Nml appearance, Pedal edema, Other (Bilateral lower extremity edema) Neurologic/Psychiatric: positive: Oriented x3, CN's nml (2-12), Motor nml, Sensation nml, Mood/affect nml Conclusion/Plan - Problem List (1) Pulmonary embolism Conclusion/Plan: Patient has history of pulmonary embolism and was previously on anticoagulation with Coumadin which was stopped after she completed treatment. She presented to the emergency department with chest pain and had elevated d- dimer along with sinus tachycardia. CT of the lungs reveals pulmonary emboli in right upper lobe and right lower lobe pulmonary arteries. Emboli extend into segmental arteries and right lower lobe. Overall mild to moderate clot burden. No pulmonary infarcts. No right heart strain. No suggestion of acute pulmonary arterial hypertension. The patient appears hemodynamically stable but continues to have chest pain and tachycardia. She has been placed in observation for monitoring overnight of her vital signs and respiratory status. She will be started on Lovenox 1 mg/kg twice daily and bridged to Coumadin She needs a full hypercoagulability work-up which will be deferred to outpatient and may benefit from referral to hematology. The patient has had previous spontaneous and should be tested for antiphospholipid syndrome if she has not already. Patient can consider starting on a NOAC as an outpatient. Telemetry monitoring Echocardiogram Qualifiers: Pulmonary embolism type: unspecified Chronicity: acute Acute cor pulmo nale presence: unspecified Qualified Code(s): I26.99 - Other pulmonary embolism without acute cor pulmonale (2) Hypertension Conclusion/Plan: Patient's blood pressure is elevated on presentation We will restart the patient's home dose of metoprolol Monitor blood pressure closely Qualifiers: Hypertension type: essential hypertension Qualified Code(s): I10 - Ess ential (primary) hypertension (3) Opioid dependence Conclusion/Plan: Unfortunately appears the last week patient has had 2 episodes of overdose with opioids or mixing opiates and alcohol causing her to have respiratory depression and decreased level of consciousness. To avoid the patient going into withdrawal I will restart her extended release morphine 15 mg 3 times daily and oxycodone as needed. We will monitor closely for respiratory depression (4) Diabetes mellitus Conclusion/Plan: Patient is recently diagnosed with diabetes but is awaiting appointment with her consumer insights specialist before starting metformin. For now we will just monitor her blood glucose daily and put her on a carb controlled diet Qualifiers: Diabetes mellitus type: type 2 Diabetes mellitus senior care insulin use: without senior care use Diabetes mellitus complication status: without complication Qualified Code(s): E11.9 - Type 2 diabetes mellitus without complications (5) Asthma Conclusion/Plan: Patient has mild asthma and did have some wheezes on examination Patient placed on bronchodilator protocol Qualifiers: Asthma severity: mild Asthma persistence: intermittent (6) GERD (gastroesophageal reflux disease) Conclusion/Plan: Patient has history of GERD and is on omeprazole at home Patient will be placed on Pepcid while she is hospitalized Qualifiers: Esophagitis presence: without esophagitis Qualified Code(s): K21.9 - Gastro -esophageal reflux disease without esophagitis (7) Depression Conclusion/Plan: Patient has history of depression and uses Cymbalta and Abilify We will restart her home medications She does not currently appear to be depressed but has been drinking more freq uently recently Qualifiers: Depression Type: unspecified Qualified Code(s): F32.9 - Major depressive disorder, single episode, unspecified (8) DERREK (obstructive sleep apnea) Conclusion/Plan: Patient is noncompliant with CPAP Patient counseled (9) Seizures Conclusion/Plan: Patient had new onset seizures yesterday in the emergency department at [place] We will monitor for further seizure activity but she does not appear to be having seizures at this time She has not on any antiepileptics She is to follow-up with neurology as an outpatient Etiology of her seizures is unknown at this time (10) Alcohol abuse Conclusion/Plan: Patient has been drinking regularly for the last few weeks Her alcohol level was negative on presentation She does not appear to be withdrawing We will monitor her closely if needed we can place her on alcohol withdrawal protocol She was counseled (11) Chronic back pain Conclusion/Plan: Patient has had 4 spinal fusions and has chronic back pain This is why she is on chronic opiates We will continue her home dose of opioids as she is dependent on opioids and I do not want to see her withdraw. (12) Hypokalemia Conclusion/Plan: Replace potassium Monitor (13) Hypothyroidism Conclusion/Plan: Continue levothyroxine TSH is normal - Lab Results Lab results reviewed: Yes Fish Bones: 12/09/19 18:25 12/09/19 18:25 Other Lab Results: Laboratory Tests 12/09/19 12/09/19 12/09/19 18:25 18:25 18:25 WBC RBC Hgb Hct MCV MCH MCHC RDW Plt Count MPV Neut # (Auto) Lymph # (Auto) [place] # (Auto) Eos # (Auto) Baso # (Auto) Absolute Nucleated RBC Nucleated RBC % PT INR APTT D-Dimer 338.4 H Sodium Potassium Chloride Carbon Dioxide Anion Gap BUN Creatinine Estimated GFR (MDRD) Glucose Calcium Magnesium Total Bilirubin AST ALT Alkaline Phosphatase Troponin I High Sens B-Natriuretic Peptide 63 Total Protein Albumin Globulin Albumin/Globulin Ratio Lipase TSH 2.20 Urine Color Urine Clarity Urine pH Ur Specific [place] Urine Protein Urine Glucose (UA) Urine Ketones Urine Occult Blood Urine Nitrite Urine Bilirubin Urine Urobilinogen Ur Leukocyte Esterase Ur Microscopic Review Urine Culture Comments Urine Opiates Screen Ur Oxycodone Screen Urine Methadone Screen Ur Propoxyphene Screen Ur Barbiturates Screen Ur Tricyclics Screen Ur Phencyclidine Scrn Ur Amphetamine Screen U Methamphetamines Scrn U Benzodiazepines Scrn Urine Cocaine Screen U Cannabinoids Screen Ethyl Alcohol 12/09/19 12/09/19 12/09/19 18:25 18:25 18:25 WBC 5.1 RBC 3.92 L Hgb 9.8 L Hct 32.5 L MCV 82.9 MCH 25.0 L MCHC 30.2 L RDW 17.0 H Plt Count 192 MPV 9.8 Neut # (Auto) 3.2 Lymph # (Auto) 1.0 L [place] # (Auto) 0.6 Eos # (Auto) 0.3 Baso # (Auto) 0.0 Absolute Nucleated RBC 0.00 Nucleated RBC % 0.0 PT INR APTT D-Dimer Sodium 137 Potassium 3.1 L Chloride 98 L Carbon Dioxide 27 Anion Gap 12.0 BUN 7 Creatinine 0.6 Estimated GFR (MDRD) 112 Glucose 116 H Calcium 8.8 Magnesium 2.2 Total Bilirubin < 0.2 L AST 25 ALT 18 Alkaline Phosphatase 86 Troponin I High Sens 5.8 B-Natriuretic Peptide Total Protein 7.4 Albumin 3.8 Globulin 3.6 Albumin/Globulin Ratio 1.1 Lipase 18 L TSH Urine Color Urine Clarity Urine pH Ur Specific [place] Urine Protein Urine Glucose (UA) Urine Ketones Urine Occult Blood Urine Nitrite Urine Bilirubin Urine Urobilinogen Ur Leukocyte Esterase Ur Microscopic Review Urine Culture Comments Urine Opiates Screen Ur Oxycodone Screen Urine Methadone Screen Ur Propoxyphene Screen Ur Barbiturates Screen Ur Tricyclics Screen Ur Phencyclidine Scrn Ur Amphetamine Screen U Methamphetamines Scrn U Benzodiazepines Scrn Urine Cocaine Screen U Cannabinoids Screen Ethyl Alcohol < 5.0 12/09/19 12/09/19 21:08 21:15 WBC RBC Hgb Hct MCV MCH MCHC RDW Plt Count MPV Neut # (Auto) Lymph # (Auto) [place] # (Auto) Eos # (Auto) Baso # (Auto) Absolute Nucleated RBC Nucleated RBC % PT 10.8 INR 0.9 APTT 24.8 L D-Dimer Sodium Potassium Chloride Carbon Dioxide Anion Gap BUN Creatinine Estimated GFR (MDRD) Glucose Calcium Magnesium Total Bilirubin AST ALT Alkaline Phosphatase Troponin I High Sens B-Natriuretic Peptide Total Protein Albumin Globulin Albumin/Globulin Ratio Lipase TSH Urine Color YELLOW Urine Clarity CLEAR Urine pH 7.0 Ur Specific [place] <=1.005 Urine Protein NEGATIVE Urine Glucose (UA) NEGATIVE Urine Ketones NEGATIVE Urine Occult Blood NEGATIVE Urine Nitrite NEGATIVE Urine Bilirubin NEGATIVE Urine Urobilinogen 0.2 (NORMAL) Ur Leukocyte Esterase NEGATIVE Ur Microscopic Review NOT INDICATED Urine Culture Comments NOT INDICATED Urine Opiates Screen POSITIVE H Ur Oxycodone Screen POSITIVE H Urine Methadone Screen NEGATIVE Ur Propoxyphene Screen NEGATIVE Ur Barbiturates Screen POSITIVE H Ur Tricyclics Screen POSITIVE H Ur Phencyclidine Scrn NEGATIVE Ur Amphetamine Screen NEGATIVE U Methamphetamines Scrn NEGATIVE U Benzodiazepines Scrn POSITIVE H Urine Cocaine Screen NEGATIVE U Cannabinoids Screen NEGATIVE Ethyl Alcohol - Diagnostic Imaging Results Diagnostic Imaging Results: positive: Final report reviewed Diagnostic Imaging Results Comments: Chest x-ray Normal single view chest accounting for underpenetration CT angiogram chest: Pulmonary emboli in right upper lobe and right lower lobe pulmonary arteries. Emboli extend into segmental arteries in the right lower lobe. Overall mild to moderate clot burden. No pulmonary infarct. No right heart strain. No suggestion of acute pulmonary arterial hypertension. - EKG Results EKG Interpreted Independently: Yes EKG Findings: Sinus tachycardia Core Measures - Anticipated LOS I expect patient to be DC'd or transferred within 96 hours.: Yes - DVT/VTE - Prophylaxis VTE/DVT Prophylaxis med ordered at admit?: Yes
[2019-12-09] MEDS ORDERED: oxyCODONE 5 MG TABLET PO PRN (22:28)
[2019-12-09] MEDS ORDERED: PROCHLORPERAZINE 10 MG/2 ML VIAL IVP PRN (22:29)
[2019-12-10] MEDS ORDERED: SODIUM CHLORIDE FLUSH 0.9% 10 ML SYRINGE IVP SCH (01:00)
[2019-12-10 02:56] VITALS: BP 119/78
[2019-12-10 05:45] LABS: BASOPHILS % (AUTO) 0.4 %; EOSINOPHILS # (AUTO) 0.2 10^3/uL (0.0-0.7); EOSINOPHILS % (AUTO) 3.4 %; HGB - HEMOGLOBIN 9.3 g/dL (12.0-16.0); LYMPHOCYTES # (AUTO) 1.3 10^3/uL (1.5-3.5); LYMPHOCYTES % (AUTO) 23.5 %; MEAN CORPUSCULAR HEMOGLOBIN 24.7 pg (27.0-31.0); MEAN CORPUSCULAR HGB CONC 29.5 g/dL (32.0-36.0); MEAN CORPUSCULAR VOLUME 83.8 fL (81.0-99.0); MEAN PLATELET VOLUME 10.6 fL (7.9-10.8); MONOCYTES # (AUTO) 0.5 10^3/uL (0.0-1.0); NEUTROPHILS # (AUTO) 3.5 10^3/uL (1.5-6.6); NEUTROPHILS % (AUTO) 63.3 %; PLT - PLATELET COUNT 191 10^3/uL (130-450); RED BLOOD COUNT 3.76 10^6/uL (4.20-5.40); RED CELL DISTRIBUTION WIDTH 16.7 % (12.0-15.0); WHITE BLOOD COUNT 5.5 x10^3/uL (4.8-10.8)
--- NOTE | 2019-12-10 06:57 | DISCHARGE SUMMARY ---
Discharge Summary Admit Date: 12/09/19 Discharge Date: 12/10/19 Discharging Provider: Tyron Weber MD Primary Care Provider: Meri Villanueva Code Status: Attempt Resuscitation Condition at Discharge: Poor Discharge Disposition: 07 Against Medical Advice - DIAGNOSES Admission Diagnoses: 1. Pulmonary embolism 2. Hypertension 3. Opioid dependence 4. Diabetes mellitus type 2 5. Asthma 6. GERD 7. Depression 8. Obstructive sleep apnea 9. Seizures 10. Alcohol abuse 11. Chronic pain 12. Hypokalemia 13. Hypothyroidism Discharge Diagnoses with Status of Each Condition: 1. Pulmonary embolism: Poor 2. Hypertension: Guarded 3. Opioid dependence: Poor 4. Diabetes mellitus type 2: Stable 5. Asthma: Stable 6. GERD: Stable 7. Depression: Stable 8. Obstructive sleep apnea: Stable 9. Seizures: Stable 10. Alcohol abuse: Stable 11. Chronic pain: Stable 12. Hypokalemia: Stable 13. Hypothyroidism: Stable - HPI History of Present Illness: Patient is a 38-year-old female with a past medical history significant for morbid obesity, chronic pain status post 4 spinal fusions with opioid dependence, hypertension, asthma, alcohol abuse, diabetes mellitus type 2, GERD, depression, obstructive sleep apnea and a history of pulmonary embolism previously on anticoagulation with Coumadin but it was stopped by her primary care physician who now presented to the emergency department with chest pain. The patient states that this is her fourth emergency room visit in the last week. She states that last week she was having urinary retention for which she was seen in the emergency department, then later in the week she had an episode where after drinking and taking her opiate pain medication she became unresponsive and had to be brought to the emergency department to receive reversal of her narcotics and was also in the emergency room last night and [place] due to having seizure activity. The patient states the seizure was aborted and she did not get placed on any antiepileptic medications but will follow-up with neurology. The patient is also scheduled to see nephrology tomorrow due to bilateral lower extremity swelling. The patient states that she was in her normal state of health today when this evening she had 4 glasses of vodka and cranberry juice. She states that during the time she was drinking she noticed she was having severe chest pain. She st ates that it was located in the substernal area without radiation. She states that she has had chronic chest pain since her previous PE but stated that this was much worse than her usual pain. She states that it made it hard for her to take a deep breath but she denies feeling short of breath. She does admit to feeling fatigued but that is been going on for some time. She then passed out on her couch and when her came to wake her up he could not therefore he called 911. On arrival paramedics also had a difficult time arousing the patient therefore she was given several doses of Narcan and brought to the emergency department. The patient denies any headaches, blurred vision, runny nose, sore throat, nasal congestion, she does admit to some wheezing and mild shortness of breath. She denies any orthopnea, PND, abdominal pain, vomiting or diarrhea. She does admit to some nausea. She denies any dysuria, increased urinary frequency, neck stiffness, recent unintentional weight loss, night sweats, polyuria, polydipsia or any focal neurologic deficits. On presentation to the emergency department the patient was hypertensive, tachycardic with a heart rate of 111 but was not in any respiratory distress. Her oxygen saturation remained above 92%. The patient's lab work did reveal a low potassium of 3.1, mild anemia with hemoglobin of 9.8 and an elevated d- dimer. The patient's INR was 0.9. Patient's blood glucose was 116. The patient's UA was negative. The patient's urine tox screen was positive for benzodiazepines, tricyclics, oxycodone and opiates. The patient's alcohol screen was negative. Given her tachycardia and elevated d-dimer in the setting of her previous pulmonary embolism for which she was no longer on anticoagulation the patient underwent a CT angiogram of her lungs. The CT angiogram revealed pulmonary embolism in the right upper lobe and right lower lobe pulmonary arteries. Emboli extended into segmental arteries in the right lower lobe. Overall mild to moderate clot burden. No pulmonary infarcts. No right heart strain. No suggestion of acute pulmonary arterial hypertension. Although the patient remained hemodynamically stable she was placed in observation for close monitoring overnight as she was at high risk for deterioration. - HOSPITAL COURSE Hospital Course: Patient was admitted to the hospital on 12/09/2019 in the evening for her pulmonary embolism. Plan was to get bilateral lower extremity Doppler ultrasound to rule out DVT in her legs as she did have bilateral lower extremity swelling, monitor her on telemetry and get an echocardiogram. 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 Despite much efforts to calm her down and have her stay for the remaining test she insisted that she needed to get to a nephrology appointment at 12:00 PM. I explained to her that we could easily get the test done before she had to get to the appointment but the patient refused. She stated that she was not treated well by staff here at [facility]. She stated that they accused her of overdosing on opioids and she did not appreciate this. I did send a prescription for Lovenox and Coumadin to her pharmacy at [facility]. I explained to the patient the risks of her leaving and that she could have further respiratory decompensation and could . Despite these risks the patient still decided to leave. - ALLERGIES Allergies/Adverse Reactions: Allergies Allergy/AdvReac Type Severity Reaction Status Date / Time carisoprodol [From Soma] Allergy Unknown Verified 12/05/19 22:46 - MEDICATIONS Home Medications: Ambulatory Orders Medication Instructions Recorded Confirmed ARIPiprazole [Abilify] 5 mg PO DAILY 10/05/17 05/09/19 Albuterol Sulfate [Proair Hfa 2 puffs INH TID PRN 10/05/17 05/09/19 Inhaler] Amitriptyline [Elavil] 25 tab PO DAILY 10/05/17 05/09/19 Duloxetine HCl [Cymbalta] 60 mg PO DAILY 10/05/17 05/09/19 Meloxicam [Mobic] 1 tab PO BID 10/05/17 05/09/19 Pregabalin [Lyrica] 150 mg PO BID 10/05/17 05/09/19 Terazosin [Hytrin] 5 mg PO QPM 10/05/17 05/09/19 raNITIdine [Zantac] 150 mg PO DAILY 10/05/17 05/09/19 Cyclobenzaprine [Flexeril] 10 mg PO TID PRN 10/08/18 05/09/19 Furosemide [Lasix] 20 mg PO DAILY 10/08/18 05/09/19 Levothyroxine [Synthroid] 50 mcg PO QDAC 10/08/18 05/09/19 Lubiprostone [Amitiza] 24 mcg PO BID 10/08/18 05/09/19 Metoprolol Tartrate [Lopressor] 50 mg PO BID 10/08/18 05/09/19 Omeprazole 20 mg PO BID 10/08/18 05/09/19 diazePAM [Diazepam] 5 mg PO PRN PRN 10/08/18 05/09/19 tiZANidine [Zanaflex] 4 mg PO Q8H 10/08/18 05/09/19 Docusate Calcium 240 mg PO BID 05/06/19 05/09/19 Enoxaparin [Lovenox] 120 mg SUBQ BID #14 syringe 05/06/19 05/09/19 Ibuprofen [Motrin] 05/06/19 Morphine ER [Ms Contin] 15 mg PO Q12H 05/06/19 05/09/19 Oxycodone HCl [Roxicodone] 7.5 - 15 mg PO .Q6-8H PRN MDD 15 MG 05/06/19 05/09/19 Warfarin [Coumadin] 5 mg PO QDWARFARIN #30 tablet 05/06/19 05/09/19 traZODone [Desyrel] 50 mg PO HS PRN 05/06/19 05/09/19 HYDROmorphone [Dilaudid] 4 mg PO Q4HR PRN 05/09/19 05/09/19 Doxycycline Hyclate 100 mg PO BID #14 capsule 07/07/19 Albuterol Sulf [Ventolin Hfa 1 - 2 puffs INH Q4HR PRN #1 inhaler 07/12/19 Inhaler] Amox/Clav 875/125 [Augmentin] 1 each PO Q12H #20 tablet 07/12/19 predniSONE [Prednisone] 40 mg PO DAILY #10 tablet 07/12/19 Levofloxacin [Levaquin] 750 mg PO DAILY 5 Days #5 tablet 08/15/19 - PHYSICAL EXAM AT DISCHARGE General Appearance: positive: No acute distress, Alert Eyes Bilateral: positive: Normal inspection, PERRL, EOMI, No lid inflammation, Conjunctivae nml, No scleral icterus ENT: positive: ENT inspection nml, Pharynx nml, No signs of dehydration. negative: Purulent nasal drainage, Pharyngeal erythema, Oral lesions, Dry mucous membranes Neck: positive: Nml inspection, Thyroid nml, No JVD, Trachea midline. negative: Thyromegaly, Lymphadenopathy (R), Lymphadenopathy (L), Stiff neck, Carotid bruit Respiratory: positive: Chest non-tender, No respiratory distress, Wheezes (Right lung wheezing) Cardiovascular: positive: No murmur, No gallop, Tachycardia Peripheral Pulses: positive: 2+ Abdomen: positive: Non-tender, No organomegaly, Nml bowel sounds, No distention. negative: Guarding, Rebound, Hepatomegaly Back: positive: Nml inspection. negative: CVA tenderness (R), CVA tenderness (L) Skin: positive: Color nml, No rash, Warm Extremities: positive: Non-tender, Full ROM, Nml appearance, Pedal edema Neurologic/Psychiatric: positive: Oriented x3, CN's nml (2-12), Motor nml, Sensation nml, Mood/affect nml - LABS Result Diagrams: 12/10/19 05:15 12/09/19 18:25 Other Lab Results: Laboratory Tests 12/09/19 12/09/19 12/09/19 18:04 18:25 18:25 WBC RBC Hgb Hct MCV MCH MCHC RDW Plt Count MPV Neut # (Auto) Lymph # (Auto) Divide # (Auto) Eos # (Auto) Baso # (Auto) Absolute Nucleated RBC Nucleated RBC % PT INR APTT D-Dimer 338.4 H Sodium Potassium Chloride Carbon Dioxide Anion Gap BUN Creatinine Estimated GFR (MDRD) Glucose POC Whole Bld Glucose 117 H Calcium Magnesium Total Bilirubin AST ALT Alkaline Phosphatase Troponin I High Sens B-Natriuretic Peptide 63 Total Protein Albumin Globulin Albumin/Globulin Ratio Lipase TSH Urine Color Urine Clarity Urine pH Ur Specific [place] Urine Protein Urine Glucose (UA) Urine Ketones Urine Occult Blood Urine Nitrite Urine Bilirubin Urine Urobilinogen Ur Leukocyte Esterase Ur Microscopic Review Urine Culture Comments Urine Opiates Screen Ur Oxycodone Screen Urine Methadone Screen Ur Propoxyphene Screen Ur Barbiturates Screen Ur Tricyclics Screen Ur Phencyclidine Scrn Ur Amphetamine Screen U Methamphetamines Scrn U Benzodiazepines Scrn Urine Cocaine Screen U Cannabinoids Screen Ethyl Alcohol 12/09/19 12/09/19 12/09/19 18:25 18:25 18:25 WBC 5.1 RBC 3.92 L Hgb 9.8 L Hct 32.5 L MCV 82.9 MCH 25.0 L MCHC 30.2 L RDW 17.0 H Plt Count 192 MPV 9.8 Neut # (Auto) 3.2 Lymph # (Auto) 1.0 L Divide # (Auto) 0.6 Eos # (Auto) 0.3 Baso # (Auto) 0.0 Absolute Nucleated RBC 0.00 Nucleated RBC % 0.0 PT INR APTT D-Dimer Sodium Potassium Chloride Carbon Dioxide Anion Gap BUN Creatinine Estimated GFR (MDRD) Glucose POC Whole Bld Glucose Calcium Magnesium Total Bilirubin AST ALT Alkaline Phosphatase Troponin I High Sens 5.8 B-Natriuretic Peptide Total Protein Albumin Globulin Albumin/Globulin Ratio Lipase TSH 2.20 Urine Color Urine Clarity Urine pH Ur Specific [place] Urine Protein Urine Glucose (UA) Urine Ketones Urine Occult Blood Urine Nitrite Urine Bilirubin Urine Urobilinogen Ur Leukocyte Esterase Ur Microscopic Review Urine Culture Comments Urine Opiates Screen Ur Oxycodone Screen Urine Methadone Screen Ur Propoxyphene Screen Ur Barbiturates Screen Ur Tricyclics Screen Ur Phencyclidine Scrn Ur Amphetamine Screen U Methamphetamines Scrn U Benzodiazepines Scrn Urine Cocaine Screen U Cannabinoids Screen Ethyl Alcohol 12/09/19 12/09/19 12/09/19 18:25 21:08 21:15 WBC RBC Hgb Hct MCV MCH MCHC RDW Plt Count MPV Neut # (Auto) Lymph # (Auto) Divide # (Auto) Eos # (Auto) Baso # (Auto) Absolute Nucleated RBC Nucleated RBC % PT 10.8 INR 0.9 APTT 24.8 L D-Dimer Sodium 137 Potassium 3.1 L Chloride 98 L Carbon Dioxide 27 Anion Gap 12.0 BUN 7 Creatinine 0.6 Estimated GFR (MDRD) 112 Glucose 116 H POC Whole Bld Glucose Calcium 8.8 Magnesium 2.2 Total Bilirubin < 0.2 L AST 25 ALT 18 Alkaline Phosphatase 86 Troponin I High Sens B-Natriuretic Peptide Total Protein 7.4 Albumin 3.8 Globulin 3.6 Albumin/Globulin Ratio 1.1 Lipase 18 L TSH Urine Color YELLOW Urine Clarity CLEAR Urine pH 7.0 Ur Specific [place] <=1.005 Urine Protein NEGATIVE Urine Glucose (UA) NEGATIVE Urine Ketones NEGATIVE Urine Occult Blood NEGATIVE Urine Nitrite NEGATIVE Urine Bilirubin NEGATIVE Urine Urobilinogen 0.2 (NORMAL) Ur Leukocyte Esterase NEGATIVE Ur Microscopic Review NOT INDICATED Urine Culture Comments NOT INDICATED Urine Opiates Screen POSITIVE H Ur Oxycodone Screen POSITIVE H Urine Methadone Screen NEGATIVE Ur Propoxyphene Screen NEGATIVE Ur Barbiturates Screen POSITIVE H Ur Tricyclics Screen POSITIVE H Ur Phencyclidine Scrn NEGATIVE Ur Amphetamine Screen NEGATIVE U Methamphetamines Scrn NEGATIVE U Benzodiazepines Scrn POSITIVE H Urine Cocaine Screen NEGATIVE U Cannabinoids Screen NEGATIVE Ethyl Alcohol < 5.0 12/10/19 12/10/19 05:15 05:15 WBC 5.5 RBC 3.76 L Hgb 9.3 L Hct 31.5 L MCV 83.8 MCH 24.7 L MCHC 29.5 L RDW 16.7 H Plt Count 191 MPV 10.6 Neut # (Auto) 3.5 Lymph # (Auto) 1.3 L Divide # (Auto) 0.5 Eos # (Auto) 0.2 Baso # (Auto) 0.0 Absolute Nucleated RBC 0.00 Nucleated RBC % 0.0 PT INR APTT D-Dimer Sodium Potassium Chloride Carbon Dioxide Anion Gap BUN Creatinine Estimated GFR (MDRD) Glucose POC Whole Bld Glucose Calcium Magnesium Total Bilirubin AST ALT Alkaline Phosphatase Troponin I High Sens 5.7 B-Natriuretic Peptide Total Protein Albumin Globulin Albumin/Globulin Ratio Lipase TSH Urine Color Urine Clarity Urine pH Ur Specific [place] Urine Protein Urine Glucose (UA) Urine Ketones Urine Occult Blood Urine Nitrite Urine Bilirubin Urine Urobilinogen Ur Leukocyte Esterase Ur Microscopic Review Urine Culture Comments Urine Opiates Screen Ur Oxycodone Screen Urine Methadone Screen Ur Propoxyphene Screen Ur Barbiturates Screen Ur Tricyclics Screen Ur Phencyclidine Scrn Ur Amphetamine Screen U Methamphetamines Scrn U Benzodiazepines Scrn Urine Cocaine Screen U Cannabinoids Screen Ethyl Alcohol - FOLLOW UP Follow Up: With PCP - TIME SPENT Time Spent in Discharge (Minutes): 45
[2019-12-10] MEDS ORDERED: LEVOTHYROXINE 25 MCG TABLET PO SCH (07:00)
--- NOTE | 2019-12-10 07:05 | Discharge Plan ---
Discharge Plan Problem Reviewed?: Yes Disposition: 07 Against Medical Advice Condition: Poor Prescriptions: Enoxaparin [Lovenox] 135 mg SUBQ BID #20 syringe Warfarin [Coumadin] 5 mg PO QDWARFARIN #30 tablet Diet: Diabetic Activity Restrictions: Activity as Tolerated Shower Restrictions: No Driving Restrictions: No No Smoking: If you smoke, Please STOP! Call for help. Follow-up with: MONO BERNARDO [Primary Care Provider] -
[2019-12-10] MEDS ORDERED: ARIPiprazole 5 MG TABLET PO SCH (09:00)
[2019-12-10] MEDS ORDERED: METOPROLOL TARTRATE 50 MG TABLET PO SCH (09:00)
[2019-12-10] MEDS ORDERED: AMITRIPTYLINE 25 MG TABLET PO SCH (09:00)
[2019-12-10] MEDS ORDERED: FAMOTIDINE 20 MG TABLET PO SCH (09:00)
[2019-12-10] MEDS ORDERED: PREGABALIN 25 MG CAPSULE PO SCH (09:00)
[2019-12-10] MEDS ORDERED: ENOXAPARIN 150 MG/ML SYRINGE SUBQ SCH (09:00)
[2019-12-10] MEDS ORDERED: DULoxetine 30 MG CAPSULE PO SCH (09:00)
[2019-12-10] MEDS ORDERED: WARFARIN 5 MG TABLET PO SCH (14:00)
== END 2019-12-10 07:00 | disposition left against medical advice (07) ==
LOC: EDUNIT# → ED 16:48 → MS2 22:03
PROVIDERS: ADMIT Internal Medicine; ATTEND Internal Medicine
DX: I26.99 Other pulmonary embolism without acute cor pulmonale (principal); I10 Essential (primary) hypertension; F11.20 Opioid dependence, uncomplicated; E11.9 Type 2 diabetes mellitus without complications; J45.20 Mild intermittent asthma, uncomplicated; K21.9 Gastro-esophageal reflux disease without esophagitis; F32.9 Major depressive disorder, single episode, unspecified; G47.33 Obstructive sleep apnea (adult) (pediatric); R56.9 Unspecified convulsions; R60.0 Localized edema; F10.10 Alcohol abuse, uncomplicated; M54.9 Dorsalgia, unspecified; G89.29 Other chronic pain; E87.6 Hypokalemia; E03.9 Hypothyroidism, unspecified; D64.9 Anemia, unspecified; R79.1 Abnormal coagulation profile; Z98.1 Arthrodesis status; E66.01 Morbid (severe) obesity due to excess calories; Z68.42 Body mass index [BMI] 45.0-49.9, adult; Z53.29 Procedure and treatment not carried out because of patient's decision for other reasons
CPT/HCPCS: 36415; 71045; 71275; 80320; 81003; 83690; 83735; 83880; 84484; 85025; 85379; 85610; 85730; 93005; 96365; 96375; 99284; 99285; A9270; G0378; J0131; J2060; Q9967; 80053; 80306; 81001; 84443; 87086

== ENCOUNTER 2019-12-11 00:12 | Emergency (ER) | payer OTHER ==
--- NOTE | 2019-12-11 00:21 | ED Physician Documentation ---
History of Present Illness - Stated complaint Stated Complaint: UNCONCIOUS - History obtained from History obtained from: Patient, Family (Patient is a 38-year-old female brought in by her for a continued seizure. The patient was seen here yesterday and admitted to the hospital for pulmonary embolism the patient left AGAINST MEDICAL ADVICE the patient's significant other reports that she has had seizures off and on throughout the day as well as multiple seizures throughout the last week.She has multiple comorbidities to include hypertension, pulmonary embolism, hyperlipidemia, chronic pain And morbid obesity.), EMS Review of Systems Unable to obtain: AMS PD PAST MEDICAL HISTORY - Past Medical History Cardiovascular: Hypertension, Pulmonary embolism Respiratory: Asthma, Sleep apnea Neuro: None Endocrine/Autoimmune: Type 2 diabetes, HyPOthyroidism, Other GI: [employer]: None : Retention HEENT: None Psych: Depression Musculoskeletal: Fibromyalgia, Chronic back pain Derm: None - Past Surgical History Past Surgical History: Yes Ortho: Carpal Tunnel surgery, Other - Present Medications Home Medications: Ambulatory Orders Medication Instructions Recorded Confirmed ARIPiprazole [Abilify] 5 mg PO DAILY 10/05/17 05/09/19 Albuterol Sulfate [Proair Hfa 2 puffs INH TID PRN 10/05/17 05/09/19 Inhaler] Amitriptyline [Elavil] 25 tab PO DAILY 10/05/17 05/09/19 Duloxetine HCl [Cymbalta] 60 mg PO DAILY 10/05/17 05/09/19 Meloxicam [Mobic] 1 tab PO BID 10/05/17 05/09/19 Pregabalin [Lyrica] 150 mg PO BID 10/05/17 05/09/19 Terazosin [Hytrin] 5 mg PO QPM 10/05/17 05/09/19 raNITIdine [Zantac] 150 mg PO DAILY 10/05/17 05/09/19 Cyclobenzaprine [Flexeril] 10 mg PO TID PRN 10/08/18 05/09/19 Furosemide [Lasix] 20 mg PO DAILY 10/08/18 05/09/19 Levothyroxine [Synthroid] 50 mcg PO QDAC 10/08/18 05/09/19 Lubiprostone [Amitiza] 24 mcg PO BID 10/08/18 05/09/19 Metoprolol Tartrate [Lopressor] 50 mg PO BID 10/08/18 05/09/19 Omeprazole 20 mg PO BID 10/08/18 05/09/19 diazePAM [Diazepam] 5 mg PO PRN PRN 10/08/18 05/09/19 tiZANidine [Zanaflex] 4 mg PO Q8H 10/08/18 05/09/19 Docusate Calcium 240 mg PO BID 05/06/19 05/09/19 Enoxaparin [Lovenox] 120 mg SUBQ BID #14 syringe 05/06/19 05/09/19 Ibuprofen [Motrin] 05/06/19 Morphine ER 15 mg PO Q12H 05/06/19 05/09/19 Oxycodone HCl [Roxicodone] 7.5 - 15 mg PO .Q6-8H PRN MDD 15 MG 05/06/19 05/09/19 Warfarin [Coumadin] 5 mg PO QDWARFARIN #30 tablet 05/06/19 05/09/19 traZODone [Desyrel] 50 mg PO HS PRN 05/06/19 05/09/19 HYDROmorphone [Dilaudid] 4 mg PO Q4HR PRN 05/09/19 05/09/19 Doxycycline Hyclate 100 mg PO BID #14 capsule 07/07/19 Albuterol Sulf [Ventolin Hfa 1 - 2 puffs INH Q4HR PRN #1 inhaler 07/12/19 Inhaler] Amox/Clav 875/125 [Augmentin 1 each PO Q12H #20 tablet 07/12/19 875/125] predniSONE [Prednisone] 40 mg PO DAILY #10 tablet 07/12/19 Levofloxacin [Levaquin] 750 mg PO DAILY 5 Days #5 tablet 08/15/19 Enoxaparin [Lovenox] 135 mg SUBQ BID #20 syringe 12/10/19 Warfarin [Coumadin] 5 mg PO QDWARFARIN #30 tablet 12/10/19 - Allergies Allergies/Adverse Reactions: Allergies Allergy/AdvReac Type Severity Reaction Status Date / Time carisoprodol [From Soma] Allergy Unknown Verified 12/05/19 22:46 - Social History Does the pt smoke?: Yes Smoking Status: Former smoker Does the pt drink ETOH?: Yes Does the pt have substance abuse?: No - Immunizations Immunizations are current?: Yes - POLST Patient has POLST: No POLST Status: Full Code PD ED PE NORMAL - Vitals Vital signs reviewed: Yes - General General: Other (Unresponsive to pain, no signs of trauma protecting her airway appears to be actively be having a seizure.) - HEENT HEENT: Atraumatic, Other (Pupils are 4 to 5 mm bilaterally and unreactive with nystagmus present) - Neck Neck: Supple, no meningeal sign, Other (Trachea midline) - Cardiac Cardiac: No murmur, Other (Tachycardic and regular rhythm) - Respiratory Respiratory: No respiratory distress, Other (Crackles at the bases bilaterally) - Abdomen Abdomen: Normal bowel sounds, Soft, Non tender, Non distended, Other (Obese, soft, no midline abdominal pulsatile mass.) - Derm Derm: Warm and dry - Extremities Extremities: No deformity, Other (2+ edema to bilateral lower extremities) - Neuro Neuro: Other (Unresponsive, not following commands, generalized tonic-clonic m otion present) - Psych Psych: Normal mood, Normal affect Results - Vitals Vitals: Vital Signs - 24 hr 12/11/19 12/11/19 12/11/19 00:15 00:38 00:55 Temperature 36.5 C Heart Rate 101 H 102 H 107 H Respiratory 20 17 19 Rate Blood Pressure 142/92 H 143/97 H 143/97 H O2 Saturation 93 100 96 12/11/19 12/11/19 12/11/19 01:09 01:15 01:32 Temperature Heart Rate 106 H 108 H 108 H Respiratory 20 19 20 Rate Blood Pressure 133/78 H O2 Saturation 97 100 12/11/19 12/11/19 12/11/19 01:49 02:00 02:04 Temperature 36.0 C L Heart Rate 111 H 112 H 115 H Respiratory 23 21 16 Rate Blood Pressure 132/81 H 132/81 H 131/82 H O2 Saturation 98 97 96 12/11/19 12/11/19 12/11/19 02:08 02:41 02:58 Temperature 36.4 C L Heart Rate 118 H 113 H 112 H Respiratory 20 19 22 Rate Blood Pressure 131/80 H 122/72 122/72 O2 Saturation 97 92 95 12/11/19 12/11/19 12/11/19 03:05 03:23 03:42 Temperature Heart Rate 114 H 115 H 112 H Respiratory 22 26 H 21 Rate Blood Pressure 137/84 H 137/84 H 124/63 O2 Saturation 91 L 94 91 L 12/11/19 12/11/19 03:44 04:10 Temperature 36.5 C 36.8 C Heart Rate 113 H 113 H Respiratory 25 H 24 Rate Blood Pressure 136/69 H 135/82 H O2 Saturation 98 97 Oxygen O2 Source Nasal cannula Oxygen Flow Rate 2 - EKG (time done) 00:36 Rate: Other (no stemi) - Labs Labs: Laboratory Tests 12/11/19 12/11/19 12/11/19 00:30 00:30 00:35 WBC 5.3 RBC 3.79 L Hgb 9.4 L Hct 32.0 L MCV 84.4 MCH 24.8 L MCHC 29.4 L RDW 16.7 H Plt Count 199 MPV 10.1 Neut # (Auto) 2.5 Lymph # (Auto) 2.0 [place] # (Auto) 0.6 Eos # (Auto) 0.2 Baso # (Auto) 0.0 Absolute Nucleated RBC 0.00 Nucleated RBC % 0.0 PT INR APTT Sodium Potassium Chloride Carbon Dioxide Anion Gap BUN Creatinine Estimated GFR (MDRD) Glucose Lactic Acid Calcium Total Bilirubin AST ALT Alkaline Phosphatase Total Creatine Kinase Troponin I High Sens B-Natriuretic Peptide Total Protein Albumin Globulin Albumin/Globulin Ratio Lipase TSH Urine Color COLORLESS Urine Clarity CLEAR Urine pH 6.5 Ur Specific [place] <=1.005 Urine Protein NEGATIVE Urine Glucose (UA) NEGATIVE Urine Ketones NEGATIVE Urine Occult Blood NEGATIVE Urine Nitrite NEGATIVE Urine Bilirubin NEGATIVE Urine Urobilinogen 0.2 (NORMAL) Ur Leukocyte Esterase NEGATIVE Ur Microscopic Review NOT INDICATED Urine Culture Comments NOT INDICATED Urine HCG, Qual NEGATIVE Salicylates Urine Opiates Screen POSITIVE H Ur Oxycodone Screen NEGATIVE Urine Methadone Screen NEGATIVE Ur Propoxyphene Screen NEGATIVE Acetaminophen Ur Barbiturates Screen POSITIVE H Ur Tricyclics Screen NEGATIVE Ur Phencyclidine Scrn NEGATIVE Ur Amphetamine Screen NEGATIVE U Methamphetamines Scrn NEGATIVE U Benzodiazepines Scrn NEGATIVE Urine Cocaine Screen NEGATIVE U Cannabinoids Screen NEGATIVE Ethyl Alcohol 12/11/19 12/11/19 12/11/19 00:35 00:35 00:35 WBC RBC Hgb Hct MCV MCH MCHC RDW Plt Count MPV Neut # (Auto) Lymph # (Auto) [place] # (Auto) Eos # (Auto) Baso # (Auto) Absolute Nucleated RBC Nucleated RBC % PT 11.3 INR 1.0 APTT 30.7 Sodium 138 Potassium 3.3 L Chloride 101 Carbon Dioxide 28 Anion Gap 9.0 BUN 9 Creatinine 0.8 Estimated GFR (MDRD) 81 L Glucose 115 H Lactic Acid Calcium 8.9 Total Bilirubin < 0.2 L AST 19 ALT 16 Alkaline Phosphatase 84 Total Creatine Kinase 259 Troponin I High Sens B-Natriuretic Peptide 41 Total Protein 7.2 Albumin 3.6 Globulin 3.6 Albumin/Globulin Ratio 1.0 Lipase 19 L TSH Urine Color Urine Clarity Urine pH Ur Specific [place] Urine Protein Urine Glucose (UA) Urine Ketones Urine Occult Blood Urine Nitrite Urine Bilirubin Urine Urobilinogen Ur Leukocyte Esterase Ur Microscopic Review Urine Culture Comments Urine HCG, Qual Salicylates < 6.0 Urine Opiates Screen Ur Oxycodone Screen Urine Methadone Screen Ur Propoxyphene Screen Acetaminophen < 10 L Ur Barbiturates Screen Ur Tricyclics Screen Ur Phencyclidine Scrn Ur Amphetamine Screen U Methamphetamines Scrn U Benzodiazepines Scrn Urine Cocaine Screen U Cannabinoids Screen Ethyl Alcohol 122.6 12/11/19 12/11/19 12/11/19 00:35 00:35 00:35 WBC RBC Hgb Hct MCV MCH MCHC RDW Plt Count MPV Neut # (Auto) Lymph # (Auto) [place] # (Auto) Eos # (Auto) Baso # (Auto) Absolute Nucleated RBC Nucleated RBC % PT INR APTT Sodium Potassium Chloride Carbon Dioxide Anion Gap BUN Creatinine Estimated GFR (MDRD) Glucose Lactic Acid 1.7 Calcium Total Bilirubin AST ALT Alkaline Phosphatase Total Creatine Kinase Troponin I High Sens 4.9 B-Natriuretic Peptide Total Protein Albumin Globulin Albumin/Globulin Ratio Lipase TSH 3.52 Urine Color Urine Clarity Urine pH Ur Specific [place] Urine Protein Urine Glucose (UA) Urine Ketones Urine Occult Blood Urine Nitrite Urine Bilirubin Urine Urobilinogen Ur Leukocyte Esterase Ur Microscopic Review Urine Culture Comments Urine HCG, Qual Salicylates Urine Opiates Screen Ur Oxycodone Screen Urine Methadone Screen Ur Propoxyphene Screen Acetaminophen Ur Barbiturates Screen Ur Tricyclics Screen Ur Phencyclidine Scrn Ur Amphetamine Screen U Methamphetamines Scrn U Benzodiazepines Scrn Urine Cocaine Screen U Cannabinoids Screen Ethyl Alcohol PD MEDICAL DECISION MAKING - ED course Complexity details: considered differential (Status epilepticus, acute metabolic encephalopathy, Pulmonary embolism, ACS, overdose) - Consults Consults: Discussed case with (dr. robles neurologist at [facility], will accept patient for MRI, EEG, spoke with hospitalist dr. navarro who also agrees to accept this patient to [facility]. ), Request home service consultant accept pt in transfer - Critical Care Time(min): 30 Time Includes: Direct patient care, Review records, Reassess patient, Document care, Coordinate care, Medical consult, Family consult for tx dec Data interpretation: Labs, CXR, Prior EKG Procedures included in critical care time: Peripheral IV Procedures excluded from critical care time: EKG Departure - Departure Disposition: 02 Transfer Acute Care Hosp Clinical Impression: Seizures AMS (altered mental status) Qualifiers: Altered mental status type: unspecified Qualified Code(s): R41.82 - Altered mental status, unspecified Pulmonary embolism Qualifiers: Pulmonary embolism type: unspecified Chronicity: unspecified Acute cor pulmonale presence: unspecified Qualified Code(s): I26.99 - Other pulmonary embolism without acute cor pulmonale Alcohol intoxication Qualifiers: Complication of substance-induced condition: uncomplicated Qualified Code(s): F10.920 - Alcohol use, unspecified with intoxication, uncomplicated Condition: Stable Discharge Date/Time: 12/11/19 04:17
[2019-12-11] MEDS ORDERED: SODIUM CHLORIDE 0.9% 1,000 ML IV ONE (00:22)
[2019-12-11] MEDS ORDERED: NALOXONE 0.4 MG/ML VIAL IVP STA (00:23)
[2019-12-11 00:45] LABS: MUDS CUTOFF CONCENTRATIONS CUTOFF CONC BELOW:
[2019-12-11 00:47] LABS: BILIRUBIN,URINE NEGATIVE (NEGATIVE); GLUCOSE, URINE (UA) NEGATIVE (NEGATIVE); KETONES,URINE (UA) NEGATIVE (NEGATIVE); LEUKOCYTE ESTERASE, URINE NEGATIVE (NEGATIVE); NITRITE,URINE NEGATIVE (NEGATIVE); OCCULT BLOOD,URINE NEGATIVE (NEGATIVE); PH,URINE 6.5 PH (5.0-7.5); PROTEIN,URINE NEGATIVE (NEGATIVE); UROBILINOGEN,URINE 0.2 (NORMAL) E.U./dL (NORMAL)
[2019-12-11] MEDS ORDERED: LORazepam 2 MG/ML VIAL IVP STA (00:47)
[2019-12-11 00:50] LABS: CLARITY,URINE CLEAR (CLEAR); HCG UR QUAL NEGATIVE
[2019-12-11 00:51] LABS: BASOPHILS % (AUTO) 0.4 %; EOSINOPHILS # (AUTO) 0.2 10^3/uL (0.0-0.7); EOSINOPHILS % (AUTO) 3.4 %; HGB - HEMOGLOBIN 9.4 g/dL (12.0-16.0); LYMPHOCYTES % (AUTO) 37.5 %; MEAN CORPUSCULAR HEMOGLOBIN 24.8 pg (27.0-31.0); MEAN CORPUSCULAR HGB CONC 29.4 g/dL (32.0-36.0); MEAN CORPUSCULAR VOLUME 84.4 fL (81.0-99.0); MEAN PLATELET VOLUME 10.1 fL (7.9-10.8); MONOCYTES # (AUTO) 0.6 10^3/uL (0.0-1.0); NEUTROPHILS # (AUTO) 2.5 10^3/uL (1.5-6.6); NEUTROPHILS % (AUTO) 46.3 %; PLT - PLATELET COUNT 199 10^3/uL (130-450); RED BLOOD COUNT 3.79 10^6/uL (4.20-5.40); RED CELL DISTRIBUTION WIDTH 16.7 % (12.0-15.0); WHITE BLOOD COUNT 5.3 x10^3/uL (4.8-10.8)
[2019-12-11] MEDS ORDERED: LORazepam 2 MG/ML VIAL ONE (00:51)
[2019-12-11 00:52] LABS: PT - PROTHROMBIN TIME 11.3 secs (9.9-12.6)
[2019-12-11 00:58] LABS: COCAINE SCREEN URINE NEGATIVE (NEGATIVE); METHAMPHETAMINES SCREEN, URINE NEGATIVE (NEGATIVE); OPIATE SCREEN, URINE POSITIVE (NEGATIVE)
[2019-12-11 00:59] LABS: AMPHETAMINE SCREEN,URINE NEGATIVE (NEGATIVE); BENZODIAZEPINES SCREEN, URINE NEGATIVE (NEGATIVE); METHADONE SCREEN, URINE NEGATIVE (NEGATIVE); OXYCODONE SCREEN, URINE NEGATIVE (NEGATIVE); PROPOXYPHENE SCREEN, URINE NEGATIVE (NEGATIVE); TRICYCLIC ANTIDEPRESSANT,URINE NEGATIVE (NEGATIVE)
[2019-12-11 00:59] LABS: PARTIAL THROMBOPLASTIN TIME 30.7 secs (24.9-33.3)
[2019-12-11 01:04] LABS: ACETAMINOPHEN < 10 ug/mL (10-30); ALBUMIN 3.6 g/dL (3.2-5.5); ALKALINE PHOSPHATASE 84 IU/L (42-121); ALT ALANINE AMINOTRANSFERASE 16 IU/L (10-60); AST ASPARTATE AMINOTRANSFERASE 19 IU/L (10-42); BILIRUBIN,TOTAL < 0.2 mg/dL (0.2-1.0); BUN - BLOOD UREA NITROGEN 9 mg/dL (6-20); CALCIUM 8.9 mg/dL (8.5-10.3); CARBON DIOXIDE - CO2 28 mmol/L (21-32); CHLORIDE 101 mmol/L (101-111); CK- CREATINE KINASE 259 IU/L (22-269); CREATININE 0.8 mg/dL (0.4-1.0); GLUCOSE 115 mg/dL (70-100); LIPASE 19 U/L (22-51); SALICYLATE < 6.0 mg/dL; SODIUM 138 mmol/L (135-145); TOTAL PROTEIN 7.2 g/dL (6.7-8.2)
--- NOTE | 2019-12-11 01:43 | CT Report ---
Reason: AMS Procedure Date: 12/11/2019 Accession Number: [id number] / [id number] Procedure: CT - HEAD WO CPT Code: Final Report FULL RESULT: EXAM: CT HEAD EXAM DATE: 12/11/2019 01:29 AM. CLINICAL HISTORY: AMS. COMPARISON: None. TECHNIQUE: Multiaxial CT images were obtained from the foramen magnum to the vertex. Reformats: Sagittal and coronal. IV contrast: None. In accordance with CT protocol optimization, one or more of the following dose reduction techniques were utilized for this exam: automated exposure control, adjustment of mA and/or KV based on patient size, or use of iterative reconstructive technique. FINDINGS: Parenchyma: No intraparenchymal hemorrhage. No evidence of mass, midline shift, or CT findings of infarction. Olmedo-white differentiation is distinct. Extraaxial Spaces: Normal for age. No subdural or epidural collections identified. Ventricles: Normal in size and position. Sinuses and Orbits: Imaged paranasal sinuses, orbits, and mastoids show no significant abnormality. Bones: No evidence of fracture or calvarial defect. Other: None. IMPRESSION: No acute intracranial abnormality. RADIA
--- NOTE | 2019-12-11 01:43 | XRAY Report ---
Reason: AMS Procedure Date: 12/11/2019 Accession Number: [id number] / [id number] Procedure: XR - Chest 1 View X-Ray CPT Code: 65350 Final Report FULL RESULT: EXAM: CHEST RADIOGRAPHY EXAM DATE: 12/11/2019 01:08 AM. CLINICAL HISTORY: Decreased mental status. COMPARISON: CHEST 1 VIEW 12/09/2019 6:14 PM. TECHNIQUE: 1 view. FINDINGS: Lungs/Pleura: Pulmonary vascular congestion. No alveolar consolidation or pleural effusion seen. No pneumothorax. Mediastinum: Within exam limitations, heart size is upper normal. Other: None. IMPRESSION: 1. Borderline heart size with pulmonary vascular congestion. RADIA
[2019-12-11] MEDS ORDERED: levETIRAcetam INJ 1,000 MG in SODIUM CHLORIDE 0.9% 100ML 100 ML IV STA (02:08)
[2019-12-11 04:36] VITALS: BP 135/82
== END 2019-12-11 04:17 | disposition short-term general hospital (02) ==
LOC: ED 00:12
DX: R56.9 Unspecified convulsions (principal); R41.82 Altered mental status, unspecified; I26.99 Other pulmonary embolism without acute cor pulmonale; F10.120 Alcohol abuse with intoxication, uncomplicated; I10 Essential (primary) hypertension; E11.9 Type 2 diabetes mellitus without complications; Z87.891 Personal history of nicotine dependence; Z79.01 Long term (current) use of anticoagulants
CPT/HCPCS: 36415; 51702; 70450; 71045; 80320; 80329; 81003; 81025; 82550; 83605; 83690; 83880; 84484; 85610; 85730; 93005; 96361; 96365; 96375; 99285; 99291; J2060; 80053; 80306; 80307; 81001; 84443; 85025; 87086

== ENCOUNTER 2019-12-11 04:18 | Outpatient (CLI) | payer OTHER | END 2019-12-11 04:19 | disposition short-term general hospital (02) | LOC: EMS 04:18 | PROVIDERS: ATTEND Surgery | DX: G40.901 Epilepsy, unspecified, not intractable, with status epilepticus (principal) | CPT/HCPCS: A0425; A0426 ==

== ENCOUNTER 2019-12-12 23:08 | Outpatient (CLI) | payer OTHER | END 2019-12-12 23:09 | disposition critical access hospital (66) | LOC: EMS 23:08 | PROVIDERS: ATTEND Surgery | DX: R07.9 Chest pain, unspecified (principal); R06.4 Hyperventilation | CPT/HCPCS: A0425; A0429 ==

== ENCOUNTER 2019-12-12 23:23 | Emergency (ER) | payer OTHER ==
--- NOTE | 2019-12-12 23:34 | ED Physician Documentation ---
PD HPI CHEST PAIN - Stated complaint Stated Complaint: CP, ANXIETY - Chief complaint Chief Complaint: Resp - History obtained from History obtained from: Patient - History of Present Illness Timing - onset: How many hours ago (approximately 1 hour [employer]) Timing - onset during: Rest Timing - details: Abrupt onset Pain level now: 5 Quality: Sharp, Stabbing, Pain Location: Right chest Radiation: Other (does not radiate) Improved by: Nothing Worsened by: Inspiration Associated symptoms: Shortness of air. No: Diaphoresis, Palpitations, Cough Similar symptoms before: Diagnosis (PE) Recently seen: Emergency Dept, Admitted - Additional information Additional information: BIBA. Patient was evaluated in this ED 12/08 and found to have right-sided PE for which she was then admitted to [facility]. The next day, she left AMA before completion of recommended treatment and testing. She came back to [facility] ED 12/10 for seizure- like activity and was transferred to [facility]. Tonight, approximately 1 hour [employer], patient says she had worsening right-sided chest pain and shortness of breath and was told at time of discharge from [place] to call 911 if she should develop these symptoms. Patient was also evaluated in this ED ([facility]) 11/26, 11/27 for problems, and 12/04 for AMS. Patient says she is taking warfarin and lovenox; she says she started these 2-3 days ago. Medics report that shortly after they arrived on scene, patient began hyperventilating with respiratory rates as high as 70-100 but pulse ox on room air remained 99% Review of Systems Constitutional: denies: Fever, Chills, Sweats Cardiac: reports: Chest pain / pressure. denies: Palpitations, Pedal edema, Calf pain Respiratory: reports: Dyspnea. 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 HEENT: None Psych: Depression Musculoskeletal: Fibromyalgia, Chronic back pain Derm: None - Past Surgical History Past Surgical History: Yes Ortho: Carpal Tunnel surgery, Other - Present Medications Home Medications: Ambulatory Orders Medication Instructions Recorded Confirmed ARIPiprazole [Abilify] 5 mg PO DAILY 10/05/17 05/09/19 Albuterol Sulfate [Proair Hfa 2 puffs INH TID PRN 10/05/17 05/09/19 Inhaler] Amitriptyline [Elavil] 25 tab PO DAILY 10/05/17 05/09/19 Duloxetine HCl [Cymbalta] 60 mg PO DAILY 10/05/17 05/09/19 Meloxicam [Mobic] 1 tab PO BID 10/05/17 05/09/19 Pregabalin [Lyrica] 150 mg PO BID 10/05/17 05/09/19 Terazosin [Hytrin] 5 mg PO QPM 10/05/17 05/09/19 raNITIdine [Zantac] 150 mg PO DAILY 10/05/17 05/09/19 Cyclobenzaprine [Flexeril] 10 mg PO TID PRN 10/08/18 05/09/19 Furosemide [Lasix] 20 mg PO DAILY 10/08/18 05/09/19 Levothyroxine [Synthroid] 50 mcg PO QDAC 10/08/18 05/09/19 Lubiprostone [Amitiza] 24 mcg PO BID 10/08/18 05/09/19 Metoprolol Tartrate [Lopressor] 50 mg PO BID 10/08/18 05/09/19 Omeprazole 20 mg PO BID 10/08/18 05/09/19 diazePAM [Diazepam] 5 mg PO PRN PRN 10/08/18 05/09/19 tiZANidine [Zanaflex] 4 mg PO Q8H 10/08/18 05/09/19 Docusate Calcium 240 mg PO BID 05/06/19 05/09/19 Enoxaparin [Lovenox] 120 mg SUBQ BID #14 syringe 05/06/19 05/09/19 Ibuprofen [Motrin] 05/06/19 Morphine ER 15 mg PO Q12H 05/06/19 05/09/19 Oxycodone HCl [Roxicodone] 7.5 - 15 mg PO .Q6-8H PRN MDD 15 MG 05/06/19 05/09/19 Warfarin [Coumadin] 5 mg PO QDWARFARIN #30 tablet 05/06/19 05/09/19 traZODone [Desyrel] 50 mg PO HS PRN 05/06/19 05/09/19 HYDROmorphone [Dilaudid] 4 mg PO Q4HR PRN 05/09/19 05/09/19 Doxycycline Hyclate 100 mg PO BID #14 capsule 07/07/19 Albuterol Sulf [Ventolin Hfa 1 - 2 puffs INH Q4HR PRN #1 inhaler 07/12/19 Inhaler] Amox/Clav 875/125 [Augmentin 1 each PO Q12H #20 tablet 07/12/19 875/125] predniSONE [Prednisone] 40 mg PO DAILY #10 tablet 07/12/19 Levofloxacin [Levaquin] 750 mg PO DAILY 5 Days #5 tablet 08/15/19 Enoxaparin [Lovenox] 135 mg SUBQ BID #20 syringe 12/10/19 Warfarin [Coumadin] 5 mg PO QDWARFARIN #30 tablet 12/10/19 - Allergies Allergies/Adverse Reactions: Allergies Allergy/AdvReac Type Severity Reaction Status Date / Time carisoprodol [From [place]] Allergy Unknown Verified 12/05/19 22:46 - Social History Does the pt smoke?: Yes Smoking Status: Former smoker Does the pt drink ETOH?: Yes Does the pt have substance abuse?: No - Immunizations Immunizations are current?: Yes - POLST Patient has POLST: No POLST Status: Full Code PD ED PE NORMAL - Vitals Vital signs reviewed: Yes - General General: Alert and oriented X 3, No acute distress, Well developed/nourished - HEENT HEENT: Moist mucous membranes - Neck Neck: Supple, no meningeal sign - Cardiac Cardiac: RRR, No murmur, No gallop, No rub - Respiratory Respiratory: No respiratory distress, Clear bilaterally - Abdomen Abdomen: Soft, Non tender - Derm Derm: Normal color, Warm and dry, No rash - Extremities Extremities: No edema - Neuro Neuro: Alert and oriented X 3, 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, No motor deficit, No sensory deficit, Normal speech Results - Vitals Vitals: Vital Signs - 24 hr 12/12/19 12/13/19 12/13/19 23:29 00:30 01:53 Temperature 37.4 C Heart Rate 102 H 102 H 103 H Respiratory 96 H 18 19 Rate Blood Pressure 126/75 126/76 131/98 H O2 Saturation 97 93 96 12/13/19 03:18 Temperature Heart Rate 95 Respiratory 18 Rate Blood Pressure 127/76 O2 Saturation 97 Oxygen O2 Source Room air - EKG (time done) No standard instances Rate: Rate (enter#) (101) Rhythm: Sinus tachycardia [place]: Normal Intervals: Normal [place], RBBB QRS: Normal Ischemia: Normal ST segments Compare to prior EKG: Unchanged from prior EKG (RBBB noted on previous EKGs) - Labs Labs: Laboratory Tests 12/12/19 12/12/19 12/12/19 23:55 23:55 23:55 WBC 8.0 RBC 4.20 Hgb 10.3 L Hct 34.8 L MCV 82.9 MCH 24.5 L MCHC 29.6 L RDW 16.4 H Plt Count 246 MPV 10.5 Neut # (Auto) 5.1 Lymph # (Auto) 1.9 [place] # (Auto) 0.8 Eos # (Auto) 0.1 Baso # (Auto) 0.1 Absolute Nucleated RBC 0.00 Nucleated RBC % 0.0 PT 14.5 H INR 1.3 H APTT 36.7 H Sodium 132 L Potassium 3.1 L Chloride 95 L Carbon Dioxide 24 Anion Gap 13.0 BUN 10 Creatinine 0.6 Estimated GFR (MDRD) 112 Glucose 139 H Lactic Acid Calcium 9.0 Total Bilirubin 0.3 AST 28 ALT 20 Alkaline Phosphatase 96 Troponin I High Sens B-Natriuretic Peptide Total Protein 8.1 Albumin 4.0 Globulin 4.1 Albumin/Globulin Ratio 1.0 Lipase 25 TSH Urine Color Urine Clarity Urine pH Ur Specific [place] Urine Protein Urine Glucose (UA) Urine Ketones Urine Occult Blood Urine Nitrite Urine Bilirubin Urine Urobilinogen Ur Leukocyte Esterase Urine RBC Urine WBC Ur Squamous Epith Cells Urine Bacteria Urine Mucus Ur Microscopic Review Urine Culture Comments Urine HCG, Qual Urine Opiates Screen Ur Oxycodone Screen Urine Methadone Screen Ur Propoxyphene Screen Ur Barbiturates Screen Ur Tricyclics Screen Ur Phencyclidine Scrn Ur Amphetamine Screen U Methamphetamines Scrn U Benzodiazepines Scrn Urine Cocaine Screen U Cannabinoids Screen Ethyl Alcohol < 5.0 12/12/19 12/12/19 12/12/19 23:55 23:55 23:55 WBC RBC Hgb Hct MCV MCH MCHC RDW Plt Count MPV Neut # (Auto) Lymph # (Auto) [place] # (Auto) Eos # (Auto) Baso # (Auto) Absolute Nucleated RBC Nucleated RBC % PT INR APTT Sodium Potassium Chloride Carbon Dioxide Anion Gap BUN Creatinine Estimated GFR (MDRD) Glucose Lactic Acid 1.9 Calcium Total Bilirubin AST ALT Alkaline Phosphatase Troponin I High Sens 7.1 B-Natriuretic Peptide 32 Total Protein Albumin Globulin Albumin/Globulin Ratio Lipase TSH Urine Color Urine Clarity Urine pH Ur Specific [place] Urine Protein Urine Glucose (UA) Urine Ketones Urine Occult Blood Urine Nitrite Urine Bilirubin Urine Urobilinogen Ur Leukocyte Esterase Urine RBC Urine WBC Ur Squamous Epith Cells Urine Bacteria Urine Mucus Ur Microscopic Review Urine Culture Comments Urine HCG, Qual Urine Opiates Screen Ur Oxycodone Screen Urine Methadone Screen Ur Propoxyphene Screen Ur Barbiturates Screen Ur Tricyclics Screen Ur Phencyclidine Scrn Ur Amphetamine Screen U Methamphetamines Scrn U Benzodiazepines Scrn Urine Cocaine Screen U Cannabinoids Screen Ethyl Alcohol 12/12/19 12/13/19 12/13/19 23:55 00:10 00:10 WBC RBC Hgb Hct MCV MCH MCHC RDW Plt Count MPV Neut # (Auto) Lymph # (Auto) [place] # (Auto) Eos # (Auto) Baso # (Auto) Absolute Nucleated RBC Nucleated RBC % PT INR APTT Sodium Potassium Chloride Carbon Dioxide Anion Gap BUN Creatinine Estimated GFR (MDRD) Glucose Lactic Acid Calcium Total Bilirubin AST ALT Alkaline Phosphatase Troponin I High Sens B-Natriuretic Peptide Total Protein Albumin Globulin Albumin/Globulin Ratio Lipase TSH 4.09 Urine Color YELLOW Urine Clarity SL. CLOUDY Urine pH 6.5 Ur Specific [place] 1.020 Urine Protein TRACE Urine Glucose (UA) NEGATIVE Urine Ketones TRACE Urine Occult Blood LARGE H Urine Nitrite NEGATIVE Urine Bilirubin NEGATIVE Urine Urobilinogen 0.2 (NORMAL) Ur Leukocyte Esterase TRACE H Urine RBC TNTC H Urine WBC 4-5 Ur Squamous Epith Cells MOD Squamous H Urine Bacteria Rare Urine Mucus Moderate Strands Ur Microscopic Review INDICATED Urine Culture Comments NOT INDICATED Urine HCG, Qual NEGATIVE Urine Opiates Screen POSITIVE H Ur Oxycodone Screen POSITIVE H Urine Methadone Screen NEGATIVE Ur Propoxyphene Screen NEGATIVE Ur Barbiturates Screen POSITIVE H Ur Tricyclics Screen POSITIVE H Ur Phencyclidine Scrn NEGATIVE Ur Amphetamine Screen NEGATIVE U Methamphetamines Scrn NEGATIVE U Benzodiazepines Scrn POSITIVE H Urine Cocaine Screen NEGATIVE U Cannabinoids Screen NEGATIVE Ethyl Alcohol - Rads (name of study) CTA chest Radiology: Prelim report reviewed, See rad report PD MEDICAL DECISION MAKING - ED course Complexity details: reviewed old records, reviewed results, re-evaluated patient, considered differential, d/w patient ED course: Shortly after patient arrived, she stopped hyperventilating without intervention. I asked her to open her eyes which she initially did not respond to; when I tried to open her eyes, she was resisting by tightly closing her eyes. I asked her to not resist this, and she suddenly opened her eyes and began following commands and immediately was conversant and provided HPI and ROS. Information requested from [place]; this was faxed to us and I reviewed the chart. It indicated that patient had several episodes of tachypnea and not responding to commands; these episodes occurred during EEG monitoring. 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 This was discussed with the patient, and psychological counseling was recommended. The pt was advised to not drive until she has been free of unresponsive spells for at least 1 month." CTA chest performed tonight reveals the previously noted pulmonary emboli with "Clot volume is similar or slightly decreased compared with the prior CT" (per radiologist's interpretation). No new findings on this study including no new clots and no evidence of right heart strain. similarly, her blood tests and EKG were reassuring and did not reveal emergent pathology. Results d/w patient; she requests pain medication. She was given one dose of 5mg oxycodone and then discharged. She was in NAD and speaking in full sentences prior to discharge. Departure - Departure Disposition: 01 Home, Self Care Clinical Impression: Chest pain Qualifiers: Chest pain type: pleurodynia Qualified Code(s): R07.81 - Pleurodynia Condition: Good Instructions: ED Chest Pain Pleurisy Follow-Up: MONO BERNARDO [Primary Care Provider] - Comments: There is no evidence of infection (the discharge instructions indicate pleurisy is typically caused by an infection). Your pleurisy is likely a result of the pulmonary emboli (blood clots in the lung). The tests tonight do not indicate any new condition nor worsening of your current medical problems. Discharge Date/Time: 12/13/19 03:18
[2019-12-13 00:02] LABS: BASOPHILS # (AUTO) 0.1 10^3/uL (0.0-0.1); BASOPHILS % (AUTO) 0.6 %; EOSINOPHILS # (AUTO) 0.1 10^3/uL (0.0-0.7); EOSINOPHILS % (AUTO) 1.1 %; HGB - HEMOGLOBIN 10.3 g/dL (12.0-16.0); LYMPHOCYTES # (AUTO) 1.9 10^3/uL (1.5-3.5); MEAN CORPUSCULAR HEMOGLOBIN 24.5 pg (27.0-31.0); MEAN CORPUSCULAR HGB CONC 29.6 g/dL (32.0-36.0); MEAN CORPUSCULAR VOLUME 82.9 fL (81.0-99.0); MEAN PLATELET VOLUME 10.5 fL (7.9-10.8); MONOCYTES # (AUTO) 0.8 10^3/uL (0.0-1.0); MONOCYTES % (AUTO) 9.8 %; NEUTROPHILS # (AUTO) 5.1 10^3/uL (1.5-6.6); PLT - PLATELET COUNT 246 10^3/uL (130-450); RED CELL DISTRIBUTION WIDTH 16.4 % (12.0-15.0)
[2019-12-13 00:07] LABS: INR 1.3 (0.8-1.2); PT - PROTHROMBIN TIME 14.5 secs (9.9-12.6)
[2019-12-13 00:12] LABS: MUDS CUTOFF CONCENTRATIONS CUTOFF CONC BELOW:
[2019-12-13 00:13] LABS: BILIRUBIN,URINE NEGATIVE (NEGATIVE); GLUCOSE, URINE (UA) NEGATIVE (NEGATIVE); KETONES,URINE (UA) TRACE mg/dL (NEGATIVE); LEUKOCYTE ESTERASE, URINE TRACE (NEGATIVE); NITRITE,URINE NEGATIVE (NEGATIVE); OCCULT BLOOD,URINE LARGE (NEGATIVE); PH,URINE 6.5 PH (5.0-7.5); PROTEIN,URINE TRACE mg/dL (NEGATIVE); UROBILINOGEN,URINE 0.2 (NORMAL) E.U./dL (NORMAL)
[2019-12-13 00:14] LABS: CLARITY,URINE SL. CLOUDY (CLEAR)
[2019-12-13 00:15] LABS: ALKALINE PHOSPHATASE 96 IU/L (42-121); ALT ALANINE AMINOTRANSFERASE 20 IU/L (10-60); AST ASPARTATE AMINOTRANSFERASE 28 IU/L (10-42); BILIRUBIN,TOTAL 0.3 mg/dL (0.2-1.0); BUN - BLOOD UREA NITROGEN 10 mg/dL (6-20); CARBON DIOXIDE - CO2 24 mmol/L (21-32); CHLORIDE 95 mmol/L (101-111); CREATININE 0.6 mg/dL (0.4-1.0); GLUCOSE 139 mg/dL (70-100); LIPASE 25 U/L (22-51); PARTIAL THROMBOPLASTIN TIME 36.7 secs (24.9-33.3); SODIUM 132 mmol/L (135-145); TOTAL PROTEIN 8.1 g/dL (6.7-8.2)
[2019-12-13 00:16] LABS: HCG UR QUAL NEGATIVE
[2019-12-13 00:19] LABS: BACTERIA,URINE Rare /HPF (None Seen); MUCUS,URINE Moderate Strands; RBC,URINE TNTC /HPF (0-5); SQUAMOUS EPITHELIAL CELL,UR MOD Squamous (<= Few)
[2019-12-13 00:25] LABS: AMPHETAMINE SCREEN,URINE NEGATIVE (NEGATIVE); BENZODIAZEPINES SCREEN, URINE POSITIVE (NEGATIVE); COCAINE SCREEN URINE NEGATIVE (NEGATIVE); METHADONE SCREEN, URINE NEGATIVE (NEGATIVE); METHAMPHETAMINES SCREEN, URINE NEGATIVE (NEGATIVE); OPIATE SCREEN, URINE POSITIVE (NEGATIVE); OXYCODONE SCREEN, URINE POSITIVE (NEGATIVE); PROPOXYPHENE SCREEN, URINE NEGATIVE (NEGATIVE); TRICYCLIC ANTIDEPRESSANT,URINE POSITIVE (NEGATIVE)
--- NOTE | 2019-12-13 00:53 | XRAY Report ---
Reason: chest pain Procedure Date: 12/13/2019 Accession Number: [id number] / [id number] Procedure: XR - Chest 1 View X-Ray CPT Code: 52386 Final Report FULL RESULT: EXAM: CHEST RADIOGRAPHY EXAM DATE: 12/13/2019 12:05 AM. CLINICAL HISTORY: Chest pain. COMPARISON: CHEST 1 VIEW 12/11/2019 1:08 AM. TECHNIQUE: 1 view. FINDINGS: Lungs/Pleura: No alveolar consolidation or pleural effusion seen. No pneumothorax. Mediastinum: Within exam limitations, heart size is upper normal. Other: None. IMPRESSION: 1. Heart size upper normal. No acute abnormality seen. RADIA
[2019-12-13] MEDS ORDERED: IOVERSOL 320 100 ML VIAL IVP ONE ×2 (00:56→01:50)
--- NOTE | 2019-12-13 02:27 | CT Report ---
Reason: PE study Procedure Date: 12/13/2019 Accession Number: [id number] / [id number] Procedure: CT - ANGIO CHEST W/WO CPT Code: Final Report FULL RESULT: EXAM: CT ANGIOGRAM CHEST EXAM DATE: 12/13/2019 01:48 AM. CLINICAL HISTORY: Chest pain. COMPARISON: ANGIO CHEST W/WO 12/09/2019 7:48 PM. TECHNIQUE: Routine helical imaging was performed through the chest in the pulmonary arterial phase. IV Contrast: OPTIRAY 320. Reconstructions: Coronal 3-D MIP reconstructions. Sagittal and coronal. In accordance with CT protocol optimization, one or more of the following dose reduction techniques were utilized for this exam: automated exposure control, adjustment of mA and/or KV based on patient size, or use of iterative reconstructive technique. FINDINGS: Pulmonary Arteries: Diagnostic quality: Adequate through the segmental arteries. Persistent pulmonary emboli seen on the right involving the upper lobe artery, interlobar artery, and the middle lobe and lower lobe arteries. Clot volume is similar or slightly decreased compared with the prior CT. No new pulmonary emboli are identified. No evidence of right heart strain. RV/LV ratio is less than 1.0. Lungs/Pleura: No alveolar consolidation or pleural effusion seen. No pneumothorax. Mediastinum: Heart size is normal. No lymphadenopathy is seen. Thoracic Aorta: Unremarkable. Upper Abdomen: Unremarkable. Other: None. IMPRESSION: 1. Persistent pulmonary emboli seen on the right. Clot volume is similar or slightly decreased compared with the prior exam. 2. No new pulmonary emboli seen. RADIA
[2019-12-13] MEDS ORDERED: oxyCODONE 5 MG TABLET PO STA (02:44)
[2019-12-13] MEDS ORDERED: POTASSIUM CHLORIDE 20 MEQ TABLET PO STA (02:52)
[2019-12-13 03:18] VITALS: BP 127/76
== END 2019-12-13 03:18 | disposition home or self-care (01) ==
LOC: EDUNIT# → ED 23:23
DX: I26.99 Other pulmonary embolism without acute cor pulmonale (principal); F44.5 Conversion disorder with seizures or convulsions; I10 Essential (primary) hypertension; E11.9 Type 2 diabetes mellitus without complications; Z87.891 Personal history of nicotine dependence; Z79.01 Long term (current) use of anticoagulants
CPT/HCPCS: 36415; 71045; 71275; 80320; 81001; 81025; 83605; 83690; 83880; 84484; 85610; 85730; 93005; 99284; A9270; Q9967; 80053; 80306; 81003; 84443; 85025; 87086

== ENCOUNTER 2019-12-14 03:53 | Emergency (ER) | payer OTHER ==
--- NOTE | 2019-12-14 04:26 | ED Physician Documentation ---
PD HPI ALTERED MENTAL STATUS - Stated complaint Stated Complaint: SZ - Chief complaint Chief Complaint: Neuro - History obtained from History obtained from: Patient - History of Present Illness Timing - onset: Today Timing - duration: Minutes Timing - details: Abrupt onset, Now resolved Quality / character: Unresponsive Associated symptoms: Dyspnea, Cough, NVD, Seizure activity. No: Fever, Headache, Stiff neck, Urinary sx, General weakness, Focal weakness Contributing factors: Anticoagulated, Diabetic, Recent illness, Known psych illness Basline status: Alert and oriented X 3, Ambulatory, Independent Similar symptoms before: Diagnosis (pseudo-seizure) Recently seen: Emergency Dept, Admitted, Transferred - Additional information Additional information: 38-year-old female with a history of type 2 diabetes, hypertension, morbid obesity, fibromyalgia, chronic back pain, urinary retention and anxiety has had a recent PE and DVT. She was admitted here left [facility] and then returned to the ED at [facility] and then back to [facility] and she was transferred to [facility] and had monitoring of what appeared to be seizure like activity without findings on EEG. She was diagnosed with pseudo seizure, had a scan to discover the DVT in the left leg and after discharge from the hospital she came back to [facility] and was again seen here last night with pseudo seizure consisting of hyperventilation and decreased responsiveness. This morning her called 911 when she was not responsive. She awoke when the medics were getting ready to apply an IO approach. She is now able to give us details including ROS. Review of Systems Constitutional: reports: Chills, Fatigue. denies: Fever, Myalgias Eyes: denies: Decreased vision Ears: denies: Ear pain Nose: denies: Rhinorrhea / runny nose, Congestion Throat: denies: Sore throat Cardiac: reports: Chest pain / pressure. denies: Palpitations, Pedal edema, Calf pain Respiratory: reports: Dyspnea, Cough GI: denies: Abdominal Pain, Vomiting : denies: Dysuria, Frequency Skin: denies: Rash, Lesions, Abrasion (s) Musculoskeletal: reports: Back pain. denies: Neck pain, Extremity pain Neurologic: reports: Altered mental status. 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: None : Retention HEENT: None Psych: Depression Musculoskeletal: Fibromyalgia, Chronic back pain Derm: None - Past Surgical History Past Surgical History: Yes Ortho: Carpal Tunnel surgery, Other - Present Medications Home Medications: Ambulatory Orders Medication Instructions Recorded Confirmed ARIPiprazole [Abilify] 5 mg PO DAILY 10/05/17 05/09/19 Albuterol Sulfate [Proair Hfa 2 puffs INH TID PRN 10/05/17 05/09/19 Inhaler] Amitriptyline [Elavil] 25 tab PO DAILY 10/05/17 05/09/19 Duloxetine HCl [Cymbalta] 60 mg PO DAILY 10/05/17 05/09/19 Meloxicam [Mobic] 1 tab PO BID 10/05/17 05/09/19 Pregabalin [Lyrica] 150 mg PO BID 10/05/17 05/09/19 Terazosin [Hytrin] 5 mg PO QPM 10/05/17 05/09/19 raNITIdine [Zantac] 150 mg PO DAILY 10/05/17 05/09/19 Cyclobenzaprine [Flexeril] 10 mg PO TID PRN 10/08/18 05/09/19 Furosemide [Lasix] 20 mg PO DAILY 10/08/18 05/09/19 Levothyroxine [Synthroid] 50 mcg PO QDAC 10/08/18 05/09/19 Lubiprostone [Amitiza] 24 mcg PO BID 10/08/18 05/09/19 Metoprolol Tartrate [Lopressor] 50 mg PO BID 10/08/18 05/09/19 Omeprazole 20 mg PO BID 10/08/18 05/09/19 diazePAM [Diazepam] 5 mg PO PRN PRN 10/08/18 05/09/19 tiZANidine [Zanaflex] 4 mg PO Q8H 10/08/18 05/09/19 Docusate Calcium 240 mg PO BID 05/06/19 05/09/19 Enoxaparin [Lovenox] 120 mg SUBQ BID #14 syringe 05/06/19 05/09/19 Ibuprofen [Motrin] 05/06/19 Morphine ER 15 mg PO Q12H 05/06/19 05/09/19 Oxycodone HCl [Roxicodone] 7.5 - 15 mg PO .Q6-8H PRN MDD 15 MG 05/06/19 05/09/19 Warfarin [Coumadin] 5 mg PO QDWARFARIN #30 tablet 05/06/19 05/09/19 traZODone [Desyrel] 50 mg PO HS PRN 05/06/19 05/09/19 HYDROmorphone [Dilaudid] 4 mg PO Q4HR PRN 05/09/19 05/09/19 Doxycycline Hyclate 100 mg PO BID #14 capsule 07/07/19 Albuterol Sulf [Ventolin Hfa 1 - 2 puffs INH Q4HR PRN #1 inhaler 07/12/19 Inhaler] Amox/Clav 875/125 [Augmentin 1 each PO Q12H #20 tablet 07/12/19 875/125] predniSONE [Prednisone] 40 mg PO DAILY #10 tablet 07/12/19 Levofloxacin [Levaquin] 750 mg PO DAILY 5 Days #5 tablet 08/15/19 Enoxaparin [Lovenox] 135 mg SUBQ BID #20 syringe 12/10/19 Warfarin [Coumadin] 5 mg PO QDWARFARIN #30 tablet 12/10/19 Azithromycin [Zithromax] 250 mg PO DAILY #4 tablet 12/14/19 - Allergies Allergies/Adverse Reactions: Allergies Allergy/AdvReac Type Severity Reaction Status Date / Time carisoprodol [From Soma] Allergy Unknown Verified 12/14/19 04:06 - Social History Does the pt smoke?: Yes Smoking Status: Former smoker Does the pt drink ETOH?: Yes Does the pt have substance abuse?: No - Immunizations Immunizations are current?: Yes - POLST Patient has POLST: No POLST Status: Full Code PD ED PE NORMAL - Vitals Vital signs reviewed: Yes (tachy and hypertensive ) - General General: Alert and oriented X 3, No acute distress, Well developed/nourished - HEENT HEENT: Atraumatic, PERRL, EOMI - Neck Neck: Supple, no meningeal sign, No bony TTP - Cardiac Cardiac: No murmur, Other (tachy to 110) - Respiratory Respiratory: No respiratory distress, Clear bilaterally - Abdomen Abdomen: Soft, Non tender, Other (obese) - Back Back: No CVA TTP, No spinal TTP - Derm Derm: Normal color, Warm and dry, No rash - Extremities Extremities: No deformity, No edema, No calf tenderness / cord - Neuro Neuro: Alert and oriented X 3, padding gluer 2-12 intact, No motor deficit, No sensory deficit, Normal speech Eye Opening: Spontaneous Motor: Obeys Commands Verbal: Oriented GCS Score: 15 - Psych Psych: Normal mood, Other (affect is flat) Results - Vitals Vitals: Vital Signs - 24 hr 12/14/19 12/14/19 12/14/19 03:58 05:37 06:45 Temperature 36.5 C Heart Rate 115 H 106 H 118 H Respiratory 18 18 22 Rate Blood Pressure 144/91 H 136/91 H 126/81 H O2 Saturation 97 95 Oxygen O2 Source Room air - Labs Labs: Laboratory Tests 12/14/19 12/14/19 12/14/19 04:45 04:45 04:45 WBC 7.4 RBC 4.14 L Hgb 10.3 L Hct 34.2 L MCV 82.6 MCH 24.9 L MCHC 30.1 L RDW 16.3 H Plt Count 238 MPV 10.7 Neut # (Auto) 5.1 Lymph # (Auto) 1.4 L [place] # (Auto) 0.6 Eos # (Auto) 0.1 Baso # (Auto) 0.0 Absolute Nucleated RBC 0.00 Nucleated RBC % 0.0 PT 23.2 H INR 2.1 H Sodium 136 Potassium 3.1 L Chloride 97 L Carbon Dioxide 28 Anion Gap 11.0 BUN 8 Creatinine 0.5 Estimated GFR (MDRD) 139 Glucose 170 H Calcium 8.9 Total Bilirubin 0.4 AST 27 ALT 22 Alkaline Phosphatase 87 Total Protein 7.1 Albumin 3.6 Globulin 3.5 Albumin/Globulin Ratio 1.0 Lipase 21 L Urine Color Urine Clarity Urine pH Ur Specific [place] Urine Protein Urine Glucose (UA) Urine Ketones Urine Occult Blood Urine Nitrite Urine Bilirubin Urine Urobilinogen Ur Leukocyte Esterase Ur Microscopic Review Urine Culture Comments Urine HCG, Qual Urine Opiates Screen Ur Oxycodone Screen Urine Methadone Screen Ur Propoxyphene Screen Ur Barbiturates Screen Ur Tricyclics Screen Ur Phencyclidine Scrn Ur Amphetamine Screen U Methamphetamines Scrn U Benzodiazepines Scrn Urine Cocaine Screen U Cannabinoids Screen Ethyl Alcohol < 5.0 12/14/19 12/14/19 05:05 05:05 WBC RBC Hgb Hct MCV MCH MCHC RDW Plt Count MPV Neut # (Auto) Lymph # (Auto) [place] # (Auto) Eos # (Auto) Baso # (Auto) Absolute Nucleated RBC Nucleated RBC % PT INR Sodium Potassium Chloride Carbon Dioxide Anion Gap BUN Creatinine Estimated GFR (MDRD) Glucose Calcium Total Bilirubin AST ALT Alkaline Phosphatase Total Protein Albumin Globulin Albumin/Globulin Ratio Lipase Urine Color YELLOW Urine Clarity CLEAR Urine pH 7.0 Ur Specific [place] 1.010 1.010 Urine Protein NEGATIVE Urine Glucose (UA) NEGATIVE Urine Ketones NEGATIVE Urine Occult Blood NEGATIVE Urine Nitrite NEGATIVE Urine Bilirubin NEGATIVE Urine Urobilinogen 0.2 (NORMAL) Ur Leukocyte Esterase NEGATIVE Ur Microscopic Review NOT INDICATED Urine Culture Comments NOT INDICATED Urine HCG, Qual NEGATIVE Urine Opiates Screen NEGATIVE Ur Oxycodone Screen POSITIVE H Urine Methadone Screen NEGATIVE Ur Propoxyphene Screen NEGATIVE Ur Barbiturates Screen POSITIVE H Ur Tricyclics Screen NEGATIVE Ur Phencyclidine Scrn NEGATIVE Ur Amphetamine Screen NEGATIVE U Methamphetamines Scrn NEGATIVE U Benzodiazepines Scrn NEGATIVE Urine Cocaine Screen NEGATIVE U Cannabinoids Screen NEGATIVE Ethyl Alcohol - Rads (name of study) chest Radiology: Prelim report reviewed (Impression: Patchy bibasilar airspace dise ase, new from previous), EMP read indepedently, See rad report Procedures - IVC sono (time) 0412 Bedside IVC sono: IVC measures (cm) (1.76), IVC collapsed c insp (cm) (1.10), Euvolemia PD MEDICAL DECISION MAKING - ED course Complexity details: reviewed old records, reviewed results, re-evaluated patient, considered differential, d/w patient ED course: 38-year-old female again with an episode of tachypnea followed by unres ponsiveness has regained consciousness and is alert oriented cooperative here in the emergency department. She is no longer hyperventilating. No evaluation this morning she has a cough and today has new bibasilar infiltrate. She is treated with Rocephin intravenously and a azithromycin and she is swabbed for covid 19. She has been in to 3 hospitals in the past week and she was tested last week somewhere. I suspect her "spells" are related to hyperventilation and she acknowledges a progression of numbness difficulty speaking and then unresponsive. This morning she was asleep in bed, her noted the tachypnea and she was un-responsive so he called 911. The patient takes multiple medications and I am wondering if one of her medications metabolized with resultant hyperventilation. Departure - Departure Disposition: 01 Home, Self Care Clinical Impression: Hyperventilation syndrome Pneumonia Qualifiers: Pneumonia type: due to unspecified organism Laterality: bilateral Lung location: lower lobe of lung Qualified Code(s): J18.9 - Pneumonia, unspecified organism Instructions: ED Hyperventilation Syndrome, ED Pneumonia Adult Follow-Up: MONO BERNARDO [Primary Care Provider] - Prescriptions: Azithromycin [Zithromax] 250 mg PO DAILY #4 tablet
--- NOTE | 2019-12-14 04:44 | XRAY Report ---
Reason: soa Procedure Date: 12/14/2019 Accession Number: [id number] / [id number] Procedure: XR - Chest 1 View X-Ray CPT Code: 11183 Final Report FULL RESULT: EXAM: CHEST RADIOGRAPHY EXAM DATE: 12/14/2019 04:36 AM. CLINICAL HISTORY: Soa. COMPARISON: CHEST 1 VIEW 12/12/2019 11:44 PM. TECHNIQUE: 1 view. FINDINGS: Lungs/Pleura: Patchy bibasilar airspace disease, new from previous. No effusion or pneumothorax. Mediastinum: Within exam limitations, the cardiomediastinal contour is normal. Other: None. IMPRESSION: Patchy bibasilar airspace disease, new from previous. RADIA
[2019-12-14] MEDS ORDERED: cefTRIAXone 1 GM in SODIUM CHLORIDE 0.9% MINIBAG 100 ML IV STA (04:49)
[2019-12-14] MEDS ORDERED: AZITHROMYCIN INJ 500 MG in SODIUM CHLORIDE 0.9% 250 ML IV STA (04:49)
[2019-12-14 04:51] LABS: BASOPHILS % (AUTO) 0.5 %; EOSINOPHILS # (AUTO) 0.1 10^3/uL (0.0-0.7); EOSINOPHILS % (AUTO) 1.9 %; HGB - HEMOGLOBIN 10.3 g/dL (12.0-16.0); LYMPHOCYTES # (AUTO) 1.4 10^3/uL (1.5-3.5); LYMPHOCYTES % (AUTO) 19.4 %; MEAN CORPUSCULAR HEMOGLOBIN 24.9 pg (27.0-31.0); MEAN CORPUSCULAR HGB CONC 30.1 g/dL (32.0-36.0); MEAN CORPUSCULAR VOLUME 82.6 fL (81.0-99.0); MEAN PLATELET VOLUME 10.7 fL (7.9-10.8); MONOCYTES # (AUTO) 0.6 10^3/uL (0.0-1.0); MONOCYTES % (AUTO) 8.5 %; NEUTROPHILS # (AUTO) 5.1 10^3/uL (1.5-6.6); NEUTROPHILS % (AUTO) 69.3 %; PLT - PLATELET COUNT 238 10^3/uL (130-450); RED BLOOD COUNT 4.14 10^6/uL (4.20-5.40); RED CELL DISTRIBUTION WIDTH 16.3 % (12.0-15.0); WHITE BLOOD COUNT 7.4 x10^3/uL (4.8-10.8)
[2019-12-14 04:57] LABS: INR 2.1 (0.8-1.2); PT - PROTHROMBIN TIME 23.2 secs (9.9-12.6)
[2019-12-14 05:04] LABS: ALBUMIN 3.6 g/dL (3.2-5.5); ALKALINE PHOSPHATASE 87 IU/L (42-121); ALT ALANINE AMINOTRANSFERASE 22 IU/L (10-60); AST ASPARTATE AMINOTRANSFERASE 27 IU/L (10-42); BILIRUBIN,TOTAL 0.4 mg/dL (0.2-1.0); BUN - BLOOD UREA NITROGEN 8 mg/dL (6-20); CALCIUM 8.9 mg/dL (8.5-10.3); CARBON DIOXIDE - CO2 28 mmol/L (21-32); CHLORIDE 97 mmol/L (101-111); CREATININE 0.5 mg/dL (0.4-1.0); GLUCOSE 170 mg/dL (70-100); LIPASE 21 U/L (22-51); SODIUM 136 mmol/L (135-145); TOTAL PROTEIN 7.1 g/dL (6.7-8.2)
[2019-12-14 05:11] LABS: MUDS CUTOFF CONCENTRATIONS CUTOFF CONC BELOW:
[2019-12-14 05:12] LABS: BILIRUBIN,URINE NEGATIVE (NEGATIVE); GLUCOSE, URINE (UA) NEGATIVE (NEGATIVE); KETONES,URINE (UA) NEGATIVE (NEGATIVE); LEUKOCYTE ESTERASE, URINE NEGATIVE (NEGATIVE); NITRITE,URINE NEGATIVE (NEGATIVE); OCCULT BLOOD,URINE NEGATIVE (NEGATIVE); PROTEIN,URINE NEGATIVE (NEGATIVE); UROBILINOGEN,URINE 0.2 (NORMAL) E.U./dL (NORMAL)
[2019-12-14 05:14] LABS: CLARITY,URINE CLEAR (CLEAR)
[2019-12-14 05:15] LABS: HCG UR QUAL NEGATIVE
[2019-12-14 05:23] LABS: AMPHETAMINE SCREEN,URINE NEGATIVE (NEGATIVE); BENZODIAZEPINES SCREEN, URINE NEGATIVE (NEGATIVE); COCAINE SCREEN URINE NEGATIVE (NEGATIVE); METHADONE SCREEN, URINE NEGATIVE (NEGATIVE); METHAMPHETAMINES SCREEN, URINE NEGATIVE (NEGATIVE); OPIATE SCREEN, URINE NEGATIVE (NEGATIVE); OXYCODONE SCREEN, URINE POSITIVE (NEGATIVE); PROPOXYPHENE SCREEN, URINE NEGATIVE (NEGATIVE); TRICYCLIC ANTIDEPRESSANT,URINE NEGATIVE (NEGATIVE)
[2019-12-14] MEDS ORDERED: ONDANSETRON 4 MG/2 ML VIAL ONE (05:51)
[2019-12-14] MEDS ORDERED: ONDANSETRON 4 MG/2 ML VIAL IVP STA ×2 (05:51)
[2019-12-14 06:45] VITALS: BP 126/81
== END 2019-12-14 06:56 | disposition home or self-care (01) ==
LOC: EDUNIT# → ED 03:53
DX: F45.8 Other somatoform disorders (principal); J18.9 Pneumonia, unspecified organism; I10 Essential (primary) hypertension; E11.9 Type 2 diabetes mellitus without complications
CPT/HCPCS: 71045; 80053; 80306; 80320; 81001; 81003; 81025; 81599; 83690; 85025; 85610; 87086; 96365; 96367; 96375; 99284

== ENCOUNTER 2019-12-14 08:23 | Outpatient (CLI) | payer OTHER | END 2019-12-14 08:24 | disposition critical access hospital (66) | LOC: EMS 08:23 | PROVIDERS: ATTEND Surgery | DX: R56.9 Unspecified convulsions (principal) | CPT/HCPCS: A0425; A0429 ==

== ENCOUNTER 2019-12-16 00:18 | Outpatient (CLI) | payer OTHER | END 2019-12-16 00:19 | disposition critical access hospital (66) | LOC: EMS 00:18 | PROVIDERS: ATTEND Surgery | DX: R56.9 Unspecified convulsions (principal) | CPT/HCPCS: A0425; A0429 ==

== ENCOUNTER 2019-12-16 00:35 | Emergency (ER) | payer OTHER ==
--- NOTE | 2019-12-16 00:41 | ED Physician Documentation ---
History of Present Illness - Stated complaint Stated Complaint: SZ - History obtained from History obtained from: Patient, EMS - History of Present Illness Timing: Prior to arrival Improved by: nothing Worsened by: no apparent inciting nor exacerbating factors - Additonal information Additional information: BIBA for "breakthrough seizure" (per medics; they were told this by patient's s.o. on scene); approximately 30 minutes LIFE TEACHER, patient's s.o. noted patient was hyperventilating and not responding to verbal stimuli, shaking of extremities. 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 : Retention HEENT: None Psych: Depression Musculoskeletal: Fibromyalgia, Chronic back pain Derm: None - Past Surgical History Past Surgical History: Yes Ortho: Carpal Tunnel surgery, Other - Present Medications Home Medications: Ambulatory Orders Medication Instructions Recorded Confirmed ARIPiprazole [Abilify] 5 mg PO DAILY 10/05/17 12/16/19 Amitriptyline [Elavil] 25 tab PO DAILY 10/05/17 12/16/19 Pregabalin [Lyrica] 150 mg PO BID 10/05/17 12/16/19 Terazosin [Hytrin] 5 mg PO QPM 10/05/17 12/16/19 Cyclobenzaprine [Flexeril] 10 mg PO TID PRN 10/08/18 12/16/19 Furosemide [Lasix] 20 mg PO DAILY 10/08/18 05/09/19 Levothyroxine [Synthroid] 50 mcg PO QDAC 10/08/18 12/16/19 Metoprolol Tartrate [Lopressor] 75 mg PO BID 10/08/18 05/09/19 Omeprazole 20 mg PO BID 10/08/18 12/16/19 Docusate Calcium 240 mg PO BID 05/06/19 12/16/19 Enoxaparin [Lovenox] 120 mg SUBQ BID #14 syringe 05/06/19 12/16/19 Morphine ER 15 mg PO Q8HR 05/06/19 12/16/19 Oxycodone HCl [Roxicodone] 7.5 - 15 mg PO .Q6-8H PRN MDD 15 MG 05/06/19 12/16/19 Albuterol Sulf [Ventolin Hfa 1 - 2 puffs INH Q4HR PRN #1 inhaler 07/12/19 12/16/19 Inhaler] Enoxaparin [Lovenox] 135 mg SUBQ BID #20 syringe 12/10/19 12/16/19 Azithromycin [Zithromax] 250 mg PO DAILY #4 tablet 12/14/19 12/16/19 Ipratropium/Albuterol Sulfate 1 neb PRN 12/16/19 [Iprat-Albut 0.5-3(2.5) mg/3 ml] Warfarin [Coumadin] 5 mg PO DAILY 12/16/19 12/16/19 - Allergies Allergies/Adverse Reactions: Allergies Allergy/AdvReac Type Severity Reaction Status Date / Time carisoprodol [From Soma] Allergy Unknown Verified 12/16/19 00:43 - Social History Does the pt smoke?: Yes Smoking Status: Former smoker Does the pt drink ETOH?: Yes Does the pt have substance abuse?: No - Immunizations Immunizations are current?: Yes - POLST Patient has POLST: No POLST Status: Full Code PD ED PE NORMAL - Vitals Vital signs reviewed: Yes - General General: Alert and oriented X 3, No acute distress, Other (obese) - HEENT HEENT: Moist mucous membranes - Neck Neck: Supple, no meningeal sign - Cardiac Cardiac: No murmur, No gallop, No rub - Respiratory Respiratory: No respiratory distress, Clear bilaterally - Abdomen Abdomen: Soft, Non tender - Derm Derm: Normal color, Warm and dry PD ED PE EXPANDED - Cardiac Cardiac: Tachy, Regular Rhythm Results - Vitals Vitals: Vital Signs - 24 hr 12/16/19 12/16/19 12/16/19 00:39 01:30 02:29 Temperature 36 C L Heart Rate 125 H 122 H 118 H Respiratory 20 18 18 Rate Blood Pressure 114/57 L 142/77 H 146/82 H O2 Saturation 96 98 97 Oxygen O2 Source Room air - Labs Labs: Laboratory Tests 12/16/19 12/16/19 12/16/19 01:12 01:12 01:12 WBC 6.5 RBC 4.16 L Hgb 10.1 L Hct 34.4 L MCV 82.7 MCH 24.3 L MCHC 29.4 L RDW 16.8 H Plt Count 268 MPV 10.5 Neut # (Auto) 3.8 Lymph # (Auto) 1.9 [place] # (Auto) 0.5 Eos # (Auto) 0.2 Baso # (Auto) 0.1 Absolute Nucleated RBC 0.02 Nucleated RBC % 0.3 PT 15.2 H INR 1.4 H Sodium 139 Potassium 3.2 L Chloride 99 L Carbon Dioxide 28 Anion Gap 12.0 BUN 7 Creatinine 0.6 Estimated GFR (MDRD) 112 Glucose 133 H Calcium 9.1 PD MEDICAL DECISION MAKING - ED course Complexity details: reviewed old records, reviewed results, re-evaluated patient, considered differential, d/w patient ED course: Patient has had 10 ED visits ([facility], ) since November 27, 2019. She was diagnosed with right-sided PE as well as LLE DVT and is on warfarin and lovenox. She was recently inpatient at [facility] where she was diagnosed as having PNES (three episodes occurred while EEG monitoring was taking place and there was no evidence of epileptiform EEG changes). Patient did not have any of these episodes during jaimie's ED stay, and she was AAOx3, conversant, and cooperative. I discussed test results with her, including improving hypokalemia but unexpected drop in her INR. I explained to her that as long as she is still taking the lovenox along with the warfarin, this is not something that would need to be addressed jaimie; however, I instructed her to call her prescribing physician in the morning (whomever is prescribing her warfarin and lovenox) and discuss jaimie's INR result with them (I provided her a copy of the test result). Departure - Departure Disposition: 01 Home, Self Care Clinical Impression: Pseudoseizures, Hypokalemia Condition: Good Instructions: ED Potassium Deficiency Discharge Date/Time: 12/16/19 02:29
[2019-12-16 01:49] LABS: HGB - HEMOGLOBIN 10.1 g/dL (12.0-16.0); INR 1.4 (0.8-1.2); LYMPHOCYTES % (AUTO) 28.5 %; MEAN CORPUSCULAR HEMOGLOBIN 24.3 pg (27.0-31.0); MEAN CORPUSCULAR HGB CONC 29.4 g/dL (32.0-36.0); MEAN CORPUSCULAR VOLUME 82.7 fL (81.0-99.0); MEAN PLATELET VOLUME 10.5 fL (7.9-10.8); MONOCYTES % (AUTO) 8.2 %; NEUTROPHILS % (AUTO) 58.5 %; PLT - PLATELET COUNT 268 10^3/uL (130-450); PT - PROTHROMBIN TIME 15.2 secs (9.9-12.6); RED BLOOD COUNT 4.16 10^6/uL (4.20-5.40); RED CELL DISTRIBUTION WIDTH 16.8 % (12.0-15.0); WHITE BLOOD COUNT 6.5 x10^3/uL (4.8-10.8)
[2019-12-16 01:50] LABS: BASOPHILS # (AUTO) 0.1 10^3/uL (0.0-0.1); BASOPHILS % (AUTO) 0.8 %; EOSINOPHILS # (AUTO) 0.2 10^3/uL (0.0-0.7); EOSINOPHILS % (AUTO) 3.4 %; LYMPHOCYTES # (AUTO) 1.9 10^3/uL (1.5-3.5); MONOCYTES # (AUTO) 0.5 10^3/uL (0.0-1.0); NEUTROPHILS # (AUTO) 3.8 10^3/uL (1.5-6.6)
[2019-12-16 01:54] LABS: CALCIUM 9.1 mg/dL (8.5-10.3); CREATININE 0.6 mg/dL (0.4-1.0)
[2019-12-16] MEDS ORDERED: POTASSIUM CHLORIDE 20 MEQ TABLET PO STA (02:19)
[2019-12-16 02:30] VITALS: BP 146/82
== END 2019-12-16 02:29 | disposition home or self-care (01) ==
LOC: ED 00:35
DX: G40.89 Other seizures (principal); E87.6 Hypokalemia; R79.1 Abnormal coagulation profile; Z86.711 Personal history of pulmonary embolism; Z86.718 Personal history of other venous thrombosis and embolism; Z79.01 Long term (current) use of anticoagulants; I10 Essential (primary) hypertension; E11.9 Type 2 diabetes mellitus without complications; Z87.891 Personal history of nicotine dependence
CPT/HCPCS: 36415; 80048; 85025; 85610; 99281; 99283; A9270

== ENCOUNTER 2020-07-15 16:20 | Outpatient (CLI) | payer OTHER | END 2020-07-15 16:21 | disposition short-term general hospital (02) | LOC: EMS 16:20 | PROVIDERS: ATTEND Surgery | DX: R56.9 Unspecified convulsions (principal) | CPT/HCPCS: A0425; A0429 ==

== ENCOUNTER 2022-04-15 08:00 | Outpatient (CLI) | payer OTHER ==
[2022-04-15 19:08] LABS: BASOPHILS % (AUTO) 0.6 %; EOSINOPHILS # (AUTO) 0.1 10^3/uL (0.0-0.7); EOSINOPHILS % (AUTO) 1.5 %; HCT - HEMATOCRIT 41.2 % (37.0-47.0); LYMPHOCYTES # (AUTO) 1.9 10^3/uL (1.5-3.5); LYMPHOCYTES % (AUTO) 25.8 %; MEAN CORPUSCULAR HEMOGLOBIN 27.3 pg (27.0-31.0); MEAN CORPUSCULAR HGB CONC 31.6 g/dL (32.0-36.0); MEAN CORPUSCULAR VOLUME 86.4 fL (81.0-99.0); MEAN PLATELET VOLUME 11.3 fL (7.9-10.8); MONOCYTES # (AUTO) 0.5 10^3/uL (0.0-1.0); MONOCYTES % (AUTO) 7.3 %; NEUTROPHILS # (AUTO) 4.7 10^3/uL (1.5-6.6); NEUTROPHILS % (AUTO) 64.5 %; PLT - PLATELET COUNT 296 10^3/uL (130-450); RED BLOOD COUNT 4.77 10^6/uL (4.20-5.40); RED CELL DISTRIBUTION WIDTH 14.1 % (12.0-15.0); WHITE BLOOD COUNT 7.3 x10^3/uL (4.8-10.8)
[2022-04-15 19:19] LABS: CALCIUM 9.9 mg/dL (8.5-10.3); POTASSIUM 3.8 mmol/L (3.5-5.0)
[2022-04-15 19:50] LABS: ALBUMIN 4.4 g/dL (3.2-5.5); ALBUMIN/GLOBULIN RATIO 1.1 (1.0-2.2); BILIRUBIN,TOTAL 0.3 mg/dL (0.2-1.0); CREATININE 0.7 mg/dL (0.4-1.0); TOTAL PROTEIN 8.3 g/dL (6.7-8.2)
== END 2022-04-15 23:59 | disposition home or self-care (01) ==
LOC: LAB.N 08:00
PROVIDERS: ATTEND Nurse Practitioner
DX: R19.7 Diarrhea, unspecified (principal)
CPT/HCPCS: 36415; 80053; 82150; 83690; 85025

== ENCOUNTER 2022-05-02 17:23 | Outpatient (CLI) | payer OTHER, MEDICARE | END 2022-05-02 17:24 | disposition critical access hospital (66) | LOC: EMS 17:23 | DX: F41.9 Anxiety disorder, unspecified (principal); R20.0 Anesthesia of skin; R06.4 Hyperventilation | CPT/HCPCS: A0425; A0429 ==

== ENCOUNTER 2022-05-02 17:43 | Emergency (ER) | payer OTHER, MEDICARE ==
--- NOTE | 2022-05-02 18:25 | ED Physician Documentation ---
History of Present Illness - Stated complaint Stated Complaint: REACTION/SOA - Chief complaint Chief Complaint: Neuro - History obtained from History obtained from: Patient, EMS - History of Present Illness Timing: Today Pain level max: 0 Pain level now: 0 - Additonal information Additional information: Patient is a 41-year-old female who presents to the emergency department for "not feeling right" after smoking a joint today. She states that this happens commonly after she uses marijuana. She states that she can "do edibles" but cannot smoke marijuana as it causes her to have anxiety. She has also had a cough for the past week. No fevers. Nothing makes it better or worse. Patient is currently feeling better after arriving at the hospital. 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 HEENT: None Psych: Depression Musculoskeletal: Fibromyalgia, Chronic back pain Derm: None - Past Surgical History Past Surgical History: Yes Ortho: Carpal Tunnel surgery, Other - Present Medications Home Medications: Ambulatory Orders Medication Instructions Recorded Confirmed ARIPiprazole [Abilify] 5 mg PO DAILY 10/05/17 12/16/19 Amitriptyline [Elavil] 25 tab PO DAILY 10/05/17 12/16/19 Pregabalin [Lyrica] 150 mg PO BID 10/05/17 12/16/19 Terazosin [Hytrin] 5 mg PO QPM 10/05/17 12/16/19 Cyclobenzaprine [Flexeril] 10 mg PO TID PRN 10/08/18 12/16/19 Furosemide [Lasix] 20 mg PO DAILY 10/08/18 05/09/19 Levothyroxine [Synthroid] 50 mcg PO QDAC 10/08/18 12/16/19 Metoprolol Tartrate [Lopressor] 75 mg PO BID 10/08/18 05/09/19 Omeprazole 20 mg PO BID 10/08/18 12/16/19 Docusate Calcium 240 mg PO BID 05/06/19 12/16/19 Enoxaparin [Lovenox] 120 mg SUBQ BID #14 syringe 05/06/19 12/16/19 Morphine ER [Morphine Sulfate ER] 15 mg PO Q8HR 05/06/19 12/16/19 Oxycodone HCl [Roxicodone] 7.5 - 15 mg PO .Q6-8H PRN MDD 15 MG 05/06/19 12/16/19 Albuterol Sulf [Ventolin Hfa 1 - 2 puffs INH Q4HR PRN #1 inhaler 07/12/19 12/16/19 Inhaler] Enoxaparin [Lovenox] 135 mg SUBQ BID #20 syringe 12/10/19 12/16/19 Azithromycin [Zithromax] 250 mg PO DAILY #4 tablet 12/14/19 12/16/19 Ipratropium/Albuterol Sulfate 1 neb PRN 12/16/19 [Iprat-Albut 0.5-3(2.5) mg/3 ml] Warfarin [Coumadin] 5 mg PO DAILY 12/16/19 12/16/19 Amox/Clav 875/125 [Augmentin] 1 tab PO Q12H #14 tablet 05/02/22 Azithromycin [Zithromax] 250 mg PO DAILY #4 tablet 05/02/22 - Allergies Allergies/Adverse Reactions: Allergies Allergy/AdvReac Type Severity Reaction Status Date / Time carisoprodol [From Soma] Allergy Unknown Verified 12/16/19 00:43 phenytoin Allergy Unknown Verified 05/02/22 17:54 - Social History Does the pt smoke?: Yes Smoking Status: Former smoker Does the pt drink ETOH?: Yes Does the pt have substance abuse?: No - Immunizations Immunizations are current?: Yes - POLST Patient has POLST: No POLST Status: Full Code PD ED PE NORMAL - Vitals Vital signs reviewed: Yes - General General: Alert and oriented X 3, No acute distress, Well developed/nourished - HEENT HEENT: PERRL, Moist mucous membranes - Neck Neck: Supple, no meningeal sign - Cardiac Cardiac: RRR, Strong equal pulses - Respiratory Respiratory: No respiratory distress, Clear bilaterally - Abdomen Abdomen: Soft, Non tender, Non distended - Back Back: No CVA TTP, No spinal TTP - Derm Derm: Warm and dry, No rash - Extremities Extremities: No edema, No calf tenderness / cord - Neuro Neuro: Alert and oriented X 3 - Psych Psych: Other (Anxious appearing) Results - Vitals Vitals: Vital Signs - 24 hr 05/02/22 05/02/22 05/02/22 17:54 19:28 19:44 Temperature 37.2 C 37.1 C 37.0 C Heart Rate 122 H 101 H 88 Respiratory 21 18 16 Rate Blood Pressure 191/96 H 155/91 H 130/90 H O2 Saturation 99 98 98 Oxygen O2 Source Room air - Rads (name of study) Chest x-ray Radiology: Final report received, EMP read contemporaneously, See rad report PD MEDICAL DECISION MAKING - ED course Complexity details: reviewed results, re-evaluated patient, considered differential, d/w patient, d/w family ED course: Patient appears to have a right-sided pneumonia on chest x-ray. Will place on antibiotics for this. They reaction from the marijuana use gradually resolved in the emergency department and she is back to her normal baseline. Patient is requesting to go home at this time. is comfortable taking her home. No hypoxia. No respiratory distress. We will have her follow-up with her doctor for further care. Counseled to not use marijuana in the future. Patient counseled regarding signs and symptoms for which I believe and urgent re- evaluation would be necessary. Patient with good understanding of and agreement to plan and is comfortable going home at this time This document was made in part using voice recognition software. While efforts are made to proofread this document, sound alike and grammatical errors may occur. Departure - Departure Disposition: 01 Home, Self Care Clinical Impression: Pneumonia Qualifiers: Pneumonia type: due to unspecified organism Laterality: right Lung location: lower lobe of lung Qualified Code(s): J18.9 - Pneumonia, unspecified organism Cannabis intoxication Qualifiers: Complication of substance-induced condition: with perceptual disturbance Qualified Code(s): F12.922 - Cannabis use, unspecified with intoxication with perceptual disturbance Condition: Good Instructions: ED Pneumonia Adult Follow-Up: MONO BERNARDO [Primary Care Provider] - Within 1 week Prescriptions: Amox/Clav 875/125 [Augmentin] 1 tab PO Q12H #14 tablet Azithromycin [Zithromax] 250 mg PO DAILY #4 tablet Comments: Your prescriptions were sent to [facility] in [place]. Please take all antibiotics until gone. Please return if you worsen. Please avoid any further marijuana use. Discharge Date/Time: 05/02/22 19:44
--- NOTE | 2022-05-02 19:06 | XRAY Report ---
PROCEDURE: Chest 1 View X-Ray INDICATIONS: cough TECHNIQUE: One view of the chest was acquired. COMPARISON: Chest radiograph 01/10/2020 FINDINGS: Surgical changes and devices: None. Lungs and pleura: Patchy opacities projecting over the right lower lung zone are new when compared t o the prior exam. No pleural effusion or pneumothorax. Mediastinum: Mediastinal contours appear normal. Heart size is normal. Bones and chest wall: No suspicious bony lesions. Overlying soft tissues appear unremarkable. IMPRESSION: Mild right basilar opacities may represent pneumonia or aspiration. Reviewed by: Germain King MD on 05/02/2022 7:04 PM PDT Approved by: Germain King MD on 05/02/2022 7:04 PM PDT Station ID: [id number]
[2022-05-02] MEDS ORDERED: AMOX/CLAV 875 MG/125 MG TABLET PO STA (19:17)
[2022-05-02] MEDS ORDERED: AZITHROMYCIN 250 MG TABLET PO STA (19:17)
[2022-05-02 19:45] VITALS: BP 130/90
== END 2022-05-02 19:44 | disposition home or self-care (01) ==
LOC: EDUNIT# → ED 17:43
DX: J18.9 Pneumonia, unspecified organism (principal); F12.929 Cannabis use, unspecified with intoxication, unspecified; Z87.891 Personal history of nicotine dependence
CPT/HCPCS: 71045; 99283; A9270

== ENCOUNTER 2022-09-27 19:11 | Outpatient (CLI) | payer OTHER, MEDICARE | END 2022-09-27 19:12 | disposition critical access hospital (66) | LOC: EMS 19:11 | DX: R42 Dizziness and giddiness (principal) | CPT/HCPCS: A0425; A0429 ==

== ENCOUNTER 2022-09-27 19:30 | Emergency (ER) | payer OTHER, MEDICARE ==
--- OUTSIDE RECORDS SUMMARY | 2022-09-27 19:44 | EXTERNAL MEDICAL SUMMARY RPT | Continuity of Care Document ---
:1980 Author Organization [facility] Address [address] [place] [address] Phone Care Team Providers Name Role Phone Unavailable Unavailable Unavailable Lilo Villanueva Unavailable Unavailable Allergies and Intolerances date description facility type (no date) [facility] (unknown) Encounters No information. Functional Status No information. Immunizations No information. Medications date description facility 2022-09-15 00:00 Spironolactone [facility] 2022-07-12 00:00 Terazosin [facility] 2022-07-03 00:00 Furosemide [facility] 2022-08-08 00:00 Furosemide [facility] 2022-09-15 00:00 Aripiprazole [facility] 2022-07-10 00:00 Norgestrel-Ethinyl Estradiol [facility] 2022-09-12 00:00 Norgestrel-Ethinyl Estradiol [facility] 2022-08-30 00:00 Cyclobenzaprine [facility] Problems date description facility 2022-09-06 08:12 Localized swelling, mass and lump, [facility] 2022-09-06 09:22 Localized swelling, mass and lump, [facility] 2022-09-20 14:41 [facility] 2022-09-20 14:44 [facility] Procedures date description facility 2022-09-06 00:00 [facility]00 X-ray of cervical spine, [facility] Results/Labs test date author facility value unit interpret ation Result panel 1 (unknown) (no date) (unknown) [facility] unknown) Result panel 2 (unknown) (no date) (unknown) [facility]) Result panel 3 (unknown) (no date) (unknown) [facility]) Result panel 4 (unknown) (no date) (unknown[facility]) Result panel 5 (unknown) (no date) (unknown[facility]) Result panel 6 (unknown) (no date) (unknown[facility]) Result panel 7 (unknown) (no date) (unknown[facility] Result panel 8 (unknown) (no date) (unknown[facility] Result panel 9 (unknown) (no (unknown) (unknown) (no value) (units (unk nown) date) unknown) (unknown) (no (unknown) (unknown) #12.9 grams 04/12/22 [Rx (units (unknown) date) Confirmed 07/25/22] unknown) (unknown) (no (unknown) (unknown) .COMPLEX #18 grams (units (unknown) date) 03/03/22 [Rx Confirmed unknown ) 07/25/22] (unknown) (no (unknown) (unknown) [id number] (units (unkn own) date) unknown) (unknown) (no (unknown) (unknown) 04/03/22 [Rx Confirmed (u nits (unknown) date) 07/25/22] unknown) (unknown) (no (unknown) (unknown) 04/13/22 [Rx Confirmed (u nits (unknown) date) 07/25/22] unknown) (unknown) (no (unknown) (unknown) 05/11/22 [Rx Confirmed (u nits (unknown) date) 07/25/22] unknown) (unknown) (no (unknown) (unknown) 05/22/22 [Rx Confirmed (u nits (unknown) date) 07/25/22] unknown) (unknown) (no (unknown) (unknown) 07/10/22 [Rx Confirmed (u nits (unknown) date) 07/25/22] unknown) (unknown) (no (unknown) (unknown) 07/25/22 (units (unkno wn) date) unknown) (unknown) (no (unknown) (unknown) 07/25/22] (units (unkn own) date) unknown) (unknown) (no (unknown) (unknown) 14:17 (units (unkno wn) date) unknown) (unknown) (no (unknown) (unknown) Acetaminophen overdose of (units (unknown) date) undetermined intent unknown) (03/2016) (unknown) (no (unknown) (unknown) Age/Sex: 41 / F Date of ( units (unknown) date) Service: unknown) (unknown) (no (unknown) (unknown) Alcoholism (units (unk nown) date) unknown) (unknown) (no (unknown) (unknown) Allergies (units (unkn own) date) unknown) (unknown) (no (unknown) (unknown) Amputation of fifth toe of (units (unknown) date) right foot unknown) (unknown) (no (unknown) (unknown) [facility] (units (unknown) date) unknown) (unknown) (no (unknown) (unknown) [place] [address] (unit s (unknown) date) unknown) (unknown) (no (unknown) (unknown) Asthma (units (unkno wn) date) unknown) (unknown) (no (unknown) (unknown) Attending Dr: Ry (un its (unknown) date) Jovan MENDEZ unknown) (unknown) (no (unknown) (unknown) BMI 45.7 (units (unkno wn) date) unknown) (unknown) (no (unknown) (unknown) BP 132/86 (units (unkn own) date) unknown) (unknown) (no (unknown) (unknown) Blood Pressure Location Lt (units (unknown) date) brachial unknown) (unknown) (no (unknown) (unknown) Compressioin Stockings #1 (units (unknown) date) ea 01/01/20 [Rx Confirmed unkn own) 07/25/22] (unknown) (no (unknown) (unknown) Confirmed 07/25/22] (unit s (unknown) date) unknown) (unknown) (no (unknown) (unknown) Cubital tunnel syndrome ( units (unknown) date) unknown) (unknown) (no (unknown) (unknown) DM type 2 (diabetes (unit s (unknown) date) mellitus, type 2) unknown) (unknown) (no (unknown) (unknown) : 1980 (units (unknown) date) Acct:[id number] unknown) (unknown) (no (unknown) (unknown) DVT (deep venous (units (unknown) date) thrombosis) unknown) (unknown) (no (unknown) (unknown) Dept at . (u nits (unknown) date) unknown) (unknown) (no (unknown) (unknown) Diet and Exercise (units (unknown) date) unknown) (unknown) (no (unknown) (unknown) Diskus) 1 puff inhalation (units (unknown) date) BID 09/29/19 [History unknown) Confirmed 07/25/22] (unknown) (no (unknown) (unknown) Documented By: (units (unknown) date) Ry Aldana 07/25/22 un known) 1415 (unknown) (no (unknown) (unknown) Draft (units (unkno wn) date) unknown) (unknown) (no (unknown) (unknown) Essential hypertension (u nits (unknown) date) unknown) (unknown) (no (unknown) (unknown) Family History (Reviewed (units (unknown) date) 06/28/22 @ 14:12 by Brian padilla) MD Lisa) (unknown) (no (unknown) (unknown) Family Practice Office (u nits (unknown) date) Visit unknown) (unknown) (no (unknown) (unknown) Family/Other Pancreatic ( units (unknown) date) cancer unknown) (unknown) (no (unknown) (unknown) Fibromyalgia (05/21/15) ( units (unknown) date) unknown) (unknown) (no (unknown) (unknown) Grandfather Diabetes (uni ts (unknown) date) mellitus unknown) (unknown) (no (unknown) (unknown) Height 5 ft 5 in (units (unknown) date) unknown) (unknown) (no (unknown) (unknown) History of carpal tunnel (units (unknown) date) repair (-01/18/15) unknown) (unknown) (no (unknown) (unknown) History of colonoscopy (u nits (unknown) date) unknown) (unknown) (no (unknown) (unknown) History of (units ([place] nown) date) esophagogastroduodenoscopy joey padilla) (EGD) (unknown) (no (unknown) (unknown) History of laminectomy (u nits (unknown) date) (-12/2016) unknown) (unknown) (no (unknown) (unknown) History of laminectomy (u nits (unknown) date) unknown) (unknown) (no (unknown) (unknown) History of lumbar spinal (units (unknown) date) fusion (03/12/19) unknown) (unknown) (no (unknown) (unknown) Hx of toe surgery (units (unknown) date) (08/04/20) unknown) (unknown) (no (unknown) (unknown) Hypoxia (units (unkno wn) date) unknown) (unknown) (no (unknown) (unknown) Intake Note: (units (u nknown) date) unknown) (unknown) (no (unknown) (unknown) Intake performed by: (uni ts (unknown) date) Antoine Mcneil unknown) (unknown) (no (unknown) (unknown) Intake (units (unkno wn) date) unknown) (unknown) (no (unknown) (unknown) Intake- Clincial Staff (u nits (unknown) date) unknown) (unknown) (no (unknown) (unknown) Intraoperative cardiac (u nits (unknown) date) arrest during non-cardiac unkn own) surgery (02/2014) (unknown) (no (unknown) (unknown) Last Menstural Cycle + (u nits (unknown) date) Details unknown) (unknown) (no (unknown) (unknown) Latex, Natural Rubber (un its (unknown) date) Adverse Reaction (Mild, unknow n) Verified 05/10/22 13:22) (unknown) (no (unknown) (unknown) [facility] Blood Glucose Test (units (unknown) date) Strips #180 ea 10/29/20 [Rx un known) Confirmed 07/25/22] (unknown) (no (unknown) (unknown) Loc: [facility] (units (unkno wn) date) unknown) (unknown) (no (unknown) (unknown) Lumbar spine pain (units (unknown) date) unknown) (unknown) (no (unknown) (unknown) Medical History (Reviewed (units (unknown) date) 06/28/22 @ 14:12 by Brian Gonzalez MD) (unknown) (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) (unknown) (no (unknown) (unknown) Medications (units (un known) date) unknown) (unknown) (no (unknown) (unknown) Morbid obesity (units (unknown) date) unknown) (unknown) (no (unknown) (unknown) Narcotic habituation, (un its (unknown) date) continuous unknown) (unknown) (no (unknown) (unknown) Nocturnal hypoxemia (unit s (unknown) date) unknown) (unknown) (no (unknown) (unknown) DERREK (obstructive sleep (u nits (unknown) date) apnea) unknown) (unknown) (no (unknown) (unknown) Obstipation (units (un known) date) unknown) (unknown) (no (unknown) (unknown) Other Menstrual Period: ( units (unknown) date) Uncertain (irregular ) unknown ) (unknown) (no (unknown) (unknown) Ovarian cyst (units (u nknown) date) unknown) (unknown) (no (unknown) (unknown) Oxygen Delivery Method (u nits (unknown) date) room air unknown) (unknown) (no (unknown) (unknown) PFSH (units (unkno wn) date) unknown) (unknown) (no (unknown) (unknown) PRN shortness of breath or (units (unknown) date) wheezing #15 grams 04/12/22 un known) [Rx Confirmed 07/25/22] (unknown) (no (unknown) (unknown) Patient: Sandy Dorman (units (unknown) date) MR#: M unknown) (unknown) (no (unknown) (unknown) Plantar fasciitis (units (unknown) date) unknown) (unknown) (no (unknown) (unknown) Position Sitting (units (unknown) date) unknown) (unknown) (no (unknown) (unknown) Psychogenic nonepileptic (units (unknown) date) seizure unknown) (unknown) (no (unknown) (unknown) Pt presents with pain (un its (unknown) date) below left knee down to unknow n) ankle. Started 4 days ago. Hurts (unknown) (no (unknown) (unknown) Pulmonary embolism (units (unknown) date) unknown) (unknown) (no (unknown) (unknown) Pulse 110 H (units (un known) date) unknown) (unknown) (no (unknown) (unknown) Pulse Oximetry (%) 99 (un its (unknown) date) unknown) (unknown) (no (unknown) (unknown) Pulse Source Monitor (uni ts (unknown) date) unknown) (unknown) (no (unknown) (unknown) RBBB (right bundle branch (units (unknown) date) block) unknown) (unknown) (no (unknown) (unknown) Rash (units (unkno wn) date) unknown) (unknown) (no (unknown) (unknown) Reason For Visit (units (unknown) date) unknown) (unknown) (no (unknown) (unknown) Respiration 14 (units (unknown) date) unknown) (unknown) (no (unknown) (unknown) S/P epidural steroid (uni ts (unknown) date) injection (02/2014) unknown) (unknown) (no (unknown) (unknown) Seizures (units (unkno wn) date) unknown) (unknown) (no (unknown) (unknown) Signed By: (units (unk nown) date) unknown) (unknown) (no (unknown) (unknown) Sinus tachycardia (units (unknown) date) unknown) (unknown) (no (unknown) (unknown) Smoking Status: Current ( units (unknown) date) some day smoker unknown) (unknown) (no (unknown) (unknown) Social History (units (unknown) date) unknown) (unknown) (no (unknown) (unknown) Status post dilation and (units (unknown) date) curettage (2008) unknown) (unknown) (no (unknown) (unknown) Status post laminectomy ( units (unknown) date) (03/03/16) unknown) (unknown) (no (unknown) (unknown) Suicide attempt (units (unknown) date) unknown) (unknown) (no (unknown) (unknown) Surgical History (Reviewed (units (unknown) date) 06/28/22 @ 14:12 by Brian Gonzalez MD) (unknown) (no (unknown) (unknown) TENS units #1 ea 04/30/19 (units (unknown) date) [Rx Confirmed 07/25/22] unknow n) (unknown) (no (unknown) (unknown) Temp 98.3 F (units (un known) date) unknown) (unknown) (no (unknown) (unknown) Temp Source Skin (units (unknown) date) unknown) (unknown) (no (unknown) (unknown) This note may have been ( units (unknown) date) all or partially generated unk nown) using voice recognition (unknown) (no (unknown) (unknown) Tobacco + Substance Use ( units (unknown) date) unknown) (unknown) (no (unknown) (unknown) Tobacco Status (units (unknown) date) unknown) (unknown) (no (unknown) (unknown) Tobacco abuse (units ( unknown) date) unknown) (unknown) (no (unknown) (unknown) Tylenol overdose (units (unknown) date) unknown) (unknown) (no (unknown) (unknown) Type(s) of exercise: (uni ts (unknown) date) normal ROM and activity and un known) sedentary lifestyle (unknown) (no (unknown) (unknown) Urinary retention (units (unknown) date) unknown) (unknown) (no (unknown) (unknown) Visit Reasons: Pain below (units (unknown) date) L knee unknown) (unknown) (no (unknown) (unknown) Vitals (units (unkno wn) date) unknown) (unknown) (no (unknown) (unknown) Weight 275 lb (units ( unknown) date) unknown) (unknown) (no (unknown) (unknown) [History Confirmed (units (unknown) date) 07/25/22] unknown) (unknown) (no (unknown) (unknown) [Rx Confirmed 07/25/22] ( units (unknown) date) unknown) (unknown) (no (unknown) (unknown) acetaminophen 500 mg (uni ts (unknown) date) tablet (Tylenol Extra unknown) Strength) 2,000 mg PO BID 12/12/18 (unknown) (no (unknown) (unknown) albuterol sulfate 90 (uni ts (unknown) date) mcg/actuation aerosol unknown) inhaler See Rx Instructions .Route (unknown) (no (unknown) (unknown) alcohol intake: current ( units (unknown) date) unknown) (unknown) (no (unknown) (unknown) aripiprazole 30 mg tablet (units (unknown) date) 30 mg PO DAILY 30 days #30 unk nown) tabs 03/21/22 [Rx Confirmed (unknown) (no (unknown) (unknown) caps 12/26/21 [Rx (units (unknown) date) Confirmed 07/25/22] unknown) (unknown) (no (unknown) (unknown) carisoprodol (units (u nknown) date) [CARISOPRODOL] Adverse unknown ) Reaction (Severe, Verified 05/10/22 13:22) (unknown) (no (unknown) (unknown) clobetasol 0.05 % topical (units (unknown) date) ointment 1 applic topical unkn own) BID #30 grams 05/30/22 [Rx (unknown) (no (unknown) (unknown) cyclobenzaprine 10 mg (un its (unknown) date) tablet See Rx Instructions unk nown) .Route .COMPLEX #90 tabs (unknown) (no (unknown) (unknown) diazepam 5 mg tablet (uni ts (unknown) date) (Valium) 5 mg PO SEE unknown) INSTRUCTIONS for use prior to MRI #2 (unknown) (no (unknown) (unknown) doxepin 100 mg capsule 200 (units (unknown) date) mg PO BEDTIME #60 caps unknown ) 03/21/22 [Rx Confirmed (unknown) (no (unknown) (unknown) ea 06/27/22 [Rx Confirmed (units (unknown) date) 07/25/22] unknown) (unknown) (no (unknown) (unknown) eating out: 1-3 times/week (units (unknown) date) unknown) (unknown) (no (unknown) (unknown) ferrous sulfate 325 mg (65 (units (unknown) date) mg iron) tablet 325 mg PO unkn own) DAILY Anemia 03/28/21 (unknown) (no (unknown) (unknown) fluconazole 150 mg tablet (units (unknown) date) 150 mg PO Q3D 2 doses #2 unkno wn) tabs 05/22/22 [Rx Confirmed (unknown) (no (unknown) (unknown) fluticasone 100 (units (unknown) date) mcg-salmeterol 50 mcg/dose unk nown) blistr powdr for inhalation (Advair (unknown) (no (unknown) (unknown) fosphenytoin Adverse (uni ts (unknown) date) Reaction (Severe, Verified unk nown) 05/10/22 13:22) (unknown) (no (unknown) (unknown) furosemide 40 mg tablet ( units (unknown) date) See Rx Instructions .Route unk nown) .COMPLEX #135 tabs 07/03/22 (unknown) (no (unknown) (unknown) have occurred. If there ( units (unknown) date) are any questions, please unkn own) contact the Medical Records (unknown) (no (unknown) (unknown) household members: spouse (units (unknown) date) unknown) (unknown) (no (unknown) (unknown) ipratropium bromide 17 (u nits (unknown) date) mcg/actuation HFA aerosol unkn own) inhaler 1 puff inhalation Q8H (unknown) (no (unknown) (unknown) lancets 33 gauge (Easy (u nits (unknown) date) Touch Twist Lancets) #100 unkn own) ea 02/26/19 [Rx Confirmed (unknown) (no (unknown) (unknown) levalbuterol tartrate 45 (units (unknown) date) mcg/actuation aerosol unknown) inhaler 1 puff inhalation Q4-6H (unknown) (no (unknown) (unknown) levothyroxine 25 mcg (uni ts (unknown) date) tablet See Rx Instructions unk nown) .Route .COMPLEX #30 tabs (unknown) (no (unknown) (unknown) magnesium 250 mg tablet ( units (unknown) date) 500 mg PO DAILY 09/17/19 unkno wn) [History Confirmed 07/25/22] (unknown) (no (unknown) (unknown) may occur. Occasional (un its (unknown) date) wrong-word or 'sound-alike' un known) substitutions may have (unknown) (no (unknown) (unknown) meclizine 25 mg tablet 50 (units (unknown) date) mg PO DAILY PRN dizziness unkn own) or vertigo #60 tabs 05/30/22 (unknown) (no (unknown) (unknown) metformin 500 mg tablet ( units (unknown) date) 1,000 mg PO BID #120 tabs unkn own) 01/12/22 [Rx Confirmed (unknown) (no (unknown) (unknown) methylprednisolone 4 mg ( units (unknown) date) tablets in a dose pack unknown ) (Medrol (Abiodun)) 4 mg PO DAILY #21 (unknown) (no (unknown) (unknown) most at night. No injury. (units (unknown) date) unknown) (unknown) (no (unknown) (unknown) nicotine 21 mg/24 hr daily (units (unknown) date) transdermal patch 1 patch unkn own) transdermal Q24H #14 ea (unknown) (no (unknown) (unknown) norgestrel 0.3 mg-ethinyl (units (unknown) date) estradiol 30 mcg tablet 2 unkn own) tab PO DAILY #52 tabs (unknown) (no (unknown) (unknown) occurred due to the (unit s (unknown) date) inherent limitations of unknow n) voice recognition software. Please (unknown) (no (unknown) (unknown) omeprazole 20 mg (units (unknown) date) capsule,delayed release See un known) Rx Instructions .Route .COMPLEX #60 (unknown) (no (unknown) (unknown) ondansetron 8 mg (units (unknown) date) disintegrating tablet 8 mg unk nown) PO Q8H PRN nausea and vomiting #20 (unknown) (no (unknown) (unknown) pregabalin 300 mg capsule (units (unknown) date) 300 mg PO BID #180 caps unknow n) 04/12/22 [Rx Confirmed (unknown) (no (unknown) (unknown) read the note carefully ( units (unknown) date) and recognize, using unknown) context, where these substitutions (unknown) (no (unknown) (unknown) rivaroxaban 20 mg tablet (units (unknown) date) (Xarelto) See Rx unknown) Instructions .Route .COMPLEX #30 tabs (unknown) (no (unknown) (unknown) software. 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 (unknown) (no (unknown) (unknown) spironolactone 25 mg (uni ts (unknown) date) tablet 12.5 mg PO DAILY #30 un known) tabs 09/12/21 [Rx Confirmed (unknown) (no (unknown) (unknown) tabs 04/22/22 [Rx (units (unknown) date) Confirmed 07/25/22] unknown) (unknown) (no (unknown) (unknown) tabs 07/06/17 [Rx (units (unknown) date) Confirmed 07/25/22] unknown) (unknown) (no (unknown) (unknown) terazosin 2 mg capsule See (units (unknown) date) Rx Instructions .Route unknown ) .COMPLEX #30 caps 07/12/22 [Rx (unknown) (no (unknown) (unknown) urinary retention (units (unknown) date) unknown) Result panel 10 (unknown) (no (unknown) (unknown) (no value) (units (unk nown) date) unknown) (unknown) (no (unknown) (unknown) #12.9 grams 04/12/22 [Rx (units (unknown) date) Confirmed 07/25/22] unknown) (unknown) (no (unknown) (unknown) (1) Pain in left lower (u nits (unknown) date) leg: unknown) (unknown) (no (unknown) (unknown) .COMPLEX #18 grams (units (unknown) date) 03/03/22 [Rx Confirmed unknown ) 07/25/22] (unknown) (no (unknown) (unknown) [id number] (units (unkn own) date) unknown) (unknown) (no (unknown) (unknown) 04/03/22 [Rx Confirmed (u nits (unknown) date) 07/25/22] unknown) (unknown) (no (unknown) (unknown) 04/13/22 [Rx Confirmed (u nits (unknown) date) 07/25/22] unknown) (unknown) (no (unknown) (unknown) 05/11/22 [Rx Confirmed (u nits (unknown) date) 07/25/22] unknown) (unknown) (no (unknown) (unknown) 05/22/22 [Rx Confirmed (u nits (unknown) date) 07/25/22] unknown) (unknown) (no (unknown) (unknown) 07/10/22 [Rx Confirmed (u nits (unknown) date) 07/25/22] unknown) (unknown) (no (unknown) (unknown) 07/25/22 1442 (units ( unknown) date) unknown) (unknown) (no (unknown) (unknown) 07/25/22 (units (unkno wn) date) unknown) (unknown) (no (unknown) (unknown) 07/25/22] (units (unkn own) date) unknown) (unknown) (no (unknown) (unknown) 14:17 (units (unkno wn) date) unknown) (unknown) (no (unknown) (unknown) 41-year-old female (units (unknown) date) presents to the walk-in unknow n) clinic with left lower leg pain x4 (unknown) (no (unknown) (unknown) 41-year-old female, (unit s (unknown) date) morbidly obese, presents to un known) the walk-in clinic with left (unknown) (no (unknown) (unknown) Acetaminophen overdose of (units (unknown) date) undetermined intent unknown) (03/2016) (unknown) (no (unknown) (unknown) Age/Sex: 41 / F Date of ( units (unknown) date) Service: unknown) (unknown) (no (unknown) (unknown) Alcoholism (units (unk nown) date) unknown) (unknown) (no (unknown) (unknown) Allergies (units (unkn own) date) unknown) (unknown) (no (unknown) (unknown) Amputation of fifth toe of (units (unknown) date) right foot unknown) (unknown) (no (unknown) (unknown) [facility] ([facility] ([facility]) [facility] unknown) (unknown) (no (unknown) (unknown) [place] [address] (unit s (unknown) date) unknown) (unknown) (no (unknown) (unknown) Assessment + Plan (units (unknown) date) unknown) (unknown) (no (unknown) (unknown) Asthma (units (unkno wn) date) unknown) (unknown) (no (unknown) (unknown) Attending Dr: Ry (un its (unknown) date) Jovan MENDEZ unknown) (unknown) (no (unknown) (unknown) BMI 45.7 (units (unkno wn) date) unknown) (unknown) (no (unknown) (unknown) BP 132/86 (units (unkn own) date) unknown) (unknown) (no (unknown) (unknown) Blood Pressure Location Lt (units (unknown) date) brachial unknown) (unknown) (no (unknown) (unknown) CARDIOVASCULAR: Denies (u nits (unknown) date) chest pain, palpitations, unkn own) edema. (unknown) (no (unknown) (unknown) Chief Complaint (units (unknown) date) unknown) (unknown) (no (unknown) (unknown) Chief Complaint: Left (un its (unknown) date) lower leg pain unknown) (unknown) (no (unknown) (unknown) Compressioin Stockings #1 (units (unknown) date) ea 01/01/20 [Rx Confirmed unkn own) 07/25/22] (unknown) (no (unknown) (unknown) Confirmed 07/25/22] (unit s (unknown) date) unknown) (unknown) (no (unknown) (unknown) Cubital tunnel syndrome ( units (unknown) date) unknown) (unknown) (no (unknown) (unknown) DM type 2 (diabetes (unit s (unknown) date) mellitus, type 2) unknown) (unknown) (no (unknown) (unknown) : 1980 (units (unknown) date) Acct:[id number] unknown) (unknown) (no (unknown) (unknown) DVT (deep venous (units (unknown) date) thrombosis) unknown) (unknown) (no (unknown) (unknown) Details: (units (unkno wn) date) unknown) (unknown) (no (unknown) (unknown) Diet and Exercise (units (unknown) date) unknown) (unknown) (no (unknown) (unknown) Diskus) 1 puff inhalation (units (unknown) date) BID 09/29/19 [History unknown) Confirmed 07/25/22] (unknown) (no (unknown) (unknown) Documented By: (units (unknown) date) Ry Aldana 07/25/22 un known) 1415 (unknown) (no (unknown) (unknown) Essential hypertension (u nits (unknown) date) unknown) (unknown) (no (unknown) (unknown) Exam Narrative (units (unknown) date) unknown) (unknown) (no (unknown) (unknown) Exam Narrative: (units (unknown) date) unknown) (unknown) (no (unknown) (unknown) Exam (units (unkno wn) date) unknown) (unknown) (no (unknown) (unknown) Family History (Reviewed (units (unknown) date) 07/25/22 @ 14:36 by Ry un known) VANESSA Aldana) (unknown) (no (unknown) (unknown) Family Practice Office (u nits (unknown) date) Visit unknown) (unknown) (no (unknown) (unknown) Family/Other Pancreatic ( units (unknown) date) cancer unknown) (unknown) (no (unknown) (unknown) Fibromyalgia (05/21/15) ( units (unknown) date) unknown) (unknown) (no (unknown) (unknown) GENERAL: Denies chills, ( units (unknown) date) fatigue, fever, sweats. unknow n) (unknown) (no (unknown) (unknown) GENERAL: This is a (units (unknown) date) well-nourished, unknown) well-developed patient, in no acute distress (unknown) (no (unknown) (unknown) Grandfather Diabetes (uni ts (unknown) date) mellitus unknown) (unknown) (no (unknown) (unknown) HEAD: Atraumatic. (units (unknown) date) Normocephalic. unknown) (unknown) (no (unknown) (unknown) HPI (units (unkno wn) date) unknown) (unknown) (no (unknown) (unknown) Height 165.1 cm (units (unknown) date) unknown) (unknown) (no (unknown) (unknown) History of carpal tunnel (units (unknown) date) repair (-01/18/15) unknown) (unknown) (no (unknown) (unknown) History of colonoscopy (u nits (unknown) date) unknown) (unknown) (no (unknown) (unknown) History of (units (unk nown) date) esophagogastroduodenoscopy unk nown) (EGD) (unknown) (no (unknown) (unknown) History of laminectomy (u nits (unknown) date) () unknown) (unknown) (no (unknown) (unknown) History of laminectomy (u nits (unknown) date) unknown) (unknown) (no (unknown) (unknown) History of lumbar spinal (units (unknown) date) fusion (03/12/19) unknown) (unknown) (no (unknown) (unknown) Hx of toe surgery (units (unknown) date) (08/04/20) unknown) (unknown) (no (unknown) (unknown) Hypoxia (units (unkno wn) date) unknown) (unknown) (no (unknown) (unknown) Intake Note: (units (u nknown) date) unknown) (unknown) (no (unknown) (unknown) Intake performed by: (uni ts (unknown) date) Antoine Mcneil unknown) (unknown) (no (unknown) (unknown) Intake (units (unkno wn) date) unknown) (unknown) (no (unknown) (unknown) Intake- Clincial Staff (u nits (unknown) date) unknown) (unknown) (no (unknown) (unknown) Intraoperative cardiac (u nits (unknown) date) arrest during non-cardiac unkn own) surgery (02/2014) (unknown) (no (unknown) (unknown) Last Menstural Cycle + (u nits (unknown) date) Details unknown) (unknown) (no (unknown) (unknown) Latex, Natural Rubber (un its (unknown) date) Adverse Reaction (Mild, unknow n) Verified 05/10/22 13:22) (unknown) (no (unknown) (unknown) [facility] Blood Glucose Test (units (unknown) date) Strips #180 ea 10/29/20 [Rx un known) Confirmed 07/25/22] (unknown) (no (unknown) (unknown) Loc: [facility] (units (unkno wn) date) unknown) (unknown) (no (unknown) (unknown) Lumbar spine pain (units (unknown) date) unknown) (unknown) (no (unknown) (unknown) MSK: Endorses left heel ( units (unknown) date) pain. unknown) (unknown) (no (unknown) (unknown) MSK: Moves all (units (unknown) date) extremities. Normal range unkn own) of motion, no clubbing or edema. 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 (units (unknown) date) unknown) (unknown) (no (unknown) (unknown) NEUROLOGIC: Denies (units (unknown) date) weakness, dizziness, unknown) headache, numbness, confusion. (unknown) (no (unknown) (unknown) Narcotic habituation, (un its (unknown) date) continuous unknown) (unknown) (no (unknown) (unknown) Narrative: See HPI. (unit s (unknown) date) unknown) (unknown) (no (unknown) (unknown) Neurovascularly intact. ( units (unknown) date) unknown) (unknown) (no (unknown) (unknown) Nocturnal hypoxemia (unit s (unknown) date) unknown) (unknown) (no (unknown) (unknown) DERREK (obstructive sleep (u nits (unknown) date) apnea) unknown) (unknown) (no (unknown) (unknown) Obstipation (units (un known) date) unknown) (unknown) (no (unknown) (unknown) Other Menstrual Period: ( units (unknown) date) Uncertain (irregular ) unknown ) (unknown) (no (unknown) (unknown) Ovarian cyst (units (u nknown) date) unknown) (unknown) (no (unknown) (unknown) Oxygen Delivery Method (u nits (unknown) date) room air unknown) (unknown) (no (unknown) (unknown) PFSH (units (unkno wn) date) unknown) (unknown) (no (unknown) (unknown) PRN shortness of breath or (units (unknown) date) wheezing #15 grams 04/12/22 un known) [Rx Confirmed 07/25/22] (unknown) (no (unknown) (unknown) Patient: Sandy Dorman (units (unknown) date) MR#: M unknown) (unknown) (no (unknown) (unknown) Plan (units (unkno wn) date) unknown) (unknown) (no (unknown) (unknown) Plantar fasciitis (units (unknown) date) unknown) (unknown) (no (unknown) (unknown) Position Sitting (units (unknown) date) unknown) (unknown) (no (unknown) (unknown) Psychogenic nonepileptic (units (unknown) date) seizure unknown) (unknown) (no (unknown) (unknown) Pt presents with pain (un its (unknown) date) below left knee down to unknow n) ankle. Started 4 days ago. Hurts (unknown) (no (unknown) (unknown) Pulmonary embolism (units (unknown) date) unknown) (unknown) (no (unknown) (unknown) Pulse 110 H (units (un known) date) unknown) (unknown) (no (unknown) (unknown) Pulse Oximetry (%) 99 (un its (unknown) date) unknown) (unknown) (no (unknown) (unknown) Pulse Source Monitor (uni ts (unknown) date) unknown) (unknown) (no (unknown) (unknown) RBBB (right bundle branch (units (unknown) date) block) unknown) (unknown) (no (unknown) (unknown) RESPIRATORY: Denies (unit s (unknown) date) dyspnea, cough, wheezing, unkn own) sputum. (unknown) (no (unknown) (unknown) RESPIRATORY: Respiratory (units (unknown) date) rate and effort are normal. un known) (unknown) (no (unknown) (unknown) ROS Narrative (units ( unknown) date) unknown) (unknown) (no (unknown) (unknown) ROS Narrative: (units (unknown) date) unknown) (unknown) (no (unknown) (unknown) ROS (units (unkno wn) date) unknown) (unknown) (no (unknown) (unknown) Rash (units (unkno wn) date) unknown) (unknown) (no (unknown) (unknown) Reason For Visit (units (unknown) date) unknown) (unknown) (no (unknown) (unknown) Respiration 14 (units (unknown) date) unknown) (unknown) (no (unknown) (unknown) S/P epidural steroid (uni ts (unknown) date) injection (02/2014) unknown) (unknown) (no (unknown) (unknown) SKIN: Denies rash, skin ( units (unknown) date) lesions, or pruritis. unknown) (unknown) (no (unknown) (unknown) SKIN: Swelling noted to ( units (unknown) date) left lateral foot below the un known) lateral malleolus with (unknown) (no (unknown) (unknown) Seizures (units (unkno wn) date) unknown) (unknown) (no (unknown) (unknown) Signed By: <Electronically (units (unknown) date) signed by Ry MENDEZ unknown ) Jovan> (unknown) (no (unknown) (unknown) Signed (units (unkno wn) date) unknown) (unknown) (no (unknown) (unknown) Sinus tachycardia (units (unknown) date) unknown) (unknown) (no (unknown) (unknown) Smoking Status: Current ( units (unknown) date) some day smoker unknown) (unknown) (no (unknown) (unknown) Social History (units (unknown) date) unknown) (unknown) (no (unknown) (unknown) Status post dilation and (units (unknown) date) curettage (2008) unknown) (unknown) (no (unknown) (unknown) Status post laminectomy ( units (unknown) date) (03/03/16) unknown) (unknown) (no (unknown) (unknown) Suicide attempt (units (unknown) date) unknown) (unknown) (no (unknown) (unknown) Surgical History (Reviewed (units (unknown) date) 07/25/22 @ 14:36 by Ry un known) VANESSA Aldana) (unknown) (no (unknown) (unknown) TENS units #1 ea 04/30/19 (units (unknown) date) [Rx Confirmed 07/25/22] unknow n) (unknown) (no (unknown) (unknown) Temp 98.3 F (units (un known) date) unknown) (unknown) (no (unknown) (unknown) Temp Source Skin (units (unknown) date) unknown) (unknown) (no (unknown) (unknown) This note may have been ( units (unknown) date) all or partially generated unk nown) using voice recognition (unknown) (no (unknown) (unknown) Tobacco + Substance Use ( units (unknown) date) unknown) (unknown) (no (unknown) (unknown) Tobacco Status (units (unknown) date) unknown) (unknown) (no (unknown) (unknown) Tobacco abuse (units ( unknown) date) unknown) (unknown) (no (unknown) (unknown) Tylenol overdose (units (unknown) date) unknown) (unknown) (no (unknown) (unknown) Type(s) of exercise: (uni ts (unknown) date) normal ROM and activity and un known) sedentary lifestyle (unknown) (no (unknown) (unknown) Urinary retention (units (unknown) date) unknown) (unknown) (no (unknown) (unknown) Visit Reasons: Pain below (units (unknown) date) L knee unknown) (unknown) (no (unknown) (unknown) Vitals (units (unkno wn) date) unknown) (unknown) (no (unknown) (unknown) Weight 124.738 kg (units (unknown) date) unknown) (unknown) (no (unknown) (unknown) [History Confirmed (units (unknown) date) 07/25/22] unknown) (unknown) (no (unknown) (unknown) [Rx Confirmed 07/25/22] ( units (unknown) date) unknown) (unknown) (no (unknown) (unknown) acetaminophen 500 mg (uni ts (unknown) date) tablet (Tylenol Extra unknown) Strength) 2,000 mg PO BID 12/12/18 (unknown) (no (unknown) (unknown) activity. Patient is able (units (unknown) date) to elevate her leg in a unknow n) position that alleviates the (unknown) (no (unknown) (unknown) albuterol sulfate 90 (uni ts (unknown) date) mcg/actuation aerosol unknown) inhaler See Rx Instructions .Route (unknown) (no (unknown) (unknown) alcohol intake: current ( units (unknown) date) unknown) (unknown) (no (unknown) (unknown) aripiprazole 30 mg tablet (units (unknown) date) 30 mg PO DAILY 30 days #30 unk nown) tabs 03/21/22 [Rx Confirmed (unknown) (no (unknown) (unknown) at . (units (unknown) date) unknown) (unknown) (no (unknown) (unknown) believe is from her (unit s (unknown) date) current footwear. unknown) Recommended supportive care measures that (unknown) (no (unknown) (unknown) caps 12/26/21 [Rx (units (unknown) date) Confirmed 07/25/22] unknown) (unknown) (no (unknown) (unknown) carisoprodol (units (u nknown) date) [CARISOPRODOL] Adverse unknown ) Reaction (Severe, Verified 05/10/22 13:22) (unknown) (no (unknown) (unknown) clobetasol 0.05 % topical (units (unknown) date) ointment 1 applic topical unkn own) BID #30 grams 05/30/22 [Rx (unknown) (no (unknown) (unknown) cyclobenzaprine 10 mg (un its (unknown) date) tablet See Rx Instructions unk nown) .Route .COMPLEX #90 tabs (unknown) (no (unknown) (unknown) days. Patient states that (units (unknown) date) the pain is primarily in unkno wn) her left heel and (unknown) (no (unknown) (unknown) diazepam 5 mg tablet (uni ts (unknown) date) (Valium) 5 mg PO SEE unknown) INSTRUCTIONS for use prior to MRI #2 (unknown) (no (unknown) (unknown) does use a walker due to (units (unknown) date) vertigo and denies any unknown ) recent increase or decrease in (unknown) (no (unknown) (unknown) doxepin 100 mg capsule 200 (units (unknown) date) mg PO BEDTIME #60 caps unknown ) 03/21/22 [Rx Confirmed (unknown) (no (unknown) (unknown) due to the inherent (unit s (unknown) date) limitations of voice unknown) recognition software. Please read the (unknown) (no (unknown) (unknown) ea 06/27/22 [Rx Confirmed (units (unknown) date) 07/25/22] unknown) (unknown) (no (unknown) (unknown) eating out: 1-3 times/week (units (unknown) date) unknown) (unknown) (no (unknown) (unknown) ferrous sulfate 325 mg (65 (units (unknown) date) mg iron) tablet 325 mg PO unkn own) DAILY Anemia 03/28/21 (unknown) (no (unknown) (unknown) fluconazole 150 mg tablet (units (unknown) date) 150 mg PO Q3D 2 doses #2 unkno wn) tabs 05/22/22 [Rx Confirmed (unknown) (no (unknown) (unknown) fluticasone 100 (units (unknown) date) mcg-salmeterol 50 mcg/dose unk nown) blistr powdr for inhalation (Advair (unknown) (no (unknown) (unknown) fosphenytoin Adverse (uni ts (unknown) date) Reaction (Severe, Verified unk nown) 05/10/22 13:22) (unknown) (no (unknown) (unknown) furosemide 40 mg tablet ( units (unknown) date) See Rx Instructions .Route unk nown) .COMPLEX #135 tabs 07/03/22 (unknown) (no (unknown) (unknown) had a DVT in the past but (units (unknown) date) appeared much different unknow n) than her legs look. Patient (unknown) (no (unknown) (unknown) heel pain. Assessment was (units (unknown) date) not consistent with a DVT, unk nown) wells score of -1. I (unknown) (no (unknown) (unknown) helps with her symptoms. (units (unknown) date) Discussed plan of care and unk nown) return precautions with (unknown) (no (unknown) (unknown) household members: spouse (units (unknown) date) unknown) (unknown) (no (unknown) (unknown) included rest, hot or cold (units (unknown) date) compresses, Tylenol and unknow n) elevation to see if this (unknown) (no (unknown) (unknown) ipratropium bromide 17 (u nits (unknown) date) mcg/actuation HFA aerosol unkn own) inhaler 1 puff inhalation Q8H (unknown) (no (unknown) (unknown) lancets 33 gauge (Easy (u nits (unknown) date) Touch Twist Lancets) #100 unkn own) ea 02/26/19 [Rx Confirmed (unknown) (no (unknown) (unknown) levalbuterol tartrate 45 (units (unknown) date) mcg/actuation aerosol unknown) inhaler 1 puff inhalation Q4-6H (unknown) (no (unknown) (unknown) levothyroxine 25 mcg (uni ts (unknown) date) tablet See Rx Instructions unk nown) .Route .COMPLEX #30 tabs (unknown) (no (unknown) (unknown) magnesium 250 mg tablet ( units (unknown) date) 500 mg PO DAILY 09/17/19 unkno wn) [History Confirmed 07/25/22] (unknown) (no (unknown) (unknown) meclizine 25 mg tablet 50 (units (unknown) date) mg PO DAILY PRN dizziness unkn own) or vertigo #60 tabs 05/30/22 (unknown) (no (unknown) (unknown) metformin 500 mg tablet ( units (unknown) date) 1,000 mg PO BID #120 tabs unkn own) 01/12/22 [Rx Confirmed (unknown) (no (unknown) (unknown) methylprednisolone 4 mg ( units (unknown) date) tablets in a dose pack unknown ) (Medrol (Abiodun)) 4 mg PO DAILY #21 (unknown) (no (unknown) (unknown) most at night. No injury. (units (unknown) date) unknown) (unknown) (no (unknown) (unknown) nicotine 21 mg/24 hr daily (units (unknown) date) transdermal patch 1 patch unkn own) transdermal Q24H #14 ea (unknown) (no (unknown) (unknown) norgestrel 0.3 mg-ethinyl (units (unknown) date) estradiol 30 mcg tablet 2 unkn own) tab PO DAILY #52 tabs (unknown) (no (unknown) (unknown) note carefully and (units (unknown) date) recognize, using context, unkn own) where these substitutions have (unknown) (no (unknown) (unknown) occasionally feels it (un its (unknown) date) behind her left knee. unknown) Patient denies any redness, (unknown) (no (unknown) (unknown) occurred. If there are any (units (unknown) date) questions, please contact unkn own) the Medical Records Dept (unknown) (no (unknown) (unknown) omeprazole 20 mg (units (unknown) date) capsule,delayed release See un known) Rx Instructions .Route .COMPLEX #60 (unknown) (no (unknown) (unknown) ondansetron 8 mg (units (unknown) date) disintegrating tablet 8 mg unk nown) PO Q8H PRN nausea and vomiting #20 (unknown) (no (unknown) (unknown) pain. (units (unkno wn) date) unknown) (unknown) (no (unknown) (unknown) patient, who verbalized ( units (unknown) date) understanding. unknown) (unknown) (no (unknown) (unknown) pregabalin 300 mg capsule (units (unknown) date) 300 mg PO BID #180 caps unknow n) 04/12/22 [Rx Confirmed (unknown) (no (unknown) (unknown) rivaroxaban 20 mg tablet (units (unknown) date) (Xarelto) See Rx unknown) Instructions .Route .COMPLEX #30 tabs (unknown) (no (unknown) (unknown) small scab. No redness, ( units (unknown) date) fluctuance, red streaking unkn own) or discharge noted. (unknown) (no (unknown) (unknown) software. Although every ( units (unknown) date) effort is made to edit unknown ) content, director dance errors ma (unknown) (no (unknown) (unknown) spironolactone 25 mg (uni ts (unknown) date) tablet 12.5 mg PO DAILY #30 un known) tabs 09/12/21 [Rx Confirmed (unknown) (no (unknown) (unknown) suspect patient's symptoms (units (unknown) date) are from the swollen region un known) on her left heel that I (unknown) (no (unknown) (unknown) swelling, numbness or (un its (unknown) date) tingling of left lower leg. un known) Patient reports that she has (unknown) (no (unknown) (unknown) tabs 04/22/22 [Rx (units (unknown) date) Confirmed 07/25/22] unknown) (unknown) (no (unknown) (unknown) tabs 07/06/17 [Rx (units (unknown) date) Confirmed 07/25/22] unknown) (unknown) (no (unknown) (unknown) terazosin 2 mg capsule See (units (unknown) date) Rx Instructions .Route unknown ) .COMPLEX #30 caps 07/12/22 [Rx (unknown) (no (unknown) (unknown) urinary retention (units (unknown) date) unknown) (unknown) (no (unknown) (unknown) y occur. Occasional (unit s (unknown) date) wrong-word or 'sound-alike' un known) substitutions may have occurred Result panel 11 (unknown) (no (unknown) (unknown) (no value) (units (unk nown) date) unknown) (unknown) (no (unknown) (unknown) #12.9 grams 04/12/22 [Rx (units (unknown) date) Confirmed 07/26/22] unknown) (unknown) (no (unknown) (unknown) .COMPLEX #18 grams (units (unknown) date) 03/03/22 [Rx Confirmed unknown ) 07/26/22] (unknown) (no (unknown) (unknown) [id number] (units (unkn own) date) unknown) (unknown) (no (unknown) (unknown) 04/03/22 [Rx Confirmed (u nits (unknown) date) 07/26/22] unknown) (unknown) (no (unknown) (unknown) 04/13/22 [Rx Confirmed (u nits (unknown) date) 07/26/22] unknown) (unknown) (no (unknown) (unknown) 05/11/22 [Rx Confirmed (u nits (unknown) date) 07/26/22] unknown) (unknown) (no (unknown) (unknown) 05/22/22 [Rx Confirmed (u nits (unknown) date) 07/26/22] unknown) (unknown) (no (unknown) (unknown) 07/10/22 [Rx Confirmed (u nits (unknown) date) 07/26/22] unknown) (unknown) (no (unknown) (unknown) 07/26/22 (units (unkno wn) date) unknown) (unknown) (no (unknown) (unknown) 07/26/22] (units (unkn own) date) unknown) (unknown) (no (unknown) (unknown) 14:42 (units (unkno wn) date) unknown) (unknown) (no (unknown) (unknown) Accompanied by: ( units (unknown) date) unknown) (unknown) (no (unknown) (unknown) Acetaminophen overdose of (units (unknown) date) undetermined intent unknown) (03/2016) (unknown) (no (unknown) (unknown) Age/Sex: 41 / F Date of ( units (unknown) date) Service: unknown) (unknown) (no (unknown) (unknown) Alcoholism (units (unk nown) date) unknown) (unknown) (no (unknown) (unknown) Allergies (units (unkn own) date) unknown) (unknown) (no (unknown) (unknown) Amputation of fifth toe of (units (unknown) date) right foot unknown) (unknown) (no (unknown) (unknown) [facility] (units (unknown) date) unknown) (unknown) (no (unknown) (unknown) [place] [id number] (unit s (unknown) date) unknown) (unknown) (no (unknown) (unknown) Asthma (units (unkno wn) date) unknown) (unknown) (no (unknown) (unknown) Attending Dr: Lilo (un its (unknown) date) Kay AHUMADA unknown) (unknown) (no (unknown) (unknown) BP 160/90 H (units (un known) date) unknown) (unknown) (no (unknown) (unknown) Blood Pressure Location Rt (units (unknown) date) brachial unknown) (unknown) (no (unknown) (unknown) Compressioin Stockings #1 (units (unknown) date) ea 01/01/20 [Rx Confirmed unkn own) 07/26/22] (unknown) (no (unknown) (unknown) Confirmed 07/26/22] (unit s (unknown) date) unknown) (unknown) (no (unknown) (unknown) Cubital tunnel syndrome ( units (unknown) date) unknown) (unknown) (no (unknown) (unknown) DM type 2 (diabetes (unit s (unknown) date) mellitus, type 2) unknown) (unknown) (no (unknown) (unknown) : 1980 (units (unknown) date) Acct:[id number] unknown) (unknown) (no (unknown) (unknown) DVT (deep venous (units (unknown) date) thrombosis) unknown) (unknown) (no (unknown) (unknown) Dept at . (u nits (unknown) date) unknown) (unknown) (no (unknown) (unknown) Diet and Exercise (units (unknown) date) unknown) (unknown) (no (unknown) (unknown) Diskus) 1 puff inhalation (units (unknown) date) BID 09/29/19 [History unknown) Confirmed 07/26/22] (unknown) (no (unknown) (unknown) Documented By: (units (unknown) date) Lilo Villanueva MD 07/26/22 unk nown) [id number] (unknown) (no (unknown) (unknown) Draft (units (unkno wn) date) unknown) (unknown) (no (unknown) (unknown) Essential hypertension (u nits (unknown) date) unknown) (unknown) (no (unknown) (unknown) Family History (Reviewed (units (unknown) date) 07/25/22 @ 14:36 by Ry un known) VANESSA Aldana) (unknown) (no (unknown) (unknown) Family Practice Office (u nits (unknown) date) Visit unknown) (unknown) (no (unknown) (unknown) Family/Other Pancreatic ( units (unknown) date) cancer unknown) (unknown) (no (unknown) (unknown) Fibromyalgia (05/21/15) ( units (unknown) date) unknown) (unknown) (no (unknown) (unknown) Grandfather Diabetes (uni ts (unknown) date) mellitus unknown) (unknown) (no (unknown) (unknown) Health Management reviewed (units (unknown) date) with patient: Yes unknown) (unknown) (no (unknown) (unknown) Health Management (units (unknown) date) unknown) (unknown) (no (unknown) (unknown) History of carpal tunnel (units (unknown) date) repair (-01/18/15) unknown) (unknown) (no (unknown) (unknown) History of colonoscopy (u nits (unknown) date) unknown) (unknown) (no (unknown) (unknown) History of (units (unk nown) date) esophagogastroduodenoscopy unk nown) (EGD) (unknown) (no (unknown) (unknown) History of laminectomy (u nits (unknown) date) () unknown) (unknown) (no (unknown) (unknown) History of laminectomy (u nits (unknown) date) unknown) (unknown) (no (unknown) (unknown) History of lumbar spinal (units (unknown) date) fusion (03/12/19) unknown) (unknown) (no (unknown) (unknown) Hx of toe surgery (units (unknown) date) (08/04/20) unknown) (unknown) (no (unknown) (unknown) Hypoxia (units (unkno wn) date) unknown) (unknown) (no (unknown) (unknown) Intake Note: (units (u nknown) date) unknown) (unknown) (no (unknown) (unknown) Intake (units (unkno wn) date) unknown) (unknown) (no (unknown) (unknown) Intraoperative cardiac (u nits (unknown) date) arrest during non-cardiac unkn own) surgery (02/2014) (unknown) (no (unknown) (unknown) Last Menstural Cycle + (u nits (unknown) date) Details unknown) (unknown) (no (unknown) (unknown) Latex, Natural Rubber (un its (unknown) date) Adverse Reaction (Mild, unknow n) Verified 07/26/22 14:44) (unknown) (no (unknown) (unknown) [facility] Blood Glucose Test (units (unknown) date) Strips #180 ea 10/29/20 [Rx un known) Confirmed 07/26/22] (unknown) (no (unknown) (unknown) Loc: [facility] (units (unkno wn) date) unknown) (unknown) (no (unknown) (unknown) Lumbar spine pain (units (unknown) date) unknown) (unknown) (no (unknown) (unknown) Medical History (Reviewed (units (unknown) date) 07/25/22 @ 14:36 by Ry un known) VANESSA Aldana) (unknown) (no (unknown) (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 ) () (unknown) (no (unknown) (unknown) Medications (units (un known) date) unknown) (unknown) (no (unknown) (unknown) Morbid obesity (units (unknown) date) unknown) (unknown) (no (unknown) (unknown) Narcotic habituation, (un its (unknown) date) continuous unknown) (unknown) (no (unknown) (unknown) Nocturnal hypoxemia (unit s (unknown) date) unknown) (unknown) (no (unknown) (unknown) DERREK (obstructive sleep (u nits (unknown) date) apnea) unknown) (unknown) (no (unknown) (unknown) Obstipation (units (un known) date) unknown) (unknown) (no (unknown) (unknown) Other Menstrual Period: ( units (unknown) date) Uncertain (irregular ) unknown ) (unknown) (no (unknown) (unknown) Ovarian cyst (units (u nknown) date) unknown) (unknown) (no (unknown) (unknown) Oxygen Delivery Method (u nits (unknown) date) room air unknown) (unknown) (no (unknown) (unknown) PFSH (units (unkno wn) date) unknown) (unknown) (no (unknown) (unknown) PRN shortness of breath or (units (unknown) date) wheezing #15 grams 04/12/22 un known) [Rx Confirmed 07/26/22] (unknown) (no (unknown) (unknown) Patient: Sandy Dorman (units (unknown) date) MR#: M unknown) (unknown) (no (unknown) (unknown) Plantar fasciitis (units (unknown) date) unknown) (unknown) (no (unknown) (unknown) Position Sitting (units (unknown) date) unknown) (unknown) (no (unknown) (unknown) Psychogenic nonepileptic (units (unknown) date) seizure unknown) (unknown) (no (unknown) (unknown) Pt arrives to talk about a (units (unknown) date) few things. She was in the unk nown) [facility] yesterday. Pt has been (unknown) (no (unknown) (unknown) Pulmonary embolism (units (unknown) date) unknown) (unknown) (no (unknown) (unknown) Pulse 125 H (units (un known) date) unknown) (unknown) (no (unknown) (unknown) Pulse Oximetry (%) 99 (un its (unknown) date) unknown) (unknown) (no (unknown) (unknown) Pulse Source Monitor (uni ts (unknown) date) unknown) (unknown) (no (unknown) (unknown) RBBB (right bundle branch (units (unknown) date) block) unknown) (unknown) (no (unknown) (unknown) Rash (units (unkno wn) date) unknown) (unknown) (no (unknown) (unknown) Reason For Visit (units (unknown) date) unknown) (unknown) (no (unknown) (unknown) S/P epidural steroid (uni ts (unknown) date) injection (02/2014) unknown) (unknown) (no (unknown) (unknown) Seizures (units (unkno wn) date) unknown) (unknown) (no (unknown) (unknown) Signed By: (units (unk nown) date) unknown) (unknown) (no (unknown) (unknown) Sinus tachycardia (units (unknown) date) unknown) (unknown) (no (unknown) (unknown) Smoking Status: Current ( units (unknown) date) some day smoker unknown) (unknown) (no (unknown) (unknown) Social History (units (unknown) date) unknown) (unknown) (no (unknown) (unknown) Status post dilation and (units (unknown) date) curettage (2008) unknown) (unknown) (no (unknown) (unknown) Status post laminectomy ( units (unknown) date) (03/03/16) unknown) (unknown) (no (unknown) (unknown) Suicide attempt (units (unknown) date) unknown) (unknown) (no (unknown) (unknown) Surgical History (Reviewed (units (unknown) date) 07/25/22 @ 14:36 by Ry un known) VANESSA Aldana) (unknown) (no (unknown) (unknown) TENS units #1 ea 04/30/19 (units (unknown) date) [Rx Confirmed 07/26/22] unknow n) (unknown) (no (unknown) (unknown) This note may have been ( units (unknown) date) all or partially generated unk nown) using voice recognition (unknown) (no (unknown) (unknown) Tobacco + Substance Use ( units (unknown) date) unknown) (unknown) (no (unknown) (unknown) Tobacco Status (units (unknown) date) unknown) (unknown) (no (unknown) (unknown) Tobacco abuse (units ( unknown) date) unknown) (unknown) (no (unknown) (unknown) Tylenol overdose (units (unknown) date) unknown) (unknown) (no (unknown) (unknown) Type(s) of exercise: (uni ts (unknown) date) normal ROM and activity and un known) sedentary lifestyle (unknown) (no (unknown) (unknown) Urinary retention (units (unknown) date) unknown) (unknown) (no (unknown) (unknown) Visit Reasons: Migraines, (units (unknown) date) vertigo, lump below rt ear unk nown) (unknown) (no (unknown) (unknown) Vitals (units (unkno wn) date) unknown) (unknown) (no (unknown) (unknown) Weight 284 lb (units ( unknown) date) unknown) (unknown) (no (unknown) (unknown) [History Confirmed (units (unknown) date) 07/26/22] unknown) (unknown) (no (unknown) (unknown) [Rx Confirmed 07/26/22] ( units (unknown) date) unknown) (unknown) (no (unknown) (unknown) acetaminophen 500 mg (uni ts (unknown) date) tablet (Tylenol Extra unknown) Strength) 2,000 mg PO BID 12/12/18 (unknown) (no (unknown) (unknown) albuterol sulfate 90 (uni ts (unknown) date) mcg/actuation aerosol unknown) inhaler See Rx Instructions .Route (unknown) (no (unknown) (unknown) alcohol intake: current ( units (unknown) date) unknown) (unknown) (no (unknown) (unknown) aripiprazole 30 mg tablet (units (unknown) date) 30 mg PO DAILY 30 days #30 unk nown) tabs 03/21/22 [Rx Confirmed (unknown) (no (unknown) (unknown) caps 12/26/21 [Rx (units (unknown) date) Confirmed 07/26/22] unknown) (unknown) (no (unknown) (unknown) carisoprodol (units (u nknown) date) [CARISOPRODOL] Adverse unknown ) Reaction (Severe, Verified 07/26/22 14:44) (unknown) (no (unknown) (unknown) clobetasol 0.05 % topical (units (unknown) date) ointment 1 applic topical unkn own) BID #30 grams 05/30/22 [Rx (unknown) (no (unknown) (unknown) cyclobenzaprine 10 mg (un its (unknown) date) tablet See Rx Instructions unk nown) .Route .COMPLEX #90 tabs (unknown) (no (unknown) (unknown) diazepam 5 mg tablet (uni ts (unknown) date) (Valium) 5 mg PO SEE unknown) INSTRUCTIONS for use prior to MRI #2 (unknown) (no (unknown) (unknown) doxepin 100 mg capsule 200 (units (unknown) date) mg PO BEDTIME #60 caps unknown ) 03/21/22 [Rx Confirmed (unknown) (no (unknown) (unknown) ea 06/27/22 [Rx Confirmed (units (unknown) date) 07/26/22] unknown) (unknown) (no (unknown) (unknown) eating out: 1-3 times/week (units (unknown) date) unknown) (unknown) (no (unknown) (unknown) ferrous sulfate 325 mg (65 (units (unknown) date) mg iron) tablet 325 mg PO unkn own) DAILY Anemia 03/28/21 (unknown) (no (unknown) (unknown) fluconazole 150 mg tablet (units (unknown) date) 150 mg PO Q3D 2 doses #2 unkno wn) tabs 05/22/22 [Rx Confirmed (unknown) (no (unknown) (unknown) fluticasone 100 (units (unknown) date) mcg-salmeterol 50 mcg/dose unk nown) blistr powdr for inhalation (Advair (unknown) (no (unknown) (unknown) fosphenytoin Adverse (uni ts (unknown) date) Reaction (Severe, Verified unk nown) 07/26/22 14:44) (unknown) (no (unknown) (unknown) furosemide 40 mg tablet ( units (unknown) date) See Rx Instructions .Route unk nown) .COMPLEX #135 tabs 07/03/22 (unknown) (no (unknown) (unknown) have occurred. If there ( units (unknown) date) are any questions, please unkn own) contact the Medical Records (unknown) (no (unknown) (unknown) household members: spouse (units (unknown) date) unknown) (unknown) (no (unknown) (unknown) ipratropium bromide 17 (u nits (unknown) date) mcg/actuation HFA aerosol unkn own) inhaler 1 puff inhalation Q8H (unknown) (no (unknown) (unknown) lancets 33 gauge (Easy (u nits (unknown) date) Touch Twist Lancets) #100 unkn own) ea 02/26/19 [Rx Confirmed (unknown) (no (unknown) (unknown) levalbuterol tartrate 45 (units (unknown) date) mcg/actuation aerosol unknown) inhaler 1 puff inhalation Q4-6H (unknown) (no (unknown) (unknown) levothyroxine 25 mcg (uni ts (unknown) date) tablet See Rx Instructions unk nown) .Route .COMPLEX #30 tabs (unknown) (no (unknown) (unknown) magnesium 250 mg tablet ( units (unknown) date) 500 mg PO DAILY 09/17/19 unkno wn) [History Confirmed 07/26/22] (unknown) (no (unknown) (unknown) may occur. Occasional (un its (unknown) date) wrong-word or 'sound-alike' un known) substitutions may have (unknown) (no (unknown) (unknown) meclizine 25 mg tablet 50 (units (unknown) date) mg PO DAILY PRN dizziness unkn own) or vertigo #60 tabs 05/30/22 (unknown) (no (unknown) (unknown) metformin 500 mg tablet ( units (unknown) date) 1,000 mg PO BID #120 tabs unkn own) 01/12/22 [Rx Confirmed (unknown) (no (unknown) (unknown) methylprednisolone 4 mg ( units (unknown) date) tablets in a dose pack unknown ) (Medrol (Abiodun)) 4 mg PO DAILY #21 (unknown) (no (unknown) (unknown) nicotine 21 mg/24 hr daily (units (unknown) date) transdermal patch 1 patch unkn own) transdermal Q24H #14 ea (unknown) (no (unknown) (unknown) norgestrel 0.3 mg-ethinyl (units (unknown) date) estradiol 30 mcg tablet 2 unkn own) tab PO DAILY #52 tabs (unknown) (no (unknown) (unknown) occurred due to the (unit s (unknown) date) inherent limitations of unknow n) voice recognition software. Please (unknown) (no (unknown) (unknown) omeprazole 20 mg (units (unknown) date) capsule,delayed release See un known) Rx Instructions .Route .COMPLEX #60 (unknown) (no (unknown) (unknown) ondansetron 8 mg (units (unknown) date) disintegrating tablet 8 mg unk nown) PO Q8H PRN nausea and vomiting #20 (unknown) (no (unknown) (unknown) pregabalin 300 mg capsule (units (unknown) date) 300 mg PO BID #180 caps unknow n) 04/12/22 [Rx Confirmed (unknown) (no (unknown) (unknown) read the note carefully ( units (unknown) date) and recognize, using unknown) context, where these substitutions (unknown) (no (unknown) (unknown) rivaroxaban 20 mg tablet (units (unknown) date) (Xarelto) See Rx unknown) Instructions .Route .COMPLEX #30 tabs (unknown) (no (unknown) (unknown) seen for migraines and (u nits (unknown) date) vertigo recently. Pt has a unk nown) lump below her rt ear. (unknown) (no (unknown) (unknown) software. 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 (unknown) (no (unknown) (unknown) spironolactone 25 mg (uni ts (unknown) date) tablet 12.5 mg PO DAILY #30 un known) tabs 09/12/21 [Rx Confirmed (unknown) (no (unknown) (unknown) tabs 04/22/22 [Rx (units (unknown) date) Confirmed 07/26/22] unknown) (unknown) (no (unknown) (unknown) tabs 07/06/17 [Rx (units (unknown) date) Confirmed 07/26/22] unknown) (unknown) (no (unknown) (unknown) terazosin 2 mg capsule See (units (unknown) date) Rx Instructions .Route unknown ) .COMPLEX #30 caps 07/12/22 [Rx (unknown) (no (unknown) (unknown) urinary retention (units (unknown) date) unknown) Result panel 12 (unknown) (no (unknown) (unknown) (no value) (units (unk nown) date) unknown) (unknown) (no (unknown) (unknown) #12.9 grams 04/12/22 [Rx (units (unknown) date) Confirmed 07/26/22] unknown) (unknown) (no (unknown) (unknown) .COMPLEX #18 grams (units (unknown) date) 03/03/22 [Rx Confirmed unknown ) 07/26/22] (unknown) (no (unknown) (unknown) [id number] (units (unkn own) date) unknown) (unknown) (no (unknown) (unknown) 04/03/22 [Rx Confirmed (u nits (unknown) date) 07/26/22] unknown) (unknown) (no (unknown) (unknown) 04/13/22 [Rx Confirmed (u nits (unknown) date) 07/26/22] unknown) (unknown) (no (unknown) (unknown) 05/11/22 [Rx Confirmed (u nits (unknown) date) 07/26/22] unknown) (unknown) (no (unknown) (unknown) 05/22/22 [Rx Confirmed (u nits (unknown) date) 07/26/22] unknown) (unknown) (no (unknown) (unknown) 07/10/22 [Rx Confirmed (u nits (unknown) date) 07/26/22] unknown) (unknown) (no (unknown) (unknown) 07/26/22 (units (unkno wn) date) unknown) (unknown) (no (unknown) (unknown) 07/26/22] (units (unkn own) date) unknown) (unknown) (no (unknown) (unknown) 14:42 (units (unkno wn) date) unknown) (unknown) (no (unknown) (unknown) Accompanied by: ( units (unknown) date) unknown) (unknown) (no (unknown) (unknown) Acetaminophen overdose of (units (unknown) date) undetermined intent unknown) (03/2016) (unknown) (no (unknown) (unknown) Age/Sex: 41 / F Date of ( units (unknown) date) Service: unknown) (unknown) (no (unknown) (unknown) Alcoholism (units (unk nown) date) unknown) (unknown) (no (unknown) (unknown) Allergies (units (unkn own) date) unknown) (unknown) (no (unknown) (unknown) Amputation of fifth toe of (units (unknown) date) right foot unknown) (unknown) (no (unknown) (unknown) [facility] (units (unknown) date) unknown) (unknown) (no (unknown) (unknown) [place] [id number] (unit s (unknown) date) unknown) (unknown) (no (unknown) (unknown) Asthma (units (unkno wn) date) unknown) (unknown) (no (unknown) (unknown) Attending Dr: Lilo (un its (unknown) date) Kay AHUMADA unknown) (unknown) (no (unknown) (unknown) BP 160/90 H (units (un known) date) unknown) (unknown) (no (unknown) (unknown) Blood Pressure Location Rt (units (unknown) date) brachial unknown) (unknown) (no (unknown) (unknown) Compressioin Stockings #1 (units (unknown) date) ea 01/01/20 [Rx Confirmed unkn own) 07/26/22] (unknown) (no (unknown) (unknown) Confirmed 07/26/22] (unit s (unknown) date) unknown) (unknown) (no (unknown) (unknown) Cubital tunnel syndrome ( units (unknown) date) unknown) (unknown) (no (unknown) (unknown) DM type 2 (diabetes (unit s (unknown) date) mellitus, type 2) unknown) (unknown) (no (unknown) (unknown) : 1980 (units (unknown) date) Acct:[id number] unknown) (unknown) (no (unknown) (unknown) DVT (deep venous (units (unknown) date) thrombosis) unknown) (unknown) (no (unknown) (unknown) Dept at . (u nits (unknown) date) unknown) (unknown) (no (unknown) (unknown) Diet and Exercise (units (unknown) date) unknown) (unknown) (no (unknown) (unknown) Diskus) 1 puff inhalation (units (unknown) date) BID 09/29/19 [History unknown) Confirmed 07/26/22] (unknown) (no (unknown) (unknown) Documented By: (units (unknown) date) Lilo Villanueva MD 07/26/22 unk valerie) [id number] (unknown) (no (unknown) (unknown) Draft (units (unkno wn) date) unknown) (unknown) (no (unknown) (unknown) Essential hypertension (u nits (unknown) date) unknown) (unknown) (no (unknown) (unknown) Family History (Reviewed (units (unknown) date) 07/25/22 @ 14:36 by Ry un known) VANESSA Aldana) (unknown) (no (unknown) (unknown) Family Practice Office (u nits (unknown) date) Visit unknown) (unknown) (no (unknown) (unknown) Family/Other Pancreatic ( units (unknown) date) cancer unknown) (unknown) (no (unknown) (unknown) Fibromyalgia (05/21/15) ( units (unknown) date) unknown) (unknown) (no (unknown) (unknown) Grandfather Diabetes (uni ts (unknown) date) mellitus unknown) (unknown) (no (unknown) (unknown) Health Management reviewed (units (unknown) date) with patient: Yes unknown) (unknown) (no (unknown) (unknown) Health Management (units (unknown) date) unknown) (unknown) (no (unknown) (unknown) History of carpal tunnel (units (unknown) date) repair (-01/18/15) unknown) (unknown) (no (unknown) (unknown) History of colonoscopy (u nits (unknown) date) unknown) (unknown) (no (unknown) (unknown) History of (units (unk nown) date) esophagogastroduodenoscopy unk nown) (EGD) (unknown) (no (unknown) (unknown) History of laminectomy (u nits (unknown) date) (-12/2016) unknown) (unknown) (no (unknown) (unknown) History of laminectomy (u nits (unknown) date) unknown) (unknown) (no (unknown) (unknown) History of lumbar spinal (units (unknown) date) fusion (03/12/19) unknown) (unknown) (no (unknown) (unknown) Hx of toe surgery (units (unknown) date) (08/04/20) unknown) (unknown) (no (unknown) (unknown) Hypoxia (units (unkno wn) date) unknown) (unknown) (no (unknown) (unknown) INitially with pain under (units (unknown) date) her ear. casing fluid tender. ? unkno wn) parotid vs lymph (unknown) (no (unknown) (unknown) Intake Note: (units (u nknown) date) unknown) (unknown) (no (unknown) (unknown) Intake (units (unkno wn) date) unknown) (unknown) (no (unknown) (unknown) Intraoperative cardiac (u nits (unknown) date) arrest during non-cardiac unkn own) surgery (02/2014) (unknown) (no (unknown) (unknown) Last Menstural Cycle + (u nits (unknown) date) Details unknown) (unknown) (no (unknown) (unknown) Latex, Natural Rubber (un its (unknown) date) Adverse Reaction (Mild, unknow n) Verified 07/26/22 14:44) (unknown) (no (unknown) (unknown) [place] Blood Glucose Test (units (unknown) date) Strips #180 ea 10/29/20 [Rx un known) Confirmed 07/26/22] (unknown) (no (unknown) (unknown) Loc: [facility] (units (unkno wn) date) unknown) (unknown) (no (unknown) (unknown) Lumbar spine pain (units (unknown) date) unknown) (unknown) (no (unknown) (unknown) Meclizine does help a (un its (unknown) date) little, but wishes it would un known) help. 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 ) () (unknown) (no (unknown) (unknown) Medications (units (un known) date) unknown) (unknown) (no (unknown) (unknown) Morbid obesity (units (unknown) date) unknown) (unknown) (no (unknown) (unknown) Narcotic habituation, (un its (unknown) date) continuous unknown) (unknown) (no (unknown) (unknown) Nocturnal hypoxemia (unit s (unknown) date) unknown) (unknown) (no (unknown) (unknown) Note (units (unkno wn) date) unknown) (unknown) (no (unknown) (unknown) Note: (units (unkno wn) date) unknown) (unknown) (no (unknown) (unknown) Notes (units (unkno wn) date) unknown) (unknown) (no (unknown) (unknown) DERREK (obstructive sleep (u nits (unknown) date) apnea) unknown) (unknown) (no (unknown) (unknown) Obstipation (units (un known) date) unknown) (unknown) (no (unknown) (unknown) Other Menstrual Period: ( units (unknown) date) Uncertain (irregular ) unknown ) (unknown) (no (unknown) (unknown) Ovarian cyst (units (u nknown) date) unknown) (unknown) (no (unknown) (unknown) Oxygen Delivery Method (u nits (unknown) date) room air unknown) (unknown) (no (unknown) (unknown) PFSH (units (unkno wn) date) unknown) (unknown) (no (unknown) (unknown) PRN shortness of breath or (units (unknown) date) wheezing #15 grams 04/12/22 un known) [Rx Confirmed 07/26/22] (unknown) (no (unknown) (unknown) Patient: Sandy Dorman Beatriz (units (unknown) date) MR#: M unknown) (unknown) (no (unknown) (unknown) Plantar fasciitis (units (unknown) date) unknown) (unknown) (no (unknown) (unknown) Position Sitting (units (unknown) date) unknown) (unknown) (no (unknown) (unknown) Psychogenic nonepileptic (units (unknown) date) seizure unknown) (unknown) (no (unknown) (unknown) Pt arrives to talk about a (units (unknown) date) few things. She was in the unk nown) [facility] yesterday. Pt has been (unknown) (no (unknown) (unknown) Pt saw Neurology - did not (units (unknown) date) feel vertigo was due to unknow n) migraines. He thought could (unknown) (no (unknown) (unknown) Pt with a lump under her (units (unknown) date) right ear lobe. Has been unkno wn) there around 4 days. (unknown) (no (unknown) (unknown) Pulmonary embolism (units (unknown) date) unknown) (unknown) (no (unknown) (unknown) Pulse 125 H (units (un known) date) unknown) (unknown) (no (unknown) (unknown) Pulse Oximetry (%) 99 (un its (unknown) date) unknown) (unknown) (no (unknown) (unknown) Pulse Source Monitor (uni ts (unknown) date) unknown) (unknown) (no (unknown) (unknown) RBBB (right bundle branch (units (unknown) date) block) unknown) (unknown) (no (unknown) (unknown) Rash (units (unkno wn) date) unknown) (unknown) (no (unknown) (unknown) Reason For Visit (units (unknown) date) unknown) (unknown) (no (unknown) (unknown) S/P epidural steroid (uni ts (unknown) date) injection (02/2014) unknown) (unknown) (no (unknown) (unknown) Seizures (units (unkno wn) date) unknown) (unknown) (no (unknown) (unknown) Signed By: (units (unk nown) date) unknown) (unknown) (no (unknown) (unknown) Sinus tachycardia (units (unknown) date) unknown) (unknown) (no (unknown) (unknown) Smoking Status: Current ( units (unknown) date) some day smoker unknown) (unknown) (no (unknown) (unknown) Social History (units (unknown) date) unknown) (unknown) (no (unknown) (unknown) Status post dilation and (units (unknown) date) curettage (2008) unknown) (unknown) (no (unknown) (unknown) Status post laminectomy ( units (unknown) date) (03/03/16) unknown) (unknown) (no (unknown) (unknown) Suicide attempt (units (unknown) date) unknown) (unknown) (no (unknown) (unknown) Surgical History (Reviewed (units (unknown) date) 07/25/22 @ 14:36 by Ry un known) VANESSA Aldana) (unknown) (no (unknown) (unknown) TENS units #1 ea 04/30/19 (units (unknown) date) [Rx Confirmed 07/26/22] unknow n) (unknown) (no (unknown) (unknown) The pt has been hungry all (units (unknown) date) the time. She is wanting to un known) eat every 2 hours. When (unknown) (no (unknown) (unknown) The pt quit smoking 3 (un its (unknown) date) months ago. unknown) (unknown) (no (unknown) (unknown) The pt reports that her ( units (unknown) date) dizziness is minimally unknown ) improved - walking around the (unknown) (no (unknown) (unknown) This note may have been ( units (unknown) date) all or partially generated unk nown) using voice recognition (unknown) (no (unknown) (unknown) Tobacco + Substance Use ( units (unknown) date) unknown) (unknown) (no (unknown) (unknown) Tobacco Status (units (unknown) date) unknown) (unknown) (no (unknown) (unknown) Tobacco abuse (units ( unknown) date) unknown) (unknown) (no (unknown) (unknown) Tylenol overdose (units (unknown) date) unknown) (unknown) (no (unknown) (unknown) Type(s) of exercise: (uni ts (unknown) date) normal ROM and activity and un known) sedentary lifestyle (unknown) (no (unknown) (unknown) Ultrasound (units (unk nown) date) unknown) (unknown) (no (unknown) (unknown) Urinary retention (units (unknown) date) unknown) (unknown) (no (unknown) (unknown) Visit Reasons: Migraines, (units (unknown) date) vertigo, lump below rt ear unk nown) (unknown) (no (unknown) (unknown) Vitals (units (unkno wn) date) unknown) (unknown) (no (unknown) (unknown) Weight 284 lb (units ( unknown) date) unknown) (unknown) (no (unknown) (unknown) [History Confirmed (units (unknown) date) 07/26/22] unknown) (unknown) (no (unknown) (unknown) [Rx Confirmed 07/26/22] ( units (unknown) date) unknown) (unknown) (no (unknown) (unknown) abdominal pain. She has ( units (unknown) date) diarrhea 3-4 days/week. She un known) does take immodium, which (unknown) (no (unknown) (unknown) acetaminophen 500 mg (uni ts (unknown) date) tablet (Tylenol Extra unknown) Strength) 2,000 mg PO BID 12/12/18 (unknown) (no (unknown) (unknown) albuterol sulfate 90 (uni ts (unknown) date) mcg/actuation aerosol unknown) inhaler See Rx Instructions .Route (unknown) (no (unknown) (unknown) alcohol intake: current ( units (unknown) date) unknown) (unknown) (no (unknown) (unknown) aripiprazole 30 mg tablet (units (unknown) date) 30 mg PO DAILY 30 days #30 unk nown) tabs 03/21/22 [Rx Confirmed (unknown) (no (unknown) (unknown) be due to diabetes, neck (units (unknown) date) pain. unknown) (unknown) (no (unknown) (unknown) caps 12/26/21 [Rx (units (unknown) date) Confirmed 07/26/22] unknown) (unknown) (no (unknown) (unknown) carisoprodol (units (u nknown) date) [CARISOPRODOL] Adverse unknown ) Reaction (Severe, Verified 07/26/22 14:44) (unknown) (no (unknown) (unknown) clobetasol 0.05 % topical (units (unknown) date) ointment 1 applic topical unkn own) BID #30 grams 05/30/22 [Rx (unknown) (no (unknown) (unknown) cyclobenzaprine 10 mg (un its (unknown) date) tablet See Rx Instructions unk nown) .Route .COMPLEX #90 tabs (unknown) (no (unknown) (unknown) diazepam 5 mg tablet (uni ts (unknown) date) (Valium) 5 mg PO SEE unknown) INSTRUCTIONS for use prior to MRI #2 (unknown) (no (unknown) (unknown) doxepin 100 mg capsule 200 (units (unknown) date) mg PO BEDTIME #60 caps unknown ) 03/21/22 [Rx Confirmed (unknown) (no (unknown) (unknown) ea 06/27/22 [Rx Confirmed (units (unknown) date) 07/26/22] unknown) (unknown) (no (unknown) (unknown) eating out: 1-3 times/week (units (unknown) date) unknown) (unknown) (no (unknown) (unknown) ferrous sulfate 325 mg (65 (units (unknown) date) mg iron) tablet 325 mg PO unkn own) DAILY Anemia 03/28/21 (unknown) (no (unknown) (unknown) fluconazole 150 mg tablet (units (unknown) date) 150 mg PO Q3D 2 doses #2 unkno wn) tabs 05/22/22 [Rx Confirmed (unknown) (no (unknown) (unknown) fluticasone 100 (units (unknown) date) mcg-salmeterol 50 mcg/dose unk nown) blistr powdr for inhalation (Advair (unknown) (no (unknown) (unknown) fosphenytoin Adverse (uni ts (unknown) date) Reaction (Severe, Verified unk nown) 07/26/22 14:44) (unknown) (no (unknown) (unknown) furosemide 40 mg tablet ( units (unknown) date) See Rx Instructions .Route unk nown) .COMPLEX #135 tabs 07/03/22 (unknown) (no (unknown) (unknown) have occurred. If there ( units (unknown) date) are any questions, please unkn own) contact the Medical Records (unknown) (no (unknown) (unknown) helps. -- H pylori, A1C ( units (unknown) date) unknown) (unknown) (no (unknown) (unknown) house without the walker (units (unknown) date) but using the walker for unkno wn) longer distances. Bending (unknown) (no (unknown) (unknown) household members: spouse (units (unknown) date) unknown) (unknown) (no (unknown) (unknown) in PT. -- Neurology note (units (unknown) date) [place] unknown) (unknown) (no (unknown) (unknown) in the morning and (units (unknown) date) throughout the day, and unknow n) does have some GERD symptoms. Eating (unknown) (no (unknown) (unknown) ipratropium bromide 17 (u nits (unknown) date) mcg/actuation HFA aerosol unkn own) inhaler 1 puff inhalation Q8H (unknown) (no (unknown) (unknown) lancets 33 gauge (Easy (u nits (unknown) date) Touch Twist Lancets) #100 unkn own) ea 02/26/19 [Rx Confirmed (unknown) (no (unknown) (unknown) levalbuterol tartrate 45 (units (unknown) date) mcg/actuation aerosol unknown) inhaler 1 puff inhalation Q4-6H (unknown) (no (unknown) (unknown) levothyroxine 25 mcg (uni ts (unknown) date) tablet See Rx Instructions unk nown) .Route .COMPLEX #30 tabs (unknown) (no (unknown) (unknown) magnesium 250 mg tablet ( units (unknown) date) 500 mg PO DAILY 09/17/19 unkno wn) [History Confirmed 07/26/22] (unknown) (no (unknown) (unknown) may occur. Occasional (un its (unknown) date) wrong-word or 'sound-alike' un known) substitutions may have (unknown) (no (unknown) (unknown) meclizine 25 mg tablet 50 (units (unknown) date) mg PO DAILY PRN dizziness unkn own) or vertigo #60 tabs 05/30/22 (unknown) (no (unknown) (unknown) metformin 500 mg tablet ( units (unknown) date) 1,000 mg PO BID #120 tabs unkn own) 01/12/22 [Rx Confirmed (unknown) (no (unknown) (unknown) methylprednisolone 4 mg ( units (unknown) date) tablets in a dose pack unknown ) (Medrol (Abiodun)) 4 mg PO DAILY #21 (unknown) (no (unknown) (unknown) nicotine 21 mg/24 hr daily (units (unknown) date) transdermal patch 1 patch unkn own) transdermal Q24H #14 ea (unknown) (no (unknown) (unknown) norgestrel 0.3 mg-ethinyl (units (unknown) date) estradiol 30 mcg tablet 2 unkn own) tab PO DAILY #52 tabs (unknown) (no (unknown) (unknown) occurred due to the (unit s (unknown) date) inherent limitations of unknow n) voice recognition software. Please (unknown) (no (unknown) (unknown) omeprazole 20 mg (units (unknown) date) capsule,delayed release See un known) Rx Instructions .Route .COMPLEX #60 (unknown) (no (unknown) (unknown) ondansetron 8 mg (units (unknown) date) disintegrating tablet 8 mg unk nown) PO Q8H PRN nausea and vomiting #20 (unknown) (no (unknown) (unknown) over to feed the dogs or (units (unknown) date) clean the toilet still unknown ) feels dizzy and unbalanced. (unknown) (no (unknown) (unknown) pregabalin 300 mg capsule (units (unknown) date) 300 mg PO BID #180 caps unknow n) 04/12/22 [Rx Confirmed (unknown) (no (unknown) (unknown) read the note carefully ( units (unknown) date) and recognize, using unknown) context, where these substitutions (unknown) (no (unknown) (unknown) rivaroxaban 20 mg tablet (units (unknown) date) (Xarelto) See Rx unknown) Instructions .Route .COMPLEX #30 tabs (unknown) (no (unknown) (unknown) saltier foods doesn't seem (units (unknown) date) to help. Appetite has been unk nown) up for over a month. No (unknown) (no (unknown) (unknown) seen for migraines and (u nits (unknown) date) vertigo recently. Pt has a unk nown) lump below her rt ear. (unknown) (no (unknown) (unknown) she eats, she feels very (units (unknown) date) nauseous. She is not unknown) vomiting. She does want to gag (unknown) (no (unknown) (unknown) software. 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 (unknown) (no (unknown) (unknown) spironolactone 25 mg (uni ts (unknown) date) tablet 12.5 mg PO DAILY #30 un known) tabs 09/12/21 [Rx Confirmed (unknown) (no (unknown) (unknown) tabs 04/22/22 [Rx (units (unknown) date) Confirmed 07/26/22] unknown) (unknown) (no (unknown) (unknown) tabs 07/06/17 [Rx (units (unknown) date) Confirmed 07/26/22] unknown) (unknown) (no (unknown) (unknown) terazosin 2 mg capsule See (units (unknown) date) Rx Instructions .Route unknown ) .COMPLEX #30 caps 07/12/22 [Rx (unknown) (no (unknown) (unknown) urinary retention (units (unknown) date) unknown) Result panel 13 (unknown) (no (unknown) (unknown) (no value) (units (unk nown) date) unknown) (unknown) (no (unknown) (unknown) #12.9 grams 04/12/22 [Rx (units (unknown) date) Confirmed 07/26/22] unknown) (unknown) (no (unknown) (unknown) .COMPLEX #18 grams (units (unknown) date) 03/03/22 [Rx Confirmed unknown ) 07/26/22] (unknown) (no (unknown) (unknown) [id number] (units (unkn own) date) unknown) (unknown) (no (unknown) (unknown) 04/03/22 [Rx Confirmed (u nits (unknown) date) 07/26/22] unknown) (unknown) (no (unknown) (unknown) 04/13/22 [Rx Confirmed (u nits (unknown) date) 07/26/22] unknown) (unknown) (no (unknown) (unknown) 05/11/22 [Rx Confirmed (u nits (unknown) date) 07/26/22] unknown) (unknown) (no (unknown) (unknown) 05/22/22 [Rx Confirmed (u nits (unknown) date) 07/26/22] unknown) (unknown) (no (unknown) (unknown) 07/10/22 [Rx Confirmed (u nits (unknown) date) 07/26/22] unknown) (unknown) (no (unknown) (unknown) 07/26/22 (units (unkno wn) date) unknown) (unknown) (no (unknown) (unknown) 07/26/22] (units (unkn own) date) unknown) (unknown) (no (unknown) (unknown) 14:42 (units (unkno wn) date) unknown) (unknown) (no (unknown) (unknown) Accompanied by: ( units (unknown) date) unknown) (unknown) (no (unknown) (unknown) Acetaminophen overdose of (units (unknown) date) undetermined intent unknown) (03/2016) (unknown) (no (unknown) (unknown) Age/Sex: 41 / F Date of ( units (unknown) date) Service: unknown) (unknown) (no (unknown) (unknown) Alcoholism (units (unk nown) date) unknown) (unknown) (no (unknown) (unknown) Allergies (units (unkn own) date) unknown) (unknown) (no (unknown) (unknown) Amputation of fifth toe of (units (unknown) date) right foot unknown) (unknown) (no (unknown) (unknown) [facility] (units (unknown) date) unknown) (unknown) (no (unknown) (unknown) [place] [address] (unit s (unknown) date) unknown) (unknown) (no (unknown) (unknown) Asthma (units (unkno wn) date) unknown) (unknown) (no (unknown) (unknown) Attending Dr: Lilo (un its (unknown) date) Kay AHUMADA unknown) (unknown) (no (unknown) (unknown) BP 160/90 H (units (un known) date) unknown) (unknown) (no (unknown) (unknown) Blood Pressure Location Rt (units (unknown) date) brachial unknown) (unknown) (no (unknown) (unknown) Compressioin Stockings #1 (units (unknown) date) ea 01/01/20 [Rx Confirmed unkn own) 07/26/22] (unknown) (no (unknown) (unknown) Confirmed 07/26/22] (unit s (unknown) date) unknown) (unknown) (no (unknown) (unknown) Cubital tunnel syndrome ( units (unknown) date) unknown) (unknown) (no (unknown) (unknown) DM type 2 (diabetes (unit s (unknown) date) mellitus, type 2) unknown) (unknown) (no (unknown) (unknown) : 1980 (units (unknown) date) Acct:[id number] unknown) (unknown) (no (unknown) (unknown) DVT (deep venous (units (unknown) date) thrombosis) unknown) (unknown) (no (unknown) (unknown) Dept at . (u nits (unknown) date) unknown) (unknown) (no (unknown) (unknown) Diet and Exercise (units (unknown) date) unknown) (unknown) (no (unknown) (unknown) Diskus) 1 puff inhalation (units (unknown) date) BID 09/29/19 [History unknown) Confirmed 07/26/22] (unknown) (no (unknown) (unknown) Documented By: (units (unknown) date) Lilo Villanueva MD 07/26/22 unk nown) [id number] (unknown) (no (unknown) (unknown) Draft (units (unkno wn) date) unknown) (unknown) (no (unknown) (unknown) Essential hypertension (u nits (unknown) date) unknown) (unknown) (no (unknown) (unknown) Family History (Reviewed (units (unknown) date) 07/25/22 @ 14:36 by Ry un known) VANESSA Aldana) (unknown) (no (unknown) (unknown) Family Practice Office (u nits (unknown) date) Visit unknown) (unknown) (no (unknown) (unknown) Family/Other Pancreatic ( units (unknown) date) cancer unknown) (unknown) (no (unknown) (unknown) Fibromyalgia (05/21/15) ( units (unknown) date) unknown) (unknown) (no (unknown) (unknown) Grandfather Diabetes (uni ts (unknown) date) mellitus unknown) (unknown) (no (unknown) (unknown) Health Management reviewed (units (unknown) date) with patient: Yes unknown) (unknown) (no (unknown) (unknown) Health Management (units (unknown) date) unknown) (unknown) (no (unknown) (unknown) History of carpal tunnel (units (unknown) date) repair (-01/18/15) unknown) (unknown) (no (unknown) (unknown) History of colonoscopy (u nits (unknown) date) unknown) (unknown) (no (unknown) (unknown) History of (units (unk nown) date) esophagogastroduodenoscopy unk nown) (EGD) (unknown) (no (unknown) (unknown) History of laminectomy (u nits (unknown) date) (-12/2016) unknown) (unknown) (no (unknown) (unknown) History of laminectomy (u nits (unknown) date) unknown) (unknown) (no (unknown) (unknown) History of lumbar spinal (units (unknown) date) fusion (03/12/19) unknown) (unknown) (no (unknown) (unknown) Hx of toe surgery (units (unknown) date) (08/04/20) unknown) (unknown) (no (unknown) (unknown) Hypoxia (units (unkno wn) date) unknown) (unknown) (no (unknown) (unknown) INitially with pain under (units (unknown) date) her ear. casing fluid tender. ? unkno wn) parotid vs lymph (unknown) (no (unknown) (unknown) Intake Note: (units (u nknown) date) unknown) (unknown) (no (unknown) (unknown) Intake (units (unkno wn) date) unknown) (unknown) (no (unknown) (unknown) Intraoperative cardiac (u nits (unknown) date) arrest during non-cardiac unkn own) surgery (02/2014) (unknown) (no (unknown) (unknown) Last Menstural Cycle + (u nits (unknown) date) Details unknown) (unknown) (no (unknown) (unknown) Latex, Natural Rubber (un its (unknown) date) Adverse Reaction (Mild, unknow n) Verified 07/26/22 14:44) (unknown) (no (unknown) (unknown) [facility] Blood Glucose Test (units (unknown) date) Strips #180 ea 10/29/20 [Rx un known) Confirmed 07/26/22] (unknown) (no (unknown) (unknown) Loc: [facility] (units (unkno wn) date) unknown) (unknown) (no (unknown) (unknown) Lumbar spine pain (units (unknown) date) unknown) (unknown) (no (unknown) (unknown) Meclizine does help a (un its (unknown) date) little, but wishes it would un known) help. 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) (unknown) (no (unknown) (unknown) Medications (units (un known) date) unknown) (unknown) (no (unknown) (unknown) Morbid obesity (units (unknown) date) unknown) (unknown) (no (unknown) (unknown) Narcotic habituation, (un its (unknown) date) continuous unknown) (unknown) (no (unknown) (unknown) Nocturnal hypoxemia (unit s (unknown) date) unknown) (unknown) (no (unknown) (unknown) Note (units (unkno wn) date) unknown) (unknown) (no (unknown) (unknown) Note: (units (unkno wn) date) unknown) (unknown) (no (unknown) (unknown) Notes (units (unkno wn) date) unknown) (unknown) (no (unknown) (unknown) DERREK (obstructive sleep (u nits (unknown) date) apnea) unknown) (unknown) (no (unknown) (unknown) Obstipation (units (un known) date) unknown) (unknown) (no (unknown) (unknown) Other Menstrual Period: ( units (unknown) date) Uncertain (irregular ) unknown ) (unknown) (no (unknown) (unknown) Ovarian cyst (units (u nknown) date) unknown) (unknown) (no (unknown) (unknown) Oxygen Delivery Method (u nits (unknown) date) room air unknown) (unknown) (no (unknown) (unknown) PFSH (units (unkno wn) date) unknown) (unknown) (no (unknown) (unknown) PRN shortness of breath or (units (unknown) date) wheezing #15 grams 04/12/22 un known) [Rx Confirmed 07/26/22] (unknown) (no (unknown) (unknown) Patient: Sandy Dorman Beatriz (units (unknown) date) MR#: M unknown) (unknown) (no (unknown) (unknown) Plantar fasciitis (units (unknown) date) unknown) (unknown) (no (unknown) (unknown) Position Sitting (units (unknown) date) unknown) (unknown) (no (unknown) (unknown) Psychogenic nonepileptic (units (unknown) date) seizure unknown) (unknown) (no (unknown) (unknown) Pt arrives to talk about a (units (unknown) date) few things. She was in the unk nown) [facility] yesterday. Pt has been (unknown) (no (unknown) (unknown) Pt saw Neurology - did not (units (unknown) date) feel vertigo was due to unknow n) migraines. He thought could (unknown) (no (unknown) (unknown) Pt with a lump under her (units (unknown) date) right ear lobe. Has been unkno wn) there around 4 days. (unknown) (no (unknown) (unknown) Pulmonary embolism (units (unknown) date) unknown) (unknown) (no (unknown) (unknown) Pulse 125 H (units (un known) date) unknown) (unknown) (no (unknown) (unknown) Pulse Oximetry (%) 99 (un its (unknown) date) unknown) (unknown) (no (unknown) (unknown) Pulse Source Monitor (uni ts (unknown) date) unknown) (unknown) (no (unknown) (unknown) RBBB (right bundle branch (units (unknown) date) block) unknown) (unknown) (no (unknown) (unknown) Rash (units (unkno wn) date) unknown) (unknown) (no (unknown) (unknown) Reason For Visit (units (unknown) date) unknown) (unknown) (no (unknown) (unknown) S/P epidural steroid (uni ts (unknown) date) injection (02/2014) unknown) (unknown) (no (unknown) (unknown) Seizures (units (unkno wn) date) unknown) (unknown) (no (unknown) (unknown) Signed By: (units (unk nown) date) unknown) (unknown) (no (unknown) (unknown) Sinus tachycardia (units (unknown) date) unknown) (unknown) (no (unknown) (unknown) Smoking Status: Current ( units (unknown) date) some day smoker unknown) (unknown) (no (unknown) (unknown) Social History (units (unknown) date) unknown) (unknown) (no (unknown) (unknown) Status post dilation and (units (unknown) date) curettage (2008) unknown) (unknown) (no (unknown) (unknown) Status post laminectomy ( units (unknown) date) (03/03/16) unknown) (unknown) (no (unknown) (unknown) Suicide attempt (units (unknown) date) unknown) (unknown) (no (unknown) (unknown) Surgical History (Reviewed (units (unknown) date) 07/25/22 @ 14:36 by Ry un known) VANESSA Aldana) (unknown) (no (unknown) (unknown) TENS units #1 ea 04/30/19 (units (unknown) date) [Rx Confirmed 07/26/22] unknow n) (unknown) (no (unknown) (unknown) The pt has been hungry all (units (unknown) date) the time. She is wanting to un known) eat every 2 hours. When (unknown) (no (unknown) (unknown) The pt quit smoking 3 (un its (unknown) date) months ago. unknown) (unknown) (no (unknown) (unknown) The pt reports that her ( units (unknown) date) dizziness is minimally unknown ) improved - walking around the (unknown) (no (unknown) (unknown) This note may have been ( units (unknown) date) all or partially generated unk nown) using voice recognition (unknown) (no (unknown) (unknown) Tobacco + Substance Use ( units (unknown) date) unknown) (unknown) (no (unknown) (unknown) Tobacco Status (units (unknown) date) unknown) (unknown) (no (unknown) (unknown) Tobacco abuse (units ( unknown) date) unknown) (unknown) (no (unknown) (unknown) Tylenol overdose (units (unknown) date) unknown) (unknown) (no (unknown) (unknown) Type(s) of exercise: (uni ts (unknown) date) normal ROM and activity and un known) sedentary lifestyle (unknown) (no (unknown) (unknown) Ultrasound (units (unk nown) date) unknown) (unknown) (no (unknown) (unknown) Urinary retention (units (unknown) date) unknown) (unknown) (no (unknown) (unknown) Visit Reasons: Migraines, (units (unknown) date) vertigo, lump below rt ear unk nown) (unknown) (no (unknown) (unknown) Vitals (units (unkno wn) date) unknown) (unknown) (no (unknown) (unknown) Weight 284 lb (units ( unknown) date) unknown) (unknown) (no (unknown) (unknown) [History Confirmed (units (unknown) date) 07/26/22] unknown) (unknown) (no (unknown) (unknown) [Rx Confirmed 07/26/22] ( units (unknown) date) unknown) (unknown) (no (unknown) (unknown) abdominal pain. She has ( units (unknown) date) diarrhea 3-4 days/week. She un known) does take immodium, which (unknown) (no (unknown) (unknown) acetaminophen 500 mg (uni ts (unknown) date) tablet (Tylenol Extra unknown) Strength) 2,000 mg PO BID 12/12/18 (unknown) (no (unknown) (unknown) albuterol sulfate 90 (uni ts (unknown) date) mcg/actuation aerosol unknown) inhaler See Rx Instructions .Route (unknown) (no (unknown) (unknown) alcohol intake: current ( units (unknown) date) unknown) (unknown) (no (unknown) (unknown) aripiprazole 30 mg tablet (units (unknown) date) 30 mg PO DAILY 30 days #30 unk nown) tabs 03/21/22 [Rx Confirmed (unknown) (no (unknown) (unknown) be due to diabetes, neck (units (unknown) date) pain. unknown) (unknown) (no (unknown) (unknown) caps 12/26/21 [Rx (units (unknown) date) Confirmed 07/26/22] unknown) (unknown) (no (unknown) (unknown) carisoprodol (units (u nknown) date) [CARISOPRODOL] Adverse unknown ) Reaction (Severe, Verified 07/26/22 14:44) (unknown) (no (unknown) (unknown) clobetasol 0.05 % topical (units (unknown) date) ointment 1 applic topical unkn own) BID #30 grams 05/30/22 [Rx (unknown) (no (unknown) (unknown) cyclobenzaprine 10 mg (un its (unknown) date) tablet See Rx Instructions unk nown) .Route .COMPLEX #90 tabs (unknown) (no (unknown) (unknown) diazepam 5 mg tablet (uni ts (unknown) date) (Valium) 5 mg PO SEE unknown) INSTRUCTIONS for use prior to MRI #2 (unknown) (no (unknown) (unknown) doxepin 100 mg capsule 200 (units (unknown) date) mg PO BEDTIME #60 caps unknown ) 03/21/22 [Rx Confirmed (unknown) (no (unknown) (unknown) ea 06/27/22 [Rx Confirmed (units (unknown) date) 07/26/22] unknown) (unknown) (no (unknown) (unknown) eating out: 1-3 times/week (units (unknown) date) unknown) (unknown) (no (unknown) (unknown) ferrous sulfate 325 mg (65 (units (unknown) date) mg iron) tablet 325 mg PO unkn own) DAILY Anemia 03/28/21 (unknown) (no (unknown) (unknown) fluconazole 150 mg tablet (units (unknown) date) 150 mg PO Q3D 2 doses #2 unkno wn) tabs 05/22/22 [Rx Confirmed (unknown) (no (unknown) (unknown) fluticasone 100 (units (unknown) date) mcg-salmeterol 50 mcg/dose unk nown) blistr powdr for inhalation (Advair (unknown) (no (unknown) (unknown) fosphenytoin Adverse (uni ts (unknown) date) Reaction (Severe, Verified unk nown) 07/26/22 14:44) (unknown) (no (unknown) (unknown) furosemide 40 mg tablet ( units (unknown) date) See Rx Instructions .Route unk nown) .COMPLEX #135 tabs 07/03/22 (unknown) (no (unknown) (unknown) have occurred. If there ( units (unknown) date) are any questions, please unkn own) contact the Medical Records (unknown) (no (unknown) (unknown) helps. -- H pylori, A1C ( units (unknown) date) unknown) (unknown) (no (unknown) (unknown) house without the walker (units (unknown) date) but using the walker for unkno wn) longer distances. Bending (unknown) (no (unknown) (unknown) household members: spouse (units (unknown) date) unknown) (unknown) (no (unknown) (unknown) in PT. -- Neurology note (units (unknown) date) [place] unknown) (unknown) (no (unknown) (unknown) in the morning and (units (unknown) date) throughout the day, and unknow n) does have some GERD symptoms. Eating (unknown) (no (unknown) (unknown) ipratropium bromide 17 (u nits (unknown) date) mcg/actuation HFA aerosol unkn own) inhaler 1 puff inhalation Q8H (unknown) (no (unknown) (unknown) lancets 33 gauge (Easy (u nits (unknown) date) Touch Twist Lancets) #100 unkn own) ea 02/26/19 [Rx Confirmed (unknown) (no (unknown) (unknown) levalbuterol tartrate 45 (units (unknown) date) mcg/actuation aerosol unknown) inhaler 1 puff inhalation Q4-6H (unknown) (no (unknown) (unknown) levothyroxine 25 mcg (uni ts (unknown) date) tablet See Rx Instructions unk nown) .Route .COMPLEX #30 tabs (unknown) (no (unknown) (unknown) magnesium 250 mg tablet ( units (unknown) date) 500 mg PO DAILY 09/17/19 unkno wn) [History Confirmed 07/26/22] (unknown) (no (unknown) (unknown) may occur. Occasional (un its (unknown) date) wrong-word or 'sound-alike' un known) substitutions may have (unknown) (no (unknown) (unknown) meclizine 25 mg tablet 50 (units (unknown) date) mg PO DAILY PRN dizziness unkn own) or vertigo #60 tabs 05/30/22 (unknown) (no (unknown) (unknown) metformin 500 mg tablet ( units (unknown) date) 1,000 mg PO BID #120 tabs unkn own) 01/12/22 [Rx Confirmed (unknown) (no (unknown) (unknown) methylprednisolone 4 mg ( units (unknown) date) tablets in a dose pack unknown ) (Medrol (Abiodun)) 4 mg PO DAILY #21 (unknown) (no (unknown) (unknown) nicotine 21 mg/24 hr daily (units (unknown) date) transdermal patch 1 patch unkn own) transdermal Q24H #14 ea (unknown) (no (unknown) (unknown) norgestrel 0.3 mg-ethinyl (units (unknown) date) estradiol 30 mcg tablet 2 unkn own) tab PO DAILY #52 tabs (unknown) (no (unknown) (unknown) occurred due to the (unit s (unknown) date) inherent limitations of unknow n) voice recognition software. Please (unknown) (no (unknown) (unknown) omeprazole 20 mg (units (unknown) date) capsule,delayed release See un known) Rx Instructions .Route .COMPLEX #60 (unknown) (no (unknown) (unknown) ondansetron 8 mg (units (unknown) date) disintegrating tablet 8 mg unk nown) PO Q8H PRN nausea and vomiting #20 (unknown) (no (unknown) (unknown) over to feed the dogs or (units (unknown) date) clean the toilet still unknown ) feels dizzy and unbalanced. (unknown) (no (unknown) (unknown) pregabalin 300 mg capsule (units (unknown) date) 300 mg PO BID #180 caps unknow n) 04/12/22 [Rx Confirmed (unknown) (no (unknown) (unknown) read the note carefully ( units (unknown) date) and recognize, using unknown) context, where these substitutions (unknown) (no (unknown) (unknown) rivaroxaban 20 mg tablet (units (unknown) date) (Xarelto) See Rx unknown) Instructions .Route .COMPLEX #30 tabs (unknown) (no (unknown) (unknown) saltier foods doesn't seem (units (unknown) date) to help. Appetite has been unk nown) up for over a month. No (unknown) (no (unknown) (unknown) seen for migraines and (u nits (unknown) date) vertigo recently. Pt has a unk nown) lump below her rt ear. (unknown) (no (unknown) (unknown) she eats, she feels very (units (unknown) date) nauseous. She is not unknown) vomiting. She does want to gag (unknown) (no (unknown) (unknown) software. 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 (unknown) (no (unknown) (unknown) spironolactone 25 mg (uni ts (unknown) date) tablet 12.5 mg PO DAILY #30 un known) tabs 09/12/21 [Rx Confirmed (unknown) (no (unknown) (unknown) tabs 04/22/22 [Rx (units (unknown) date) Confirmed 07/26/22] unknown) (unknown) (no (unknown) (unknown) tabs 07/06/17 [Rx (units (unknown) date) Confirmed 07/26/22] unknown) (unknown) (no (unknown) (unknown) terazosin 2 mg capsule See (units (unknown) date) Rx Instructions .Route unknown ) .COMPLEX #30 caps 07/12/22 [Rx (unknown) (no (unknown) (unknown) urinary retention (units (unknown) date) unknown) Result panel 14 (unknown) (no (unknown) (unknown) (no value) (units (unk nown) date) unknown) (unknown) (no (unknown) (unknown) #12.9 grams 04/12/22 [Rx (units (unknown) date) Confirmed 07/26/22] unknown) (unknown) (no (unknown) (unknown) .COMPLEX #18 grams (units (unknown) date) 03/03/22 [Rx Confirmed unknown ) 07/26/22] (unknown) (no (unknown) (unknown) [id number] (units (unkn own) date) unknown) (unknown) (no (unknown) (unknown) 04/03/22 [Rx Confirmed (u nits (unknown) date) 07/26/22] unknown) (unknown) (no (unknown) (unknown) 04/13/22 [Rx Confirmed (u nits (unknown) date) 07/26/22] unknown) (unknown) (no (unknown) (unknown) 05/11/22 [Rx Confirmed (u nits (unknown) date) 07/26/22] unknown) (unknown) (no (unknown) (unknown) 05/22/22 [Rx Confirmed (u nits (unknown) date) 07/26/22] unknown) (unknown) (no (unknown) (unknown) 07/10/22 [Rx Confirmed (u nits (unknown) date) 07/26/22] unknown) (unknown) (no (unknown) (unknown) 07/26/22 (units (unkno wn) date) unknown) (unknown) (no (unknown) (unknown) 07/26/22] (units (unkn own) date) unknown) (unknown) (no (unknown) (unknown) 14:42 (units (unkno wn) date) unknown) (unknown) (no (unknown) (unknown) Accompanied by: ( units (unknown) date) unknown) (unknown) (no (unknown) (unknown) Acetaminophen overdose of (units (unknown) date) undetermined intent unknown) (03/2016) (unknown) (no (unknown) (unknown) Age/Sex: 41 / F Date of ( units (unknown) date) Service: unknown) (unknown) (no (unknown) (unknown) Alcoholism (units (unk nown) date) unknown) (unknown) (no (unknown) (unknown) Allergies (units (unkn own) date) unknown) (unknown) (no (unknown) (unknown) Amputation of fifth toe of (units (unknown) date) right foot unknown) (unknown) (no (unknown) (unknown) [facility] (units ([facility]) date) unknown) (unknown) (no (unknown) (unknown) [place] [address] (unit s (unknown) date) unknown) (unknown) (no (unknown) (unknown) Assessment + Plan (units (unknown) date) unknown) (unknown) (no (unknown) (unknown) Asthma (units (unkno wn) date) unknown) (unknown) (no (unknown) (unknown) Attending Dr: Lilo (un its (unknown) date) Kay AHUMADA unknown) (unknown) (no (unknown) (unknown) BP 160/90 H (units (un known) date) unknown) (unknown) (no (unknown) (unknown) Blood Pressure Location Rt (units (unknown) date) brachial unknown) (unknown) (no (unknown) (unknown) Compressioin Stockings #1 (units (unknown) date) ea 01/01/20 [Rx Confirmed unkn own) 07/26/22] (unknown) (no (unknown) (unknown) Confirmed 07/26/22] (unit s (unknown) date) unknown) (unknown) (no (unknown) (unknown) Cubital tunnel syndrome ( units (unknown) date) unknown) (unknown) (no (unknown) (unknown) DM type 2 (diabetes (unit s (unknown) date) mellitus, type 2) unknown) (unknown) (no (unknown) (unknown) : 1980 (units (unknown) date) Acct:[id number] unknown) (unknown) (no (unknown) (unknown) DVT (deep venous (units (unknown) date) thrombosis) unknown) (unknown) (no (unknown) (unknown) Dept at . (u nits (unknown) date) unknown) (unknown) (no (unknown) (unknown) Diet and Exercise (units (unknown) date) unknown) (unknown) (no (unknown) (unknown) Diskus) 1 puff inhalation (units (unknown) date) BID 09/29/19 [History unknown) Confirmed 07/26/22] (unknown) (no (unknown) (unknown) Documented By: (units (unknown) date) Lilo Villanueva MD 07/26/22 unk nown) 1440 (unknown) (no (unknown) (unknown) Draft (units (unkno wn) date) unknown) (unknown) (no (unknown) (unknown) Essential hypertension (u nits (unknown) date) unknown) (unknown) (no (unknown) (unknown) Family History (Reviewed (units (unknown) date) 07/25/22 @ 14:36 by Ry un known) VANESSA Aldana) (unknown) (no (unknown) (unknown) Family Practice Office (u nits (unknown) date) Visit unknown) (unknown) (no (unknown) (unknown) Family/Other Pancreatic ( units (unknown) date) cancer unknown) (unknown) (no (unknown) (unknown) Fibromyalgia (05/21/15) ( units (unknown) date) unknown) (unknown) (no (unknown) (unknown) Grandfather Diabetes (uni ts (unknown) date) mellitus unknown) (unknown) (no (unknown) (unknown) H pylori Breath Test 1 (u nits (unknown) date) Month R63.2 - Polyphagia unkno wn) (unknown) (no (unknown) (unknown) Health Management reviewed (units (unknown) date) with patient: Yes unknown) (unknown) (no (unknown) (unknown) Health Management (units (unknown) date) unknown) (unknown) (no (unknown) (unknown) Hemoglobin A1C% w Est Avg (units (unknown) date) Glu 1 Month E11.9 - Type 2 unk nown) diabetes mellitus without (unknown) (no (unknown) (unknown) History of carpal tunnel (units (unknown) date) repair (-01/18/15) unknown) (unknown) (no (unknown) (unknown) History of colonoscopy (u nits (unknown) date) unknown) (unknown) (no (unknown) (unknown) History of (units (unk nown) date) esophagogastroduodenoscopy unk nown) (EGD) (unknown) (no (unknown) (unknown) History of laminectomy (u nits (unknown) date) () unknown) (unknown) (no (unknown) (unknown) History of laminectomy (u nits (unknown) date) unknown) (unknown) (no (unknown) (unknown) History of lumbar spinal (units (unknown) date) fusion (03/12/19) unknown) (unknown) (no (unknown) (unknown) Hx of toe surgery (units (unknown) date) (08/04/20) unknown) (unknown) (no (unknown) (unknown) Hypoxia (units (unkno wn) date) unknown) (unknown) (no (unknown) (unknown) INitially with pain under (units (unknown) date) her ear. casing fluid tender. ? unkno wn) parotid vs lymph (unknown) (no (unknown) (unknown) Intake Note: (units (u nknown) date) unknown) (unknown) (no (unknown) (unknown) Intake (units (unkno wn) date) unknown) (unknown) (no (unknown) (unknown) Intraoperative cardiac (u nits (unknown) date) arrest during non-cardiac unkn own) surgery (02/2014) (unknown) (no (unknown) (unknown) Last Menstural Cycle + (u nits (unknown) date) Details unknown) (unknown) (no (unknown) (unknown) Latex, Natural Rubber (un its (unknown) date) Adverse Reaction (Mild, unknow n) Verified 07/26/22 14:44) (unknown) (no (unknown) (unknown) Livongo Blood Glucose Test (units (unknown) date) Strips #180 ea 10/29/20 [Rx un known) Confirmed 07/26/22] (unknown) (no (unknown) (unknown) Loc: [facility] (units (unkno wn) date) unknown) (unknown) (no (unknown) (unknown) Lumbar spine pain (units (unknown) date) unknown) (unknown) (no (unknown) (unknown) Meclizine does help a (un its (unknown) date) little, but wishes it would un known) help. 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 ) () (unknown) (no (unknown) (unknown) Medications (units (un known) date) unknown) (unknown) (no (unknown) (unknown) Morbid obesity (units (unknown) date) unknown) (unknown) (no (unknown) (unknown) Narcotic habituation, (un its (unknown) date) continuous unknown) (unknown) (no (unknown) (unknown) Nocturnal hypoxemia (unit s (unknown) date) unknown) (unknown) (no (unknown) (unknown) Note (units (unkno wn) date) unknown) (unknown) (no (unknown) (unknown) Note: (units (unkno wn) date) unknown) (unknown) (no (unknown) (unknown) Notes (units (unkno wn) date) unknown) (unknown) (no (unknown) (unknown) DERREK (obstructive sleep (u nits (unknown) date) apnea) unknown) (unknown) (no (unknown) (unknown) Obstipation (units (un known) date) unknown) (unknown) (no (unknown) (unknown) Orders (units (unkno wn) date) unknown) (unknown) (no (unknown) (unknown) Orders: (units (unkno wn) date) unknown) (unknown) (no (unknown) (unknown) Other Menstrual Period: ( units (unknown) date) Uncertain (irregular ) unknown ) (unknown) (no (unknown) (unknown) Ovarian cyst (units (u nknown) date) unknown) (unknown) (no (unknown) (unknown) Oxygen Delivery Method (u nits (unknown) date) room air unknown) (unknown) (no (unknown) (unknown) PFSH (units (unkno wn) date) unknown) (unknown) (no (unknown) (unknown) PRN shortness of breath or (units (unknown) date) wheezing #15 grams 04/12/22 un known) [Rx Confirmed 07/26/22] (unknown) (no (unknown) (unknown) Patient: Sandy Dorman (units (unknown) date) MR#: M unknown) (unknown) (no (unknown) (unknown) Plantar fasciitis (units (unknown) date) unknown) (unknown) (no (unknown) (unknown) Position Sitting (units (unknown) date) unknown) (unknown) (no (unknown) (unknown) Psychogenic nonepileptic (units (unknown) date) seizure unknown) (unknown) (no (unknown) (unknown) Pt arrives to talk about a (units (unknown) date) few things. She was in the k nown) [facility] yesterday. Pt has been (unknown) (no (unknown) (unknown) Pt saw Neurology - did not (units (unknown) date) feel vertigo was due to unknow n) migraines. He thought could (unknown) (no (unknown) (unknown) Pt with a lump under her (units (unknown) date) right ear lobe. Has been unkno wn) there around 4 days. (unknown) (no (unknown) (unknown) Pulmonary embolism (units (unknown) date) unknown) (unknown) (no (unknown) (unknown) Pulse 125 H (units (un known) date) unknown) (unknown) (no (unknown) (unknown) Pulse Oximetry (%) 99 (un its (unknown) date) unknown) (unknown) (no (unknown) (unknown) Pulse Source Monitor (uni ts (unknown) date) unknown) (unknown) (no (unknown) (unknown) RBBB (right bundle branch (units (unknown) date) block) unknown) (unknown) (no (unknown) (unknown) Rash (units (unkno wn) date) unknown) (unknown) (no (unknown) (unknown) Reason For Visit (units (unknown) date) unknown) (unknown) (no (unknown) (unknown) S/P epidural steroid (uni ts (unknown) date) injection (02/2014) unknown) (unknown) (no (unknown) (unknown) Seizures (units (unkno wn) date) unknown) (unknown) (no (unknown) (unknown) Signed By: (units (unk nown) date) unknown) (unknown) (no (unknown) (unknown) Sinus tachycardia (units (unknown) date) unknown) (unknown) (no (unknown) (unknown) Smoking Status: Current ( units (unknown) date) some day smoker unknown) (unknown) (no (unknown) (unknown) Social History (units (unknown) date) unknown) (unknown) (no (unknown) (unknown) Status post dilation and (units (unknown) date) curettage (2008) unknown) (unknown) (no (unknown) (unknown) Status post laminectomy ( units (unknown) date) (03/03/16) unknown) (unknown) (no (unknown) (unknown) Suicide attempt (units (unknown) date) unknown) (unknown) (no (unknown) (unknown) Surgical History (Reviewed (units (unknown) date) 07/25/22 @ 14:36 by Ry un known) VANESSA Aldana) (unknown) (no (unknown) (unknown) TENS units #1 ea 04/30/19 (units (unknown) date) [Rx Confirmed 07/26/22] unknow n) (unknown) (no (unknown) (unknown) The pt has been hungry all (units (unknown) date) the time. She is wanting to un known) eat every 2 hours. When (unknown) (no (unknown) (unknown) The pt quit smoking 3 (un its (unknown) date) months ago. unknown) (unknown) (no (unknown) (unknown) The pt reports that her ( units (unknown) date) dizziness is minimally unknown ) improved - walking around the (unknown) (no (unknown) (unknown) This note may have been ( units (unknown) date) all or partially generated unk nown) using voice recognition (unknown) (no (unknown) (unknown) Tobacco + Substance Use ( units (unknown) date) unknown) (unknown) (no (unknown) (unknown) Tobacco Status (units (unknown) date) unknown) (unknown) (no (unknown) (unknown) Tobacco abuse (units ( unknown) date) unknown) (unknown) (no (unknown) (unknown) Tylenol overdose (units (unknown) date) unknown) (unknown) (no (unknown) (unknown) Type(s) of exercise: (uni ts (unknown) date) normal ROM and activity and un known) sedentary lifestyle (unknown) (no (unknown) (unknown) Ultrasound (units (unk nown) date) unknown) (unknown) (no (unknown) (unknown) Urinary retention (units (unknown) date) unknown) (unknown) (no (unknown) (unknown) Visit Reasons: Migraines, (units (unknown) date) vertigo, lump below rt ear unk nown) (unknown) (no (unknown) (unknown) Vitals (units (unkno wn) date) unknown) (unknown) (no (unknown) (unknown) Weight 284 lb (units ( unknown) date) unknown) (unknown) (no (unknown) (unknown) [History Confirmed (units (unknown) date) 07/26/22] unknown) (unknown) (no (unknown) (unknown) [Rx Confirmed 07/26/22] ( units (unknown) date) unknown) (unknown) (no (unknown) (unknown) abdominal pain. She has ( units (unknown) date) diarrhea 3-4 days/week. She un known) does take immodium, which (unknown) (no (unknown) (unknown) acetaminophen 500 mg (uni ts (unknown) date) tablet (Tylenol Extra unknown) Strength) 2,000 mg PO BID 12/12/18 (unknown) (no (unknown) (unknown) albuterol sulfate 90 (uni ts (unknown) date) mcg/actuation aerosol unknown) inhaler See Rx Instructions .Route (unknown) (no (unknown) (unknown) alcohol intake: current ( units (unknown) date) unknown) (unknown) (no (unknown) (unknown) aripiprazole 30 mg tablet (units (unknown) date) 30 mg PO DAILY 30 days #30 unk nown) tabs 03/21/22 [Rx Confirmed (unknown) (no (unknown) (unknown) be due to diabetes, neck (units (unknown) date) pain. unknown) (unknown) (no (unknown) (unknown) caps 12/26/21 [Rx (units (unknown) date) Confirmed 07/26/22] unknown) (unknown) (no (unknown) (unknown) carisoprodol (units (u nknown) date) [CARISOPRODOL] Adverse unknown ) Reaction (Severe, Verified 07/26/22 14:44) (unknown) (no (unknown) (unknown) clobetasol 0.05 % topical (units (unknown) date) ointment 1 applic topical unkn own) BID #30 grams 05/30/22 [Rx (unknown) (no (unknown) (unknown) complications (units ( unknown) date) unknown) (unknown) (no (unknown) (unknown) cyclobenzaprine 10 mg (un its (unknown) date) tablet See Rx Instructions unk nown) .Route .COMPLEX #90 tabs (unknown) (no (unknown) (unknown) diazepam 5 mg tablet (uni ts (unknown) date) (Valium) 5 mg PO SEE unknown) INSTRUCTIONS for use prior to MRI #2 (unknown) (no (unknown) (unknown) doxepin 100 mg capsule 200 (units (unknown) date) mg PO BEDTIME #60 caps unknown ) 03/21/22 [Rx Confirmed (unknown) (no (unknown) (unknown) ea 06/27/22 [Rx Confirmed (units (unknown) date) 07/26/22] unknown) (unknown) (no (unknown) (unknown) eating out: 1-3 times/week (units (unknown) date) unknown) (unknown) (no (unknown) (unknown) ferrous sulfate 325 mg (65 (units (unknown) date) mg iron) tablet 325 mg PO unkn own) DAILY Anemia 03/28/21 (unknown) (no (unknown) (unknown) fluconazole 150 mg tablet (units (unknown) date) 150 mg PO Q3D 2 doses #2 unkno wn) tabs 05/22/22 [Rx Confirmed (unknown) (no (unknown) (unknown) fluticasone 100 (units (unknown) date) mcg-salmeterol 50 mcg/dose unk nown) blistr powdr for inhalation (Advair (unknown) (no (unknown) (unknown) fosphenytoin Adverse (uni ts (unknown) date) Reaction (Severe, Verified unk nown) 07/26/22 14:44) (unknown) (no (unknown) (unknown) furosemide 40 mg tablet ( units (unknown) date) See Rx Instructions .Route unk nown) .COMPLEX #135 tabs 07/03/22 (unknown) (no (unknown) (unknown) have occurred. If there ( units (unknown) date) are any questions, please unkn own) contact the Medical Records (unknown) (no (unknown) (unknown) helps. -- H pylori, A1C ( units (unknown) date) unknown) (unknown) (no (unknown) (unknown) house without the walker (units (unknown) date) but using the walker for unkno wn) longer distances. Bending (unknown) (no (unknown) (unknown) household members: spouse (units (unknown) date) unknown) (unknown) (no (unknown) (unknown) in PT. -- Neurology note (units (unknown) date) [place] unknown) (unknown) (no (unknown) (unknown) in the morning and (units (unknown) date) throughout the day, and unknow n) does have some GERD symptoms. Eating (unknown) (no (unknown) (unknown) ipratropium bromide 17 (u nits (unknown) date) mcg/actuation HFA aerosol unkn own) inhaler 1 puff inhalation Q8H (unknown) (no (unknown) (unknown) lancets 33 gauge (Easy (u nits (unknown) date) Touch Twist Lancets) #100 unkn own) ea 02/26/19 [Rx Confirmed (unknown) (no (unknown) (unknown) levalbuterol tartrate 45 (units (unknown) date) mcg/actuation aerosol unknown) inhaler 1 puff inhalation Q4-6H (unknown) (no (unknown) (unknown) levothyroxine 25 mcg (uni ts (unknown) date) tablet See Rx Instructions unk nown) .Route .COMPLEX #30 tabs (unknown) (no (unknown) (unknown) magnesium 250 mg tablet ( units (unknown) date) 500 mg PO DAILY 09/17/19 unkno wn) [History Confirmed 07/26/22] (unknown) (no (unknown) (unknown) may occur. Occasional (un its (unknown) date) wrong-word or 'sound-alike' un known) substitutions may have (unknown) (no (unknown) (unknown) meclizine 25 mg tablet 50 (units (unknown) date) mg PO DAILY PRN dizziness unkn own) or vertigo #60 tabs 05/30/22 (unknown) (no (unknown) (unknown) metformin 500 mg tablet ( units (unknown) date) 1,000 mg PO BID #120 tabs unkn own) 01/12/22 [Rx Confirmed (unknown) (no (unknown) (unknown) methylprednisolone 4 mg ( units (unknown) date) tablets in a dose pack unknown ) (Medrol (Abiodun)) 4 mg PO DAILY #21 (unknown) (no (unknown) (unknown) nicotine 21 mg/24 hr daily (units (unknown) date) transdermal patch 1 patch unkn own) transdermal Q24H #14 ea (unknown) (no (unknown) (unknown) norgestrel 0.3 mg-ethinyl (units (unknown) date) estradiol 30 mcg tablet 2 unkn own) tab PO DAILY #52 tabs (unknown) (no (unknown) (unknown) occurred due to the (unit s (unknown) date) inherent limitations of unknow n) voice recognition software. Please (unknown) (no (unknown) (unknown) omeprazole 20 mg (units (unknown) date) capsule,delayed release See un known) Rx Instructions .Route .COMPLEX #60 (unknown) (no (unknown) (unknown) ondansetron 8 mg (units (unknown) date) disintegrating tablet 8 mg unk nown) PO Q8H PRN nausea and vomiting #20 (unknown) (no (unknown) (unknown) over to feed the dogs or (units (unknown) date) clean the toilet still unknown ) feels dizzy and unbalanced. (unknown) (no (unknown) (unknown) pregabalin 300 mg capsule (units (unknown) date) 300 mg PO BID #180 caps unknow n) 04/12/22 [Rx Confirmed (unknown) (no (unknown) (unknown) read the note carefully ( units (unknown) date) and recognize, using unknown) context, where these substitutions (unknown) (no (unknown) (unknown) rivaroxaban 20 mg tablet (units (unknown) date) (Xarelto) See Rx unknown) Instructions .Route .COMPLEX #30 tabs (unknown) (no (unknown) (unknown) saltier foods doesn't seem (units (unknown) date) to help. Appetite has been unk nown) up for over a month. No (unknown) (no (unknown) (unknown) seen for migraines and (u nits (unknown) date) vertigo recently. Pt has a unk nown) lump below her rt ear. (unknown) (no (unknown) (unknown) she eats, she feels very (units (unknown) date) nauseous. She is not unknown) vomiting. She does want to gag (unknown) (no (unknown) (unknown) software. 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 (unknown) (no (unknown) (unknown) spironolactone 25 mg (uni ts (unknown) date) tablet 12.5 mg PO DAILY #30 un known) tabs 09/12/21 [Rx Confirmed (unknown) (no (unknown) (unknown) tabs 04/22/22 [Rx (units (unknown) date) Confirmed 07/26/22] unknown) (unknown) (no (unknown) (unknown) tabs 07/06/17 [Rx (units (unknown) date) Confirmed 07/26/22] unknown) (unknown) (no (unknown) (unknown) terazosin 2 mg capsule See (units (unknown) date) Rx Instructions .Route unknown ) .COMPLEX #30 caps 07/12/22 [Rx (unknown) (no (unknown) (unknown) urinary retention (units (unknown) date) unknown) Result panel 15 (unknown) (no (unknown) (unknown) (no value) (units (unk nown) date) unknown) (unknown) (no (unknown) (unknown) #12.9 grams 04/12/22 [Rx (units (unknown) date) Confirmed 07/26/22] unknown) (unknown) (no (unknown) (unknown) .COMPLEX #18 grams (units (unknown) date) 03/03/22 [Rx Confirmed unknown ) 07/26/22] (unknown) (no (unknown) (unknown) [id number] (units (unkn own) date) unknown) (unknown) (no (unknown) (unknown) 04/03/22 [Rx Confirmed (u nits (unknown) date) 07/26/22] unknown) (unknown) (no (unknown) (unknown) 04/13/22 [Rx Confirmed (u nits (unknown) date) 07/26/22] unknown) (unknown) (no (unknown) (unknown) 05/11/22 [Rx Confirmed (u nits (unknown) date) 07/26/22] unknown) (unknown) (no (unknown) (unknown) 05/22/22 [Rx Confirmed (u nits (unknown) date) 07/26/22] unknown) (unknown) (no (unknown) (unknown) 07/10/22 [Rx Confirmed (u nits (unknown) date) 07/26/22] unknown) (unknown) (no (unknown) (unknown) 07/26/22 (units (unkno wn) date) unknown) (unknown) (no (unknown) (unknown) 07/26/22] (units (unkn own) date) unknown) (unknown) (no (unknown) (unknown) 14:42 (units (unkno wn) date) unknown) (unknown) (no (unknown) (unknown) Accompanied by: ( units (unknown) date) unknown) (unknown) (no (unknown) (unknown) Acetaminophen overdose of (units (unknown) date) undetermined intent unknown) (03/2016) (unknown) (no (unknown) (unknown) Age/Sex: 41 / F Date of ( units (unknown) date) Service: unknown) (unknown) (no (unknown) (unknown) Alcoholism (units (unk nown) date) unknown) (unknown) (no (unknown) (unknown) Allergies (units (unkn own) date) unknown) (unknown) (no (unknown) (unknown) Amputation of fifth toe of (units (unknown) date) right foot unknown) (unknown) (no (unknown) (unknown) [facility] (units (unknown) date) unknown) (unknown) (no (unknown) (unknown) [place] [id number] (unit s (unknown) date) unknown) (unknown) (no (unknown) (unknown) Assessment + Plan (units (unknown) date) unknown) (unknown) (no (unknown) (unknown) Asthma (units (unkno wn) date) unknown) (unknown) (no (unknown) (unknown) Attending Dr: Lilo (un its (unknown) date) Kay AHUMADA unknown) (unknown) (no (unknown) (unknown) BP 160/90 H (units (un known) date) unknown) (unknown) (no (unknown) (unknown) Blood Pressure Location Rt (units (unknown) date) brachial unknown) (unknown) (no (unknown) (unknown) Compressioin Stockings #1 (units (unknown) date) ea 01/01/20 [Rx Confirmed unkn own) 07/26/22] (unknown) (no (unknown) (unknown) Confirmed 07/26/22] (unit s (unknown) date) unknown) (unknown) (no (unknown) (unknown) Cubital tunnel syndrome ( units (unknown) date) unknown) (unknown) (no (unknown) (unknown) DM type 2 (diabetes (unit s (unknown) date) mellitus, type 2) unknown) (unknown) (no (unknown) (unknown) : 1980 (units (unknown) date) Acct:[id number] unknown) (unknown) (no (unknown) (unknown) DVT (deep venous (units (unknown) date) thrombosis) unknown) (unknown) (no (unknown) (unknown) Dept at . (u nits (unknown) date) unknown) (unknown) (no (unknown) (unknown) Diet and Exercise (units (unknown) date) unknown) (unknown) (no (unknown) (unknown) Diskus) 1 puff inhalation (units (unknown) date) BID 09/29/19 [History unknown) Confirmed 07/26/22] (unknown) (no (unknown) (unknown) Documented By: (units (unknown) date) Lilo Villanueva MD 07/26/22 unk nown) 1440 (unknown) (no (unknown) (unknown) Draft (units (unkno wn) date) unknown) (unknown) (no (unknown) (unknown) Essential hypertension (u nits (unknown) date) unknown) (unknown) (no (unknown) (unknown) Family History (Reviewed (units (unknown) date) 07/25/22 @ 14:36 by Ry un known) VANESSA Aldana) (unknown) (no (unknown) (unknown) Family Practice Office (u nits (unknown) date) Visit unknown) (unknown) (no (unknown) (unknown) Family/Other Pancreatic ( units (unknown) date) cancer unknown) (unknown) (no (unknown) (unknown) Fibromyalgia (05/21/15) ( units (unknown) date) unknown) (unknown) (no (unknown) (unknown) Grandfather Diabetes (uni ts (unknown) date) mellitus unknown) (unknown) (no (unknown) (unknown) H pylori Breath Test 1 (u nits (unknown) date) Month R63.2 - Polyphagia unkno wn) (unknown) (no (unknown) (unknown) Health Management reviewed (units (unknown) date) with patient: Yes unknown) (unknown) (no (unknown) (unknown) Health Management (units (unknown) date) unknown) (unknown) (no (unknown) (unknown) Hemoglobin A1C% w Est Avg (units (unknown) date) Glu 1 Month E11.9 - Type 2 unk nown) diabetes mellitus without (unknown) (no (unknown) (unknown) History of carpal tunnel (units (unknown) date) repair (-01/18/15) unknown) (unknown) (no (unknown) (unknown) History of colonoscopy (u nits (unknown) date) unknown) (unknown) (no (unknown) (unknown) History of (units (unk nown) date) esophagogastroduodenoscopy unk nown) (EGD) (unknown) (no (unknown) (unknown) History of laminectomy (u nits (unknown) date) () unknown) (unknown) (no (unknown) (unknown) History of laminectomy (u nits (unknown) date) unknown) (unknown) (no (unknown) (unknown) History of lumbar spinal (units (unknown) date) fusion (03/12/19) unknown) (unknown) (no (unknown) (unknown) Hx of toe surgery (units (unknown) date) (08/04/20) unknown) (unknown) (no (unknown) (unknown) Hypoxia (units (unkno wn) date) unknown) (unknown) (no (unknown) (unknown) INitially with pain under (units (unknown) date) her ear. casing fluid tender. ? unkno wn) parotid vs lymph (unknown) (no (unknown) (unknown) Intake Note: (units (u nknown) date) unknown) (unknown) (no (unknown) (unknown) Intake (units (unkno wn) date) unknown) (unknown) (no (unknown) (unknown) Intraoperative cardiac (u nits (unknown) date) arrest during non-cardiac unkn own) surgery (02/2014) (unknown) (no (unknown) (unknown) Last Menstural Cycle + (u nits (unknown) date) Details unknown) (unknown) (no (unknown) (unknown) Latex, Natural Rubber (un its (unknown) date) Adverse Reaction (Mild, unknow n) Verified 07/26/22 14:44) (unknown) (no (unknown) (unknown) [facility] Blood Glucose Test (units (unknown) date) Strips #180 ea 10/29/20 [Rx un known) Confirmed 07/26/22] (unknown) (no (unknown) (unknown) Loc: [facility] (units (unkno wn) date) unknown) (unknown) (no (unknown) (unknown) Lumbar spine pain (units (unknown) date) unknown) (unknown) (no (unknown) (unknown) Meclizine does help a (un its (unknown) date) little, but wishes it would un known) help. 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 ) () (unknown) (no (unknown) (unknown) Medications (units (un known) date) unknown) (unknown) (no (unknown) (unknown) Morbid obesity (units (unknown) date) unknown) (unknown) (no (unknown) (unknown) Narcotic habituation, (un its (unknown) date) continuous unknown) (unknown) (no (unknown) (unknown) Nocturnal hypoxemia (unit s (unknown) date) unknown) (unknown) (no (unknown) (unknown) Note (units (unkno wn) date) unknown) (unknown) (no (unknown) (unknown) Note: (units (unkno wn) date) unknown) (unknown) (no (unknown) (unknown) Notes (units (unkno wn) date) unknown) (unknown) (no (unknown) (unknown) DERREK (obstructive sleep (u nits (unknown) date) apnea) unknown) (unknown) (no (unknown) (unknown) Obstipation (units (un known) date) unknown) (unknown) (no (unknown) (unknown) Orders (units (unkno wn) date) unknown) (unknown) (no (unknown) (unknown) Orders: (units (unkno wn) date) unknown) (unknown) (no (unknown) (unknown) Other Menstrual Period: ( units (unknown) date) Uncertain (irregular ) unknown ) (unknown) (no (unknown) (unknown) Ovarian cyst (units (u nknown) date) unknown) (unknown) (no (unknown) (unknown) Oxygen Delivery Method (u nits (unknown) date) room air unknown) (unknown) (no (unknown) (unknown) PFSH (units (unkno wn) date) unknown) (unknown) (no (unknown) (unknown) PRN shortness of breath or (units (unknown) date) wheezing #15 grams 04/12/22 un known) [Rx Confirmed 07/26/22] (unknown) (no (unknown) (unknown) Patient: LanieSandy Beatriz (units (unknown) date) MR#: M unknown) (unknown) (no (unknown) (unknown) Plantar fasciitis (units (unknown) date) unknown) (unknown) (no (unknown) (unknown) Position Sitting (units (unknown) date) unknown) (unknown) (no (unknown) (unknown) Psychogenic nonepileptic (units (unknown) date) seizure unknown) (unknown) (no (unknown) (unknown) Pt arrives to talk about a (units (unknown) date) few things. She was in the k nown) [facility] yesterday. Pt has been (unknown) (no (unknown) (unknown) Pt saw Neurology - did not (units (unknown) date) feel vertigo was due to unknow n) migraines. He thought could (unknown) (no (unknown) (unknown) Pt with a lump under her (units (unknown) date) right ear lobe. Has been unkno wn) there around 4 days. (unknown) (no (unknown) (unknown) Pulmonary embolism (units (unknown) date) unknown) (unknown) (no (unknown) (unknown) Pulse 125 H (units (un known) date) unknown) (unknown) (no (unknown) (unknown) Pulse Oximetry (%) 99 (un its (unknown) date) unknown) (unknown) (no (unknown) (unknown) Pulse Source Monitor (uni ts (unknown) date) unknown) (unknown) (no (unknown) (unknown) RBBB (right bundle branch (units (unknown) date) block) unknown) (unknown) (no (unknown) (unknown) Rash (units (unkno wn) date) unknown) (unknown) (no (unknown) (unknown) Reason For Visit (units (unknown) date) unknown) (unknown) (no (unknown) (unknown) S/P epidural steroid (uni ts (unknown) date) injection (02/2014) unknown) (unknown) (no (unknown) (unknown) Seizures (units (unkno wn) date) unknown) (unknown) (no (unknown) (unknown) Signed By: (units (unk nown) date) unknown) (unknown) (no (unknown) (unknown) Sinus tachycardia (units (unknown) date) unknown) (unknown) (no (unknown) (unknown) Smoking Status: Current ( units (unknown) date) some day smoker unknown) (unknown) (no (unknown) (unknown) Social History (units (unknown) date) unknown) (unknown) (no (unknown) (unknown) Status post dilation and (units (unknown) date) curettage (2008) unknown) (unknown) (no (unknown) (unknown) Status post laminectomy ( units (unknown) date) (03/03/16) unknown) (unknown) (no (unknown) (unknown) Suicide attempt (units (unknown) date) unknown) (unknown) (no (unknown) (unknown) Surgical History (Reviewed (units (unknown) date) 07/25/22 @ 14:36 by Ry un known) VANESSA Aldana) (unknown) (no (unknown) (unknown) TENS units #1 ea 04/30/19 (units (unknown) date) [Rx Confirmed 07/26/22] unknow n) (unknown) (no (unknown) (unknown) The pt has been hungry all (units (unknown) date) the time. She is wanting to un known) eat every 2 hours. When (unknown) (no (unknown) (unknown) The pt quit smoking 3 (un its (unknown) date) months ago. unknown) (unknown) (no (unknown) (unknown) The pt reports that her ( units (unknown) date) dizziness is minimally unknown ) improved - walking around the (unknown) (no (unknown) (unknown) This note may have been ( units (unknown) date) all or partially generated unk nown) using voice recognition (unknown) (no (unknown) (unknown) Tobacco + Substance Use ( units (unknown) date) unknown) (unknown) (no (unknown) (unknown) Tobacco Status (units (unknown) date) unknown) (unknown) (no (unknown) (unknown) Tobacco abuse (units ( unknown) date) unknown) (unknown) (no (unknown) (unknown) Tylenol overdose (units (unknown) date) unknown) (unknown) (no (unknown) (unknown) Type(s) of exercise: (uni ts (unknown) date) normal ROM and activity and un known) sedentary lifestyle (unknown) (no (unknown) (unknown) Ultrasound (units (unk nown) date) unknown) (unknown) (no (unknown) (unknown) Urinary retention (units (unknown) date) unknown) (unknown) (no (unknown) (unknown) Visit Reasons: Migraines, (units (unknown) date) vertigo, lump below rt ear unk nown) (unknown) (no (unknown) (unknown) Vitals (units (unkno wn) date) unknown) (unknown) (no (unknown) (unknown) Weight 284 lb (units ( unknown) date) unknown) (unknown) (no (unknown) (unknown) [History Confirmed (units (unknown) date) 07/26/22] unknown) (unknown) (no (unknown) (unknown) [Rx Confirmed 07/26/22] ( units (unknown) date) unknown) (unknown) (no (unknown) (unknown) abdominal pain. She has ( units (unknown) date) diarrhea 3-4 days/week. She un known) does take immodium, which (unknown) (no (unknown) (unknown) acetaminophen 500 mg (uni ts (unknown) date) tablet (Tylenol Extra unknown) Strength) 2,000 mg PO BID 12/12/18 (unknown) (no (unknown) (unknown) albuterol sulfate 90 (uni ts (unknown) date) mcg/actuation aerosol unknown) inhaler See Rx Instructions .Route (unknown) (no (unknown) (unknown) alcohol intake: current ( units (unknown) date) unknown) (unknown) (no (unknown) (unknown) aripiprazole 30 mg tablet (units (unknown) date) 30 mg PO DAILY 30 days #30 unk nown) tabs 03/21/22 [Rx Confirmed (unknown) (no (unknown) (unknown) be due to diabetes, neck (units (unknown) date) pain. unknown) (unknown) (no (unknown) (unknown) caps 12/26/21 [Rx (units (unknown) date) Confirmed 07/26/22] unknown) (unknown) (no (unknown) (unknown) carisoprodol (units (u nknown) date) [CARISOPRODOL] Adverse unknown ) Reaction (Severe, Verified 07/26/22 14:44) (unknown) (no (unknown) (unknown) clobetasol 0.05 % topical (units (unknown) date) ointment 1 applic topical unkn own) BID #30 grams 05/30/22 [Rx (unknown) (no (unknown) (unknown) complications (units ( unknown) date) unknown) (unknown) (no (unknown) (unknown) cyclobenzaprine 10 mg (un its (unknown) date) tablet See Rx Instructions unk nown) .Route .COMPLEX #90 tabs (unknown) (no (unknown) (unknown) diazepam 5 mg tablet (uni ts (unknown) date) (Valium) 5 mg PO SEE unknown) INSTRUCTIONS for use prior to MRI #2 (unknown) (no (unknown) (unknown) doxepin 100 mg capsule 200 (units (unknown) date) mg PO BEDTIME #60 caps unknown ) 03/21/22 [Rx Confirmed (unknown) (no (unknown) (unknown) ea 06/27/22 [Rx Confirmed (units (unknown) date) 07/26/22] unknown) (unknown) (no (unknown) (unknown) eating out: 1-3 times/week (units (unknown) date) unknown) (unknown) (no (unknown) (unknown) ferrous sulfate 325 mg (65 (units (unknown) date) mg iron) tablet 325 mg PO unkn own) DAILY Anemia 03/28/21 (unknown) (no (unknown) (unknown) fluconazole 150 mg tablet (units (unknown) date) 150 mg PO Q3D 2 doses #2 unkno wn) tabs 05/22/22 [Rx Confirmed (unknown) (no (unknown) (unknown) fluticasone 100 (units (unknown) date) mcg-salmeterol 50 mcg/dose unk nown) blistr powdr for inhalation (Advair (unknown) (no (unknown) (unknown) fosphenytoin Adverse (uni ts (unknown) date) Reaction (Severe, Verified unk nown) 07/26/22 14:44) (unknown) (no (unknown) (unknown) furosemide 40 mg tablet ( units (unknown) date) See Rx Instructions .Route unk nown) .COMPLEX #135 tabs 07/03/22 (unknown) (no (unknown) (unknown) have occurred. If there ( units (unknown) date) are any questions, please unkn own) contact the Medical Records (unknown) (no (unknown) (unknown) helps. -- H pylori, A1C ( units (unknown) date) unknown) (unknown) (no (unknown) (unknown) house without the walker (units (unknown) date) but using the walker for unkno wn) longer distances. Bending (unknown) (no (unknown) (unknown) household members: spouse (units (unknown) date) unknown) (unknown) (no (unknown) (unknown) in PT. -- Neurology note (units (unknown) date) [place] unknown) (unknown) (no (unknown) (unknown) in the morning and (units (unknown) date) throughout the day, and unknow n) does have some GERD symptoms. Eating (unknown) (no (unknown) (unknown) ipratropium bromide 17 (u nits (unknown) date) mcg/actuation HFA aerosol unkn own) inhaler 1 puff inhalation Q8H (unknown) (no (unknown) (unknown) lancets 33 gauge (Easy (u nits (unknown) date) Touch Twist Lancets) #100 unkn own) ea 07/17/19 [Rx Confirmed (unknown) (no (unknown) (unknown) levalbuterol tartrate 45 (units (unknown) date) mcg/actuation aerosol unknown) inhaler 1 puff inhalation Q4-6H (unknown) (no (unknown) (unknown) levothyroxine 25 mcg (uni ts (unknown) date) tablet See Rx Instructions unk nown) .Route .COMPLEX #30 tabs (unknown) (no (unknown) (unknown) magnesium 250 mg tablet ( units (unknown) date) 500 mg PO DAILY 09/17/19 unkno wn) [History Confirmed 07/26/22] (unknown) (no (unknown) (unknown) may occur. Occasional (un its (unknown) date) wrong-word or 'sound-alike' un known) substitutions may have (unknown) (no (unknown) (unknown) meclizine 25 mg tablet 50 (units (unknown) date) mg PO DAILY PRN dizziness unkn own) or vertigo #60 tabs 05/30/22 (unknown) (no (unknown) (unknown) metformin 500 mg tablet ( units (unknown) date) 1,000 mg PO BID #120 tabs unkn own) 01/12/22 [Rx Confirmed (unknown) (no (unknown) (unknown) methylprednisolone 4 mg ( units (unknown) date) tablets in a dose pack unknown ) (Medrol (Abiodun)) 4 mg PO DAILY #21 (unknown) (no (unknown) (unknown) nicotine 21 mg/24 hr daily (units (unknown) date) transdermal patch 1 patch unkn own) transdermal Q24H #14 ea (unknown) (no (unknown) (unknown) norgestrel 0.3 mg-ethinyl (units (unknown) date) estradiol 30 mcg tablet 2 unkn own) tab PO DAILY #52 tabs (unknown) (no (unknown) (unknown) occurred due to the (unit s (unknown) date) inherent limitations of unknow n) voice recognition software. Please (unknown) (no (unknown) (unknown) omeprazole 20 mg (units (unknown) date) capsule,delayed release See un known) Rx Instructions .Route .COMPLEX #60 (unknown) (no (unknown) (unknown) ondansetron 8 mg (units (unknown) date) disintegrating tablet 8 mg unk nown) PO Q8H PRN nausea and vomiting #20 (unknown) (no (unknown) (unknown) over to feed the dogs or (units (unknown) date) clean the toilet still unknown ) feels dizzy and unbalanced. (unknown) (no (unknown) (unknown) pregabalin 300 mg capsule (units (unknown) date) 300 mg PO BID #180 caps unknow n) 04/12/22 [Rx Confirmed (unknown) (no (unknown) (unknown) read the note carefully ( units (unknown) date) and recognize, using unknown) context, where these substitutions (unknown) (no (unknown) (unknown) rivaroxaban 20 mg tablet (units (unknown) date) (Xarelto) See Rx unknown) Instructions .Route .COMPLEX #30 tabs (unknown) (no (unknown) (unknown) saltier foods doesn't seem (units (unknown) date) to help. Appetite has been unk nown) up for over a month. No (unknown) (no (unknown) (unknown) seen for migraines and (u nits (unknown) date) vertigo recently. Pt has a unk nown) lump below her rt ear. (unknown) (no (unknown) (unknown) she eats, she feels very (units (unknown) date) nauseous. She is not unknown) vomiting. She does want to gag (unknown) (no (unknown) (unknown) software. 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 (unknown) (no (unknown) (unknown) spironolactone 25 mg (uni ts (unknown) date) tablet 12.5 mg PO DAILY #30 un known) tabs 09/12/21 [Rx Confirmed (unknown) (no (unknown) (unknown) tabs 04/22/22 [Rx (units (unknown) date) Confirmed 07/26/22] unknown) (unknown) (no (unknown) (unknown) tabs 07/06/17 [Rx (units (unknown) date) Confirmed 07/26/22] unknown) (unknown) (no (unknown) (unknown) terazosin 2 mg capsule See (units (unknown) date) Rx Instructions .Route unknown ) .COMPLEX #30 caps 07/12/22 [Rx (unknown) (no (unknown) (unknown) urinary retention (units (unknown) date) unknown) Result panel 16 (unknown) (no (unknown) (unknown) (no value) (units (unk nown) date) unknown) (unknown) (no (unknown) (unknown) #12.9 grams 04/12/22 [Rx (units (unknown) date) Confirmed 07/26/22] unknown) (unknown) (no (unknown) (unknown) (1) Dizziness: (units (unknown) date) unknown) (unknown) (no (unknown) (unknown) (2) Lymphadenopathy: (uni ts (unknown) date) unknown) (unknown) (no (unknown) (unknown) -Patient with tender lump (units (unknown) date) below her right earlobe unknow n) most consistent with enlarged (unknown) (no (unknown) (unknown) -Still unclear etiology. (units (unknown) date) Records requested from unknown ) , who she saw for (unknown) (no (unknown) (unknown) .COMPLEX #18 grams (units (unknown) date) 03/03/22 [Rx Confirmed unknown ) 07/26/22] (unknown) (no (unknown) (unknown) [id number] (units (unkn own) date) unknown) (unknown) (no (unknown) (unknown) 04/03/22 [Rx Confirmed (u nits (unknown) date) 07/26/22] unknown) (unknown) (no (unknown) (unknown) 04/13/22 [Rx Confirmed (u nits (unknown) date) 07/26/22] unknown) (unknown) (no (unknown) (unknown) 05/11/22 [Rx Confirmed (u nits (unknown) date) 07/26/22] unknown) (unknown) (no (unknown) (unknown) 05/22/22 [Rx Confirmed (u nits (unknown) date) 07/26/22] unknown) (unknown) (no (unknown) (unknown) 07/10/22 [Rx Confirmed (u nits (unknown) date) 07/26/22] unknown) (unknown) (no (unknown) (unknown) 07/26/22 (units (unkno wn) date) unknown) (unknown) (no (unknown) (unknown) 07/26/22] (units (unkn own) date) unknown) (unknown) (no (unknown) (unknown) 14:42 (units (unkno wn) date) unknown) (unknown) (no (unknown) (unknown) Accompanied by: ( units (unknown) date) unknown) (unknown) (no (unknown) (unknown) Acetaminophen overdose of (units (unknown) date) undetermined intent unknown) (03/2016) (unknown) (no (unknown) (unknown) Age/Sex: 41 / F Date of ( units (unknown) date) Service: unknown) (unknown) (no (unknown) (unknown) Alcoholism (units (unk nown) date) unknown) (unknown) (no (unknown) (unknown) Allergies (units (unkn own) date) unknown) (unknown) (no (unknown) (unknown) Amputation of fifth toe of (units (unknown) date) right foot unknown) (unknown) (no (unknown) (unknown) [facility] (units (unknown) date) unknown) (unknown) (no (unknown) (unknown) [place] [address] (unit s (unknown) date) unknown) (unknown) (no (unknown) (unknown) Assessment + Plan (units (unknown) date) unknown) (unknown) (no (unknown) (unknown) Assessment and Plan: (uni ts (unknown) date) unknown) (unknown) (no (unknown) (unknown) Asthma (units (unkno wn) date) unknown) (unknown) (no (unknown) (unknown) Attending Dr: Lilo (un its (unknown) date) Kay AHUMADA unknown) (unknown) (no (unknown) (unknown) BP 160/90 H (units (un known) date) unknown) (unknown) (no (unknown) (unknown) Blood Pressure Location Rt (units (unknown) date) brachial unknown) (unknown) (no (unknown) (unknown) CV: Regular rate and (uni ts (unknown) date) rhythm. No murmurs. unknown) (unknown) (no (unknown) (unknown) Chief Complaint (units (unknown) date) unknown) (unknown) (no (unknown) (unknown) Chief Complaint: Multiple (units (unknown) date) issues. unknown) (unknown) (no (unknown) (unknown) Compressioin Stockings #1 (units (unknown) date) ea 01/01/20 [Rx Confirmed unkn own) 07/26/22] (unknown) (no (unknown) (unknown) Confirmed 07/26/22] (unit s (unknown) date) unknown) (unknown) (no (unknown) (unknown) Cubital tunnel syndrome ( units (unknown) date) unknown) (unknown) (no (unknown) (unknown) DM type 2 (diabetes (unit s (unknown) date) mellitus, type 2) unknown) (unknown) (no (unknown) (unknown) : 1980 (units (unknown) date) Acct:[id number] unknown) (unknown) (no (unknown) (unknown) DVT (deep venous (units (unknown) date) thrombosis) unknown) (unknown) (no (unknown) (unknown) Dept at . (u nits (unknown) date) unknown) (unknown) (no (unknown) (unknown) Details: (units (unkno wn) date) unknown) (unknown) (no (unknown) (unknown) Diet and Exercise (units (unknown) date) unknown) (unknown) (no (unknown) (unknown) Diskus) 1 puff inhalation (units (unknown) date) BID 09/29/19 [History unknown) Confirmed 07/26/22] (unknown) (no (unknown) (unknown) Documented By: (units (unknown) date) Lilo Villanueva MD 07/26/22 unk valerie) [id number] (unknown) (no (unknown) (unknown) Draft (units (unkno wn) date) unknown) (unknown) (no (unknown) (unknown) Essential hypertension (u nits (unknown) date) unknown) (unknown) (no (unknown) (unknown) Exam Narrative (units (unknown) date) unknown) (unknown) (no (unknown) (unknown) Exam Narrative: (units (unknown) date) unknown) (unknown) (no (unknown) (unknown) Exam (units (unkno wn) date) unknown) (unknown) (no (unknown) (unknown) Extremities: No edema. (u nits (unknown) date) unknown) (unknown) (no (unknown) (unknown) Family History (Reviewed (units (unknown) date) 07/25/22 @ 14:36 by Ry un known) VANESSA Aldana) (unknown) (no (unknown) (unknown) Family Practice Office (u nits (unknown) date) Visit unknown) (unknown) (no (unknown) (unknown) Family/Other Pancreatic ( units (unknown) date) cancer unknown) (unknown) (no (unknown) (unknown) Fibromyalgia (05/21/15) ( units (unknown) date) unknown) (unknown) (no (unknown) (unknown) General: No acute (units (unknown) date) distress, sitting unknown) comfortably in chair, appears well. (unknown) (no (unknown) (unknown) Grandfather Diabetes (uni ts (unknown) date) mellitus unknown) (unknown) (no (unknown) (unknown) H pylori Breath Test 1 (u nits (unknown) date) Month R63.2 - Polyphagia unkno wn) (unknown) (no (unknown) (unknown) HEENT:?TMs?clear (units (unknown) date) bilaterally. OB pink unknown) without erythema. Right submandibular area (unknown) (no (unknown) (unknown) HPI (units (unkno wn) date) unknown) (unknown) (no (unknown) (unknown) Health Management reviewed (units (unknown) date) with patient: Yes unknown) (unknown) (no (unknown) (unknown) Health Management (units (unknown) date) unknown) (unknown) (no (unknown) (unknown) Hemoglobin A1C% w Est Avg (units (unknown) date) Glu 1 Month E11.9 - Type 2 unk nown) diabetes mellitus without (unknown) (no (unknown) (unknown) History of carpal tunnel (units (unknown) date) repair (-01/18/15) unknown) (unknown) (no (unknown) (unknown) History of colonoscopy (u nits (unknown) date) unknown) (unknown) (no (unknown) (unknown) History of (units (unk nown) date) esophagogastroduodenoscopy unk nown) (EGD) (unknown) (no (unknown) (unknown) History of laminectomy (u nits (unknown) date) () unknown) (unknown) (no (unknown) (unknown) History of laminectomy (u nits (unknown) date) unknown) (unknown) (no (unknown) (unknown) History of lumbar spinal (units (unknown) date) fusion (03/12/19) unknown) (unknown) (no (unknown) (unknown) Hx of toe surgery (units (unknown) date) (08/04/20) unknown) (unknown) (no (unknown) (unknown) Hypoxia (units (unkno wn) date) unknown) (unknown) (no (unknown) (unknown) INitially with pain under (units (unknown) date) her ear. casing fluid tender. ? unkno wn) parotid vs lymph (unknown) (no (unknown) (unknown) Imodium which does help (u nits (unknown) date) with that. She denies any unkn own) abdominal pain. She denies any (unknown) (no (unknown) (unknown) Intake Note: (units (u nknown) date) unknown) (unknown) (no (unknown) (unknown) Intake (units (unkno wn) date) unknown) (unknown) (no (unknown) (unknown) Intraoperative cardiac (u nits (unknown) date) arrest during non-cardiac unkn own) surgery (02/2014) (unknown) (no (unknown) (unknown) Last Menstural Cycle + (u nits (unknown) date) Details unknown) (unknown) (no (unknown) (unknown) Latex, Natural Rubber (un its (unknown) date) Adverse Reaction (Mild, unknow n) Verified 07/26/22 14:44) (unknown) (no (unknown) (unknown) [facility] Blood Glucose Test (units (unknown) date) Strips #180 ea 10/29/20 [Rx un known) Confirmed 07/26/22] (unknown) (no (unknown) (unknown) Loc: [facility] (units (unkno wn) date) unknown) (unknown) (no (unknown) (unknown) Lumbar spine pain (units (unknown) date) unknown) (unknown) (no (unknown) (unknown) Meclizine does help a (un its (unknown) date) little, but wishes it would un known) help. 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 Patient has already (unknown) (no (unknown) (unknown) Nocturnal hypoxemia (unit s (unknown) date) unknown) (unknown) (no (unknown) (unknown) Note (units (unkno wn) date) unknown) (unknown) (no (unknown) (unknown) Note: (units (unkno wn) date) unknown) (unknown) (no (unknown) (unknown) Notes (units (unkno wn) date) unknown) (unknown) (no (unknown) (unknown) DERREK (obstructive sleep (u nits (unknown) date) apnea) unknown) (unknown) (no (unknown) (unknown) Obstipation (units (un known) date) unknown) (unknown) (no (unknown) (unknown) Orders (units (unkno wn) date) unknown) (unknown) (no (unknown) (unknown) Orders: (units (unkno wn) date) unknown) (unknown) (no (unknown) (unknown) Other Menstrual Period: ( units (unknown) date) Uncertain (irregular ) unknown ) (unknown) (no (unknown) (unknown) Ovarian cyst (units (u nknown) date) unknown) (unknown) (no (unknown) (unknown) Oxygen Delivery Method (u nits (unknown) date) room air unknown) (unknown) (no (unknown) (unknown) PFSH (units (unkno wn) date) unknown) (unknown) (no (unknown) (unknown) PRN shortness of breath or (units (unknown) date) wheezing #15 grams 04/12/22 un known) [Rx Confirmed 07/26/22] (unknown) (no (unknown) (unknown) Patient reports that she (units (unknown) date) has been hungry all the unknow n) time. She is wanting to eat (unknown) (no (unknown) (unknown) Patient: Sandy Dorman (units (unknown) date) MR#: M unknown) (unknown) (no (unknown) (unknown) Plantar fasciitis (units (unknown) date) unknown) (unknown) (no (unknown) (unknown) Position Sitting (units (unknown) date) unknown) (unknown) (no (unknown) (unknown) Psychogenic nonepileptic (units (unknown) date) seizure unknown) (unknown) (no (unknown) (unknown) Pt arrives to talk about a (units (unknown) date) few things. She was in the k nown) [facility] yesterday. Pt has been (unknown) (no (unknown) (unknown) Pt saw Neurology - did not (units (unknown) date) feel vertigo was due to unknow n) migraines. He thought could (unknown) (no (unknown) (unknown) Pt with a lump under her (units (unknown) date) right ear lobe. Has been unkno wn) there around 4 days. (unknown) (no (unknown) (unknown) Pulmonary embolism (units (unknown) date) unknown) (unknown) (no (unknown) (unknown) Pulse 125 H (units (un known) date) unknown) (unknown) (no (unknown) (unknown) Pulse Oximetry (%) 99 (un its (unknown) date) unknown) (unknown) (no (unknown) (unknown) Pulse Source Monitor (uni ts (unknown) date) unknown) (unknown) (no (unknown) (unknown) RBBB (right bundle branch (units (unknown) date) block) unknown) (unknown) (no (unknown) (unknown) Rash (units (unkno wn) date) unknown) (unknown) (no (unknown) (unknown) Reason For Visit (units (unknown) date) unknown) (unknown) (no (unknown) (unknown) Respiratory: Clear to (un its (unknown) date) auscultation bilaterally. unkn own) (unknown) (no (unknown) (unknown) S/P epidural steroid (uni ts (unknown) date) injection (02/2014) unknown) (unknown) (no (unknown) (unknown) Seizures (units (unkno wn) date) unknown) (unknown) (no (unknown) (unknown) Signed By: (units (unk nown) date) unknown) (unknown) (no (unknown) (unknown) Sinus tachycardia (units (unknown) date) unknown) (unknown) (no (unknown) (unknown) Smoking Status: Current ( units (unknown) date) some day smoker unknown) (unknown) (no (unknown) (unknown) Social History (units (unknown) date) unknown) (unknown) (no (unknown) (unknown) Status post dilation and (units (unknown) date) curettage (2008) unknown) (unknown) (no (unknown) (unknown) Status post laminectomy ( units (unknown) date) (03/03/16) unknown) (unknown) (no (unknown) (unknown) Suicide attempt (units (unknown) date) unknown) (unknown) (no (unknown) (unknown) Surgical History (Reviewed (units (unknown) date) 07/25/22 @ 14:36 by Ry un known) VANESSA Aldana) (unknown) (no (unknown) (unknown) TENS units #1 ea 04/30/19 (units (unknown) date) [Rx Confirmed 07/26/22] unknow n) (unknown) (no (unknown) (unknown) The patient has a lump (u nits (unknown) date) under her right earlobe unknow n) that has been there for about 4 (unknown) (no (unknown) (unknown) The patient is here due to (units (unknown) date) multiple issues. She unknown) reports that she saw Neurology (unknown) (no (unknown) (unknown) The patient quit smoking 3 (units (unknown) date) months ago, which she is unkno wn) very happy about. She feels (unknown) (no (unknown) (unknown) The pt has been hungry all (units (unknown) date) the time. She is wanting to un known) eat every 2 hours. When (unknown) (no (unknown) (unknown) The pt quit smoking 3 (un its (unknown) date) months ago. unknown) (unknown) (no (unknown) (unknown) The pt reports that her ( units (unknown) date) dizziness is minimally unknown ) improved - walking around the (unknown) (no (unknown) (unknown) This note may have been ( units (unknown) date) all or partially generated unk nown) using voice recognition (unknown) (no (unknown) (unknown) Tobacco + Substance Use ( units (unknown) date) unknown) (unknown) (no (unknown) (unknown) Tobacco Status (units (unknown) date) unknown) (unknown) (no (unknown) (unknown) Tobacco abuse (units ( unknown) date) unknown) (unknown) (no (unknown) (unknown) Tylenol overdose (units (unknown) date) unknown) (unknown) (no (unknown) (unknown) Type(s) of exercise: (uni ts (unknown) date) normal ROM and activity and un known) sedentary lifestyle (unknown) (no (unknown) (unknown) Ultrasound (units (unk nown) date) unknown) (unknown) (no (unknown) (unknown) Urinary retention (units (unknown) date) unknown) (unknown) (no (unknown) (unknown) Visit Reasons: Migraines, (units (unknown) date) vertigo, lump below rt ear unk nown) (unknown) (no (unknown) (unknown) Vitals (units (unkno wn) date) unknown) (unknown) (no (unknown) (unknown) Weight 284 lb (units ( unknown) date) unknown) (unknown) (no (unknown) (unknown) [History Confirmed (units (unknown) date) 07/26/22] unknown) (unknown) (no (unknown) (unknown) [Rx Confirmed 07/26/22] ( units (unknown) date) unknown) (unknown) (no (unknown) (unknown) abdominal pain. She has ( units (unknown) date) diarrhea 3-4 days/week. She un known) does take immodium, which (unknown) (no (unknown) (unknown) acetaminophen 500 mg (uni ts (unknown) date) tablet (Tylenol Extra unknown) Strength) 2,000 mg PO BID 12/12/18 (unknown) (no (unknown) (unknown) addition to endoscopy, but (units (unknown) date) we will start with initial unk nown) testing. (unknown) (no (unknown) (unknown) albuterol sulfate 90 (uni ts (unknown) date) mcg/actuation aerosol unknown) inhaler See Rx Instructions .Route (unknown) (no (unknown) (unknown) alcohol intake: current ( units (unknown) date) unknown) (unknown) (no (unknown) (unknown) and nausea. Patient's (un its (unknown) date) appetite has been increased un known) significantly recently; (unknown) (no (unknown) (unknown) and they did not feel her (units (unknown) date) vertigo was due to unknown) migraines. He thought it could be (unknown) (no (unknown) (unknown) aripiprazole 30 mg tablet (units (unknown) date) 30 mg PO DAILY 30 days #30 unk nown) tabs 03/21/22 [Rx Confirmed (unknown) (no (unknown) (unknown) be due to diabetes, neck (units (unknown) date) pain. unknown) (unknown) (no (unknown) (unknown) been seen by ENT as well. (units (unknown) date) We will obtain A1c to unknown) evaluate for potential (unknown) (no (unknown) (unknown) below ear with (units (unknown) date) approximately 2 cm in unknown) diameter nodule, easily mobile, slightly (unknown) (no (unknown) (unknown) blood in her stools. She (units (unknown) date) denies any hematemesis or unkn own) melena. (unknown) (no (unknown) (unknown) but questions how useful (units (unknown) date) it is at this time. unknown) (unknown) (no (unknown) (unknown) caps 12/26/21 [Rx (units (unknown) date) Confirmed 07/26/22] unknown) (unknown) (no (unknown) (unknown) carisoprodol (units (u nknown) date) [CARISOPRODOL] Adverse unknown ) Reaction (Severe, Verified 07/26/22 14:44) (unknown) (no (unknown) (unknown) clobetasol 0.05 % topical (units (unknown) date) ointment 1 applic topical unkn own) BID #30 grams 05/30/22 [Rx (unknown) (no (unknown) (unknown) complications (units ( unknown) date) unknown) (unknown) (no (unknown) (unknown) contribution. Patient will (units (unknown) date) continue with physical unknown ) therapy, increased appetite (unknown) (no (unknown) (unknown) cyclobenzaprine 10 mg (un its (unknown) date) tablet See Rx Instructions unk nown) .Route .COMPLEX #90 tabs (unknown) (no (unknown) (unknown) days. Initially it was (u nits (unknown) date) painful but now is only unknow n) slightly tender. She denies any (unknown) (no (unknown) (unknown) diazepam 5 mg tablet (uni ts (unknown) date) (Valium) 5 mg PO SEE unknown) INSTRUCTIONS for use prior to MRI #2 (unknown) (no (unknown) (unknown) doxepin 100 mg capsule 200 (units (unknown) date) mg PO BEDTIME #60 caps unknown ) 03/21/22 [Rx Confirmed (unknown) (no (unknown) (unknown) due to her diabetes or (u nits (unknown) date) neck pain. She reports that un known) overall her dizziness is (unknown) (no (unknown) (unknown) ea 06/27/22 [Rx Confirmed (units (unknown) date) 07/26/22] unknown) (unknown) (no (unknown) (unknown) eating out: 1-3 times/week (units (unknown) date) unknown) (unknown) (no (unknown) (unknown) ensure not contributing. (units (unknown) date) If persists, could consider un known) colonoscopy as well in (unknown) (no (unknown) (unknown) every 2 hours. However, ( units (unknown) date) when she eats, she does unknow n) feel very nauseous. She is not (unknown) (no (unknown) (unknown) ferrous sulfate 325 mg (65 (units (unknown) date) mg iron) tablet 325 mg PO unkn own) DAILY Anemia 03/28/21 (unknown) (no (unknown) (unknown) fluconazole 150 mg tablet (units (unknown) date) 150 mg PO Q3D 2 doses #2 unkno wn) tabs 05/22/22 [Rx Confirmed (unknown) (no (unknown) (unknown) fluticasone 100 (units (unknown) date) mcg-salmeterol 50 mcg/dose unk nown) blistr powdr for inhalation (Advair (unknown) (no (unknown) (unknown) fosphenytoin Adverse (uni ts (unknown) date) Reaction (Severe, Verified unk nown) 07/26/22 14:44) (unknown) (no (unknown) (unknown) furosemide 40 mg tablet ( units (unknown) date) See Rx Instructions .Route unk nown) .COMPLEX #135 tabs 07/03/22 (unknown) (no (unknown) (unknown) have occurred. If there ( units (unknown) date) are any questions, please unkn own) contact the Medical Records (unknown) (no (unknown) (unknown) helps. -- H pylori, A1C ( units (unknown) date) unknown) (unknown) (no (unknown) (unknown) her breathing has improved (units (unknown) date) since doing this. unknown) (unknown) (no (unknown) (unknown) house without the walker (units (unknown) date) but using the walker for unkno wn) longer distances. Bending (unknown) (no (unknown) (unknown) household members: spouse (units (unknown) date) unknown) (unknown) (no (unknown) (unknown) however, she is frequently (units (unknown) date) nauseous with it. We will unkn own) obtain H. pylori testing to (unknown) (no (unknown) (unknown) in PT. -- Neurology note (units (unknown) date) [place] unknown) (unknown) (no (unknown) (unknown) in the morning and (units (unknown) date) throughout the day, and unknow n) does have some GERD symptoms. Eating (unknown) (no (unknown) (unknown) ipratropium bromide 17 (u nits (unknown) date) mcg/actuation HFA aerosol unkn own) inhaler 1 puff inhalation Q8H (unknown) (no (unknown) (unknown) lancets 33 gauge (Easy (u nits (unknown) date) Touch Twist Lancets) #100 unkn own) ea 02/26/19 [Rx Confirmed (unknown) (no (unknown) (unknown) levalbuterol tartrate 45 (units (unknown) date) mcg/actuation aerosol unknown) inhaler 1 puff inhalation Q4-6H (unknown) (no (unknown) (unknown) levothyroxine 25 mcg (uni ts (unknown) date) tablet See Rx Instructions unk nown) .Route .COMPLEX #30 tabs (unknown) (no (unknown) (unknown) little, but she wishes it (units (unknown) date) would help more. She unknown) continues with physical therapy, (unknown) (no (unknown) (unknown) lymph node, however, could (units (unknown) date) consider parotitis as well unk nown) that is mild. We will (unknown) (no (unknown) (unknown) magnesium 250 mg tablet ( units (unknown) date) 500 mg PO DAILY 09/17/19 unkno wn) [History Confirmed 07/26/22] (unknown) (no (unknown) (unknown) may occur. Occasional (un its (unknown) date) wrong-word or 'sound-alike' un known) substitutions may have (unknown) (no (unknown) (unknown) meclizine 25 mg tablet 50 (units (unknown) date) mg PO DAILY PRN dizziness unkn own) or vertigo #60 tabs 05/30/22 (unknown) (no (unknown) (unknown) metformin 500 mg tablet ( units (unknown) date) 1,000 mg PO BID #120 tabs unkn own) 01/12/22 [Rx Confirmed (unknown) (no (unknown) (unknown) methylprednisolone 4 mg ( units (unknown) date) tablets in a dose pack unknown ) (Medrol (Abiodun)) 4 mg PO DAILY #21 (unknown) (no (unknown) (unknown) minimally improved. She is (units (unknown) date) walking around the house unkno wn) without the walker, but (unknown) (no (unknown) (unknown) nicotine 21 mg/24 hr daily (units (unknown) date) transdermal patch 1 patch unkn own) transdermal Q24H #14 ea (unknown) (no (unknown) (unknown) norgestrel 0.3 mg-ethinyl (units (unknown) date) estradiol 30 mcg tablet 2 unkn own) tab PO DAILY #52 tabs (unknown) (no (unknown) (unknown) obtain ultrasound to (uni ts (unknown) date) evaluate further. unknown) (unknown) (no (unknown) (unknown) occurred due to the (unit s (unknown) date) inherent limitations of unknow n) voice recognition software. Please (unknown) (no (unknown) (unknown) omeprazole 20 mg (units (unknown) date) capsule,delayed release See un known) Rx Instructions .Route .COMPLEX #60 (unknown) (no (unknown) (unknown) ondansetron 8 mg (units (unknown) date) disintegrating tablet 8 mg unk nown) PO Q8H PRN nausea and vomiting #20 (unknown) (no (unknown) (unknown) over a month. She reports (units (unknown) date) having diarrhea 3 to 4 days un known) a week but is taking (unknown) (no (unknown) (unknown) over to feed the dogs or (units (unknown) date) clean the toilet still unknown ) feels dizzy and unbalanced. (unknown) (no (unknown) (unknown) pregabalin 300 mg capsule (units (unknown) date) 300 mg PO BID #180 caps unknow n) 04/12/22 [Rx Confirmed (unknown) (no (unknown) (unknown) read the note carefully ( units (unknown) date) and recognize, using unknown) context, where these substitutions (unknown) (no (unknown) (unknown) rivaroxaban 20 mg tablet (units (unknown) date) (Xarelto) See Rx unknown) Instructions .Route .COMPLEX #30 tabs (unknown) (no (unknown) (unknown) saltier foods doesn't seem (units (unknown) date) to help. Appetite has been unk nown) up for over a month. No (unknown) (no (unknown) (unknown) seen for migraines and (u nits (unknown) date) vertigo recently. Pt has a unk nown) lump below her rt ear. (unknown) (no (unknown) (unknown) she eats, she feels very (units (unknown) date) nauseous. She is not unknown) vomiting. She does want to gag (unknown) (no (unknown) (unknown) significant erythema or ( units (unknown) date) warmth over the area. unknown) (unknown) (no (unknown) (unknown) software. 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 (unknown) (no (unknown) (unknown) spironolactone 25 mg (uni ts (unknown) date) tablet 12.5 mg PO DAILY #30 un known) tabs 09/12/21 [Rx Confirmed (unknown) (no (unknown) (unknown) symptoms as well with (un its (unknown) date) frequent heartburn. Her unknow n) appetite has been increased for (unknown) (no (unknown) (unknown) tabs 04/22/22 [Rx (units (unknown) date) Confirmed 07/26/22] unknown) (unknown) (no (unknown) (unknown) tabs 07/06/17 [Rx (units (unknown) date) Confirmed 07/26/22] unknown) (unknown) (no (unknown) (unknown) tender to palpation. No ( units (unknown) date) overlying erythema or unknown) warmth. (unknown) (no (unknown) (unknown) terazosin 2 mg capsule See (units (unknown) date) Rx Instructions .Route unknown ) .COMPLEX #30 caps 07/12/22 [Rx (unknown) (no (unknown) (unknown) the toilet, she still feels (units (unknown) date) very dizzy and unbalanced. unk nown) The meclizine does help a (unknown) (no (unknown) (unknown) urinary retention (units (unknown) date) unknown) (unknown) (no (unknown) (unknown) using the walker for longer (units (unknown) date) distances. Bending over to unk nown) feed the dogs or cleaning (unknown) (no (unknown) (unknown) vomiting, but frequently (units (unknown) date) gags in the morning. She unkno wn) does continue to have GERD Result panel 17 (unknown) (no (unknown) (unknown) (no value) (units (unk nown) date) unknown) (unknown) (no (unknown) (unknown) #12.9 grams 04/12/22 [Rx (units (unknown) date) Confirmed 07/26/22] unknown) (unknown) (no (unknown) (unknown) (1) Dizziness: (units (unknown) date) unknown) (unknown) (no (unknown) (unknown) (2) Lymphadenopathy: (uni ts (unknown) date) unknown) (unknown) (no (unknown) (unknown) -Patient with tender lump (units (unknown) date) below her right earlobe unknow n) most consistent with enlarged (unknown) (no (unknown) (unknown) -Still unclear etiology. (units (unknown) date) Records requested from unknown ) , who she saw for (unknown) (no (unknown) (unknown) .COMPLEX #18 grams (units (unknown) date) 03/03/22 [Rx Confirmed unknown ) 07/26/22] (unknown) (no (unknown) (unknown) [id number] (units (unkn own) date) unknown) (unknown) (no (unknown) (unknown) 04/03/22 [Rx Confirmed (u nits (unknown) date) 07/26/22] unknown) (unknown) (no (unknown) (unknown) 04/13/22 [Rx Confirmed (u nits (unknown) date) 07/26/22] unknown) (unknown) (no (unknown) (unknown) 05/11/22 [Rx Confirmed (u nits (unknown) date) 07/26/22] unknown) (unknown) (no (unknown) (unknown) 05/22/22 [Rx Confirmed (u nits (unknown) date) 07/26/22] unknown) (unknown) (no (unknown) (unknown) 07/10/22 [Rx Confirmed (u nits (unknown) date) 07/26/22] unknown) (unknown) (no (unknown) (unknown) 07/26/22 (units (unkno wn) date) unknown) (unknown) (no (unknown) (unknown) 07/26/22] (units (unkn own) date) unknown) (unknown) (no (unknown) (unknown) 08/01/22 1048 (units ( unknown) date) unknown) (unknown) (no (unknown) (unknown) 14:42 (units (unkno wn) date) unknown) (unknown) (no (unknown) (unknown) Accompanied by: ( units (unknown) date) unknown) (unknown) (no (unknown) (unknown) Acetaminophen overdose of (units (unknown) date) undetermined intent unknown) (03/2016) (unknown) (no (unknown) (unknown) Age/Sex: 41 / F Date of ( units (unknown) date) Service: unknown) (unknown) (no (unknown) (unknown) Alcoholism (units (unk nown) date) unknown) (unknown) (no (unknown) (unknown) Allergies (units (unkn own) date) unknown) (unknown) (no (unknown) (unknown) Amputation of fifth toe of (units (unknown) date) right foot unknown) (unknown) (no (unknown) (unknown) [facility] (units (unknown) date) unknown) (unknown) (no (unknown) (unknown) [place] [address] (unit s (unknown) date) unknown) (unknown) (no (unknown) (unknown) Assessment + Plan (units (unknown) date) unknown) (unknown) (no (unknown) (unknown) Assessment and Plan: (uni ts (unknown) date) unknown) (unknown) (no (unknown) (unknown) Asthma (units (unkno wn) date) unknown) (unknown) (no (unknown) (unknown) Attending Dr: Lilo (un its (unknown) date) Kay AHUMADA unknown) (unknown) (no (unknown) (unknown) BP 160/90 H (units (un known) date) unknown) (unknown) (no (unknown) (unknown) Blood Pressure Location Rt (units (unknown) date) brachial unknown) (unknown) (no (unknown) (unknown) CV: Regular rate and (uni ts (unknown) date) rhythm. No murmurs. unknown) (unknown) (no (unknown) (unknown) Chief Complaint (units (unknown) date) unknown) (unknown) (no (unknown) (unknown) Chief Complaint: Multiple (units (unknown) date) issues. unknown) (unknown) (no (unknown) (unknown) Compressioin Stockings #1 (units (unknown) date) ea 01/01/20 [Rx Confirmed unkn own) 07/26/22] (unknown) (no (unknown) (unknown) Confirmed 07/26/22] (unit s (unknown) date) unknown) (unknown) (no (unknown) (unknown) Cubital tunnel syndrome ( units (unknown) date) unknown) (unknown) (no (unknown) (unknown) DM type 2 (diabetes (unit s (unknown) date) mellitus, type 2) unknown) (unknown) (no (unknown) (unknown) : 1980 (units (unknown) date) Acct:[id number] unknown) (unknown) (no (unknown) (unknown) DVT (deep venous (units (unknown) date) thrombosis) unknown) (unknown) (no (unknown) (unknown) Dept at . (u nits (unknown) date) unknown) (unknown) (no (unknown) (unknown) Details: (units (unkno wn) date) unknown) (unknown) (no (unknown) (unknown) Diet and Exercise (units (unknown) date) unknown) (unknown) (no (unknown) (unknown) Diskus) 1 puff inhalation (units (unknown) date) BID 09/29/19 [History unknown) Confirmed 07/26/22] (unknown) (no (unknown) (unknown) Documented By: (units (unknown) date) Lilo Villanueva MD 07/26/22 unk nown) 1440 (unknown) (no (unknown) (unknown) Essential hypertension (u nits (unknown) date) unknown) (unknown) (no (unknown) (unknown) Exam Narrative (units (unknown) date) unknown) (unknown) (no (unknown) (unknown) Exam Narrative: (units (unknown) date) unknown) (unknown) (no (unknown) (unknown) Exam (units (unkno wn) date) unknown) (unknown) (no (unknown) (unknown) Extremities: No edema. (u nits (unknown) date) unknown) (unknown) (no (unknown) (unknown) Family History (Reviewed (units (unknown) date) 07/25/22 @ 14:36 by Ry un known) VANESSA Aldana) (unknown) (no (unknown) (unknown) Family Practice Office (u nits (unknown) date) Visit unknown) (unknown) (no (unknown) (unknown) Family/Other Pancreatic ( units (unknown) date) cancer unknown) (unknown) (no (unknown) (unknown) Fibromyalgia (05/21/15) ( units (unknown) date) unknown) (unknown) (no (unknown) (unknown) General: No acute (units (unknown) date) distress, sitting unknown) comfortably in chair, appears well. (unknown) (no (unknown) (unknown) Grandfather Diabetes (uni ts (unknown) date) mellitus unknown) (unknown) (no (unknown) (unknown) H pylori Breath Test 1 (u nits (unknown) date) Month R63.2 - Polyphagia unkno wn) (unknown) (no (unknown) (unknown) HEENT:?TMs?clear (units (unknown) date) bilaterally. OB pink unknown) without erythema. Right submandibular area (unknown) (no (unknown) (unknown) HPI (units (unkno wn) date) unknown) (unknown) (no (unknown) (unknown) Health Management reviewed (units (unknown) date) with patient: Yes unknown) (unknown) (no (unknown) (unknown) Health Management (units (unknown) date) unknown) (unknown) (no (unknown) (unknown) Hemoglobin A1C% w Est Avg (units (unknown) date) Glu 1 Month E11.9 - Type 2 unk nown) diabetes mellitus without (unknown) (no (unknown) (unknown) History of carpal tunnel (units (unknown) date) repair (-01/18/15) unknown) (unknown) (no (unknown) (unknown) History of colonoscopy (u nits (unknown) date) unknown) (unknown) (no (unknown) (unknown) History of (units (unk nown) date) esophagogastroduodenoscopy unk nown) (EGD) (unknown) (no (unknown) (unknown) History of laminectomy (u nits (unknown) date) () unknown) (unknown) (no (unknown) (unknown) History of laminectomy (u nits (unknown) date) unknown) (unknown) (no (unknown) (unknown) History of lumbar spinal (units (unknown) date) fusion (03/12/19) unknown) (unknown) (no (unknown) (unknown) Hx of toe surgery (units (unknown) date) (08/04/20) unknown) (unknown) (no (unknown) (unknown) Hypoxia (units (unkno wn) date) unknown) (unknown) (no (unknown) (unknown) Imodium which does help (u nits (unknown) date) with that. She denies any unkn own) abdominal pain. She denies any (unknown) (no (unknown) (unknown) Intake Note: (units (u nknown) date) unknown) (unknown) (no (unknown) (unknown) Intake (units (unkno wn) date) unknown) (unknown) (no (unknown) (unknown) Intraoperative cardiac (u nits (unknown) date) arrest during non-cardiac unkn own) surgery (02/2014) (unknown) (no (unknown) (unknown) Last Menstural Cycle + (u nits (unknown) date) Details unknown) (unknown) (no (unknown) (unknown) Latex, Natural Rubber (un its (unknown) date) Adverse Reaction (Mild, unknow n) Verified 07/26/22 14:44) (unknown) (no (unknown) (unknown) [facility] Blood Glucose Test (units (unknown) date) Strips #180 ea 10/29/20 [Rx un known) Confirmed 07/26/22] (unknown) (no (unknown) (unknown) Loc: [facility] (units (unkno wn) date) unknown) (unknown) (no (unknown) (unknown) Lumbar spine pain (units (unknown) date) unknown) (unknown) (no (unknown) (unknown) Medical History (Reviewed (units (unknown) date) 07/25/22 @ 14:36 by Ry un known) VANESSA Aldana) (unknown) (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 Patient has already (unknown) (no (unknown) (unknown) Nocturnal hypoxemia (unit s (unknown) date) unknown) (unknown) (no (unknown) (unknown) DERREK (obstructive sleep (u nits (unknown) date) apnea) unknown) (unknown) (no (unknown) (unknown) Obstipation (units (un known) date) unknown) (unknown) (no (unknown) (unknown) Orders (units (unkno wn) date) unknown) (unknown) (no (unknown) (unknown) Orders: (units (unkno wn) date) unknown) (unknown) (no (unknown) (unknown) Other Menstrual Period: ( units (unknown) date) Uncertain (irregular ) unknown ) (unknown) (no (unknown) (unknown) Ovarian cyst (units (u nknown) date) unknown) (unknown) (no (unknown) (unknown) Oxygen Delivery Method (u nits (unknown) date) room air unknown) (unknown) (no (unknown) (unknown) PFSH (units (unkno wn) date) unknown) (unknown) (no (unknown) (unknown) PRN shortness of breath or (units (unknown) date) wheezing #15 grams 04/12/22 un known) [Rx Confirmed 07/26/22] (unknown) (no (unknown) (unknown) Patient reports that she (units (unknown) date) has been hungry all the unknow n) time. She is wanting to eat (unknown) (no (unknown) (unknown) Patient: LanieSandy Jo (units (unknown) date) MR#: M unknown) (unknown) (no (unknown) (unknown) Plantar fasciitis (units (unknown) date) unknown) (unknown) (no (unknown) (unknown) Position Sitting (units (unknown) date) unknown) (unknown) (no (unknown) (unknown) Psychogenic nonepileptic (units (unknown) date) seizure unknown) (unknown) (no (unknown) (unknown) Pt arrives to talk about a (units (unknown) date) few things. She was in the k nown) [facility] yesterday. Pt has been (unknown) (no (unknown) (unknown) Pulmonary embolism (units (unknown) date) unknown) (unknown) (no (unknown) (unknown) Pulse 125 H (units (un known) date) unknown) (unknown) (no (unknown) (unknown) Pulse Oximetry (%) 99 (un its (unknown) date) unknown) (unknown) (no (unknown) (unknown) Pulse Source Monitor (uni ts (unknown) date) unknown) (unknown) (no (unknown) (unknown) RBBB (right bundle branch (units (unknown) date) block) unknown) (unknown) (no (unknown) (unknown) Rash (units (unkno wn) date) unknown) (unknown) (no (unknown) (unknown) Reason For Visit (units (unknown) date) unknown) (unknown) (no (unknown) (unknown) Respiratory: Clear to (un its (unknown) date) auscultation bilaterally. unkn own) (unknown) (no (unknown) (unknown) S/P epidural steroid (uni ts (unknown) date) injection (02/2014) unknown) (unknown) (no (unknown) (unknown) Seizures (units (unkno wn) date) unknown) (unknown) (no (unknown) (unknown) Signed By: <Electronically (units (unknown) date) signed by Lilo Villanueva, unkn own) > (unknown) (no (unknown) (unknown) Signed (units (unkno wn) date) unknown) (unknown) (no (unknown) (unknown) Sinus tachycardia (units (unknown) date) unknown) (unknown) (no (unknown) (unknown) Smoking Status: Current ( units (unknown) date) some day smoker unknown) (unknown) (no (unknown) (unknown) Social History (units (unknown) date) unknown) (unknown) (no (unknown) (unknown) Status post dilation and (units (unknown) date) curettage (2008) unknown) (unknown) (no (unknown) (unknown) Status post laminectomy ( units (unknown) date) (03/03/16) unknown) (unknown) (no (unknown) (unknown) Suicide attempt (units (unknown) date) unknown) (unknown) (no (unknown) (unknown) Surgical History (Reviewed (units (unknown) date) 07/25/22 @ 14:36 by Ry un known) VANESSA Aldana) (unknown) (no (unknown) (unknown) TENS units #1 ea 04/30/19 (units (unknown) date) [Rx Confirmed 07/26/22] unknow n) (unknown) (no (unknown) (unknown) The patient has a lump (u nits (unknown) date) under her right earlobe unknow n) that has been there for about 4 (unknown) (no (unknown) (unknown) The patient is here due to (units (unknown) date) multiple issues. She unknown) reports that she saw Neurology (unknown) (no (unknown) (unknown) The patient quit smoking 3 (units (unknown) date) months ago, which she is unkno wn) very happy about. She feels (unknown) (no (unknown) (unknown) This note may have been ( units (unknown) date) all or partially generated unk nown) using voice recognition (unknown) (no (unknown) (unknown) Tobacco + Substance Use ( units (unknown) date) unknown) (unknown) (no (unknown) (unknown) Tobacco Status (units (unknown) date) unknown) (unknown) (no (unknown) (unknown) Tobacco abuse (units ( unknown) date) unknown) (unknown) (no (unknown) (unknown) Tylenol overdose (units (unknown) date) unknown) (unknown) (no (unknown) (unknown) Type(s) of exercise: (uni ts (unknown) date) normal ROM and activity and un known) sedentary lifestyle (unknown) (no (unknown) (unknown) Urinary retention (units (unknown) date) unknown) (unknown) (no (unknown) (unknown) Visit Reasons: Migraines, (units (unknown) date) vertigo, lump below rt ear unk nown) (unknown) (no (unknown) (unknown) Vitals (units (unkno wn) date) unknown) (unknown) (no (unknown) (unknown) Weight 284 lb (units ( unknown) date) unknown) (unknown) (no (unknown) (unknown) [History Confirmed (units (unknown) date) 07/26/22] unknown) (unknown) (no (unknown) (unknown) [Rx Confirmed 07/26/22] ( units (unknown) date) unknown) (unknown) (no (unknown) (unknown) acetaminophen 500 mg (uni ts (unknown) date) tablet (Tylenol Extra unknown) Strength) 2,000 mg PO BID 12/12/18 (unknown) (no (unknown) (unknown) addition to endoscopy, but (units (unknown) date) we will start with initial unk nown) testing. (unknown) (no (unknown) (unknown) albuterol sulfate 90 (uni ts (unknown) date) mcg/actuation aerosol unknown) inhaler See Rx Instructions .Route (unknown) (no (unknown) (unknown) alcohol intake: current ( units (unknown) date) unknown) (unknown) (no (unknown) (unknown) and nausea. Patient's (un its (unknown) date) appetite has been increased un known) significantly recently; (unknown) (no (unknown) (unknown) and they did not feel her (units (unknown) date) vertigo was due to unknown) migraines. He thought it could be (unknown) (no (unknown) (unknown) aripiprazole 30 mg tablet (units (unknown) date) 30 mg PO DAILY 30 days #30 unk nown) tabs 03/21/22 [Rx Confirmed (unknown) (no (unknown) (unknown) been seen by ENT as well. (units (unknown) date) We will obtain A1c to unknown) evaluate for potential (unknown) (no (unknown) (unknown) below ear with (units (unknown) date) approximately 2 cm in unknown) diameter nodule, easily mobile, slightly t (unknown) (no (unknown) (unknown) blood in her stools. She (units (unknown) date) denies any hematemesis or unkn own) melena. (unknown) (no (unknown) (unknown) but questions how useful (units (unknown) date) it is at this time. unknown) (unknown) (no (unknown) (unknown) caps 12/26/21 [Rx (units (unknown) date) Confirmed 07/26/22] unknown) (unknown) (no (unknown) (unknown) carisoprodol (units (u nknown) date) [CARISOPRODOL] Adverse unknown ) Reaction (Severe, Verified 07/26/22 14:44) (unknown) (no (unknown) (unknown) clobetasol 0.05 % topical (units (unknown) date) ointment 1 applic topical unkn own) BID #30 grams 05/30/22 [Rx (unknown) (no (unknown) (unknown) complications (units ( unknown) date) unknown) (unknown) (no (unknown) (unknown) contribution. Patient will (units (unknown) date) continue with physical unknown ) therapy, increased appetite (unknown) (no (unknown) (unknown) cyclobenzaprine 10 mg (un its (unknown) date) tablet See Rx Instructions unk nown) .Route .COMPLEX #90 tabs (unknown) (no (unknown) (unknown) days. Initially it was (u nits (unknown) date) painful but now is only unknow n) slightly tender. She denies any (unknown) (no (unknown) (unknown) diazepam 5 mg tablet (uni ts (unknown) date) (Valium) 5 mg PO SEE unknown) INSTRUCTIONS for use prior to MRI #2 (unknown) (no (unknown) (unknown) doxepin 100 mg capsule 200 (units (unknown) date) mg PO BEDTIME #60 caps unknown ) 03/21/22 [Rx Confirmed (unknown) (no (unknown) (unknown) due to her diabetes or (u nits (unknown) date) neck pain. She reports that un known) overall her dizziness is (unknown) (no (unknown) (unknown) ea 06/27/22 [Rx Confirmed (units (unknown) date) 07/26/22] unknown) (unknown) (no (unknown) (unknown) eating out: 1-3 times/week (units (unknown) date) unknown) (unknown) (no (unknown) (unknown) trupti to palpation. No (u nits (unknown) date) overlying erythema or unknown) warmth. (unknown) (no (unknown) (unknown) ensure not contributing. (units (unknown) date) If persists, could consider un known) colonoscopy as well in (unknown) (no (unknown) (unknown) every 2 hours. However, ( units (unknown) date) when she eats, she does unknow n) feel very nauseous. She is not (unknown) (no (unknown) (unknown) ferrous sulfate 325 mg (65 (units (unknown) date) mg iron) tablet 325 mg PO unkn own) DAILY Anemia 03/28/21 (unknown) (no (unknown) (unknown) fluconazole 150 mg tablet (units (unknown) date) 150 mg PO Q3D 2 doses #2 unkno wn) tabs 05/22/22 [Rx Confirmed (unknown) (no (unknown) (unknown) fluticasone 100 (units (unknown) date) mcg-salmeterol 50 mcg/dose unk nown) blistr powdr for inhalation (Advair (unknown) (no (unknown) (unknown) fosphenytoin Adverse (uni ts (unknown) date) Reaction (Severe, Verified unk nown) 07/26/22 14:44) (unknown) (no (unknown) (unknown) furosemide 40 mg tablet ( units (unknown) date) See Rx Instructions .Route unk nown) .COMPLEX #135 tabs 07/03/22 (unknown) (no (unknown) (unknown) have occurred. If there ( units (unknown) date) are any questions, please unkn own) contact the Medical Records (unknown) (no (unknown) (unknown) her breathing has improved (units (unknown) date) since doing this. unknown) (unknown) (no (unknown) (unknown) household members: spouse (units (unknown) date) unknown) (unknown) (no (unknown) (unknown) however, she is frequently (units (unknown) date) nauseous with it. We will unkn own) obtain H. pylori testing to (unknown) (no (unknown) (unknown) ipratropium bromide 17 (u nits (unknown) date) mcg/actuation HFA aerosol unkn own) inhaler 1 puff inhalation Q8H (unknown) (no (unknown) (unknown) lancets 33 gauge (Easy (u nits (unknown) date) Touch Twist Lancets) #100 unkn own) ea 02/26/19 [Rx Confirmed (unknown) (no (unknown) (unknown) levalbuterol tartrate 45 (units (unknown) date) mcg/actuation aerosol unknown) inhaler 1 puff inhalation Q4-6H (unknown) (no (unknown) (unknown) levothyroxine 25 mcg (uni ts (unknown) date) tablet See Rx Instructions unk nown) .Route .COMPLEX #30 tabs (unknown) (no (unknown) (unknown) little, but she wishes it (units (unknown) date) would help more. She unknown) continues with physical therapy, (unknown) (no (unknown) (unknown) lymph node, however, could (units (unknown) date) consider parotitis as well unk nown) that is mild. We will (unknown) (no (unknown) (unknown) magnesium 250 mg tablet ( units (unknown) date) 500 mg PO DAILY 09/17/19 unkno wn) [History Confirmed 07/26/22] (unknown) (no (unknown) (unknown) may occur. Occasional (un its (unknown) date) wrong-word or 'sound-alike' un known) substitutions may have (unknown) (no (unknown) (unknown) meclizine 25 mg tablet 50 (units (unknown) date) mg PO DAILY PRN dizziness unkn own) or vertigo #60 tabs 05/30/22 (unknown) (no (unknown) (unknown) metformin 500 mg tablet ( units (unknown) date) 1,000 mg PO BID #120 tabs unkn own) 01/12/22 [Rx Confirmed (unknown) (no (unknown) (unknown) methylprednisolone 4 mg ( units (unknown) date) tablets in a dose pack unknown ) (Medrol (Abiodun)) 4 mg PO DAILY #21 (unknown) (no (unknown) (unknown) minimally improved. She is (units (unknown) date) walking around the house unkno wn) without the walker, but (unknown) (no (unknown) (unknown) nicotine 21 mg/24 hr daily (units (unknown) date) transdermal patch 1 patch unkn own) transdermal Q24H #14 ea (unknown) (no (unknown) (unknown) norgestrel 0.3 mg-ethinyl (units (unknown) date) estradiol 30 mcg tablet 2 unkn own) tab PO DAILY #52 tabs (unknown) (no (unknown) (unknown) obtain ultrasound to (uni ts (unknown) date) evaluate further. unknown) (unknown) (no (unknown) (unknown) occurred due to the (unit s (unknown) date) inherent limitations of unknow n) voice recognition software. Please (unknown) (no (unknown) (unknown) omeprazole 20 mg (units (unknown) date) capsule,delayed release See un known) Rx Instructions .Route .COMPLEX #60 (unknown) (no (unknown) (unknown) ondansetron 8 mg (units (unknown) date) disintegrating tablet 8 mg unk nown) PO Q8H PRN nausea and vomiting #20 (unknown) (no (unknown) (unknown) over a month. She reports (units (unknown) date) having diarrhea 3 to 4 days un known) a week but is taking (unknown) (no (unknown) (unknown) pregabalin 300 mg capsule (units (unknown) date) 300 mg PO BID #180 caps unknow n) 04/12/22 [Rx Confirmed (unknown) (no (unknown) (unknown) read the note carefully ( units (unknown) date) and recognize, using unknown) context, where these substitutions (unknown) (no (unknown) (unknown) rivaroxaban 20 mg tablet (units (unknown) date) (Xarelto) See Rx unknown) Instructions .Route .COMPLEX #30 tabs (unknown) (no (unknown) (unknown) seen for migraines and (u nits (unknown) date) vertigo recently. Pt has a unk nown) lump below her rt ear. (unknown) (no (unknown) (unknown) significant erythema or ( units (unknown) date) warmth over the area. unknown) (unknown) (no (unknown) (unknown) software. 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 (unknown) (no (unknown) (unknown) spironolactone 25 mg (uni ts (unknown) date) tablet 12.5 mg PO DAILY #30 un known) tabs 09/12/21 [Rx Confirmed (unknown) (no (unknown) (unknown) symptoms as well with (un its (unknown) date) frequent heartburn. Her unknow n) appetite has been increased for (unknown) (no (unknown) (unknown) tabs 04/22/22 [Rx (units (unknown) date) Confirmed 07/26/22] unknown) (unknown) (no (unknown) (unknown) tabs 07/06/17 [Rx (units (unknown) date) Confirmed 07/26/22] unknown) (unknown) (no (unknown) (unknown) terazosin 2 mg capsule See (units (unknown) date) Rx Instructions .Route unknown ) .COMPLEX #30 caps 07/12/22 [Rx (unknown) (no (unknown) (unknown) the toilet, she still feels (units (unknown) date) very dizzy and unbalanced. unk nown) The meclizine does help a (unknown) (no (unknown) (unknown) urinary retention (units (unknown) date) unknown) (unknown) (no (unknown) (unknown) using the walker for longer (units (unknown) date) distances. Bending over to unk nown) feed the dogs or cleaning (unknown) (no (unknown) (unknown) vomiting, but frequently (units (unknown) date) gags in the morning. She unkno wn) does continue to have GERD Result panel 18 (unknown) (no date) (unknown) (unknown) Negative (units (unkn own) unknown) (unknown) (no date) (unknown) (unknown) Negative (units 87701 -9 unknown) Result panel 19 (unknown) (no date) (unknown) (unknown) 7.0 % (unkn own) (unknown) (no date) (unknown) (unknown) 7.0 % (unkn own) Result panel 20 (unknown) (no date) (unknown) (unknown) Negative (units (unkn own) unknown) (unknown) (no date) (unknown) (unknown) Negative (units (unkn own) unknown) Result panel 21 (unknown) (no (unknown) (unknown) (no value) (units (unk nown) date) unknown) (unknown) (no (unknown) (unknown) 09/06/22 (units (unkno wn) date) unknown) (unknown) (no (unknown) (unknown) [address] [place] [address] (units (unknown) date) unknown) (unknown) (no (unknown) (unknown) 14:47. (units (unkno wn) date) unknown) (unknown) (no (unknown) (unknown) Accession (units (unkn own) date) Number: unknown) [id number] (unknown) (no (unknown) (unknown) Age/Sex: 41 / F (units (unknown) date) Date of Service: unknown) (unknown) (no (unknown) (unknown) [place], [place] (units ( unknown) date) [id number] unknown) (unknown) (no (unknown) (unknown) Approved by: (units (u nknown) date) Germain King, unknown) Alondra on 09/06/2022 at 9:41 (unknown) (no (unknown) (unknown) COMPARISON: (units (un known) date) [facility], unknown) US, SOFT TISSUE HEAD AND NECK, 09/21/2020, (unknown) (no (unknown) (unknown) : 1980 (units (unknown) date) Acct:[id number] unknown) (unknown) (no (unknown) (unknown) FINDINGS: (units (unkn own) date) unknown) (unknown) (no (unknown) (unknown) IMPRESSION: (units (un known) date) Nonspecific unknown) intraparotid lymph nodes are seen bilaterally, which (unknown) (no (unknown) (unknown) INDICATIONS: (units (u nknown) date) BILATERAL LUMPS unknown) INFERIOR TO EARS (unknown) (no (unknown) (unknown) [facility] (units (unknown) date) unknown) (unknown) (no (unknown) (unknown) Loc: [place] (units (unkno wn) date) unknown) (unknown) (no (unknown) (unknown) [id number] (units (unk nown) date) unknown) (unknown) (no (unknown) (unknown) Ordering (units (unkno wn) date) Provider: unknown) Lilo Villanueva MD (unknown) (no (unknown) (unknown) PROCEDURE: US (units ( unknown) date) SOFT TISSUE HEAD unknown) AND NECK (unknown) (no (unknown) (unknown) Patient: (units (unkno wn) date) Sandy Dorman Beatriz unknown) MR#: (unknown) (no (unknown) (unknown) Procedure: US (units ( unknown) date) soft tissue head unknown) and neck (unknown) (no (unknown) (unknown) Prominent lymph (units (unknown) date) nodes are seen at unknown) the posterior aspect of the parotid glands (unknown) (no (unknown) (unknown) Real-time (units (unkn own) date) scanning was unknown) performed of the neck region of interest, with image (unknown) (no (unknown) (unknown) Signed (units (unkno wn) date) unknown) (unknown) (no (unknown) (unknown) TECHNIQUE: (units (unk nown) date) unknown) (unknown) (no (unknown) (unknown) Ultrasound (units (unk nown) date) Report unknown) (unknown) (no (unknown) (unknown) appear (units (unkno wn) date) significantly unknown) changed when compared to the ultrasound from 09/21/2020. (unknown) (no (unknown) (unknown) bilaterally (units (un known) date) unknown) (unknown) (no (unknown) (unknown) do not (units (unkno wn) date) unknown) (unknown) (no (unknown) (unknown) documentation. (units (unknown) date) unknown) (unknown) (no (unknown) (unknown) measuring up to (units (unknown) date) 1.2 x 1 x 0 x 0.9 unknown) cm on the left and 1.6 x 1.1 x 1.6 cm on the (unknown) (no (unknown) (unknown) right. (units (unkno wn) date) unknown) Result panel 22 (unknown) (no (unknown) (unknown) (no value) (units (unk nown) date) unknown) (unknown) (no (unknown) (unknown) [id number] (units (unkn own) date) unknown) (unknown) (no (unknown) (unknown) 09/12/22 (units (unkno wn) date) unknown) (unknown) (no (unknown) (unknown) Acetaminophen overdose of (units (unknown) date) undetermined intent unknown) (03/2016) (unknown) (no (unknown) (unknown) Age/Sex: 41 / F Date of ( units (unknown) date) Service: unknown) (unknown) (no (unknown) (unknown) Alcoholism (units (unk nown) date) unknown) (unknown) (no (unknown) (unknown) Allergies (units (unkn own) date) unknown) (unknown) (no (unknown) (unknown) Amputation of fifth toe of (units (unknown) date) right foot unknown) (unknown) (no (unknown) (unknown) [place] [id number] (unit s (unknown) date) unknown) (unknown) (no (unknown) (unknown) Asthma (units (unkno wn) date) unknown) (unknown) (no (unknown) (unknown) Attending Dr: Eliana Vasquez (units (unknown) date) Lizzie AHUMADA unknown) (unknown) (no (unknown) (unknown) Cubital tunnel syndrome ( units (unknown) date) unknown) (unknown) (no (unknown) (unknown) DM type 2 (diabetes (unit s (unknown) date) mellitus, type 2) unknown) (unknown) (no (unknown) (unknown) : 1980 (units (unknown) date) Acct:[id number] unknown) (unknown) (no (unknown) (unknown) DVT (deep venous (units (unknown) date) thrombosis) unknown) (unknown) (no (unknown) (unknown) Dept at . (u nits (unknown) date) unknown) (unknown) (no (unknown) (unknown) Diet and Exercise (units (unknown) date) unknown) (unknown) (no (unknown) (unknown) Documented By: (units (unknown) date) Eliana Samuel MD unknown) 09/12/22 1435 (unknown) (no (unknown) (unknown) Draft (units (unkno wn) date) unknown) (unknown) (no (unknown) (unknown) Essential hypertension (u nits (unknown) date) unknown) (unknown) (no (unknown) (unknown) Family History (Reviewed (units (unknown) date) 07/25/22 @ 14:36 by Ry un known) VANESSA Aldana) (unknown) (no (unknown) (unknown) Family/Other Pancreatic ( units (unknown) date) cancer unknown) (unknown) (no (unknown) (unknown) Fibromyalgia (05/21/15) ( units (unknown) date) unknown) (unknown) (no (unknown) (unknown) [facility] (units (unknown) date) unknown) (unknown) (no (unknown) (unknown) Grandfather Diabetes (uni ts (unknown) date) mellitus unknown) (unknown) (no (unknown) (unknown) Gynecology Visit (units (unknown) date) unknown) (unknown) (no (unknown) (unknown) History of carpal tunnel (units (unknown) date) repair (-01/18/15) unknown) (unknown) (no (unknown) (unknown) History of colonoscopy (u nits (unknown) date) unknown) (unknown) (no (unknown) (unknown) History of (units (unk nown) date) esophagogastroduodenoscopy unk nown) (EGD) (unknown) (no (unknown) (unknown) History of laminectomy (u nits (unknown) date) () unknown) (unknown) (no (unknown) (unknown) History of laminectomy (u nits (unknown) date) unknown) (unknown) (no (unknown) (unknown) History of lumbar spinal (units (unknown) date) fusion (03/12/19) unknown) (unknown) (no (unknown) (unknown) Hx of toe surgery (units (unknown) date) (08/04/20) unknown) (unknown) (no (unknown) (unknown) Hypoxia (units (unkno wn) date) unknown) (unknown) (no (unknown) (unknown) Intake Note: (units (u nknown) date) unknown) (unknown) (no (unknown) (unknown) Intake performed by: (jane ts (unknown) date) Linda Chong unknown) (unknown) (no (unknown) (unknown) Intake (units (unkno wn) date) unknown) (unknown) (no (unknown) (unknown) Intake- Clincial Staff (u nits (unknown) date) unknown) (unknown) (no (unknown) (unknown) Intraoperative cardiac (u nits (unknown) date) arrest during non-cardiac unkn own) surgery (02/2014) (unknown) (no (unknown) (unknown) Last Menstural Cycle + (u nits (unknown) date) Details unknown) (unknown) (no (unknown) (unknown) Latex, Natural Rubber (un its (unknown) date) Adverse Reaction (Mild, unknow n) Verified 07/26/22 14:44) (unknown) (no (unknown) (unknown) Loc: [facility] (units (unkno wn) date) unknown) (unknown) (no (unknown) (unknown) Lumbar spine pain (units (unknown) date) unknown) (unknown) (no (unknown) (unknown) Medical History (Reviewed (units (unknown) date) 07/25/22 @ 14:36 by Ry un known) VANESSA Aldana) (unknown) (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) (unknown) (no (unknown) (unknown) Morbid obesity (units (unknown) date) unknown) (unknown) (no (unknown) (unknown) Narcotic habituation, (un its (unknown) date) continuous unknown) (unknown) (no (unknown) (unknown) Nocturnal hypoxemia (unit s (unknown) date) unknown) (unknown) (no (unknown) (unknown) DERREK (obstructive sleep (u nits (unknown) date) apnea) unknown) (unknown) (no (unknown) (unknown) Obstipation (units (un known) date) unknown) (unknown) (no (unknown) (unknown) Other Menstrual Period: ( units (unknown) date) Uncertain (irregular ) unknown ) (unknown) (no (unknown) (unknown) Ovarian cyst (units (u nknown) date) unknown) (unknown) (no (unknown) (unknown) PFSH (units (unkno wn) date) unknown) (unknown) (no (unknown) (unknown) Patient: Sandy Dorman (units (unknown) date) MR#: M unknown) (unknown) (no (unknown) (unknown) Plantar fasciitis (units (unknown) date) unknown) (unknown) (no (unknown) (unknown) Psychogenic nonepileptic (units (unknown) date) seizure unknown) (unknown) (no (unknown) (unknown) Pulmonary embolism (units (unknown) date) unknown) (unknown) (no (unknown) (unknown) RBBB (right bundle branch (units (unknown) date) block) unknown) (unknown) (no (unknown) (unknown) Rash (units (unkno wn) date) unknown) (unknown) (no (unknown) (unknown) Reason For Visit (units (unknown) date) unknown) (unknown) (no (unknown) (unknown) S/P epidural steroid (uni ts (unknown) date) injection (02/2014) unknown) (unknown) (no (unknown) (unknown) Seizures (units (unkno wn) date) unknown) (unknown) (no (unknown) (unknown) Signed By: (units (unk nown) date) unknown) (unknown) (no (unknown) (unknown) Sinus tachycardia (units (unknown) date) unknown) (unknown) (no (unknown) (unknown) Smoking Status: Current ( units (unknown) date) some day smoker unknown) (unknown) (no (unknown) (unknown) Social History (units (unknown) date) unknown) (unknown) (no (unknown) (unknown) Status post dilation and (units (unknown) date) curettage (2008) unknown) (unknown) (no (unknown) (unknown) Status post laminectomy ( units (unknown) date) (03/03/16) unknown) (unknown) (no (unknown) (unknown) Suicide attempt (units (unknown) date) unknown) (unknown) (no (unknown) (unknown) Surgical History (Reviewed (units (unknown) date) 07/25/22 @ 14:36 by Ry un known) VANESSA Aldana) (unknown) (no (unknown) (unknown) TH phone: NTY- discuss (u nits (unknown) date) hysterectomy unknown) (unknown) (no (unknown) (unknown) This note may have been ( units (unknown) date) all or partially generated unk nown) using voice recognition (unknown) (no (unknown) (unknown) Tobacco + Substance Use ( units (unknown) date) unknown) (unknown) (no (unknown) (unknown) Tobacco Status (units (unknown) date) unknown) (unknown) (no (unknown) (unknown) Tobacco abuse (units ( unknown) date) unknown) (unknown) (no (unknown) (unknown) Tylenol overdose (units (unknown) date) unknown) (unknown) (no (unknown) (unknown) Type(s) of exercise: (uni ts (unknown) date) normal ROM and activity and un known) sedentary lifestyle (unknown) (no (unknown) (unknown) Urinary retention (units (unknown) date) unknown) (unknown) (no (unknown) (unknown) Visit Reasons: THP: (unit s (unknown) date) NTY-talk hyst unknown) (unknown) (no (unknown) (unknown) alcohol intake: current ( units (unknown) date) unknown) (unknown) (no (unknown) (unknown) carisoprodol (units (u nknown) date) [CARISOPRODOL] Adverse unknown ) Reaction (Severe, Verified 07/26/22 14:44) (unknown) (no (unknown) (unknown) eating out: 1-3 times/week (units (unknown) date) unknown) (unknown) (no (unknown) (unknown) fosphenytoin Adverse (uni ts (unknown) date) Reaction (Severe, Verified unk nown) 07/26/22 14:44) (unknown) (no (unknown) (unknown) have occurred. If there ( units (unknown) date) are any questions, please unkn own) contact the Medical Records (unknown) (no (unknown) (unknown) household members: spouse (units (unknown) date) unknown) (unknown) (no (unknown) (unknown) may occur. Occasional (un its (unknown) date) wrong-word or 'sound-alike' un known) substitutions may have (unknown) (no (unknown) (unknown) occurred due to the (unit s (unknown) date) inherent limitations of unknow n) voice recognition software. Please (unknown) (no (unknown) (unknown) read the note carefully ( units (unknown) date) and recognize, using unknown) context, where these substitutions (unknown) (no (unknown) (unknown) software. 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 (unknown) (no (unknown) (unknown) urinary retention (units (unknown) date) unknown) Result panel 23 (unknown) (no (unknown) (unknown) (no value) (units (unk nown) date) unknown) (unknown) (no (unknown) (unknown) 0 (units (unkno wn) date) unknown) (unknown) (no (unknown) (unknown) [id number] (units (unkn own) date) unknown) (unknown) (no (unknown) (unknown) 09/05/22 (units (unkno wn) date) unknown) (unknown) (no (unknown) (unknown) 41 yo female who arrives (units (unknown) date) to address ongoing unknown) dizziness. Pt has seen ENT for this (unknown) (no (unknown) (unknown) Accompanied by: ( units (unknown) date) unknown) (unknown) (no (unknown) (unknown) Acetaminophen overdose of (units (unknown) date) undetermined intent unknown) (03/2016) (unknown) (no (unknown) (unknown) Age/Sex: 41 / F Date of ( units (unknown) date) Service: unknown) (unknown) (no (unknown) (unknown) Alcoholism (units (unk nown) date) unknown) (unknown) (no (unknown) (unknown) Allergies (units (unkn own) date) unknown) (unknown) (no (unknown) (unknown) Amputation of fifth toe of (units (unknown) date) right foot unknown) (unknown) (no (unknown) (unknown) [facility] (units (unknown) date) unknown) (unknown) (no (unknown) (unknown) [place] [id number] (unit s (unknown) date) unknown) (unknown) (no (unknown) (unknown) Asthma (units (unkno wn) date) unknown) (unknown) (no (unknown) (unknown) Attending Dr: Chinyere Jay (un its (unknown) date) Darrion Case unknown) (unknown) (no (unknown) (unknown) Cubital tunnel syndrome ( units (unknown) date) unknown) (unknown) (no (unknown) (unknown) DM type 2 (diabetes (unit s (unknown) date) mellitus, type 2) unknown) (unknown) (no (unknown) (unknown) : 1980 (units (unknown) date) Acct:[id number] unknown) (unknown) (no (unknown) (unknown) DVT (deep venous (units (unknown) date) thrombosis) unknown) (unknown) (no (unknown) (unknown) Dept at . (u nits (unknown) date) unknown) (unknown) (no (unknown) (unknown) Diet and Exercise (units (unknown) date) unknown) (unknown) (no (unknown) (unknown) Documented By: (units (unknown) date) Chinyere Maier P.A-C unknown) 09/20/22 115 (unknown) (no (unknown) (unknown) Draft (units (unkno wn) date) unknown) (unknown) (no (unknown) (unknown) Essential hypertension (u nits (unknown) date) unknown) (unknown) (no (unknown) (unknown) Family History (Reviewed (units (unknown) date) 07/25/22 @ 14:36 by Ry un known) VANESSA Aldana) (unknown) (no (unknown) (unknown) Family Practice Office (u nits (unknown) date) Visit unknown) (unknown) (no (unknown) (unknown) Family/Other Pancreatic ( units (unknown) date) cancer unknown) (unknown) (no (unknown) (unknown) Fibromyalgia (05/21/15) ( units (unknown) date) unknown) (unknown) (no (unknown) (unknown) Grandfather Diabetes (uni ts (unknown) date) mellitus unknown) (unknown) (no (unknown) (unknown) Health Management reviewed (units (unknown) date) with patient: No unknown) (unknown) (no (unknown) (unknown) Health Management (units (unknown) date) unknown) (unknown) (no (unknown) (unknown) History of carpal tunnel (units (unknown) date) repair (-01/18/15) unknown) (unknown) (no (unknown) (unknown) History of colonoscopy (u nits (unknown) date) unknown) (unknown) (no (unknown) (unknown) History of (units (unk nown) date) esophagogastroduodenoscopy unk nown) (EGD) (unknown) (no (unknown) (unknown) History of laminectomy (u nits (unknown) date) () unknown) (unknown) (no (unknown) (unknown) History of laminectomy (u nits (unknown) date) unknown) (unknown) (no (unknown) (unknown) History of lumbar spinal (units (unknown) date) fusion (03/12/19) unknown) (unknown) (no (unknown) (unknown) Hx of toe surgery (units (unknown) date) (08/04/20) unknown) (unknown) (no (unknown) (unknown) Hypoxia (units (unkno wn) date) unknown) (unknown) (no (unknown) (unknown) Intake Note: (units (u nknown) date) unknown) (unknown) (no (unknown) (unknown) Intake performed by: (uni ts (unknown) date) [facility] [place] unknown) (unknown) (no (unknown) (unknown) Intake (units (unkno wn) date) unknown) (unknown) (no (unknown) (unknown) Intake- Clincial Staff (u nits (unknown) date) unknown) (unknown) (no (unknown) (unknown) Intraoperative cardiac (u nits (unknown) date) arrest during non-cardiac unkn own) surgery (02/2014) (unknown) (no (unknown) (unknown) Last Menstural Cycle + (u nits (unknown) date) Details unknown) (unknown) (no (unknown) (unknown) Latex, Natural Rubber (un its (unknown) date) Adverse Reaction (Mild, unknow n) Verified 07/26/22 14:44) (unknown) (no (unknown) (unknown) Loc: [facility] (units (unkno wn) date) unknown) (unknown) (no (unknown) (unknown) Lumbar spine pain (units (unknown) date) unknown) (unknown) (no (unknown) (unknown) Medical History (Reviewed (units (unknown) date) 07/25/22 @ 14:36 by Ry un known) VANESSA Aldana) (unknown) (no (unknown) (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 ) () (unknown) (no (unknown) (unknown) Morbid obesity (units (unknown) date) unknown) (unknown) (no (unknown) (unknown) Narcotic habituation, (un its (unknown) date) continuous unknown) (unknown) (no (unknown) (unknown) Nocturnal hypoxemia (unit s (unknown) date) unknown) (unknown) (no (unknown) (unknown) DERREK (obstructive sleep (u nits (unknown) date) apnea) unknown) (unknown) (no (unknown) (unknown) Obstipation (units (un known) date) unknown) (unknown) (no (unknown) (unknown) Other Menstrual Period: ( units (unknown) date) Uncertain (irregular ) unknown ) (unknown) (no (unknown) (unknown) Ovarian cyst (units (u nknown) date) unknown) (unknown) (no (unknown) (unknown) PFSH (units (unkno wn) date) unknown) (unknown) (no (unknown) (unknown) Patient: Sandy Dorman (units (unknown) date) MR#: M unknown) (unknown) (no (unknown) (unknown) Plantar fasciitis (units (unknown) date) unknown) (unknown) (no (unknown) (unknown) Psychogenic nonepileptic (units (unknown) date) seizure unknown) (unknown) (no (unknown) (unknown) Pulmonary embolism (units (unknown) date) unknown) (unknown) (no (unknown) (unknown) RBBB (right bundle branch (units (unknown) date) block) unknown) (unknown) (no (unknown) (unknown) Rash (units (unkno wn) date) unknown) (unknown) (no (unknown) (unknown) Reason For Visit (units (unknown) date) unknown) (unknown) (no (unknown) (unknown) S/P epidural steroid (uni ts (unknown) date) injection (02/2014) unknown) (unknown) (no (unknown) (unknown) Seizures (units (unkno wn) date) unknown) (unknown) (no (unknown) (unknown) Signed By: (units (unk nown) date) unknown) (unknown) (no (unknown) (unknown) Sinus tachycardia (units (unknown) date) unknown) (unknown) (no (unknown) (unknown) Smoking Status: Current ( units (unknown) date) some day smoker unknown) (unknown) (no (unknown) (unknown) Social History (units (unknown) date) unknown) (unknown) (no (unknown) (unknown) Status post dilation and (units (unknown) date) curettage (2008) unknown) (unknown) (no (unknown) (unknown) Status post laminectomy ( units (unknown) date) (03/03/16) unknown) (unknown) (no (unknown) (unknown) Suicide attempt (units (unknown) date) unknown) (unknown) (no (unknown) (unknown) Surgical History (Reviewed (units (unknown) date) 07/25/22 @ 14:36 by yR un known) VANESSA Aldana) (unknown) (no (unknown) (unknown) This note may have been ( units (unknown) date) all or partially generated unk nown) using voice recognition (unknown) (no (unknown) (unknown) Tobacco + Substance Use ( units (unknown) date) unknown) (unknown) (no (unknown) (unknown) Tobacco Status (units (unknown) date) unknown) (unknown) (no (unknown) (unknown) Tobacco abuse (units ( unknown) date) unknown) (unknown) (no (unknown) (unknown) Tylenol overdose (units (unknown) date) unknown) (unknown) (no (unknown) (unknown) Type(s) of exercise: (uni ts (unknown) date) normal ROM and activity and un known) sedentary lifestyle (unknown) (no (unknown) (unknown) Urinary retention (units (unknown) date) unknown) (unknown) (no (unknown) (unknown) Visit Reasons: Dizziness (units (unknown) date) unknown) (unknown) (no (unknown) (unknown) alcohol intake: current ( units (unknown) date) unknown) (unknown) (no (unknown) (unknown) carisoprodol (units (u nknown) date) [CARISOPRODOL] Adverse unknown ) Reaction (Severe, Verified 07/26/22 14:44) (unknown) (no (unknown) (unknown) eating out: 1-3 times/week (units (unknown) date) unknown) (unknown) (no (unknown) (unknown) fosphenytoin Adverse (uni ts (unknown) date) Reaction (Severe, Verified unk nown) 07/26/22 14:44) (unknown) (no (unknown) (unknown) have occurred. If there ( units (unknown) date) are any questions, please unkn own) contact the Medical Records (unknown) (no (unknown) (unknown) household members: spouse (units (unknown) date) unknown) (unknown) (no (unknown) (unknown) issue. (units (unkno wn) date) unknown) (unknown) (no (unknown) (unknown) may occur. Occasional (un its (unknown) date) wrong-word or 'sound-alike' un known) substitutions may have (unknown) (no (unknown) (unknown) occurred due to the (unit s (unknown) date) inherent limitations of unknow n) voice recognition software. Please (unknown) (no (unknown) (unknown) read the note carefully ( units (unknown) date) and recognize, using unknown) context, where these substitutions (unknown) (no (unknown) (unknown) software. 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 (unknown) (no (unknown) (unknown) urinary retention (units (unknown) date) unknown) Result panel 24 (unknown) (no (unknown) (unknown) (no value) (units (unk nown) date) unknown) (unknown) (no (unknown) (unknown) 0 (units (unkno wn) date) unknown) (unknown) (no (unknown) (unknown) [id number] (units (unkn own) date) unknown) (unknown) (no (unknown) (unknown) 09/20/22 (units (unkno wn) date) unknown) (unknown) (no (unknown) (unknown) 41 yo female who arrives (units (unknown) date) to address ongoing unknown) dizziness. Pt has seen ENT for this (unknown) (no (unknown) (unknown) Accompanied by: ( units (unknown) date) unknown) (unknown) (no (unknown) (unknown) Acetaminophen overdose of (units (unknown) date) undetermined intent unknown) (03/2016) (unknown) (no (unknown) (unknown) Age/Sex: 41 / F Date of ( units (unknown) date) Service: unknown) (unknown) (no (unknown) (unknown) Alcoholism (units (unk nown) date) unknown) (unknown) (no (unknown) (unknown) Allergies (units (unkn own) date) unknown) (unknown) (no (unknown) (unknown) Amputation of fifth toe of (units (unknown) date) right foot unknown) (unknown) (no (unknown) (unknown) [facility] (units (unknown) date) unknown) (unknown) (no (unknown) (unknown) [place] [id number] (unit s (unknown) date) unknown) (unknown) (no (unknown) (unknown) Asthma (units (unkno wn) date) unknown) (unknown) (no (unknown) (unknown) Attending Dr: Chinyere Jay (un its (unknown) date) Darrion Case unknown) (unknown) (no (unknown) (unknown) Cubital tunnel syndrome ( units (unknown) date) unknown) (unknown) (no (unknown) (unknown) DM type 2 (diabetes (unit s (unknown) date) mellitus, type 2) unknown) (unknown) (no (unknown) (unknown) : 1980 (units (unknown) date) Acct:[id number] unknown) (unknown) (no (unknown) (unknown) DVT (deep venous (units (unknown) date) thrombosis) unknown) (unknown) (no (unknown) (unknown) Dept at . (u nits (unknown) date) unknown) (unknown) (no (unknown) (unknown) Diet and Exercise (units (unknown) date) unknown) (unknown) (no (unknown) (unknown) Documented By: (units (unknown) date) Chinyere Maier P.A-C unknown) 09/20/22 115 (unknown) (no (unknown) (unknown) Draft (units (unkno wn) date) unknown) (unknown) (no (unknown) (unknown) Essential hypertension (u nits (unknown) date) unknown) (unknown) (no (unknown) (unknown) Family History (Reviewed (units (unknown) date) 07/25/22 @ 14:36 by Ry un known) VANESSA Aldana) (unknown) (no (unknown) (unknown) Family Practice Office (u nits (unknown) date) Visit unknown) (unknown) (no (unknown) (unknown) Family/Other Pancreatic ( units (unknown) date) cancer unknown) (unknown) (no (unknown) (unknown) Fibromyalgia (05/21/15) ( units (unknown) date) unknown) (unknown) (no (unknown) (unknown) Grandfather Diabetes (uni ts (unknown) date) mellitus unknown) (unknown) (no (unknown) (unknown) Health Management reviewed (units (unknown) date) with patient: No unknown) (unknown) (no (unknown) (unknown) Health Management (units (unknown) date) unknown) (unknown) (no (unknown) (unknown) History of carpal tunnel (units (unknown) date) repair (-01/18/15) unknown) (unknown) (no (unknown) (unknown) History of colonoscopy (u nits (unknown) date) unknown) (unknown) (no (unknown) (unknown) History of (units (unk nown) date) esophagogastroduodenoscopy unk nown) (EGD) (unknown) (no (unknown) (unknown) History of laminectomy (u nits (unknown) date) () unknown) (unknown) (no (unknown) (unknown) History of laminectomy (u nits (unknown) date) unknown) (unknown) (no (unknown) (unknown) History of lumbar spinal (units (unknown) date) fusion (03/12/19) unknown) (unknown) (no (unknown) (unknown) Hx of toe surgery (units (unknown) date) (08/04/20) unknown) (unknown) (no (unknown) (unknown) Hypoxia (units (unkno wn) date) unknown) (unknown) (no (unknown) (unknown) Intake Note: (units (u nknown) date) unknown) (unknown) (no (unknown) (unknown) Intake performed by: (uni ts (unknown) date) [facility] [place] unknown) (unknown) (no (unknown) (unknown) Intake (units (unkno wn) date) unknown) (unknown) (no (unknown) (unknown) Intake- Clincial Staff (u nits (unknown) date) unknown) (unknown) (no (unknown) (unknown) Intraoperative cardiac (u nits (unknown) date) arrest during non-cardiac unkn own) surgery (02/2014) (unknown) (no (unknown) (unknown) Last Menstural Cycle + (u nits (unknown) date) Details unknown) (unknown) (no (unknown) (unknown) Latex, Natural Rubber (un its (unknown) date) Adverse Reaction (Mild, unknow n) Verified 07/26/22 14:44) (unknown) (no (unknown) (unknown) Loc: [facility] (units (unkno wn) date) unknown) (unknown) (no (unknown) (unknown) Lumbar spine pain (units (unknown) date) unknown) (unknown) (no (unknown) (unknown) Medical History (Reviewed (units (unknown) date) 07/25/22 @ 14:36 by Ry un known) VANESSA Aldana) (unknown) (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) (unknown) (no (unknown) (unknown) Morbid obesity (units (unknown) date) unknown) (unknown) (no (unknown) (unknown) Narcotic habituation, (un its (unknown) date) continuous unknown) (unknown) (no (unknown) (unknown) Nocturnal hypoxemia (unit s (unknown) date) unknown) (unknown) (no (unknown) (unknown) DERREK (obstructive sleep (u nits (unknown) date) apnea) unknown) (unknown) (no (unknown) (unknown) Obstipation (units (un known) date) unknown) (unknown) (no (unknown) (unknown) Other Menstrual Period: ( units (unknown) date) Uncertain (irregular ) unknown ) (unknown) (no (unknown) (unknown) Ovarian cyst (units (u nknown) date) unknown) (unknown) (no (unknown) (unknown) PFSH (units (unkno wn) date) unknown) (unknown) (no (unknown) (unknown) Patient: Sandy Dorman Beatriz (units (unknown) date) MR#: M unknown) (unknown) (no (unknown) (unknown) Plantar fasciitis (units (unknown) date) unknown) (unknown) (no (unknown) (unknown) Psychogenic nonepileptic (units (unknown) date) seizure unknown) (unknown) (no (unknown) (unknown) Pulmonary embolism (units (unknown) date) unknown) (unknown) (no (unknown) (unknown) RBBB (right bundle branch (units (unknown) date) block) unknown) (unknown) (no (unknown) (unknown) Rash (units (unkno wn) date) unknown) (unknown) (no (unknown) (unknown) Reason For Visit (units (unknown) date) unknown) (unknown) (no (unknown) (unknown) S/P epidural steroid (uni ts (unknown) date) injection (02/2014) unknown) (unknown) (no (unknown) (unknown) Seizures (units (unkno wn) date) unknown) (unknown) (no (unknown) (unknown) Signed By: (units (unk nown) date) unknown) (unknown) (no (unknown) (unknown) Sinus tachycardia (units (unknown) date) unknown) (unknown) (no (unknown) (unknown) Smoking Status: Current ( units (unknown) date) some day smoker unknown) (unknown) (no (unknown) (unknown) Social History (units (unknown) date) unknown) (unknown) (no (unknown) (unknown) Status post dilation and (units (unknown) date) curettage (2008) unknown) (unknown) (no (unknown) (unknown) Status post laminectomy ( units (unknown) date) (03/03/16) unknown) (unknown) (no (unknown) (unknown) Suicide attempt (units (unknown) date) unknown) (unknown) (no (unknown) (unknown) Surgical History (Reviewed (units (unknown) date) 07/25/22 @ 14:36 by Ry un known) VANESSA Aldana) (unknown) (no (unknown) (unknown) This note may have been ( units (unknown) date) all or partially generated unk nown) using voice recognition (unknown) (no (unknown) (unknown) Tobacco + Substance Use ( units (unknown) date) unknown) (unknown) (no (unknown) (unknown) Tobacco Status (units (unknown) date) unknown) (unknown) (no (unknown) (unknown) Tobacco abuse (units ( unknown) date) unknown) (unknown) (no (unknown) (unknown) Tylenol overdose (units (unknown) date) unknown) (unknown) (no (unknown) (unknown) Type(s) of exercise: (uni ts (unknown) date) normal ROM and activity and un known) sedentary lifestyle (unknown) (no (unknown) (unknown) Urinary retention (units (unknown) date) unknown) (unknown) (no (unknown) (unknown) Visit Reasons: Dizziness (units (unknown) date) unknown) (unknown) (no (unknown) (unknown) alcohol intake: current ( units (unknown) date) unknown) (unknown) (no (unknown) (unknown) carisoprodol (units (u nknown) date) [CARISOPRODOL] Adverse unknown ) Reaction (Severe, Verified 07/26/22 14:44) (unknown) (no (unknown) (unknown) eating out: 1-3 times/week (units (unknown) date) unknown) (unknown) (no (unknown) (unknown) fosphenytoin Adverse (uni ts (unknown) date) Reaction (Severe, Verified unk nown) 07/26/22 14:44) (unknown) (no (unknown) (unknown) have occurred. If there ( units (unknown) date) are any questions, please unkn own) contact the Medical Records (unknown) (no (unknown) (unknown) household members: spouse (units (unknown) date) unknown) (unknown) (no (unknown) (unknown) issue. (units (unkno wn) date) unknown) (unknown) (no (unknown) (unknown) may occur. Occasional (un its (unknown) date) wrong-word or 'sound-alike' un known) substitutions may have (unknown) (no (unknown) (unknown) occurred due to the (unit s (unknown) date) inherent limitations of unknow n) voice recognition software. Please (unknown) (no (unknown) (unknown) read the note carefully ( units (unknown) date) and recognize, using unknown) context, where these substitutions (unknown) (no (unknown) (unknown) software. 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 (unknown) (no (unknown) (unknown) urinary retention (units (unknown) date) unknown) Result panel 25 (unknown) (no (unknown) (unknown) (no value) (units (unk nown) date) unknown) (unknown) (no (unknown) (unknown) 0 (units (unkno wn) date) unknown) (unknown) (no (unknown) (unknown) [id number] (units (unkn own) date) unknown) (unknown) (no (unknown) (unknown) 09/20/22 (units (unkno wn) date) unknown) (unknown) (no (unknown) (unknown) 13:35 (units (unkno wn) date) unknown) (unknown) (no (unknown) (unknown) 41 yo female who arrives (units (unknown) date) to address ongoing unknown) dizziness. Pt has seen ENT for this (unknown) (no (unknown) (unknown) Accompanied by: ( units (unknown) date) unknown) (unknown) (no (unknown) (unknown) Acetaminophen overdose of (units (unknown) date) undetermined intent unknown) (03/2016) (unknown) (no (unknown) (unknown) Age/Sex: 41 / F Date of ( units (unknown) date) Service: unknown) (unknown) (no (unknown) (unknown) Alcoholism (units (unk nown) date) unknown) (unknown) (no (unknown) (unknown) Allergies (units (unkn own) date) unknown) (unknown) (no (unknown) (unknown) Amputation of fifth toe of (units (unknown) date) right foot unknown) (unknown) (no (unknown) (unknown) [facility] (units (unknown) date) unknown) (unknown) (no (unknown) (unknown) [place] [address] (unit s (unknown) date) unknown) (unknown) (no (unknown) (unknown) Asthma (units (unkno wn) date) unknown) (unknown) (no (unknown) (unknown) Attending Dr: Chinyere Jay (un its (unknown) date) Darrion P.A-Becka unknown) (unknown) (no (unknown) (unknown) BMI 47.6 (units (unkno wn) date) unknown) (unknown) (no (unknown) (unknown) BP 148/78 H (units (un known) date) unknown) (unknown) (no (unknown) (unknown) Blood Pressure Location Rt (units (unknown) date) brachial unknown) (unknown) (no (unknown) (unknown) Cubital tunnel syndrome ( units (unknown) date) unknown) (unknown) (no (unknown) (unknown) DM type 2 (diabetes (unit s (unknown) date) mellitus, type 2) unknown) (unknown) (no (unknown) (unknown) : 1980 (units (unknown) date) Acct:[id number] unknown) (unknown) (no (unknown) (unknown) DVT (deep venous (units (unknown) date) thrombosis) unknown) (unknown) (no (unknown) (unknown) Dept at . (u nits (unknown) date) unknown) (unknown) (no (unknown) (unknown) Diet and Exercise (units (unknown) date) unknown) (unknown) (no (unknown) (unknown) Documented By: (units (unknown) date) Chinyere Maier P.A-C unknown) 09/20/22 115 (unknown) (no (unknown) (unknown) Draft (units (unkno wn) date) unknown) (unknown) (no (unknown) (unknown) Essential hypertension (u nits (unknown) date) unknown) (unknown) (no (unknown) (unknown) Family History (Reviewed (units (unknown) date) 07/25/22 @ 14:36 by Ry un known) VANESSA Aldana) (unknown) (no (unknown) (unknown) Family Practice Office (u nits (unknown) date) Visit unknown) (unknown) (no (unknown) (unknown) Family/Other Pancreatic ( units (unknown) date) cancer unknown) (unknown) (no (unknown) (unknown) Fibromyalgia (05/21/15) ( units (unknown) date) unknown) (unknown) (no (unknown) (unknown) Grandfather Diabetes (uni ts (unknown) date) mellitus unknown) (unknown) (no (unknown) (unknown) Health Management reviewed (units (unknown) date) with patient: No unknown) (unknown) (no (unknown) (unknown) Health Management (units (unknown) date) unknown) (unknown) (no (unknown) (unknown) Height 5 ft 5 in (units (unknown) date) unknown) (unknown) (no (unknown) (unknown) History of carpal tunnel (units (unknown) date) repair (-01/18/15) unknown) (unknown) (no (unknown) (unknown) History of colonoscopy (u nits (unknown) date) unknown) (unknown) (no (unknown) (unknown) History of (units (unk nown) date) esophagogastroduodenoscopy unk nown) (EGD) (unknown) (no (unknown) (unknown) History of laminectomy (u nits (unknown) date) () unknown) (unknown) (no (unknown) (unknown) History of laminectomy (u nits (unknown) date) unknown) (unknown) (no (unknown) (unknown) History of lumbar spinal (units (unknown) date) fusion (03/12/19) unknown) (unknown) (no (unknown) (unknown) Hx of toe surgery (units (unknown) date) (08/04/20) unknown) (unknown) (no (unknown) (unknown) Hypoxia (units (unkno wn) date) unknown) (unknown) (no (unknown) (unknown) Intake Note: (units (u nknown) date) unknown) (unknown) (no (unknown) (unknown) Intake performed by: (uni ts (unknown) date) [facility] [place] unknown) (unknown) (no (unknown) (unknown) Intake (units (unkno wn) date) unknown) (unknown) (no (unknown) (unknown) Intake- Clincial Staff (u nits (unknown) date) unknown) (unknown) (no (unknown) (unknown) Intraoperative cardiac (u nits (unknown) date) arrest during non-cardiac unkn own) surgery (02/2014) (unknown) (no (unknown) (unknown) Last Menstural Cycle + (u nits (unknown) date) Details unknown) (unknown) (no (unknown) (unknown) Latex, Natural Rubber (un its (unknown) date) Adverse Reaction (Mild, unknow n) Verified 07/26/22 14:44) (unknown) (no (unknown) (unknown) Loc: [facility] (units (unkno wn) date) unknown) (unknown) (no (unknown) (unknown) Lumbar spine pain (units (unknown) date) unknown) (unknown) (no (unknown) (unknown) Medical History (Reviewed (units (unknown) date) 07/25/22 @ 14:36 by Ry un known) VANESSA Aldana) (unknown) (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) (unknown) (no (unknown) (unknown) Morbid obesity (units (unknown) date) unknown) (unknown) (no (unknown) (unknown) Narcotic habituation, (un its (unknown) date) continuous unknown) (unknown) (no (unknown) (unknown) Nocturnal hypoxemia (unit s (unknown) date) unknown) (unknown) (no (unknown) (unknown) DERREK (obstructive sleep (u nits (unknown) date) apnea) unknown) (unknown) (no (unknown) (unknown) Obstipation (units (un known) date) unknown) (unknown) (no (unknown) (unknown) Other Menstrual Period: ( units (unknown) date) Uncertain (irregular ) unknown ) (unknown) (no (unknown) (unknown) Ovarian cyst (units (u nknown) date) unknown) (unknown) (no (unknown) (unknown) Oxygen Delivery Method (u nits (unknown) date) room air unknown) (unknown) (no (unknown) (unknown) PFSH (units (unkno wn) date) unknown) (unknown) (no (unknown) (unknown) Patient: Sandy Dorman (units (unknown) date) MR#: M unknown) (unknown) (no (unknown) (unknown) Plantar fasciitis (units (unknown) date) unknown) (unknown) (no (unknown) (unknown) Position Sitting (units (unknown) date) unknown) (unknown) (no (unknown) (unknown) Psychogenic nonepileptic (units (unknown) date) seizure unknown) (unknown) (no (unknown) (unknown) Pulmonary embolism (units (unknown) date) unknown) (unknown) (no (unknown) (unknown) Pulse 115 H (units (un known) date) unknown) (unknown) (no (unknown) (unknown) Pulse Oximetry (%) 98 (un its (unknown) date) unknown) (unknown) (no (unknown) (unknown) Pulse Source Monitor (uni ts (unknown) date) unknown) (unknown) (no (unknown) (unknown) RBBB (right bundle branch (units (unknown) date) block) unknown) (unknown) (no (unknown) (unknown) Rash (units (unkno wn) date) unknown) (unknown) (no (unknown) (unknown) Reason For Visit (units (unknown) date) unknown) (unknown) (no (unknown) (unknown) S/P epidural steroid (uni ts (unknown) date) injection (02/2014) unknown) (unknown) (no (unknown) (unknown) Seizures (units (unkno wn) date) unknown) (unknown) (no (unknown) (unknown) Signed By: (units (unk nown) date) unknown) (unknown) (no (unknown) (unknown) Sinus tachycardia (units (unknown) date) unknown) (unknown) (no (unknown) (unknown) Smoking Status: Current ( units (unknown) date) some day smoker unknown) (unknown) (no (unknown) (unknown) Social History (units (unknown) date) unknown) (unknown) (no (unknown) (unknown) Status post dilation and (units (unknown) date) curettage (2008) unknown) (unknown) (no (unknown) (unknown) Status post laminectomy ( units (unknown) date) (03/03/16) unknown) (unknown) (no (unknown) (unknown) Suicide attempt (units (unknown) date) unknown) (unknown) (no (unknown) (unknown) Surgical History (Reviewed (units (unknown) date) 07/25/22 @ 14:36 by Ry un known) VANESSA Aldana) (unknown) (no (unknown) (unknown) Temp 97.6 F (units (un known) date) unknown) (unknown) (no (unknown) (unknown) Temp Source Temporal (uni ts (unknown) date) Artery Scan unknown) (unknown) (no (unknown) (unknown) This note may have been ( units (unknown) date) all or partially generated unk nown) using voice recognition (unknown) (no (unknown) (unknown) Tobacco + Substance Use ( units (unknown) date) unknown) (unknown) (no (unknown) (unknown) Tobacco Status (units (unknown) date) unknown) (unknown) (no (unknown) (unknown) Tobacco abuse (units ( unknown) date) unknown) (unknown) (no (unknown) (unknown) Tylenol overdose (units (unknown) date) unknown) (unknown) (no (unknown) (unknown) Type(s) of exercise: (uni ts (unknown) date) normal ROM and activity and un known) sedentary lifestyle (unknown) (no (unknown) (unknown) Urinary retention (units (unknown) date) unknown) (unknown) (no (unknown) (unknown) Visit Reasons: Dizziness (units (unknown) date) unknown) (unknown) (no (unknown) (unknown) Vitals (units (unkno wn) date) unknown) (unknown) (no (unknown) (unknown) Weight 286 lb 4 oz (units (unknown) date) unknown) (unknown) (no (unknown) (unknown) alcohol intake: current ( units (unknown) date) unknown) (unknown) (no (unknown) (unknown) carisoprodol (units (u nknown) date) [CARISOPRODOL] Adverse unknown ) Reaction (Severe, Verified 07/26/22 14:44) (unknown) (no (unknown) (unknown) eating out: 1-3 times/week (units (unknown) date) unknown) (unknown) (no (unknown) (unknown) fosphenytoin Adverse (uni ts (unknown) date) Reaction (Severe, Verified unk nown) 07/26/22 14:44) (unknown) (no (unknown) (unknown) have occurred. If there ( units (unknown) date) are any questions, please unkn own) contact the Medical Records (unknown) (no (unknown) (unknown) household members: spouse (units (unknown) date) unknown) (unknown) (no (unknown) (unknown) issue. (units (unkno wn) date) unknown) (unknown) (no (unknown) (unknown) may occur. Occasional (un its (unknown) date) wrong-word or 'sound-alike' un known) substitutions may have (unknown) (no (unknown) (unknown) occurred due to the (unit s (unknown) date) inherent limitations of unknow n) voice recognition software. Please (unknown) (no (unknown) (unknown) read the note carefully ( units (unknown) date) and recognize, using unknown) context, where these substitutions (unknown) (no (unknown) (unknown) software. 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 (unknown) (no (unknown) (unknown) urinary retention (units (unknown) date) unknown) Result panel 26 (unknown) (no (unknown) (unknown) (no value) (units (unk nown) date) unknown) (unknown) (no (unknown) (unknown) 0 (units (unkno wn) date) unknown) (unknown) (no (unknown) (unknown) [id number] (units (unkn own) date) unknown) (unknown) (no (unknown) (unknown) 09/20/22 (units (unkno wn) date) unknown) (unknown) (no (unknown) (unknown) 13:35 (units (unkno wn) date) unknown) (unknown) (no (unknown) (unknown) 41 yo female who arrives (units (unknown) date) to address ongoing unknown) dizziness. Pt has seen ENT for this (unknown) (no (unknown) (unknown) Accompanied by: ( units (unknown) date) unknown) (unknown) (no (unknown) (unknown) Acetaminophen overdose of (units (unknown) date) undetermined intent unknown) (03/2016) (unknown) (no (unknown) (unknown) Age/Sex: 41 / F Date of ( units (unknown) date) Service: unknown) (unknown) (no (unknown) (unknown) Alcoholism (units (unk nown) date) unknown) (unknown) (no (unknown) (unknown) Allergies (units (unkn own) date) unknown) (unknown) (no (unknown) (unknown) Amputation of fifth toe of (units (unknown) date) right foot unknown) (unknown) (no (unknown) (unknown) [facility] (units (unknown) date) unknown) (unknown) (no (unknown) (unknown) [place] [id number] (unit s (unknown) date) unknown) (unknown) (no (unknown) (unknown) Asthma (units (unkno wn) date) unknown) (unknown) (no (unknown) (unknown) Attending Dr: Chinyere Jay (un its (unknown) date) Darrion Case unknown) (unknown) (no (unknown) (unknown) BMI 47.6 (units (unkno wn) date) unknown) (unknown) (no (unknown) (unknown) BP 148/78 H (units (un known) date) unknown) (unknown) (no (unknown) (unknown) Blood Pressure Location Rt (units (unknown) date) brachial unknown) (unknown) (no (unknown) (unknown) Card (units (unkno wn) date) unknown) (unknown) (no (unknown) (unknown) Chief Complaint (units (unknown) date) unknown) (unknown) (no (unknown) (unknown) Chief Complaint: Dizziness (units (unknown) date) unknown) (unknown) (no (unknown) (unknown) Const (units (unkno wn) date) unknown) (unknown) (no (unknown) (unknown) Cubital tunnel syndrome ( units (unknown) date) unknown) (unknown) (no (unknown) (unknown) DM type 2 (diabetes (unit s (unknown) date) mellitus, type 2) unknown) (unknown) (no (unknown) (unknown) : 1980 (units (unknown) date) Acct:[id number] unknown) (unknown) (no (unknown) (unknown) DVT (deep venous (units (unknown) date) thrombosis) unknown) (unknown) (no (unknown) (unknown) Denies change in vision ( units (unknown) date) unknown) (unknown) (no (unknown) (unknown) Denies chest pain and (un its (unknown) date) Denies dyspnea unknown) (unknown) (no (unknown) (unknown) Denies dyspnea (units (unknown) date) unknown) (unknown) (no (unknown) (unknown) Denies numbness and Denies (units (unknown) date) tingling unknown) (unknown) (no (unknown) (unknown) Dept at . (u nits (unknown) date) unknown) (unknown) (no (unknown) (unknown) Details: (units (unkno wn) date) unknown) (unknown) (no (unknown) (unknown) Diet and Exercise (units (unknown) date) unknown) (unknown) (no (unknown) (unknown) Documented By: (units (unknown) date) Chinyere Maier P.A-C unknown) 09/20/22 115 (unknown) (no (unknown) (unknown) Draft (units (unkno wn) date) unknown) (unknown) (no (unknown) (unknown) ENT (units (unkno wn) date) unknown) (unknown) (no (unknown) (unknown) Ears, Nose, Mouth, and (un its (unknown) date) Throat: Denies otalgia, unknow n) Reports headache(s) (migraines(?) (unknown) (no (unknown) (unknown) Essential hypertension (u nits (unknown) date) unknown) (unknown) (no (unknown) (unknown) Eyes (units (unkno wn) date) unknown) (unknown) (no (unknown) (unknown) Family History (Reviewed (units (unknown) date) 07/25/22 @ 14:36 by Ry un known) VANESSA Aldana) (unknown) (no (unknown) (unknown) Family Practice Office (u nits (unknown) date) Visit unknown) (unknown) (no (unknown) (unknown) Family/Other Pancreatic ( units (unknown) date) cancer unknown) (unknown) (no (unknown) (unknown) Fibromyalgia (05/21/15) ( units (unknown) date) unknown) (unknown) (no (unknown) (unknown) Grandfather Diabetes (uni ts (unknown) date) mellitus unknown) (unknown) (no (unknown) (unknown) HPI (units (unkno wn) date) unknown) (unknown) (no (unknown) (unknown) Health Management reviewed (units (unknown) date) with patient: No unknown) (unknown) (no (unknown) (unknown) Health Management (units (unknown) date) unknown) (unknown) (no (unknown) (unknown) Height 5 ft 5 in (units (unknown) date) unknown) (unknown) (no (unknown) (unknown) History of carpal tunnel (units (unknown) date) repair (-01/18/15) unknown) (unknown) (no (unknown) (unknown) History of colonoscopy (u nits (unknown) date) unknown) (unknown) (no (unknown) (unknown) History of (units (unk nown) date) esophagogastroduodenoscopy unk nown) (EGD) (unknown) (no (unknown) (unknown) History of laminectomy (u nits (unknown) date) (-12/2016) unknown) (unknown) (no (unknown) (unknown) History of laminectomy (u nits (unknown) date) unknown) (unknown) (no (unknown) (unknown) History of lumbar spinal (units (unknown) date) fusion (03/12/19) unknown) (unknown) (no (unknown) (unknown) Hx of toe surgery (units (unknown) date) (08/04/20) unknown) (unknown) (no (unknown) (unknown) Hypoxia (units (unkno wn) date) unknown) (unknown) (no (unknown) (unknown) Intake Note: (units (u nknown) date) unknown) (unknown) (no (unknown) (unknown) Intake performed by: (jane ts (unknown) date) [facility] unknown) (unknown) (no (unknown) (unknown) Intake (units (unkno wn) date) unknown) (unknown) (no (unknown) (unknown) Intake- Clincial Staff (u nits (unknown) date) unknown) (unknown) (no (unknown) (unknown) Intraoperative cardiac (u nits (unknown) date) arrest during non-cardiac unkn own) surgery (02/2014) (unknown) (no (unknown) (unknown) Last Menstural Cycle + (u nits (unknown) date) Details unknown) (unknown) (no (unknown) (unknown) Latex, Natural Rubber (un its (unknown) date) Adverse Reaction (Mild, unknow n) Verified 07/26/22 14:44) (unknown) (no (unknown) (unknown) Loc: [facility] (units (unkno wn) date) unknown) (unknown) (no (unknown) (unknown) Lumbar spine pain (units (unknown) date) unknown) (unknown) (no (unknown) (unknown) Medical History (Reviewed (units (unknown) date) 07/25/22 @ 14:36 by Ry un known) VANESSA Aldana) (unknown) (no (unknown) (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 ) () (unknown) (no (unknown) (unknown) Morbid obesity (units (unknown) date) unknown) (unknown) (no (unknown) (unknown) Musc (units (unkno wn) date) unknown) (unknown) (no (unknown) (unknown) Narcotic habituation, (un its (unknown) date) continuous unknown) (unknown) (no (unknown) (unknown) Neuro (units (unkno wn) date) unknown) (unknown) (no (unknown) (unknown) Neurologic: Reports (unit s (unknown) date) headache(s) (migraines(?) unkn own) in the last couple of months), (unknown) (no (unknown) (unknown) Nocturnal hypoxemia (unit s (unknown) date) unknown) (unknown) (no (unknown) (unknown) DERREK (obstructive sleep (u nits (unknown) date) apnea) unknown) (unknown) (no (unknown) (unknown) Obstipation (units (un known) date) unknown) (unknown) (no (unknown) (unknown) Other Menstrual Period: ( units (unknown) date) Uncertain (irregular ) unknown ) (unknown) (no (unknown) (unknown) Ovarian cyst (units (u nknown) date) unknown) (unknown) (no (unknown) (unknown) Oxygen Delivery Method (u nits (unknown) date) room air unknown) (unknown) (no (unknown) (unknown) PCP: Dr. Villanueva (units (unknown) date) unknown) (unknown) (no (unknown) (unknown) PFSH (units (unkno wn) date) unknown) (unknown) (no (unknown) (unknown) Patient has had recurrence (units (unknown) date) of dizziness - ENT thought unk nown) this was a 'migraine (unknown) (no (unknown) (unknown) Patient: Sandy Dorman (units (unknown) date) MR#: M unknown) (unknown) (no (unknown) (unknown) Plantar fasciitis (units (unknown) date) unknown) (unknown) (no (unknown) (unknown) Position Sitting (units (unknown) date) unknown) (unknown) (no (unknown) (unknown) Psychogenic nonepileptic (units (unknown) date) seizure unknown) (unknown) (no (unknown) (unknown) Pulmonary embolism (units (unknown) date) unknown) (unknown) (no (unknown) (unknown) Pulse 115 H (units (un known) date) unknown) (unknown) (no (unknown) (unknown) Pulse Oximetry (%) 98 (un its (unknown) date) unknown) (unknown) (no (unknown) (unknown) Pulse Source Monitor (uni ts (unknown) date) unknown) (unknown) (no (unknown) (unknown) RBBB (right bundle branch (units (unknown) date) block) unknown) (unknown) (no (unknown) (unknown) ROS (units (unkno wn) date) unknown) (unknown) (no (unknown) (unknown) Rash (units (unkno wn) date) unknown) (unknown) (no (unknown) (unknown) Reason For Visit (units (unknown) date) unknown) (unknown) (no (unknown) (unknown) Reports headache(s) (unit s (unknown) date) (migraines(?) in the last unkn own) couple of months) (unknown) (no (unknown) (unknown) Reports neck pain, Denies (units (unknown) date) numbness, Denies radiating unk nown) pain into limb and Denies (unknown) (no (unknown) (unknown) Resp (units (unkno wn) date) unknown) (unknown) (no (unknown) (unknown) S/P epidural steroid (uni ts (unknown) date) injection (02/2014) unknown) (unknown) (no (unknown) (unknown) Seizures (units (unkno wn) date) unknown) (unknown) (no (unknown) (unknown) Signed By: (units (unk nown) date) unknown) (unknown) (no (unknown) (unknown) Sinus tachycardia (units (unknown) date) unknown) (unknown) (no (unknown) (unknown) Smoking Status: Current ( units (unknown) date) some day smoker unknown) (unknown) (no (unknown) (unknown) Social History (units (unknown) date) unknown) (unknown) (no (unknown) (unknown) Started PT but then (unit s (unknown) date) stopped because wanted to unkn own) wait to see what diagnosis (unknown) (no (unknown) (unknown) Status post dilation and (units (unknown) date) curettage (2008) unknown) (unknown) (no (unknown) (unknown) Status post laminectomy ( units (unknown) date) (03/03/16) unknown) (unknown) (no (unknown) (unknown) Suicide attempt (units (unknown) date) unknown) (unknown) (no (unknown) (unknown) Surgical History (Reviewed (units (unknown) date) 07/25/22 @ 14:36 by Ry un known) VANESSA Aldana) (unknown) (no (unknown) (unknown) Temp 97.6 F (units (un known) date) unknown) (unknown) (no (unknown) (unknown) Temp Source Temporal (uni ts (unknown) date) Artery Scan unknown) (unknown) (no (unknown) (unknown) This note may have been ( units (unknown) date) all or partially generated unk nown) using voice recognition (unknown) (no (unknown) (unknown) Tobacco + Substance Use ( units (unknown) date) unknown) (unknown) (no (unknown) (unknown) Tobacco Status (units (unknown) date) unknown) (unknown) (no (unknown) (unknown) Tobacco abuse (units ( unknown) date) unknown) (unknown) (no (unknown) (unknown) Tylenol overdose (units (unknown) date) unknown) (unknown) (no (unknown) (unknown) Type(s) of exercise: (uni ts (unknown) date) normal ROM and activity and un known) sedentary lifestyle (unknown) (no (unknown) (unknown) Urinary retention (units (unknown) date) unknown) (unknown) (no (unknown) (unknown) Visit Reasons: Dizziness (units (unknown) date) unknown) (unknown) (no (unknown) (unknown) Vitals (units (unkno wn) date) unknown) (unknown) (no (unknown) (unknown) Weight 286 lb 4 oz (units (unknown) date) unknown) (unknown) (no (unknown) (unknown) alcohol intake: current ( units (unknown) date) unknown) (unknown) (no (unknown) (unknown) and then returned about 3 (units (unknown) date) weeks ago. Sudden onset unknow n) after getting up off (unknown) (no (unknown) (unknown) carisoprodol (units (u nknown) date) [CARISOPRODOL] Adverse unknown ) Reaction (Severe, Verified 07/26/22 14:44) (unknown) (no (unknown) (unknown) eating out: 1-3 times/week (units (unknown) date) unknown) (unknown) (no (unknown) (unknown) fosphenytoin Adverse (uni ts (unknown) date) Reaction (Severe, Verified unk nown) 07/26/22 14:44) (unknown) (no (unknown) (unknown) have occurred. If there ( units (unknown) date) are any questions, please unkn own) contact the Medical Records (unknown) (no (unknown) (unknown) household members: spouse (units (unknown) date) unknown) (unknown) (no (unknown) (unknown) in the last couple of (un its (unknown) date) months) and Reports neck unkno wn) pain (unknown) (no (unknown) (unknown) issue. (units (unkno wn) date) unknown) (unknown) (no (unknown) (unknown) may occur. Occasional (un its (unknown) date) wrong-word or 'sound-alike' un known) substitutions may have (unknown) (no (unknown) (unknown) occurred due to the (unit s (unknown) date) inherent limitations of unknow n) voice recognition software. Please (unknown) (no (unknown) (unknown) read the note carefully ( units (unknown) date) and recognize, using unknown) context, where these substitutions (unknown) (no (unknown) (unknown) software. 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 (unknown) (no (unknown) (unknown) the couch. Sensation of ( units (unknown) date) 'elevator dropping' or unknown ) feeling of being off balance. (unknown) (no (unknown) (unknown) tingling (units (unkno wn) date) unknown) (unknown) (no (unknown) (unknown) urinary retention (units (unknown) date) unknown) (unknown) (no (unknown) (unknown) vertigo' - Neurologist (u nits (unknown) date) didn't think so. Symptoms unkn own) resolved after [place] (unknown) (no (unknown) (unknown) was before she started it. (units (unknown) date) unknown) Result panel 27 (unknown) (no (unknown) (unknown) (no value) (units (unk nown) date) unknown) (unknown) (no (unknown) (unknown) (1) Neck pain: (units (unknown) date) unknown) (unknown) (no (unknown) (unknown) 0 (units (unkno wn) date) unknown) (unknown) (no (unknown) (unknown) [id number] (units (unkn own) date) unknown) (unknown) (no (unknown) (unknown) 09/20/22 (units (unkno wn) date) unknown) (unknown) (no (unknown) (unknown) 13:35 (units (unkno wn) date) unknown) (unknown) (no (unknown) (unknown) 41 yo female who arrives (units (unknown) date) to address ongoing unknown) dizziness. Pt has seen ENT for this (unknown) (no (unknown) (unknown) Accompanied by: ( units (unknown) date) unknown) (unknown) (no (unknown) (unknown) Acetaminophen overdose of (units (unknown) date) undetermined intent unknown) (03/2016) (unknown) (no (unknown) (unknown) Age/Sex: 41 / F Date of ( units (unknown) date) Service: unknown) (unknown) (no (unknown) (unknown) Alcoholism (units (unk nown) date) unknown) (unknown) (no (unknown) (unknown) Allergies (units (unkn own) date) unknown) (unknown) (no (unknown) (unknown) Amputation of fifth toe of (units (unknown) date) right foot unknown) (unknown) (no (unknown) (unknown) [facility] (units (unknown) date) unknown) (unknown) (no (unknown) (unknown) [place] [id number] (unit s (unknown) date) unknown) (unknown) (no (unknown) (unknown) Assessment + Plan (units (unknown) date) unknown) (unknown) (no (unknown) (unknown) Asthma (units (unkno wn) date) unknown) (unknown) (no (unknown) (unknown) Attending Dr: Chinyere Jay (un its (unknown) date) Darrion Case unknown) (unknown) (no (unknown) (unknown) BMI 47.6 (units (unkno wn) date) unknown) (unknown) (no (unknown) (unknown) BP 148/78 H (units (un known) date) unknown) (unknown) (no (unknown) (unknown) Blood Pressure Location Rt (units (unknown) date) brachial unknown) (unknown) (no (unknown) (unknown) Card (units (unkno wn) date) unknown) (unknown) (no (unknown) (unknown) Chief Complaint (units (unknown) date) unknown) (unknown) (no (unknown) (unknown) Chief Complaint: Dizziness (units (unknown) date) unknown) (unknown) (no (unknown) (unknown) Const (units (unkno wn) date) unknown) (unknown) (no (unknown) (unknown) Cubital tunnel syndrome ( units (unknown) date) unknown) (unknown) (no (unknown) (unknown) DM type 2 (diabetes (unit s (unknown) date) mellitus, type 2) unknown) (unknown) (no (unknown) (unknown) : 1980 (units (unknown) date) Acct:[id number] unknown) (unknown) (no (unknown) (unknown) DVT (deep venous (units (unknown) date) thrombosis) unknown) (unknown) (no (unknown) (unknown) Denies change in vision ( units (unknown) date) unknown) (unknown) (no (unknown) (unknown) Denies chest pain and (un its (unknown) date) Denies dyspnea unknown) (unknown) (no (unknown) (unknown) Denies dyspnea (units (unknown) date) unknown) (unknown) (no (unknown) (unknown) Denies numbness and Denies (units (unknown) date) tingling unknown) (unknown) (no (unknown) (unknown) Dept at . (u nits (unknown) date) unknown) (unknown) (no (unknown) (unknown) Details: (units (unkno wn) date) unknown) (unknown) (no (unknown) (unknown) Diet and Exercise (units (unknown) date) unknown) (unknown) (no (unknown) (unknown) Documented By: (units (unknown) date) Chinyere Maier P.A-C unknown) 09/20/22 115 (unknown) (no (unknown) (unknown) Draft (units (unkno wn) date) unknown) (unknown) (no (unknown) (unknown) ENT (units (unkno wn) date) unknown) (unknown) (no (unknown) (unknown) Ears, Nose, Mouth, and (un its (unknown) date) Throat: Denies otalgia, unknow n) Reports headache(s) (migraines(?) (unknown) (no (unknown) (unknown) Essential hypertension (u nits (unknown) date) unknown) (unknown) (no (unknown) (unknown) Eyes (units (unkno wn) date) unknown) (unknown) (no (unknown) (unknown) Family History (Reviewed (units (unknown) date) 07/25/22 @ 14:36 by Ry un known) VANESSA Aldana) (unknown) (no (unknown) (unknown) Family Practice Office (u nits (unknown) date) Visit unknown) (unknown) (no (unknown) (unknown) Family/Other Pancreatic ( units (unknown) date) cancer unknown) (unknown) (no (unknown) (unknown) Fibromyalgia (05/21/15) ( units (unknown) date) unknown) (unknown) (no (unknown) (unknown) Grandfather Diabetes (uni ts (unknown) date) mellitus unknown) (unknown) (no (unknown) (unknown) HPI (units (unkno wn) date) unknown) (unknown) (no (unknown) (unknown) Health Management reviewed (units (unknown) date) with patient: No unknown) (unknown) (no (unknown) (unknown) Health Management (units (unknown) date) unknown) (unknown) (no (unknown) (unknown) Height 5 ft 5 in (units (unknown) date) unknown) (unknown) (no (unknown) (unknown) History of carpal tunnel (units (unknown) date) repair (-01/18/15) unknown) (unknown) (no (unknown) (unknown) History of colonoscopy (u nits (unknown) date) unknown) (unknown) (no (unknown) (unknown) History of (units (unk nown) date) esophagogastroduodenoscopy unk nown) (EGD) (unknown) (no (unknown) (unknown) History of laminectomy (u nits (unknown) date) () unknown) (unknown) (no (unknown) (unknown) History of laminectomy (u nits (unknown) date) unknown) (unknown) (no (unknown) (unknown) History of lumbar spinal (units (unknown) date) fusion (03/12/19) unknown) (unknown) (no (unknown) (unknown) Hx of toe surgery (units (unknown) date) (08/04/20) unknown) (unknown) (no (unknown) (unknown) Hypoxia (units (unkno wn) date) unknown) (unknown) (no (unknown) (unknown) Intake Note: (units (u nknown) date) unknown) (unknown) (no (unknown) (unknown) Intake performed by: (uni ts (unknown) date) Main Hancock unknown) (unknown) (no (unknown) (unknown) Intake (units (unkno wn) date) unknown) (unknown) (no (unknown) (unknown) Intake- Clincial Staff (u nits (unknown) date) unknown) (unknown) (no (unknown) (unknown) Intraoperative cardiac (u nits (unknown) date) arrest during non-cardiac unkn own) surgery (02/2014) (unknown) (no (unknown) (unknown) Last Menstural Cycle + (u nits (unknown) date) Details unknown) (unknown) (no (unknown) (unknown) Latex, Natural Rubber (un its (unknown) date) Adverse Reaction (Mild, unknow n) Verified 07/26/22 14:44) (unknown) (no (unknown) (unknown) Loc: [facility] (units (unkno wn) date) unknown) (unknown) (no (unknown) (unknown) Lumbar spine pain (units (unknown) date) unknown) (unknown) (no (unknown) (unknown) Medical History (Reviewed (units (unknown) date) 07/25/22 @ 14:36 by Ry un known) VANESSA Aldana) (unknown) (no (unknown) (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 ) () (unknown) (no (unknown) (unknown) Morbid obesity (units (unknown) date) unknown) (unknown) (no (unknown) (unknown) Musc (units (unkno wn) date) unknown) (unknown) (no (unknown) (unknown) Narcotic habituation, (un its (unknown) date) continuous unknown) (unknown) (no (unknown) (unknown) Neuro (units (unkno wn) date) unknown) (unknown) (no (unknown) (unknown) Neurologic: Reports (unit s (unknown) date) headache(s) (migraines(?) unkn own) in the last couple of months), (unknown) (no (unknown) (unknown) Nocturnal hypoxemia (unit s (unknown) date) unknown) (unknown) (no (unknown) (unknown) DERREK (obstructive sleep (u nits (unknown) date) apnea) unknown) (unknown) (no (unknown) (unknown) Obstipation (units (un known) date) unknown) (unknown) (no (unknown) (unknown) Orders (units (unkno wn) date) unknown) (unknown) (no (unknown) (unknown) Orders: (units (unkno wn) date) unknown) (unknown) (no (unknown) (unknown) Other Menstrual Period: ( units (unknown) date) Uncertain (irregular ) unknown ) (unknown) (no (unknown) (unknown) Ovarian cyst (units (u nknown) date) unknown) (unknown) (no (unknown) (unknown) Oxygen Delivery Method (u nits (unknown) date) room air unknown) (unknown) (no (unknown) (unknown) PCP: Dr. Villanueva (units (unknown) date) unknown) (unknown) (no (unknown) (unknown) PFSH (units (unkno wn) date) unknown) (unknown) (no (unknown) (unknown) Patient has had recurrence (units (unknown) date) of dizziness - ENT thought unk nown) this was a 'migraine (unknown) (no (unknown) (unknown) Patient: Sandy Dorman (units (unknown) date) MR#: M unknown) (unknown) (no (unknown) (unknown) Plantar fasciitis (units (unknown) date) unknown) (unknown) (no (unknown) (unknown) Position Sitting (units (unknown) date) unknown) (unknown) (no (unknown) (unknown) Psychogenic nonepileptic (units (unknown) date) seizure unknown) (unknown) (no (unknown) (unknown) Pulmonary embolism (units (unknown) date) unknown) (unknown) (no (unknown) (unknown) Pulse 115 H (units (un known) date) unknown) (unknown) (no (unknown) (unknown) Pulse Oximetry (%) 98 (un its (unknown) date) unknown) (unknown) (no (unknown) (unknown) Pulse Source Monitor (uni ts (unknown) date) unknown) (unknown) (no (unknown) (unknown) RBBB (right bundle branch (units (unknown) date) block) unknown) (unknown) (no (unknown) (unknown) ROS (units (unkno wn) date) unknown) (unknown) (no (unknown) (unknown) Rash (units (unkno wn) date) unknown) (unknown) (no (unknown) (unknown) Reason For Visit (units (unknown) date) unknown) (unknown) (no (unknown) (unknown) Reports headache(s) (unit s (unknown) date) (migraines(?) in the last unkn own) couple of months) (unknown) (no (unknown) (unknown) Reports neck pain, Denies (units (unknown) date) numbness, Denies radiating unk nown) pain into limb and Denies (unknown) (no (unknown) (unknown) Resp (units (unkno wn) date) unknown) (unknown) (no (unknown) (unknown) S/P epidural steroid (uni ts (unknown) date) injection (02/2014) unknown) (unknown) (no (unknown) (unknown) Seizures (units (unkno wn) date) unknown) (unknown) (no (unknown) (unknown) Signed By: (units (unk nown) date) unknown) (unknown) (no (unknown) (unknown) Sinus tachycardia (units (unknown) date) unknown) (unknown) (no (unknown) (unknown) Smoking Status: Current ( units (unknown) date) some day smoker unknown) (unknown) (no (unknown) (unknown) Social History (units (unknown) date) unknown) (unknown) (no (unknown) (unknown) Started PT but then (unit s (unknown) date) stopped because wanted to unkn own) wait to see what diagnosis (unknown) (no (unknown) (unknown) Status post dilation and (units (unknown) date) curettage (2008) unknown) (unknown) (no (unknown) (unknown) Status post laminectomy ( units (unknown) date) (03/03/16) unknown) (unknown) (no (unknown) (unknown) Suicide attempt (units (unknown) date) unknown) (unknown) (no (unknown) (unknown) Surgical History (Reviewed (units (unknown) date) 07/25/22 @ 14:36 by Ry un known) VANESSA Aldana) (unknown) (no (unknown) (unknown) Temp 97.6 F (units (un known) date) unknown) (unknown) (no (unknown) (unknown) Temp Source Temporal (uni ts (unknown) date) Artery Scan unknown) (unknown) (no (unknown) (unknown) This note may have been ( units (unknown) date) all or partially generated unk nown) using voice recognition (unknown) (no (unknown) (unknown) Tobacco + Substance Use ( units (unknown) date) unknown) (unknown) (no (unknown) (unknown) Tobacco Status (units (unknown) date) unknown) (unknown) (no (unknown) (unknown) Tobacco abuse (units ( unknown) date) unknown) (unknown) (no (unknown) (unknown) Tylenol overdose (units (unknown) date) unknown) (unknown) (no (unknown) (unknown) Type(s) of exercise: (uni ts (unknown) date) normal ROM and activity and un known) sedentary lifestyle (unknown) (no (unknown) (unknown) Urinary retention (units (unknown) date) unknown) (unknown) (no (unknown) (unknown) Visit Reasons: Dizziness (units (unknown) date) unknown) (unknown) (no (unknown) (unknown) Vitals (units (unkno wn) date) unknown) (unknown) (no (unknown) (unknown) Weight 286 lb 4 oz (units (unknown) date) unknown) (unknown) (no (unknown) (unknown) XR cervical spine 2V or 3V (units (unknown) date) Today M54.2 - Cervicalgia unkn own) (unknown) (no (unknown) (unknown) alcohol intake: current ( units (unknown) date) unknown) (unknown) (no (unknown) (unknown) and then returned about 3 (units (unknown) date) weeks ago. Sudden onset unknow n) after getting up off (unknown) (no (unknown) (unknown) carisoprodol (units (u nknown) date) [CARISOPRODOL] Adverse unknown ) Reaction (Severe, Verified 07/26/22 14:44) (unknown) (no (unknown) (unknown) eating out: 1-3 times/week (units (unknown) date) unknown) (unknown) (no (unknown) (unknown) fosphenytoin Adverse (uni ts (unknown) date) Reaction (Severe, Verified unk nown) 07/26/22 14:44) (unknown) (no (unknown) (unknown) have occurred. If there ( units (unknown) date) are any questions, please unkn own) contact the Medical Records (unknown) (no (unknown) (unknown) household members: spouse (units (unknown) date) unknown) (unknown) (no (unknown) (unknown) in the last couple of (un its (unknown) date) months) and Reports neck unkno wn) pain (unknown) (no (unknown) (unknown) issue. (units (unkno wn) date) unknown) (unknown) (no (unknown) (unknown) may occur. Occasional (un its (unknown) date) wrong-word or 'sound-alike' un known) substitutions may have (unknown) (no (unknown) (unknown) occurred due to the (unit s (unknown) date) inherent limitations of unknow n) voice recognition software. Please (unknown) (no (unknown) (unknown) read the note carefully ( units (unknown) date) and recognize, using unknown) context, where these substitutions (unknown) (no (unknown) (unknown) software. 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 (unknown) (no (unknown) (unknown) the couch. Sensation of ( units (unknown) date) 'elevator dropping' or unknown ) feeling of being off balance. (unknown) (no (unknown) (unknown) tingling (units (unkno wn) date) unknown) (unknown) (no (unknown) (unknown) urinary retention (units (unknown) date) unknown) (unknown) (no (unknown) (unknown) vertigo' - Neurologist (u nits (unknown) date) didn't think so. Symptoms unkn own) resolved after Rosio (unknown) (no (unknown) (unknown) was before she started it. (units (unknown) date) unknown) Result panel 28 (unknown) (no (unknown) (unknown) (no value) (units (unk nown) date) unknown) (unknown) (no (unknown) (unknown) 09/20/22 (units (unkno wn) date) unknown) (unknown) (no (unknown) (unknown) [address] (units (unkn own) date) Street unknown) (unknown) (no (unknown) (unknown) Accession (units (unkn own) date) Number: unknown) [id number] (unknown) (no (unknown) (unknown) Age/Sex: 41 / F (units (unknown) date) Date of Service: unknown) (unknown) (no (unknown) (unknown) [place] (units ( unknown) date) [id number] unknown) (unknown) (no (unknown) (unknown) Approved by: (units (u nknown) date) Miguel Duarte M.D. unknown) on 09/20/2022 at 16:54 (unknown) (no (unknown) (unknown) Bones: No (units (unkn own) date) fractures or unknown) dislocations to the C7 level. The lateral masses of C1 (unknown) (no (unknown) (unknown) COMPARISON: (units (un known) date) None. unknown) (unknown) (no (unknown) (unknown) : 1980 (units (unknown) date) Acct:[id number] unknown) (unknown) (no (unknown) (unknown) Dictated by: (units (u nknown) date) Miguel Duarte M.D. unknown) on 09/20/2022 at 16:52 (unknown) (no (unknown) (unknown) FINDINGS: (units (unkn own) date) unknown) (unknown) (no (unknown) (unknown) IMPRESSION: (units (un known) date) Moderate unknown) degenerative disc disease at C6-C7. (unknown) (no (unknown) (unknown) INDICATIONS: (units (u nknown) date) Neck pain unknown) (unknown) (no (unknown) (unknown) [facility] (units (unknown) date) unknown) (unknown) (no (unknown) (unknown) Loc: RAD (units (unkno wn) date) unknown) (unknown) (no (unknown) (unknown) [id number] (units (unk nown) date) unknown) (unknown) (no (unknown) (unknown) Ordering (units (unkno wn) date) Provider: unknown) Chinyere Maier P.A-C (unknown) (no (unknown) (unknown) PROCEDURE: XR (units ( unknown) date) CERVICAL SPINE unknown) 2V OR 3V (unknown) (no (unknown) (unknown) Patient: (units (unkno wn) date) Sandy Dorman unknown) Beatriz MR#: (unknown) (no (unknown) (unknown) Procedure: XR (units ( unknown) date) cervical spine unknown) 2V or 3V (unknown) (no (unknown) (unknown) Signed (units (unkno wn) date) unknown) (unknown) (no (unknown) (unknown) Soft tissues: (units ( unknown) date) No prevertebral unknown) soft tissue swelling. (unknown) (no (unknown) (unknown) TECHNIQUE: 3 (units (u nknown) date) view(s) of the unknown) cervical spine were acquired. (unknown) (no (unknown) (unknown) XRay Report (units (un known) date) unknown) (unknown) (no (unknown) (unknown) appear (units (unkno wn) date) unknown) (unknown) (no (unknown) (unknown) degenerative (units (u nknown) date) unknown) (unknown) (no (unknown) (unknown) disease at (units (unk nown) date) C6-C7. unknown) (unknown) (no (unknown) (unknown) intact on the (units ( unknown) date) odontoid view. unknown) No suspicious bony lesions. There is moderate Result panel 29 (unknown) (no (unknown) (unknown) (no value) (units (unk nown) date) unknown) (unknown) (no (unknown) (unknown) #12.9 grams 04/12/22 [Rx (units (unknown) date) Confirmed 09/20/22] unknown) (unknown) (no (unknown) (unknown) (1) Neck pain: (units (unknown) date) unknown) (unknown) (no (unknown) (unknown) .COMPLEX #18 grams (units (unknown) date) 03/03/22 [Rx Confirmed unknown ) 09/20/22] (unknown) (no (unknown) (unknown) 0 (units (unkno wn) date) unknown) (unknown) (no (unknown) (unknown) [id number] (units (unkn own) date) unknown) (unknown) (no (unknown) (unknown) 08/30/22 [Rx Confirmed (u nits (unknown) date) 09/20/22] unknown) (unknown) (no (unknown) (unknown) 09/12/22 [Rx Confirmed (u nits (unknown) date) 09/20/22] unknown) (unknown) (no (unknown) (unknown) 09/15/22 [Rx Confirmed (u nits (unknown) date) 09/20/22] unknown) (unknown) (no (unknown) (unknown) 09/20/22 (units (unkno wn) date) unknown) (unknown) (no (unknown) (unknown) 09/20/22] (units (unkn own) date) unknown) (unknown) (no (unknown) (unknown) 04/03/22 [Rx Confirmed (u nits (unknown) date) 09/20/22] unknown) (unknown) (no (unknown) (unknown) 04/13/22 [Rx Confirmed (u nits (unknown) date) 09/20/22] unknown) (unknown) (no (unknown) (unknown) 13:35 (units (unkno wn) date) unknown) (unknown) (no (unknown) (unknown) 2RF (units (unkno wn) date) unknown) (unknown) (no (unknown) (unknown) 41 yo female who arrives (units (unknown) date) to address ongoing unknown) dizziness. Pt has seen ENT for this (unknown) (no (unknown) (unknown) Accompanied by: ( units (unknown) date) unknown) (unknown) (no (unknown) (unknown) Acetaminophen overdose of (units (unknown) date) undetermined intent unknown) (03/2016) (unknown) (no (unknown) (unknown) Age/Sex: 41 / F Date of ( units (unknown) date) Service: unknown) (unknown) (no (unknown) (unknown) Alcoholism (units (unk nown) date) unknown) (unknown) (no (unknown) (unknown) Allergies (units (unkn own) date) unknown) (unknown) (no (unknown) (unknown) Amputation of fifth toe of (units (unknown) date) right foot unknown) (unknown) (no (unknown) (unknown) [place] [facility] (units (unknown) date) unknown) (unknown) (no (unknown) (unknown) [place] [id number] (unit s (unknown) date) unknown) (unknown) (no (unknown) (unknown) Assessment + Plan (units (unknown) date) unknown) (unknown) (no (unknown) (unknown) Asthma (units (unkno wn) date) unknown) (unknown) (no (unknown) (unknown) Attending Dr: Chinyere Jay (un its (unknown) date) Darrion Case unknown) (unknown) (no (unknown) (unknown) BMI 47.6 (units (unkno wn) date) unknown) (unknown) (no (unknown) (unknown) BP 148/78 H (units (un known) date) unknown) (unknown) (no (unknown) (unknown) Blood Pressure Location Rt (units (unknown) date) brachial unknown) (unknown) (no (unknown) (unknown) Card (units (unkno wn) date) unknown) (unknown) (no (unknown) (unknown) Chief Complaint (units (unknown) date) unknown) (unknown) (no (unknown) (unknown) Chief Complaint: Dizziness (units (unknown) date) unknown) (unknown) (no (unknown) (unknown) Compressioin Stockings #1 (units (unknown) date) ea 01/01/20 [Rx Confirmed unkn own) 09/20/22] (unknown) (no (unknown) (unknown) Confirmed 09/20/22] (unit s (unknown) date) unknown) (unknown) (no (unknown) (unknown) Const (units (unkno wn) date) unknown) (unknown) (no (unknown) (unknown) Cubital tunnel syndrome ( units (unknown) date) unknown) (unknown) (no (unknown) (unknown) DM type 2 (diabetes (unit s (unknown) date) mellitus, type 2) unknown) (unknown) (no (unknown) (unknown) : 1980 (units (unknown) date) Acct:[id number] unknown) (unknown) (no (unknown) (unknown) DVT (deep venous (units (unknown) date) thrombosis) unknown) (unknown) (no (unknown) (unknown) Denies change in vision ( units (unknown) date) unknown) (unknown) (no (unknown) (unknown) Denies chest pain and (un its (unknown) date) Denies dyspnea unknown) (unknown) (no (unknown) (unknown) Denies dyspnea (units (unknown) date) unknown) (unknown) (no (unknown) (unknown) Denies numbness and Denies (units (unknown) date) tingling unknown) (unknown) (no (unknown) (unknown) Dept at . (u nits (unknown) date) unknown) (unknown) (no (unknown) (unknown) Details: (units (unkno wn) date) unknown) (unknown) (no (unknown) (unknown) Diet and Exercise (units (unknown) date) unknown) (unknown) (no (unknown) (unknown) Discontinued Reason: (uni ts (unknown) date) Patient no longer taking 1 unk nown) applic topical BID 30 grams (unknown) (no (unknown) (unknown) Discontinued Reason: (uni ts (unknown) date) Patient no longer taking 1 unk nown) patch transdermal Q24H 14 (unknown) (no (unknown) (unknown) Discontinued Reason: (uni ts (unknown) date) Patient no longer taking 4 unk nown) mg PO DAILY 21 ea 0RF (unknown) (no (unknown) (unknown) Discontinued Reason: (uni ts (unknown) date) Patient no longer taking 5 unk nown) mg PO SEE INSTRUCTIONS 2 (unknown) (no (unknown) (unknown) Discontinued Reason: (uni ts (unknown) date) Patient no longer taking 8 unk nown) mg PO Q8H PRN 20 tabs 0RF (unknown) (no (unknown) (unknown) Discontinued Reason: (uni ts (unknown) date) Patient no longer taking As un known) directed 1 ea 0RF (unknown) (no (unknown) (unknown) Discontinued (units (u nknown) date) unknown) (unknown) (no (unknown) (unknown) Diskus) 1 puff inhalation (units (unknown) date) BID 09/29/19 [History unknown) Confirmed 09/20/22] (unknown) (no (unknown) (unknown) Documented By: (units (unknown) date) Chinyere Maier P.A-C unknown) 09/20/22 115 (unknown) (no (unknown) (unknown) Draft (units (unkno wn) date) unknown) (unknown) (no (unknown) (unknown) ENT (units (unkno wn) date) unknown) (unknown) (no (unknown) (unknown) Ears, Nose, Mouth, and (un its (unknown) date) Throat: Denies otalgia, unknow n) Reports headache(s) (migraines(?) (unknown) (no (unknown) (unknown) Essential hypertension (u nits (unknown) date) unknown) (unknown) (no (unknown) (unknown) Eyes (units (unkno wn) date) unknown) (unknown) (no (unknown) (unknown) Family History (Reviewed (units (unknown) date) 07/25/22 @ 14:36 by Ry un known) VANESSA Aldana) (unknown) (no (unknown) (unknown) Family Practice Office (u nits (unknown) date) Visit unknown) (unknown) (no (unknown) (unknown) Family/Other Pancreatic ( units (unknown) date) cancer unknown) (unknown) (no (unknown) (unknown) Fibromyalgia (05/21/15) ( units (unknown) date) unknown) (unknown) (no (unknown) (unknown) Grandfather Diabetes (uni ts (unknown) date) mellitus unknown) (unknown) (no (unknown) (unknown) HPI (units (unkno wn) date) unknown) (unknown) (no (unknown) (unknown) Health Management reviewed (units (unknown) date) with patient: No unknown) (unknown) (no (unknown) (unknown) Health Management (units (unknown) date) unknown) (unknown) (no (unknown) (unknown) Height 5 ft 5 in (units (unknown) date) unknown) (unknown) (no (unknown) (unknown) History of carpal tunnel (units (unknown) date) repair (-01/18/15) unknown) (unknown) (no (unknown) (unknown) History of colonoscopy (u nits (unknown) date) unknown) (unknown) (no (unknown) (unknown) History of (units (unk nown) date) esophagogastroduodenoscopy unk nown) (EGD) (unknown) (no (unknown) (unknown) History of laminectomy (u nits (unknown) date) (-12/2016) unknown) (unknown) (no (unknown) (unknown) History of laminectomy (u nits (unknown) date) unknown) (unknown) (no (unknown) (unknown) History of lumbar spinal (units (unknown) date) fusion (03/12/19) unknown) (unknown) (no (unknown) (unknown) Hold Comment: Not checking (units (unknown) date) her BP regularly Use to unknow n) test blood glucose twice (unknown) (no (unknown) (unknown) Hold Comment: Not checking (units (unknown) date) her blood sugar regularly unkn own) test qd 90 min after (unknown) (no (unknown) (unknown) Hold Comment: patient is (units (unknown) date) not using them As directed unk nown) 1 ea 0RF bilateral lower (unknown) (no (unknown) (unknown) Hx of toe surgery (units (unknown) date) (08/04/20) unknown) (unknown) (no (unknown) (unknown) Hypoxia (units (unkno wn) date) unknown) (unknown) (no (unknown) (unknown) Intake Note: (units (u nknown) date) unknown) (unknown) (no (unknown) (unknown) Intake performed by: (uni ts (unknown) date) Main Hancock unknown) (unknown) (no (unknown) (unknown) Intake (units (unkno wn) date) unknown) (unknown) (no (unknown) (unknown) Intake- Clincial Staff (u nits (unknown) date) unknown) (unknown) (no (unknown) (unknown) Intraoperative cardiac (u nits (unknown) date) arrest during non-cardiac unkn own) surgery (02/2014) (unknown) (no (unknown) (unknown) Last Menstural Cycle + (u nits (unknown) date) Details unknown) (unknown) (no (unknown) (unknown) Latex, Natural Rubber (un its (unknown) date) Adverse Reaction (Mild, unknow n) Verified 12/14/22 14:44) (unknown) (no (unknown) (unknown) [facility] Blood Glucose Test (units (unknown) date) Strips #180 ea 10/29/20 [Rx un known) Confirmed 09/20/22] (unknown) (no (unknown) (unknown) Loc: AFM (units (unkno wn) date) unknown) (unknown) (no (unknown) (unknown) Lumbar spine pain (units (unknown) date) unknown) (unknown) (no (unknown) (unknown) Medical History (Reviewed (units (unknown) date) 07/25/22 @ 14:36 by Ry un known) VANESSA Aldana) (unknown) (no (unknown) (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 ) () (unknown) (no (unknown) (unknown) Medications (units (un known) date) unknown) (unknown) (no (unknown) (unknown) Medications: (units (u nknown) date) unknown) (unknown) (no (unknown) (unknown) Morbid obesity (units (unknown) date) unknown) (unknown) (no (unknown) (unknown) Musc (units (unkno wn) date) unknown) (unknown) (no (unknown) (unknown) Narcotic habituation, (un its (unknown) date) continuous unknown) (unknown) (no (unknown) (unknown) Neuro (units (unkno wn) date) unknown) (unknown) (no (unknown) (unknown) Neurologic: Reports (unit s (unknown) date) headache(s) (migraines(?) unkn own) in the last couple of months), (unknown) (no (unknown) (unknown) Nocturnal hypoxemia (unit s (unknown) date) unknown) (unknown) (no (unknown) (unknown) DERREK (obstructive sleep (u nits (unknown) date) apnea) unknown) (unknown) (no (unknown) (unknown) Obstipation (units (un known) date) unknown) (unknown) (no (unknown) (unknown) On Hold (units (unkno wn) date) unknown) (unknown) (no (unknown) (unknown) Orders (units (unkno wn) date) unknown) (unknown) (no (unknown) (unknown) Orders: (units (unkno wn) date) unknown) (unknown) (no (unknown) (unknown) Other Menstrual Period: ( units (unknown) date) Uncertain (irregular ) unknown ) (unknown) (no (unknown) (unknown) Ovarian cyst (units (u nknown) date) unknown) (unknown) (no (unknown) (unknown) Oxygen Delivery Method (u nits (unknown) date) room air unknown) (unknown) (no (unknown) (unknown) PCP: Dr. Villanueva (units (unknown) date) unknown) (unknown) (no (unknown) (unknown) PFSH (units (unkno wn) date) unknown) (unknown) (no (unknown) (unknown) PRN shortness of breath or (units (unknown) date) wheezing #15 grams 04/12/22 un known) [Rx Confirmed 09/20/22] (unknown) (no (unknown) (unknown) Patient has had recurrence (units (unknown) date) of dizziness - ENT thought unk nown) this was a 'migraine (unknown) (no (unknown) (unknown) Patient: Sandy Dorman (units (unknown) date) MR#: M unknown) (unknown) (no (unknown) (unknown) Plantar fasciitis (units (unknown) date) unknown) (unknown) (no (unknown) (unknown) Position Sitting (units (unknown) date) unknown) (unknown) (no (unknown) (unknown) Psychogenic nonepileptic (units (unknown) date) seizure unknown) (unknown) (no (unknown) (unknown) Pulmonary embolism (units (unknown) date) unknown) (unknown) (no (unknown) (unknown) Pulse 115 H (units (un known) date) unknown) (unknown) (no (unknown) (unknown) Pulse Oximetry (%) 98 (un its (unknown) date) unknown) (unknown) (no (unknown) (unknown) Pulse Source Monitor (uni ts (unknown) date) unknown) (unknown) (no (unknown) (unknown) RBBB (right bundle branch (units (unknown) date) block) unknown) (unknown) (no (unknown) (unknown) ROS (units (unkno wn) date) unknown) (unknown) (no (unknown) (unknown) Rash (units (unkno wn) date) unknown) (unknown) (no (unknown) (unknown) Reason For Visit (units (unknown) date) unknown) (unknown) (no (unknown) (unknown) Reports headache(s) (unit s (unknown) date) (migraines(?) in the last unkn own) couple of months) (unknown) (no (unknown) (unknown) Reports neck pain, Denies (units (unknown) date) numbness, Denies radiating unk nown) pain into limb and Denies (unknown) (no (unknown) (unknown) Resp (units (unkno wn) date) unknown) (unknown) (no (unknown) (unknown) S/P epidural steroid (uni ts (unknown) date) injection (02/2014) unknown) (unknown) (no (unknown) (unknown) Seizures (units (unkno wn) date) unknown) (unknown) (no (unknown) (unknown) Signed By: (units (unk nown) date) unknown) (unknown) (no (unknown) (unknown) Sinus tachycardia (units (unknown) date) unknown) (unknown) (no (unknown) (unknown) Smoking Status: Current ( units (unknown) date) some day smoker unknown) (unknown) (no (unknown) (unknown) Social History (units (unknown) date) unknown) (unknown) (no (unknown) (unknown) Started PT but then (unit s (unknown) date) stopped because wanted to unkn own) wait to see what diagnosis (unknown) (no (unknown) (unknown) Status post dilation and (units (unknown) date) curettage (2008) unknown) (unknown) (no (unknown) (unknown) Status post laminectomy ( units (unknown) date) (03/03/16) unknown) (unknown) (no (unknown) (unknown) Suicide attempt (units (unknown) date) unknown) (unknown) (no (unknown) (unknown) Surgical History (Reviewed (units (unknown) date) 07/25/22 @ 14:36 by Ry un known) VANESSA Aldana) (unknown) (no (unknown) (unknown) TENS units (units (unk nown) date) unknown) (unknown) (no (unknown) (unknown) Take as directed (units (unknown) date) unknown) (unknown) (no (unknown) (unknown) Temp 97.6 F (units (un known) date) unknown) (unknown) (no (unknown) (unknown) Temp Source Temporal (uni ts (unknown) date) Artery Scan unknown) (unknown) (no (unknown) (unknown) This note may have been ( units (unknown) date) all or partially generated unk nown) using voice recognition (unknown) (no (unknown) (unknown) Tobacco + Substance Use ( units (unknown) date) unknown) (unknown) (no (unknown) (unknown) Tobacco Status (units (unknown) date) unknown) (unknown) (no (unknown) (unknown) Tobacco abuse (units ( unknown) date) unknown) (unknown) (no (unknown) (unknown) Tylenol overdose (units (unknown) date) unknown) (unknown) (no (unknown) (unknown) Type(s) of exercise: (uni ts (unknown) date) normal ROM and activity and un known) sedentary lifestyle (unknown) (no (unknown) (unknown) Urinary retention (units (unknown) date) unknown) (unknown) (no (unknown) (unknown) Visit Reasons: Dizziness (units (unknown) date) unknown) (unknown) (no (unknown) (unknown) Vitals (units (unkno wn) date) unknown) (unknown) (no (unknown) (unknown) Weight 286 lb 4 oz (units (unknown) date) unknown) (unknown) (no (unknown) (unknown) XR cervical spine 2V or 3V (units (unknown) date) Today M54.2 - Cervicalgia unkn own) (unknown) (no (unknown) (unknown) [Compressioin Stockings] (units (unknown) date) unknown) (unknown) (no (unknown) (unknown) [History Confirmed (units (unknown) date) 09/20/22] unknown) (unknown) (no (unknown) (unknown) [[place] Blood Glucose (u nits (unknown) date) Test Strips] unknown) (unknown) (no (unknown) (unknown) [Rx Confirmed 09/20/22] ( units (unknown) date) unknown) (unknown) (no (unknown) (unknown) acetaminophen 500 mg (uni ts (unknown) date) tablet (Tylenol Extra unknown) Strength) 2,000 mg PO BID 12/12/18 (unknown) (no (unknown) (unknown) albuterol sulfate 90 (uni ts (unknown) date) mcg/actuation aerosol unknown) inhaler See Rx Instructions .Route (unknown) (no (unknown) (unknown) alcohol intake: current ( units (unknown) date) unknown) (unknown) (no (unknown) (unknown) and then returned about 3 (units (unknown) date) weeks ago. Sudden onset unknow n) after getting up off (unknown) (no (unknown) (unknown) aripiprazole 30 mg tablet (units (unknown) date) 30 mg PO DAILY 30 days #30 unk nown) tabs 09/15/22 [Rx Confirmed (unknown) (no (unknown) (unknown) caps 12/26/21 [Rx (units (unknown) date) Confirmed 09/20/22] unknown) (unknown) (no (unknown) (unknown) carisoprodol (units (u nknown) date) [CARISOPRODOL] Adverse unknown ) Reaction (Severe, Verified 07/26/22 14:44) (unknown) (no (unknown) (unknown) clobetasol 0.05% (units (unknown) date) unknown) (unknown) (no (unknown) (unknown) cyclobenzaprine 10 mg (un its (unknown) date) tablet See Rx Instructions unk nown) .Route .COMPLEX #90 tabs (unknown) (no (unknown) (unknown) daily, fasting a 2hrs post (units (unknown) date) prandial 180 ea 3RF unknown) diabetes E11.9 - Type 2 diabetes (unknown) (no (unknown) (unknown) diazepam (Valium) (units (unknown) date) unknown) (unknown) (no (unknown) (unknown) doxepin 100 mg capsule 200 (units (unknown) date) mg PO BEDTIME #60 caps unknown ) 03/21/22 [Rx Confirmed (unknown) (no (unknown) (unknown) ea 0RF (units (unkno wn) date) unknown) (unknown) (no (unknown) (unknown) eating out: 1-3 times/week (units (unknown) date) unknown) (unknown) (no (unknown) (unknown) extremity edema (units (unknown) date) unknown) (unknown) (no (unknown) (unknown) ferrous sulfate 325 mg (65 (units (unknown) date) mg iron) tablet 325 mg PO unkn own) DAILY Anemia 03/28/21 (unknown) (no (unknown) (unknown) fluconazole 150 mg tablet (units (unknown) date) 150 mg PO Q3D 2 doses #2 unkno wn) tabs 05/22/22 [Rx Confirmed (unknown) (no (unknown) (unknown) fluticasone 100 (units (unknown) date) mcg-salmeterol 50 mcg/dose unk nown) blistr powdr for inhalation (Advair (unknown) (no (unknown) (unknown) fosphenytoin Adverse (uni ts (unknown) date) Reaction (Severe, Verified unk nown) 07/26/22 14:44) (unknown) (no (unknown) (unknown) furosemide 40 mg tablet ( units (unknown) date) See Rx Instructions .Route unk nown) .COMPLEX #135 tabs 08/08/22 (unknown) (no (unknown) (unknown) have occurred. If there ( units (unknown) date) are any questions, please unkn own) contact the Medical Records (unknown) (no (unknown) (unknown) household members: spouse (units (unknown) date) unknown) (unknown) (no (unknown) (unknown) in the last couple of (un its (unknown) date) months) and Reports neck unkno wn) pain (unknown) (no (unknown) (unknown) ipratropium bromide 17 (u nits (unknown) date) mcg/actuation HFA aerosol unkn own) inhaler 1 puff inhalation Q8H (unknown) (no (unknown) (unknown) issue. (units (unkno wn) date) unknown) (unknown) (no (unknown) (unknown) lancets (Easy Touch Twist (units (unknown) date) Lancets) unknown) (unknown) (no (unknown) (unknown) lancets 33 gauge (Easy (u nits (unknown) date) Touch Twist Lancets) #100 unkn own) ea 02/26/19 [Rx Confirmed (unknown) (no (unknown) (unknown) levalbuterol tartrate 45 (units (unknown) date) mcg/actuation aerosol unknown) inhaler 1 puff inhalation Q4-6H (unknown) (no (unknown) (unknown) levothyroxine 25 mcg (uni ts (unknown) date) tablet See Rx Instructions unk nown) .Route .COMPLEX #30 tabs (unknown) (no (unknown) (unknown) magnesium 250 mg tablet ( units (unknown) date) 500 mg PO DAILY 09/17/19 unkno wn) [History Confirmed 09/20/22] (unknown) (no (unknown) (unknown) may occur. Occasional (un its (unknown) date) wrong-word or 'sound-alike' un known) substitutions may have (unknown) (no (unknown) (unknown) meal 100 ea 3RF R73.03 - (units (unknown) date) Prediabetes unknown) (unknown) (no (unknown) (unknown) meclizine 25 mg tablet See (units (unknown) date) Rx Instructions .Route unknown ) .COMPLEX #60 tabs 08/08/22 [Rx (unknown) (no (unknown) (unknown) mellitus without (units (unknown) date) complications unknown) (unknown) (no (unknown) (unknown) metformin 500 mg tablet ( units (unknown) date) 1,000 mg PO BID #120 tabs unkn own) 01/12/22 [Rx Confirmed (unknown) (no (unknown) (unknown) methylprednisolone (Medrol (units (unknown) date) (Abiodun)) unknown) (unknown) (no (unknown) (unknown) nausea and vomiting (unit s (unknown) date) unknown) (unknown) (no (unknown) (unknown) nicotine (units (unkno wn) date) unknown) (unknown) (no (unknown) (unknown) norgestrel 0.3 mg-ethinyl (units (unknown) date) estradiol 30 mcg tablet 2 unkn own) tab PO DAILY #52 tabs (unknown) (no (unknown) (unknown) occurred due to the (unit s (unknown) date) inherent limitations of unknow n) voice recognition software. Please (unknown) (no (unknown) (unknown) omeprazole 20 mg (units (unknown) date) capsule,delayed release See un known) Rx Instructions .Route .COMPLEX #60 (unknown) (no (unknown) (unknown) ondansetron (units (un known) date) unknown) (unknown) (no (unknown) (unknown) pregabalin 300 mg capsule (units (unknown) date) 300 mg PO BID #180 caps unknow n) 04/12/22 [Rx Confirmed (unknown) (no (unknown) (unknown) read the note carefully ( units (unknown) date) and recognize, using unknown) context, where these substitutions (unknown) (no (unknown) (unknown) rivaroxaban 20 mg tablet (units (unknown) date) (Xarelto) See Rx unknown) Instructions .Route .COMPLEX #30 tabs (unknown) (no (unknown) (unknown) software. 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 (unknown) (no (unknown) (unknown) spironolactone 25 mg (uni ts (unknown) date) tablet See Rx Instructions unk nown) .Route .COMPLEX #30 tabs (unknown) (no (unknown) (unknown) tabs 0RF for use prior to (units (unknown) date) MRI unknown) (unknown) (no (unknown) (unknown) terazosin 2 mg capsule See (units (unknown) date) Rx Instructions .Route unknown ) .COMPLEX #30 caps 07/12/22 [Rx (unknown) (no (unknown) (unknown) the couch. Sensation of ( units (unknown) date) 'elevator dropping' or unknown ) feeling of being off balance. (unknown) (no (unknown) (unknown) tingling (units (unkno wn) date) unknown) (unknown) (no (unknown) (unknown) urinary retention (units (unknown) date) unknown) (unknown) (no (unknown) (unknown) vertigo' - Neurologist (u nits (unknown) date) didn't think so. Symptoms unkn own) resolved after [place] (unknown) (no (unknown) (unknown) was before she started it. (units (unknown) date) unknown) Result panel 30 (unknown) (no (unknown) (unknown) (no value) (units (unk nown) date) unknown) (unknown) (no (unknown) (unknown) #12.9 grams 04/12/22 [Rx (units (unknown) date) Confirmed 09/20/22] unknown) (unknown) (no (unknown) (unknown) (1) Neck pain: (units (unknown) date) unknown) (unknown) (no (unknown) (unknown) (2) Balance problem: (uni ts (unknown) date) unknown) (unknown) (no (unknown) (unknown) (bilateral - also (units (unknown) date) occipital trigger point unknow n) tenderness), no pain with cervical (unknown) (no (unknown) (unknown) -Consider Vitamin B12 (un its (unknown) date) level if feeling 'off unknown) balance' persists and Xrays are (unknown) (no (unknown) (unknown) -Continue working on (uni ts (unknown) date) improving HgbA1c unknown) (unknown) (no (unknown) (unknown) -Follow up prn (units (unknown) date) unknown) (unknown) (no (unknown) (unknown) -Will notify patient of DI (units (unknown) date) results when available and unk nown) of any further (unknown) (no (unknown) (unknown) .COMPLEX #18 grams (units (unknown) date) 03/03/22 [Rx Confirmed unknown ) 09/20/22] (unknown) (no (unknown) (unknown) 0 (units (unkno wn) date) unknown) (unknown) (no (unknown) (unknown) [id number] (units (unkn own) date) unknown) (unknown) (no (unknown) (unknown) 08/30/22 [Rx Confirmed (u nits (unknown) date) 09/20/22] unknown) (unknown) (no (unknown) (unknown) 09/12/22 [Rx Confirmed (u nits (unknown) date) 09/20/22] unknown) (unknown) (no (unknown) (unknown) 09/15/22 [Rx Confirmed (u nits (unknown) date) 09/20/22] unknown) (unknown) (no (unknown) (unknown) 09/20/22 1607 (units ( unknown) date) unknown) (unknown) (no (unknown) (unknown) 09/20/22 (units (unkno wn) date) unknown) (unknown) (no (unknown) (unknown) 09/20/22] (units (unkn own) date) unknown) (unknown) (no (unknown) (unknown) 04/03/22 [Rx Confirmed (u nits (unknown) date) 09/20/22] unknown) (unknown) (no (unknown) (unknown) 04/13/22 [Rx Confirmed (u nits (unknown) date) 09/20/22] unknown) (unknown) (no (unknown) (unknown) 13:35 (units (unkno wn) date) unknown) (unknown) (no (unknown) (unknown) 2RF (units (unkno wn) date) unknown) (unknown) (no (unknown) (unknown) 41 yo female who arrives (units (unknown) date) to address ongoing unknown) dizziness. Pt has seen ENT for this (unknown) (no (unknown) (unknown) Accompanied by: ( units (unknown) date) unknown) (unknown) (no (unknown) (unknown) Acetaminophen overdose of (units (unknown) date) undetermined intent unknown) (03/2016) (unknown) (no (unknown) (unknown) Age/Sex: 41 / F Date of ( units (unknown) date) Service: unknown) (unknown) (no (unknown) (unknown) Alcoholism (units (unk nown) date) unknown) (unknown) (no (unknown) (unknown) Allergies (units (unkn own) date) unknown) (unknown) (no (unknown) (unknown) Amputation of fifth toe of (units (unknown) date) right foot unknown) (unknown) (no (unknown) (unknown) [facility] (units (unknown) date) unknown) (unknown) (no (unknown) (unknown) [place] [id number] (unit s (unknown) date) unknown) (unknown) (no (unknown) (unknown) Appearance: grossly normal (units (unknown) date) unknown) (unknown) (no (unknown) (unknown) Assessment + Plan (units (unknown) date) unknown) (unknown) (no (unknown) (unknown) Asthma (units (unkno wn) date) unknown) (unknown) (no (unknown) (unknown) Attending Dr: Chinyere Jay (un its (unknown) date) Darrion AgueroAMary unknown) (unknown) (no (unknown) (unknown) BMI 47.6 (units (unkno wn) date) unknown) (unknown) (no (unknown) (unknown) BP 148/78 H (units (un known) date) unknown) (unknown) (no (unknown) (unknown) Blood Pressure Location Rt (units (unknown) date) brachial unknown) (unknown) (no (unknown) (unknown) Card (units (unkno wn) date) unknown) (unknown) (no (unknown) (unknown) Cervical Spine: cervical (units (unknown) date) ROM normal (slightly unknown) decreased with movement to the (unknown) (no (unknown) (unknown) Chief Complaint (units (unknown) date) unknown) (unknown) (no (unknown) (unknown) Chief Complaint: Recurrent (units (unknown) date) 'Dizziness' unknown) (unknown) (no (unknown) (unknown) Compressioin Stockings #1 (units (unknown) date) ea 01/01/20 [Rx Confirmed unkn own) 09/20/22] (unknown) (no (unknown) (unknown) Confirmed 09/20/22] (unit s (unknown) date) unknown) (unknown) (no (unknown) (unknown) Const (units (unkno wn) date) unknown) (unknown) (no (unknown) (unknown) Cubital tunnel syndrome ( units (unknown) date) unknown) (unknown) (no (unknown) (unknown) DM type 2 (diabetes (unit s (unknown) date) mellitus, type 2) unknown) (unknown) (no (unknown) (unknown) : 1980 (units (unknown) date) Acct:[id number] unknown) (unknown) (no (unknown) (unknown) DTR's: Rt Brachioradialis: (units (unknown) date) 2+ and Lt Brachioradialis: unk nown) 2 (unknown) (no (unknown) (unknown) DVT (deep venous (units (unknown) date) thrombosis) unknown) (unknown) (no (unknown) (unknown) Denies change in vision ( units (unknown) date) unknown) (unknown) (no (unknown) (unknown) Denies chest pain and (un its (unknown) date) Denies dyspnea unknown) (unknown) (no (unknown) (unknown) Denies dyspnea (units (unknown) date) unknown) (unknown) (no (unknown) (unknown) Denies numbness, Denies ( units (unknown) date) tingling and Reports unknown) disequilibrium (unknown) (no (unknown) (unknown) Dept at . (u nits (unknown) date) unknown) (unknown) (no (unknown) (unknown) Details: (units (unkno wn) date) unknown) (unknown) (no (unknown) (unknown) Diet and Exercise (units (unknown) date) unknown) (unknown) (no (unknown) (unknown) Discontinued Reason: (uni ts (unknown) date) Patient no longer taking 1 unk nown) applic topical BID 30 grams (unknown) (no (unknown) (unknown) Discontinued Reason: (uni ts (unknown) date) Patient no longer taking 1 unk nown) patch transdermal Q24H 14 (unknown) (no (unknown) (unknown) Discontinued Reason: (uni ts (unknown) date) Patient no longer taking 4 unk nown) mg PO DAILY 21 ea 0RF (unknown) (no (unknown) (unknown) Discontinued Reason: (uni ts (unknown) date) Patient no longer taking 5 unk nown) mg PO SEE INSTRUCTIONS 2 (unknown) (no (unknown) (unknown) Discontinued Reason: (uni ts (unknown) date) Patient no longer taking 8 unk nown) mg PO Q8H PRN 20 tabs 0RF (unknown) (no (unknown) (unknown) Discontinued Reason: (uni ts (unknown) date) Patient no longer taking As un known) directed 1 ea 0RF (unknown) (no (unknown) (unknown) Discontinued (units (u nknown) date) unknown) (unknown) (no (unknown) (unknown) Diskus) 1 puff inhalation (units (unknown) date) BID 09/29/19 [History unknown) Confirmed 09/20/22] (unknown) (no (unknown) (unknown) Documented By: (units (unknown) date) Chinyere Maier P.A-C unknown) 09/20/22 115 (unknown) (no (unknown) (unknown) ENT (units (unkno wn) date) unknown) (unknown) (no (unknown) (unknown) Ears, Nose, Mouth, and (un its (unknown) date) Throat: Denies otalgia, unknow n) Reports headache(s) (migraines(?) (unknown) (no (unknown) (unknown) Ears: hearing grossly (un its (unknown) date) normal bilaterally unknown) (unknown) (no (unknown) (unknown) Effort + Inspection: (uni ts (unknown) date) normal respiratory effort unkn own) and able to speak in complete (unknown) (no (unknown) (unknown) Essential hypertension (u nits (unknown) date) unknown) (unknown) (no (unknown) (unknown) Exam (units (unkno wn) date) unknown) (unknown) (no (unknown) (unknown) Eyes (units (unkno wn) date) unknown) (unknown) (no (unknown) (unknown) Family History (Reviewed (units (unknown) date) 07/25/22 @ 14:36 by Ry un known) VANESSA Aldana) (unknown) (no (unknown) (unknown) Family Practice Office (u nits (unknown) date) Visit unknown) (unknown) (no (unknown) (unknown) Family/Other Pancreatic ( units (unknown) date) cancer unknown) (unknown) (no (unknown) (unknown) Fibromyalgia (05/21/15) ( units (unknown) date) unknown) (unknown) (no (unknown) (unknown) Gait: gait assisted (unit s (unknown) date) Method: walker unknown) (unknown) (no (unknown) (unknown) General: healthy (units (unknown) date) appearing, comfortable and unk nown) no acute distress (unknown) (no (unknown) (unknown) General: patient oriented (units (unknown) date) x3 unknown) (unknown) (no (unknown) (unknown) Grandfather Diabetes (uni ts (unknown) date) mellitus unknown) (unknown) (no (unknown) (unknown) HENMT (units (unkno wn) date) unknown) (unknown) (no (unknown) (unknown) HPI (units (unkno wn) date) unknown) (unknown) (no (unknown) (unknown) Health Management reviewed (units (unknown) date) with patient: No unknown) (unknown) (no (unknown) (unknown) Health Management (units (unknown) date) unknown) (unknown) (no (unknown) (unknown) Height 5 ft 5 in (units (unknown) date) unknown) (unknown) (no (unknown) (unknown) Her HgbA1c is good - was (units (unknown) date) 7.0 - she is working on unknow n) getting that down, so (unknown) (no (unknown) (unknown) History of carpal tunnel (units (unknown) date) repair (-01/18/15) unknown) (unknown) (no (unknown) (unknown) History of colonoscopy (u nits (unknown) date) unknown) (unknown) (no (unknown) (unknown) History of (units (unk nown) date) esophagogastroduodenoscopy unk nown) (EGD) (unknown) (no (unknown) (unknown) History of laminectomy (u nits (unknown) date) () unknown) (unknown) (no (unknown) (unknown) History of laminectomy (u nits (unknown) date) unknown) (unknown) (no (unknown) (unknown) History of lumbar spinal (units (unknown) date) fusion (03/12/19) unknown) (unknown) (no (unknown) (unknown) Hold Comment: Not checking (units (unknown) date) her BP regularly Use to unknow n) test blood glucose twice (unknown) (no (unknown) (unknown) Hold Comment: Not checking (units (unknown) date) her blood sugar regularly unkn own) test qd 90 min after (unknown) (no (unknown) (unknown) Hold Comment: patient is (units (unknown) date) not using them As directed unk nown) 1 ea 0RF bilateral lower (unknown) (no (unknown) (unknown) Hx of toe surgery (units (unknown) date) (08/04/20) unknown) (unknown) (no (unknown) (unknown) Hypoxia (units (unkno wn) date) unknown) (unknown) (no (unknown) (unknown) Intake Note: (units (u nknown) date) unknown) (unknown) (no (unknown) (unknown) Intake performed by: (uni ts (unknown) date) [facility] unknown) (unknown) (no (unknown) (unknown) Intake (units (unkno wn) date) unknown) (unknown) (no (unknown) (unknown) Intake- Clincial Staff (u nits (unknown) date) unknown) (unknown) (no (unknown) (unknown) Intraoperative cardiac (u nits (unknown) date) arrest during non-cardiac unkn own) surgery (02/2014) (unknown) (no (unknown) (unknown) Last Menstural Cycle + (u nits (unknown) date) Details unknown) (unknown) (no (unknown) (unknown) Latex, Natural Rubber (un its (unknown) date) Adverse Reaction (Mild, unknow n) Verified 07/26/22 14:44) (unknown) (no (unknown) (unknown) [place] Blood Glucose Test (units (unknown) date) Strips #180 ea 10/29/20 [Rx un known) Confirmed 09/20/22] (unknown) (no (unknown) (unknown) Loc: [facility] (units (unkno wn) date) unknown) (unknown) (no (unknown) (unknown) Lumbar spine pain (units (unknown) date) unknown) (unknown) (no (unknown) (unknown) Medical History (Reviewed (units (unknown) date) 07/25/22 @ 14:36 by Ry un known) VANESSA Aldana) (unknown) (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) (unknown) (no (unknown) (unknown) Medications (units (un known) date) unknown) (unknown) (no (unknown) (unknown) Medications: (units (u nknown) date) unknown) (unknown) (no (unknown) (unknown) Mental Status: mental (un its (unknown) date) status grossly normal unknown) (unknown) (no (unknown) (unknown) Morbid obesity (units (unknown) date) unknown) (unknown) (no (unknown) (unknown) Musc (units (unkno wn) date) unknown) (unknown) (no (unknown) (unknown) Narcotic habituation, (un its (unknown) date) continuous unknown) (unknown) (no (unknown) (unknown) Neck (units (unkno wn) date) unknown) (unknown) (no (unknown) (unknown) Neck: normal visual (unit s (unknown) date) inspection and no unknown) lymphadenopathy (unknown) (no (unknown) (unknown) Neuro (units (unkno wn) date) unknown) (unknown) (no (unknown) (unknown) Neurologic: Reports (unit s (unknown) date) headache(s) (migraines(?) unkn own) in the last couple of months), (unknown) (no (unknown) (unknown) No sensation of room or ( units (unknown) date) body spinning. unknown) (unknown) (no (unknown) (unknown) Nocturnal hypoxemia (unit s (unknown) date) unknown) (unknown) (no (unknown) (unknown) Nutritional Appearance: ( units (unknown) date) other (elevated BMI) unknown) (unknown) (no (unknown) (unknown) DERREK (obstructive sleep (u nits (unknown) date) apnea) unknown) (unknown) (no (unknown) (unknown) Obstipation (units (un known) date) unknown) (unknown) (no (unknown) (unknown) On Hold (units (unkno wn) date) unknown) (unknown) (no (unknown) (unknown) Orders (units (unkno wn) date) unknown) (unknown) (no (unknown) (unknown) Orders: (units (unkno wn) date) unknown) (unknown) (no (unknown) (unknown) Orientation: oriented x3 (units (unknown) date) unknown) (unknown) (no (unknown) (unknown) Other Menstrual Period: ( units (unknown) date) Uncertain (irregular ) unknown ) (unknown) (no (unknown) (unknown) Ovarian cyst (units (u nknown) date) unknown) (unknown) (no (unknown) (unknown) Oxygen Delivery Method (u nits (unknown) date) room air unknown) (unknown) (no (unknown) (unknown) PCP: Dr. Villanueva (units (unknown) date) unknown) (unknown) (no (unknown) (unknown) PFSH (units (unkno wn) date) unknown) (unknown) (no (unknown) (unknown) PRN shortness of breath or (units (unknown) date) wheezing #15 grams 04/12/22 un known) [Rx Confirmed 09/20/22] (unknown) (no (unknown) (unknown) Patient has had recurrence (units (unknown) date) of 'dizziness' - ENT unknown) thought this was a 'migraine (unknown) (no (unknown) (unknown) Patient saw Dr. Noriega (units (unknown) date) (?) at in [facility] nown) a couple of attempts (unknown) (no (unknown) (unknown) Patient: Sandy Dorman (units (unknown) date) MR#: M unknown) (unknown) (no (unknown) (unknown) Plan (units (unkno wn) date) unknown) (unknown) (no (unknown) (unknown) Plantar fasciitis (units (unknown) date) unknown) (unknown) (no (unknown) (unknown) Position Sitting (units (unknown) date) unknown) (unknown) (no (unknown) (unknown) Psych (units (unkno wn) date) unknown) (unknown) (no (unknown) (unknown) Psychogenic nonepileptic (units (unknown) date) seizure unknown) (unknown) (no (unknown) (unknown) Pulmonary embolism (units (unknown) date) unknown) (unknown) (no (unknown) (unknown) Pulse 115 H (units (un known) date) unknown) (unknown) (no (unknown) (unknown) Pulse Oximetry (%) 98 (un its (unknown) date) unknown) (unknown) (no (unknown) (unknown) Pulse Source Monitor (uni ts (unknown) date) unknown) (unknown) (no (unknown) (unknown) RBBB (right bundle branch (units (unknown) date) block) unknown) (unknown) (no (unknown) (unknown) ROM, cervical spasm (unit s (unknown) date) (bilateral) and no cervical un known) spinal tenderness (unknown) (no (unknown) (unknown) ROS (units (unkno wn) date) unknown) (unknown) (no (unknown) (unknown) Rash (units (unkno wn) date) unknown) (unknown) (no (unknown) (unknown) Reason For Visit (units (unknown) date) unknown) (unknown) (no (unknown) (unknown) Reports headache(s) (unit s (unknown) date) (migraines(?) in the last unkn own) couple of months) (unknown) (no (unknown) (unknown) Reports neck pain, Denies (units (unknown) date) numbness, Denies radiating unk nown) pain into limb and Denies (unknown) (no (unknown) (unknown) Resp (units (unkno wn) date) unknown) (unknown) (no (unknown) (unknown) S/P epidural steroid (uni ts (unknown) date) injection (02/2014) unknown) (unknown) (no (unknown) (unknown) Seizures (units (unkno wn) date) unknown) (unknown) (no (unknown) (unknown) Signed By: <Electronically (units (unknown) date) signed by Chinyere Jay P.A-C unknow n) Darrion> (unknown) (no (unknown) (unknown) Signed (units (unkno wn) date) unknown) (unknown) (no (unknown) (unknown) Sinus tachycardia (units (unknown) date) unknown) (unknown) (no (unknown) (unknown) Smoking Status: Current ( units (unknown) date) some day smoker unknown) (unknown) (no (unknown) (unknown) Social History (units (unknown) date) unknown) (unknown) (no (unknown) (unknown) Speech and Movement: (uni ts (unknown) date) speech and movement normal unk nown) (unknown) (no (unknown) (unknown) Started PT but then (unit s (unknown) date) stopped because wanted to unkn own) wait to see what diagnosis (unknown) (no (unknown) (unknown) Status post dilation and (units (unknown) date) curettage (2008) unknown) (unknown) (no (unknown) (unknown) Status post laminectomy ( units (unknown) date) (03/03/16) unknown) (unknown) (no (unknown) (unknown) Suicide attempt (units (unknown) date) unknown) (unknown) (no (unknown) (unknown) Surgical History (Reviewed (units (unknown) date) 07/25/22 @ 14:36 by Ry un known) VANESSA Aldana) (unknown) (no (unknown) (unknown) TENS units (units (unk nown) date) unknown) (unknown) (no (unknown) (unknown) Take as directed (units (unknown) date) unknown) (unknown) (no (unknown) (unknown) Temp 97.6 F (units (un known) date) unknown) (unknown) (no (unknown) (unknown) Temp Source Temporal (uni ts (unknown) date) Artery Scan unknown) (unknown) (no (unknown) (unknown) This note may have been ( units (unknown) date) all or partially generated unk nown) using voice recognition (unknown) (no (unknown) (unknown) Thyroid: thyroid normal ( units (unknown) date) unknown) (unknown) (no (unknown) (unknown) Tobacco + Substance Use ( units (unknown) date) unknown) (unknown) (no (unknown) (unknown) Tobacco Status (units (unknown) date) unknown) (unknown) (no (unknown) (unknown) Tobacco abuse (units ( unknown) date) unknown) (unknown) (no (unknown) (unknown) Tylenol overdose (units (unknown) date) unknown) (unknown) (no (unknown) (unknown) Type(s) of exercise: (uni ts (unknown) date) normal ROM and activity and un known) sedentary lifestyle (unknown) (no (unknown) (unknown) Urinary retention (units (unknown) date) unknown) (unknown) (no (unknown) (unknown) Visit Reasons: Dizziness (units (unknown) date) unknown) (unknown) (no (unknown) (unknown) Vitals (units (unkno wn) date) unknown) (unknown) (no (unknown) (unknown) Weight 286 lb 4 oz (units (unknown) date) unknown) (unknown) (no (unknown) (unknown) XR cervical spine 2V or 3V (units (unknown) date) Today M54.2 - Cervicalgia unkn own) (unknown) (no (unknown) (unknown) [Compressioin Stockings] (units (unknown) date) unknown) (unknown) (no (unknown) (unknown) [History Confirmed (units (unknown) date) 09/20/22] unknown) (unknown) (no (unknown) (unknown) [[place] Blood Glucose (u nits (unknown) date) Test Strips] unknown) (unknown) (no (unknown) (unknown) [Rx Confirmed 09/20/22] ( units (unknown) date) unknown) (unknown) (no (unknown) (unknown) acetaminophen 500 mg (uni ts (unknown) date) tablet (Tylenol Extra unknown) Strength) 2,000 mg PO BID 12/12/18 (unknown) (no (unknown) (unknown) albuterol sulfate 90 (uni ts (unknown) date) mcg/actuation aerosol unknown) inhaler See Rx Instructions .Route (unknown) (no (unknown) (unknown) alcohol intake: current ( units (unknown) date) unknown) (unknown) (no (unknown) (unknown) and then returned about 3 (units (unknown) date) weeks ago. Sudden onset unknow n) after getting up off (unknown) (no (unknown) (unknown) aripiprazole 30 mg tablet (units (unknown) date) 30 mg PO DAILY 30 days #30 unk nown) tabs 09/15/22 [Rx Confirmed (unknown) (no (unknown) (unknown) been unsuccessful. Patient (units (unknown) date) also requested a copy be unkno wn) sent here and this (unknown) (no (unknown) (unknown) caps 12/26/21 [Rx (units (unknown) date) Confirmed 09/20/22] unknown) (unknown) (no (unknown) (unknown) carisoprodol (units (u nknown) date) [CARISOPRODOL] Adverse unknown ) Reaction (Severe, Verified 07/26/22 14:44) (unknown) (no (unknown) (unknown) clobetasol 0.05% (units (unknown) date) unknown) (unknown) (no (unknown) (unknown) cyclobenzaprine 10 mg (un its (unknown) date) tablet See Rx Instructions unk nown) .Route .COMPLEX #90 tabs (unknown) (no (unknown) (unknown) daily, fasting a 2hrs post (units (unknown) date) prandial 180 ea 3RF unknown) diabetes E11.9 - Type 2 diabetes (unknown) (no (unknown) (unknown) diazepam (Valium) (units (unknown) date) unknown) (unknown) (no (unknown) (unknown) doubtful this is a cause. (units (unknown) date) unknown) (unknown) (no (unknown) (unknown) doxepin 100 mg capsule 200 (units (unknown) date) mg PO BEDTIME #60 caps unknown ) 03/21/22 [Rx Confirmed (unknown) (no (unknown) (unknown) ea 0RF (units (unkno wn) date) unknown) (unknown) (no (unknown) (unknown) eating out: 1-3 times/week (units (unknown) date) unknown) (unknown) (no (unknown) (unknown) extremity edema (units (unknown) date) unknown) (unknown) (no (unknown) (unknown) ferrous sulfate 325 mg (65 (units (unknown) date) mg iron) tablet 325 mg PO unkn own) DAILY Anemia 03/28/21 (unknown) (no (unknown) (unknown) fluconazole 150 mg tablet (units (unknown) date) 150 mg PO Q3D 2 doses #2 unkno wn) tabs 05/22/22 [Rx Confirmed (unknown) (no (unknown) (unknown) fluticasone 100 (units (unknown) date) mcg-salmeterol 50 mcg/dose unk nown) blistr powdr for inhalation (Advair (unknown) (no (unknown) (unknown) fosphenytoin Adverse (uni ts (unknown) date) Reaction (Severe, Verified unk nown) 07/26/22 14:44) (unknown) (no (unknown) (unknown) from her neck. Patient (u nits (unknown) date) does have neck pain - has unkn own) had multiple back (unknown) (no (unknown) (unknown) furosemide 40 mg tablet ( units (unknown) date) See Rx Instructions .Route unk nown) .COMPLEX #135 tabs 08/08/22 (unknown) (no (unknown) (unknown) have been attempts have ( units (unknown) date) been made to get consult unkno wn) notes - both have (unknown) (no (unknown) (unknown) have occurred. If there ( units (unknown) date) are any questions, please unkn own) contact the Medical Records (unknown) (no (unknown) (unknown) household members: spouse (units (unknown) date) unknown) (unknown) (no (unknown) (unknown) in the last couple of (un its (unknown) date) months), Reports neck pain unk nown) and Reports disequilibrium (unknown) (no (unknown) (unknown) ipratropium bromide 17 (u nits (unknown) date) mcg/actuation HFA aerosol unkn own) inhaler 1 puff inhalation Q8H (unknown) (no (unknown) (unknown) issue. (units (unkno wn) date) unknown) (unknown) (no (unknown) (unknown) lancets (Easy Touch Twist (units (unknown) date) Lancets) unknown) (unknown) (no (unknown) (unknown) lancets 33 gauge (Easy (u nits (unknown) date) Touch Twist Lancets) #100 unkn own) ea 02/26/19 [Rx Confirmed (unknown) (no (unknown) (unknown) levalbuterol tartrate 45 (units (unknown) date) mcg/actuation aerosol unknown) inhaler 1 puff inhalation Q4-6H (unknown) (no (unknown) (unknown) levothyroxine 25 mcg (uni ts (unknown) date) tablet See Rx Instructions unk nown) .Route .COMPLEX #30 tabs (unknown) (no (unknown) (unknown) magnesium 250 mg tablet ( units (unknown) date) 500 mg PO DAILY 09/17/19 unkno wn) [History Confirmed 09/20/22] (unknown) (no (unknown) (unknown) may occur. Occasional (un its (unknown) date) wrong-word or 'sound-alike' un known) substitutions may have (unknown) (no (unknown) (unknown) meal 100 ea 3RF R73.03 - (units (unknown) date) Prediabetes unknown) (unknown) (no (unknown) (unknown) meclizine 25 mg tablet See (units (unknown) date) Rx Instructions .Route unknown ) .COMPLEX #60 tabs 08/08/22 [Rx (unknown) (no (unknown) (unknown) mellitus without (units (unknown) date) complications unknown) (unknown) (no (unknown) (unknown) metformin 500 mg tablet ( units (unknown) date) 1,000 mg PO BID #120 tabs unkn own) 01/12/22 [Rx Confirmed (unknown) (no (unknown) (unknown) methylprednisolone (Medrol (units (unknown) date) (Abiodun)) unknown) (unknown) (no (unknown) (unknown) nausea and vomiting (unit s (unknown) date) unknown) (unknown) (no (unknown) (unknown) nicotine (units (unkno wn) date) unknown) (unknown) (no (unknown) (unknown) norgestrel 0.3 mg-ethinyl (units (unknown) date) estradiol 30 mcg tablet 2 unkn own) tab PO DAILY #52 tabs (unknown) (no (unknown) (unknown) normal' (units (unkno wn) date) unknown) (unknown) (no (unknown) (unknown) occurred due to the (unit s (unknown) date) inherent limitations of unknow n) voice recognition software. Please (unknown) (no (unknown) (unknown) omeprazole 20 mg (units (unknown) date) capsule,delayed release See un known) Rx Instructions .Route .COMPLEX #60 (unknown) (no (unknown) (unknown) ondansetron (units (un known) date) unknown) (unknown) (no (unknown) (unknown) pregabalin 300 mg capsule (units (unknown) date) 300 mg PO BID #180 caps unknow n) 04/12/22 [Rx Confirmed (unknown) (no (unknown) (unknown) read the note carefully ( units (unknown) date) and recognize, using unknown) context, where these substitutions (unknown) (no (unknown) (unknown) recommendations if (units (unknown) date) necessary unknown) (unknown) (no (unknown) (unknown) right side), loss of (uni ts (unknown) date) normal cervical lordosis, unkn own) cervical muscular tenderness (unknown) (no (unknown) (unknown) rivaroxaban 20 mg tablet (units (unknown) date) (Xarelto) See Rx unknown) Instructions .Route .COMPLEX #30 tabs (unknown) (no (unknown) (unknown) sentences (units (unkn own) date) unknown) (unknown) (no (unknown) (unknown) software. 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 (unknown) (no (unknown) (unknown) spironolactone 25 mg (uni ts (unknown) date) tablet See Rx Instructions unk nown) .Route .COMPLEX #30 tabs (unknown) (no (unknown) (unknown) surgeries and will be (un its (unknown) date) seeing Dr. Jessica next week un known) to discuss possible ELENA. (unknown) (no (unknown) (unknown) tabs 0RF for use prior to (units (unknown) date) MRI unknown) (unknown) (no (unknown) (unknown) terazosin 2 mg capsule See (units (unknown) date) Rx Instructions .Route unknown ) .COMPLEX #30 caps 07/12/22 [Rx (unknown) (no (unknown) (unknown) the couch. Sensation of ( units (unknown) date) 'elevator dropping' or unknown ) feeling of being off balance. (unknown) (no (unknown) (unknown) tingling (units (unkno wn) date) unknown) (unknown) (no (unknown) (unknown) urinary retention (units (unknown) date) unknown) (unknown) (no (unknown) (unknown) vertigo' - Neurologist (u nits (unknown) date) didn't think so. Symptoms unkn own) resolved after Rosio (unknown) (no (unknown) (unknown) was also unsuccessful. (u nits (unknown) date) States that Neurologist unknow n) thought it could be coming (unknown) (no (unknown) (unknown) was before she started it (units (unknown) date) again. unknown) Result panel 31 (unknown) (no date) (unknown) (unknown) 12.5 g/dl (unkn own) (unknown) (no date) (unknown) (unknown) 38.2 % (unkn own) Result panel 32 (unknown) (no date) (unknown) (unknown) 7.0 % (unkn own) (unknown) (no date) (unknown) (unknown) 7.0 % (unkn own) Result panel 33 (unknown) (no date) (unknown) (unknown) 330 mg/dl (unkn own) (unknown) (no date) (unknown) (unknown) 38 ug/dl (unkn own) (unknown) (no date) (unknown) (unknown) 463 ug/dl (unkn own) (unknown) (no date) (unknown) (unknown) 8 % (unkn own) Result panel 34 (unknown) (no date) (unknown) (unknown) 29 ng/ml (unkn own) Result panel 35 (unknown) (no date) (unknown) (unknown) 29 ng/ml (unkn own) (unknown) (no date) (unknown) (unknown) 427 pg/ml (unkn own) Social History date description facility 2022-07-25 00:00 Current [facility] day smoker [facility] 2022-07-26 00:00 Current some day smoker [facility] 2022-09-12 00:00 Current some day smoker [facility] 2022-09-20 00:00 Current some day smoker [facility] Vital Signs date measurement value units 2022-07-25 00:00 BMI 45.7 kg/m2 2022-07-25 00:00 BP_diastolic 86 mmHg 2022-07-25 00:00 BP_systolic 132 mmHg 2022-07-25 00:00 heart_rate 110 /min 2022-07-25 00:00 height_metric 165.1 cm 2022-07-25 00:00 height_standard 65 in 2022-07-25 00:00 o2_saturation 99 % 2022-07-25 00:00 respiration_rate 14 /min 2022-07-25 00:00 temperature_metric 36.83 C 2022-07-25 00:00 temperature_standard 98.3 F 2022-07-25 00:00 weight_metric 124.73 kg 2022-07-25 00:00 weight_standard 274.98 lb 2022-07-26 00:00 BP_diastolic 90 mmHg 2022-07-26 00:00 BP_systolic 160 mmHg 2022-07-26 00:00 heart_rate 125 /min 2022-07-26 00:00 o2_saturation 99 % 2022-07-26 00:00 weight_metric 128.82 kg 2022-07-26 00:00 weight_standard 284 lb 2022-09-20 00:00 BMI 47.6 kg/m2 2022-09-20 00:00 BP_diastolic 78 mmHg 2022-09-20 00:00 BP_systolic 148 mmHg 2022-09-20 00:00 heart_rate 115 /min 2022-09-20 00:00 height_metric 165.1 cm 2022-09-20 00:00 height_standard 65 in 2022-09-20 00:00 o2_saturation 98 % 2022-09-20 00:00 temperature_metric 36.44 C 2022-09-20 00:00 temperature_standard 97.6 F 2022-09-20 00:00 weight_metric 129.84 kg 2022-09-20 00:00 weight_standard 286.25 lb
[2022-09-27] MEDS ORDERED: SODIUM CHLORIDE 0.9% 1,000 ML IV STA (19:46)
[2022-09-27] MEDS ORDERED: MECLIZINE 12.5 MG TABLET PO STA (19:46)
[2022-09-27] MEDS ORDERED: ONDANSETRON 4 MG/2 ML VIAL IVP STA (19:46)
[2022-09-27 19:58] LABS: BASOPHILS % (AUTO) 0.6 %; EOSINOPHILS # (AUTO) 0.2 10^3/uL (0.0-0.7); EOSINOPHILS % (AUTO) 2.3 %; HGB - HEMOGLOBIN 12.3 g/dL (12.0-16.0); LYMPHOCYTES # (AUTO) 1.7 10^3/uL (1.5-3.5); MEAN CORPUSCULAR HEMOGLOBIN 26.7 pg (27.0-31.0); MEAN CORPUSCULAR VOLUME 89.1 fL (81.0-99.0); MEAN PLATELET VOLUME 10.2 fL (7.9-10.8); MONOCYTES # (AUTO) 0.5 10^3/uL (0.0-1.0); MONOCYTES % (AUTO) 7.1 %; NEUTROPHILS # (AUTO) 4.5 10^3/uL (1.5-6.6); NEUTROPHILS % (AUTO) 64.7 %; PLT - PLATELET COUNT 260 10^3/uL (130-450); RED CELL DISTRIBUTION WIDTH 14.2 % (12.0-15.0); WHITE BLOOD COUNT 6.9 x10^3/uL (4.8-10.8)
[2022-09-27 20:12] LABS: ALBUMIN 3.7 g/dL (3.2-5.5); ALBUMIN/GLOBULIN RATIO 0.9 (1.0-2.2); BILIRUBIN,TOTAL 0.4 mg/dL (0.2-1.0); CALCIUM 9.7 mg/dL (8.5-10.3); CREATININE 0.6 mg/dL (0.4-1.0); TOTAL PROTEIN 7.9 g/dL (6.7-8.2)
[2022-09-27] MEDS ORDERED: diazePAM INJ 5 MG/ML SYRINGE IVP STA (20:37)
[2022-09-27] MEDS ORDERED: METOPROLOL 5 MG/5 ML VIAL IVP STA (20:37)
--- NOTE | 2022-09-27 21:15 | ED Physician Documentation ---
History of Present Illness - Stated complaint Stated Complaint: DIZZY - Chief complaint Chief Complaint: Neuro - History obtained from History obtained from: Patient - Additonal information Additional information: The patient comes to the emergency department chief complaint of exacerbation of her chronic vertigo. She states that she has had vertigo on and off for years and that her most recent episode prior to this was from April to July. She states that a couple of weeks ago, she began having vertigo again and that it has been debilitating enough that she has had to ambulate with a walker. The patient has previously been to both ENT and neurology for this, and has been told by neurology that it is probably migraine related. The patient has been worked up extensively and ultimately, told to follow-up with her primary doctor. The patient is on meclizine at home which she states does not really help. She occasionally gets nauseated and vomits but is not currently nauseated. She denies any other complaints at this time. No other focal neurologic deficits. No recent illness. 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 : Retention HEENT: None Psych: Depression Musculoskeletal: Fibromyalgia, Chronic back pain Derm: None - Past Surgical History Past Surgical History: Yes Ortho: Carpal Tunnel surgery, Other /ELECTRIC BATH ATTENDANT: Dilation and currettage - Present Medications Home Medications: Ambulatory Orders Medication Instructions Recorded Confirmed ARIPiprazole [Abilify] 20 mg PO DAILY 10/05/17 09/27/22 Pregabalin [Lyrica] 150 mg PO BID 10/05/17 09/27/22 Terazosin [Hytrin] 20 mg PO QPM 10/05/17 09/27/22 Furosemide [Lasix] 50 mg PO DAILY 10/08/18 05/09/19 Omeprazole 20 mg PO BID 10/08/18 09/27/22 Docusate Calcium 240 mg PO BID 05/06/19 09/27/22 Albuterol Sulf [Ventolin Hfa 1 - 2 puffs INH Q4HR PRN #1 inhaler 07/12/19 09/27/22 Inhaler] Ipratropium/Albuterol Sulfate 1 neb INH DAILY 12/16/19 [Iprat-Albut 0.5-3(2.5) mg/3 ml] Cyclobenzaprine [Flexeril] 10 mg PO TID PRN 09/27/22 09/27/22 Doxepin [SINEquan] 50 mg PO HS 09/27/22 09/27/22 Doxepin [SINEquan] 50 mg PO QPM 09/27/22 09/27/22 Furosemide [Lasix] 80 mg PO DAILY 09/27/22 09/27/22 Furosemide [Lasix] 80 mg PO DAILY PM 09/27/22 09/27/22 Ketoconazole [Nizoral A-D] 125 ml TP DAILY 09/27/22 09/27/22 Meclizine HCl [Dramamine] 50 mg PO DAILY PRN 09/27/22 09/27/22 Rivaroxaban [Xarelto] 20 mg PO DAILY 09/27/22 09/27/22 Spironolactone [Aldactone] 12.5 mg PO DAILY 09/27/22 09/27/22 diazePAM [Valium] 5 mg PO TID PRN #15 tablet 09/27/22 metFORMIN [Glucophage] 500 mg PO ONCE 09/27/22 09/27/22 - Allergies Allergies/Adverse Reactions: Allergies Allergy/AdvReac Type Severity Reaction Status Date / Time carisoprodol [From Soma] Allergy Unknown Verified 09/27/22 19:39 phenytoin Allergy Unknown Verified 09/27/22 19:39 - Social History Does the pt smoke?: No Smoking Status: Former smoker Does the pt drink ETOH?: Yes Does the pt have substance abuse?: No - Immunizations Immunizations are current?: Yes - POLST Patient has POLST: No POLST Status: Full Code PD ED PE NORMAL - Vitals Vital signs reviewed: Yes - General General: Alert and oriented X 3, No acute distress, Well developed/nourished - HEENT HEENT: Atraumatic, PERRL, EOMI, Moist mucous membranes - Neck Neck: Supple, no meningeal sign - Cardiac Cardiac: RRR, No murmur, Strong equal pulses - Respiratory Respiratory: No respiratory distress, Clear bilaterally - Abdomen Abdomen: Soft, Non tender, Non distended - Derm Derm: Normal color, Warm and dry, No rash - Extremities Extremities: No deformity, No edema - Neuro Neuro: Alert and oriented X 3, guest relations executive 2-12 intact, No motor deficit, No sensory deficit, Normal speech - Psych Psych: Normal mood, Normal affect Results - Vitals Vitals: Vital Signs - 24 hr 09/27/22 22:33 Heart Rate 107 H Respiratory 17 Rate Blood Pressure 149/84 H O2 Saturation 99 Oxygen O2 Source Room air - EKG (time done) 2117 Rate: Rate (enter#) (103) Rhythm: Sinus tachycardia [place]: Normal Intervals: RBBB QRS: LVH Ischemia: ST elevation c/w repol (ST elevation lead aVL only, appears consistent with repolarization.), Non specific changes (Inverted T waves lead III only; biphasic T waves leads V2 and V3.) Compare to prior EKG: Old EKG unavailable Computer interpretation: Agree with computer - Labs Labs: Laboratory Tests 09/27/22 09/27/22 19:55 19:55 WBC 6.9 RBC 4.60 Hgb 12.3 Hct 41.0 MCV 89.1 MCH 26.7 L MCHC 30.0 L RDW 14.2 Plt Count 260 MPV 10.2 Neut # (Auto) 4.5 Lymph # (Auto) 1.7 [place] # (Auto) 0.5 Eos # (Auto) 0.2 Baso # (Auto) 0.0 Absolute Nucleated RBC 0.00 Nucleated RBC % 0.0 Sodium 136 Potassium 4.0 Chloride 99 L Carbon Dioxide 24 Anion Gap 13.0 BUN 12 Creatinine 0.6 Estimated GFR (MDRD) 111 Glucose 193 H Calcium 9.7 Total Bilirubin 0.4 AST 53 H ALT 34 Alkaline Phosphatase 42 Total Protein 7.9 Albumin 3.7 Globulin 4.2 Albumin/Globulin Ratio 0.9 L Lipase 44 PD Medical Decision Making - ED course Complexity details: reviewed results, re-evaluated patient, considered differential, d/w patient ED course: The patient was treated symptomatically in the emergency department with IV fluids, meclizine, and Valium. She was found to be tachycardic, despite IV fluids and was also given an IV dose of metoprolol 5 mg. This did improve her heart rate quite a bit to the low 100s. Laboratory studies, including a CBC and ER abdominal panel were obtained, and both were ordered and reviewed by me. These were unremarkable. The patient appeared comfortable and I felt, given her chronic vertigo, that she was stable for discharge home. She had had extensive work-up by both ENT and neurology with no specific reason for her vertigo identified. The patient was gotten up for a walk test which went fairly well initially except that the patient stopped and stated that she was "dizzy". However, she was noted to stand on her feet steadily waiting for the nurse to go back to the room and get a wheelchair for her at which time she sat down in a very controlled and non-ataxic manner. I felt she was stable for discharge home. We have discussed the need for follow-up and the usual indications for return. Departure - Departure Disposition: Home, Self Care Clinical Impression: Positional vertigo, Tachycardia Condition: Stable Instructions: ED BPV Vertigo Prescriptions: diazePAM [Valium] 5 mg PO TID PRN #15 tablet PRN Reason: Vertigo Comments: Your laboratory studies look good tonight. You were treated with IV fluids, 2 medicines for your vertigo, and some medicine to help slow your heart rate down a little, as it was somewhat elevated. You have responded well to all of this. Please continue to follow-up with your doctor about your ongoing vertigo. A prescription for Valium has been electronically transmitted to the [facility] pharmacy in [place]. This is to be used if you are having an especially bad bout of vertigo, but should not be used regularly. Please try to get plenty of fluids to drink to stay hydrated. Make the next possible appointment with your primary doctor to follow-up about all of this. Discharge Date/Time: 09/27/22 22:34
[2022-09-27 22:34] VITALS: BP 149/84
== END 2022-09-27 22:34 | disposition home or self-care (01) ==
LOC: EDUNIT# → ED 19:30
DX: R42 Dizziness and giddiness (principal); R00.0 Tachycardia, unspecified; Z87.891 Personal history of nicotine dependence
CPT/HCPCS: 36415; 80053; 83690; 85025; 93005; 96361; 96374; 96375; 99284; A9270

== ENCOUNTER 2023-04-10 19:29 | Outpatient (CLI) | payer OTHER, MEDICARE | END 2023-04-10 19:30 | disposition home or self-care (01) | LOC: SC 19:29 | PROVIDERS: ATTEND Nurse Practitioner Family | DX: G47.33 Obstructive sleep apnea (adult) (pediatric) (principal); R00.0 Tachycardia, unspecified | CPT/HCPCS: 95810 ==

== ENCOUNTER 2023-05-28 23:19 | Outpatient (CLI) | payer MEDICARE, OTHER | END 2023-05-28 23:59 | disposition short-term general hospital (02) | LOC: EMS 23:19 | DX: R07.89 Other chest pain (principal); K92.1 Melena; R00.0 Tachycardia, unspecified | CPT/HCPCS: A0425; A0427 ==

== ENCOUNTER 2023-06-14 13:26 | Outpatient (CLI) | payer MEDICARE, OTHER ==
--- NOTE | 2023-06-14 13:09 | SLEEP CARE CONSULTATION ---
Information from patient questionnaire entered by Hanna Muñoz. I have reviewed and concur with the information entered by Hanna Muñoz. This document represents the service I personally performed and the decisions made by me, Carli Mcdaniel ARNP. History of Present Illness Service Date and Time: 06/14/2023 1300 Previous diagnosis: Extremely Severe, Obstructive Sleep Apnea-Hypopnea Syndrome AHI: 133.2 (03/2023) Reason for follow up: one month (F/U) Equipment type: CPAP (RESMED AirCurve 10, s/u 05/2021) Equipment obtained from: [facility] (getting supplies) Mask style: Full face Backup mask available: Yes (old mask) Last cushion change: few days ago Prior sleep studies: Yes Year and Where: 2021 titration study Type of Sleep Study: Polysomnography (COMPLETED 04/10/23) HPI additional information: SUKHDEV DORMAN was diagnosed to have extremely severe, AHI 133.2, obstructive sleep apnea-hypopnea syndrome and returns via video telehealth visit today for BIPAP therapy one month follow-up. Sleep Study - Results Type of Sleep Study: Polysomnography (COMPLETED 04/10/23) Prior sleep studies: Yes Year and Where: 2021 titration study CPAP Compliance Data - Data Reviewed with Patient Average duration of nightly device use: 4 hours 31 minutes Compliance rate %: 53 ( days used) Current pressure setting (cmH2O): 21/15 with 4 pressure support Average residual AHI: 0.5 Central apnea: 0.2 Obstructive apnea: 0.2 Hypopnea: 0.1 Average large leak: 15.2 L/min On Oxygen: Yes (3 L) Oxygen usage: Nocturnal Subjective Missed days of use due to: reports: other (too tired to put on after staying up too late) Patient concerns: reports: dry mouth, nose, throat (takes meds that cause dry mouth; may also ). denies: aerophagia, mask discomfort, air blowing in eyes, mask leak noise, condensation in mask/hose, nasal congestion, epistaxis Observed to snore while using device: Yes (occasionally) Current pressure setting perceived as: comfortable On therapy, patient: reports: sleeping better, awakening more refreshed, being more awake and alert during the day, more rested overall, drowsiness while driving Initial [place] Sleepiness Scale score: 14 Current [place] Sleepiness Scale score: 9 (06/14/23) Allergies and Home Medications Known drug allergies: Yes (as listed) Drug allergies reviewed: Yes Home medication list reviewed: Yes (increased Ozempic to 2 injections a week) Allergy and home medication list: Allergies carisoprodol [From Soma] Allergy (Verified 06/13/23 11:32) Unknown latex Allergy (Verified 06/13/23 11:32) phenytoin Allergy (Verified 06/13/23 11:32) Unknown Review of Systems Review of systems same as previous: Yes (no changes) Physical Exam Vital signs obtained and entered by: HANNA Jovel MA Height: 5 ft 5 in (PER PT) Weight: 290 lb (PER PT) Body Mass Index: 48.2 BMI Classification: Morbidly Obese Impression and Plan 1. Obstructive Sleep Apnea-Hypopnea Syndrome, extremely severe, with fair treatment compliance and good apnea control. On BiPAP therapy, the patient has better sleep quality and is more rested overall. Patient has increased her compliance from 0 to 53%. She only does not wear it when she is so tired from going to bed late that she does not put it on. I encouraged her to try to put it on even when she is tired or put it on her pillow to remind her to put it on. She voiced understanding. I will have her follow-up in about 3 months just to see how she is doing and she is going to continue to work on increasing her compliance. Patient's apnea severity and rationale for treatment to reduce apnea, improve sleep quality and reduce cardiovascular and cerebrovascular events was reviewed. I also reviewed the benefit of consistent device use diabetes, gastric reflux, depression/anxiety, asthma and fibromyalgia. 2. Obesity, unspecified. Currently patients BMI is 48.2. Obesity increases the risk of apnea, BiPAP pressure requirements and overall health risks especially cardiovascular and diabetes. Thus patient is advised to lose weight. * Continue BiPAP pressure at 21/15 cmH2O with 4 cmH2O pressure support * Continue 3L oxygen through BiPAP at night for now * Notify me if snoring with mask or feeling that the pressure is too much or too little * Attempt to lose weight * Call this office if any problems using CPAP * Return for follow up in 3 months, or sooner if concerns arise Counseling Topics: Spare mask, Weight loss health impact Follow up with Sleep Care in: 3 months Visit Type: Telehealth Video Video Type: Doximity Patient Location: Home Location of Provider: Office Patient agrees and consents to this telehealth visit type: Yes Patient agrees to have their insurance billed: Yes Time Spent with Patient (minutes): 14 Provider Statement: I spent 100% of the Telehealth Video Call with the patient with greater than 50% spent counseling the patient and coordination of care.
== END 2023-06-14 13:27 | disposition home or self-care (01) ==
LOC: SC 13:26
PROVIDERS: ATTEND Nurse Practitioner Family
DX: G47.33 Obstructive sleep apnea (adult) (pediatric) (principal); E66.01 Morbid (severe) obesity due to excess calories; Z68.42 Body mass index [BMI] 45.0-49.9, adult

== ENCOUNTER 2023-10-21 21:21 | Outpatient (CLI) | payer OTHER, MEDICARE | END 2023-10-21 21:22 | disposition critical access hospital (66) | LOC: EMS 21:21 | DX: E11.65 Type 2 diabetes mellitus with hyperglycemia (principal); R53.1 Weakness; R42 Dizziness and giddiness; R39.89 Other symptoms and signs involving the genitourinary system; R68.2 Dry mouth, unspecified; R00.0 Tachycardia, unspecified; Z79.84 Long term (current) use of oral hypoglycemic drugs; Z79.85 Long-term (current) use of injectable non-insulin antidiabetic drugs | CPT/HCPCS: A0425; A0427 ==

== ENCOUNTER 2024-03-03 21:45 | Outpatient (CLI) | payer OTHER, MEDICARE | END 2024-03-03 23:59 | disposition short-term general hospital (02) | LOC: EMS 21:45 | DX: R42 Dizziness and giddiness (principal); R53.1 Weakness; R00.8 Other abnormalities of heart beat; I10 Essential (primary) hypertension | CPT/HCPCS: A0425; A0429 ==

== ENCOUNTER 2024-03-06 21:03 | Emergency (ER) | payer OTHER, MEDICARE ==
--- NOTE | 2024-03-06 21:22 | ED Physician Documentation ---
PD HPI CHEST PAIN - Stated complaint Stated Complaint: CHEST PX - Chief complaint Chief Complaint: Cardiac - History obtained from History obtained from: Patient - Additional information Additional information: 43yF With past medical history of PE provoked by surgery in 2019 on coumadin, then Xarelto since that time, Asthma/COPD, diabetes, hypothyroidism,, former smoker (quit 2 years ago), no family history of cardiac disease, presents with chest pain to the right chest wall for the past 3 hours, constant, moderate severity, nonradiating. Denies fever, shortness of breath, nausea, cough, diaphoresis. Denies leg swelling PD PAST MEDICAL HISTORY - Past Medical History Past Medical History: Yes Cardiovascular: Hypertension, Pulmonary embolism Respiratory: Asthma, Sleep apnea Neuro: None Endocrine/Autoimmune: Type 2 diabetes, HyPOthyroidism, Other GI: GERD CATEGORY SPECIALIST: None : Retention HEENT: None Psych: Depression Musculoskeletal: Fibromyalgia, Chronic back pain Derm: None - Past Surgical History Past Surgical History: Yes Ortho: Carpal Tunnel surgery, Other /CATEGORY SPECIALIST: Dilation and currettage, Hysterectomy - Present Medications Home Medications: Ambulatory Orders Medication Instructions Recorded Confirmed Pregabalin [Lyrica] 150 mg PO BID 10/05/17 09/14/23 Terazosin [Hytrin] 20 mg PO QPM 10/05/17 09/14/23 Albuterol Sulf [Ventolin Hfa 1 - 2 puffs INH Q4HR PRN #1 inhaler 07/12/19 09/14/23 Inhaler] Ipratropium/Albuterol Sulfate 1 neb INH DAILY 12/16/19 09/14/23 [Iprat-Albut 0.5-3(2.5) mg/3 ml] Cyclobenzaprine [Flexeril] 10 mg PO TID PRN 09/27/22 09/14/23 Doxepin [SINEquan] 50 mg PO HS 09/27/22 09/14/23 Furosemide [Lasix] 80 mg PO DAILY 09/27/22 09/14/23 Ketoconazole [Nizoral A-D] 125 ml TP DAILY 09/27/22 09/14/23 Meclizine HCl [Dramamine] 50 mg PO DAILY PRN 09/27/22 09/14/23 Rivaroxaban [Xarelto] 20 mg PO DAILY 09/27/22 09/14/23 Spironolactone [Aldactone] 12.5 mg PO DAILY 09/27/22 09/14/23 diazePAM [Valium] 5 mg PO TID PRN #15 tablet 09/27/22 09/14/23 metFORMIN [Glucophage] 500 mg PO ONCE 09/27/22 09/14/23 Acetaminophen [Acetaminophen Extra See Rx Instructions .ROUTE .COMPLEX 02/28/23 09/14/23 Strength] Ascorbic Acid/Ascorbate Sodium See Rx Instructions .ROUTE .COMPLEX 02/28/23 09/14/23 [Vitamin C 500 mg Tablet Chew] Cholecalciferol (Vitamin D3) See Rx Instructions .ROUTE .COMPLEX 02/28/23 09/14/23 [Vitamin D3] Ferrous Sulfate [Feosol] See Rx Instructions .ROUTE .COMPLEX 02/28/23 09/14/23 Fluticasone [Flonase] See Rx Instructions .ROUTE .COMPLEX 02/28/23 09/14/23 Guaifen/Phenyleph/Acetaminophn [Ra See Rx Instructions .ROUTE .COMPLEX 02/28/23 09/14/23 Mucus Relief Cold-Sinus Max] Ipratropium [Atrovent] See Rx Instructions .ROUTE .COMPLEX 02/28/23 09/14/23 Levalbuterol Tartrate See Rx Instructions .ROUTE .COMPLEX 02/28/23 09/14/23 [Levalbuterol Tartrate Hfa] Levothyroxine [Synthroid] See Rx Instructions .ROUTE .COMPLEX 02/28/23 09/14/23 Magnesium See Rx Instructions .ROUTE .COMPLEX 02/28/23 09/14/23 Metoprolol Succinate [Toprol Xl] See Rx Instructions .ROUTE .COMPLEX 02/28/23 09/14/23 Pantoprazole [Protonix] See Rx Instructions .ROUTE .COMPLEX 02/28/23 09/14/23 Potassium Citrate [Potassium] See Rx Instructions .ROUTE .COMPLEX 02/28/23 09/14/23 Vitamin B Complex See Rx Instructions .ROUTE .COMPLEX 02/28/23 09/14/23 Tirzepatide [Mounjaro] See Rx Instructions .ROUTE .COMPLEX 09/14/23 09/14/23 - Allergies Allergies/Adverse Reactions: Allergies Allergy/AdvReac Type Severity Reaction Status Date / Time carisoprodol [From Soma] Allergy Unknown Verified 03/06/24 21:08 latex Allergy Rash Verified 03/06/24 21:08 phenytoin Allergy Unknown Verified 03/06/24 21:08 - Social History Does the pt smoke?: No Smoking Status: Never smoker Does the pt drink ETOH?: Yes Does the pt have substance abuse?: No - Immunizations Immunizations are current?: Yes - POLST Patient has POLST: No POLST Status: Full Code PD ED PE NORMAL - Vitals Vital signs reviewed: Yes - General General: Alert and oriented X 3, No acute distress, Well developed/nourished - HEENT HEENT: Atraumatic, PERRL, EOMI - Neck Neck: Supple, no meningeal sign - Cardiac Cardiac: RRR - Respiratory Respiratory: No respiratory distress, Clear bilaterally - Abdomen Abdomen: Non tender, Non distended - Derm Derm: Normal color, Warm and dry - Extremities Extremities: No edema, No calf tenderness / cord - Neuro Neuro: No motor deficit, No sensory deficit Results - Vitals Vitals: Vital Signs - 24 hr 03/06/24 21:09 Temperature 36.5 C Heart Rate 99 Respiratory 16 Rate Blood Pressure 145/86 H O2 Saturation 98 Oxygen O2 Source Room air - EKG (time done) 2114 EKG releavant findings:: EKG personally interpreted by author of this note. Relevant findings are: Rate: Rate (enter#) (98) Rhythm: NSR Intervals: RBBB QRS: LVH Ischemia: Other (no acute ischemic changes) Compare to prior EKG: Unchanged from prior EKG (09/27/22) PD Medical Decision Making - ED course ED course: 43yF p/w atypical chest pain, plan to evaluate with labs, ekg, cxr and reevaluate. she is already on appropriate anticoagulation, so doubt PE. Plan to dc home pending normal workup. Departure - Departure Clinical Impression: Chest pain Condition: Stable Forms: PCP List
[2024-03-06 21:51] LABS: BASOPHILS % (AUTO) 0.3 %; EOSINOPHILS # (AUTO) 0.1 10^3/uL (0.0-0.7); EOSINOPHILS % (AUTO) 1.4 %; HCT - HEMATOCRIT 40.5 % (37.0-47.0); HGB - HEMOGLOBIN 12.7 g/dL (12.0-16.0); LYMPHOCYTES # (AUTO) 1.5 10^3/uL (1.5-3.5); LYMPHOCYTES % (AUTO) 22.2 %; MEAN CORPUSCULAR HEMOGLOBIN 27.4 pg (27.0-31.0); MEAN CORPUSCULAR HGB CONC 31.4 g/dL (32.0-36.0); MEAN CORPUSCULAR VOLUME 87.3 fL (81.0-99.0); MEAN PLATELET VOLUME 10.4 fL (7.9-10.8); MONOCYTES # (AUTO) 0.6 10^3/uL (0.0-1.0); MONOCYTES % (AUTO) 9.2 %; NEUTROPHILS # (AUTO) 4.5 10^3/uL (1.5-6.6); NEUTROPHILS % (AUTO) 66.7 %; PLT - PLATELET COUNT 233 10^3/uL (130-450); RED BLOOD COUNT 4.64 10^6/uL (4.20-5.40); RED CELL DISTRIBUTION WIDTH 13.7 % (12.0-15.0); WHITE BLOOD COUNT 6.7 x10^3/uL (4.8-10.8)
[2024-03-06 22:11] LABS: ALBUMIN 4.4 g/dL (3.2-5.5); ALBUMIN/GLOBULIN RATIO 1.4 (1.0-2.2); ALKALINE PHOSPHATASE 57 IU/L (42-121); ALT ALANINE AMINOTRANSFERASE 19 IU/L (10-60); AST ASPARTATE AMINOTRANSFERASE 14 IU/L (10-42); BILIRUBIN,TOTAL 0.2 mg/dL (0.2-1.0); BUN - BLOOD UREA NITROGEN 10 mg/dL (6-20); CALCIUM 9.7 mg/dL (8.5-10.3); CARBON DIOXIDE - CO2 28 mmol/L (21-32); CHLORIDE 103 mmol/L (101-111); CREATININE 0.6 mg/dL (0.6-1.3); GFR - MDRD 110 (>89); GLUCOSE 115 mg/dL (74-104); LIPASE 20 U/L (11-82); POTASSIUM 3.4 mmol/L (3.5-4.5); SODIUM 140 mmol/L (135-145); TOTAL PROTEIN 7.5 g/dL (6.4-8.9)
[2024-03-06 22:12] LABS: TROPONIN I HIGH SENSITIVITY 2.8 ng/L (2.3-14.8)
--- NOTE | 2024-03-06 23:00 | XRAY Report ---
PROCEDURE: Chest 1V INDICATIONS: Chest Pain TECHNIQUE: One view of the chest was acquired. COMPARISON: 05/02/2022, 12/14/2019 FINDINGS: Surgical changes and devices: None. Lungs and pleura: No pleural effusions or pneumothorax. Lungs are clear. Mediastinum: Mediastinal contours appear normal. Heart size is normal. Bones and chest wall: No suspicious bony lesions. Overlying soft tissues appear unremarkable. IMPRESSION: No acute cardiopulmonary process. No focal consolidation. Reviewed by: Kristian Jansen MD on 03/06/2024 10:59 PM PDT Approved by: Kristian Jansen MD on 03/06/2024 10:59 PM PDT Station ID: [id number]
[2024-03-06 23:15] VITALS: BP 112/66; O2SAT 95
== END 2024-03-06 23:10 | disposition home or self-care (01) ==
LOC: ED 21:03
DX: R07.89 Other chest pain (principal); I10 Essential (primary) hypertension; E11.9 Type 2 diabetes mellitus without complications; E03.9 Hypothyroidism, unspecified; Z79.899 Other long term (current) drug therapy; Z79.01 Long term (current) use of anticoagulants; Z79.84 Long term (current) use of oral hypoglycemic drugs; Z91.040 Latex allergy status
CPT/HCPCS: 36415; 80053; 83690; 84484; 84702; 85025; 93005; 99283; 99284

== ENCOUNTER 2024-03-09 21:43 | Outpatient (CLI) | payer OTHER, MEDICARE | END 2024-03-09 23:59 | disposition critical access hospital (66) | LOC: EMS 21:43 | DX: E11.649 Type 2 diabetes mellitus with hypoglycemia without coma (principal); R25.1 Tremor, unspecified; R00.0 Tachycardia, unspecified; I10 Essential (primary) hypertension; Z79.4 Long term (current) use of insulin; Z79.84 Long term (current) use of oral hypoglycemic drugs | CPT/HCPCS: A0425; A0429 ==

== ENCOUNTER 2024-03-09 22:03 | Emergency (ER) | payer OTHER, MEDICARE ==
[2024-03-09 22:37] LABS: BASOPHILS % (AUTO) 0.3 %; EOSINOPHILS # (AUTO) 0.1 10^3/uL (0.0-0.7); EOSINOPHILS % (AUTO) 0.7 %; HCT - HEMATOCRIT 41.9 % (37.0-47.0); HGB - HEMOGLOBIN 13.3 g/dL (12.0-16.0); LYMPHOCYTES # (AUTO) 2.2 10^3/uL (1.5-3.5); LYMPHOCYTES % (AUTO) 23.6 %; MEAN CORPUSCULAR HEMOGLOBIN 27.9 pg (27.0-31.0); MEAN CORPUSCULAR HGB CONC 31.7 g/dL (32.0-36.0); MEAN CORPUSCULAR VOLUME 87.8 fL (81.0-99.0); MEAN PLATELET VOLUME 10.4 fL (7.9-10.8); MONOCYTES # (AUTO) 0.7 10^3/uL (0.0-1.0); MONOCYTES % (AUTO) 7.7 %; NEUTROPHILS # (AUTO) 6.3 10^3/uL (1.5-6.6); NEUTROPHILS % (AUTO) 67.4 %; PLT - PLATELET COUNT 236 10^3/uL (130-450); RED BLOOD COUNT 4.77 10^6/uL (4.20-5.40); RED CELL DISTRIBUTION WIDTH 13.9 % (12.0-15.0); WHITE BLOOD COUNT 9.3 x10^3/uL (4.8-10.8)
--- NOTE | 2024-03-09 22:40 | ED Physician Documentation ---
History of Present Illness - Stated complaint Stated Complaint: LOW BLOOD SUGAR - Chief complaint Chief Complaint: General - History obtained from History obtained from: Patient, EMS - History of Present Illness Timing: Today - Additonal information Additional information: low blood sugar not feeling well X 3 days. Sugars have been good recently. Reports excessive urination. no pain. BIB ambulance with glucose given PO with sugar of 61. Review of Systems Constitutional: denies: Fever Ears: denies: Ear pain Nose: denies: Congestion Throat: denies: Sore throat Cardiac: denies: Chest pain / pressure, Palpitations Respiratory: denies: Dyspnea, Cough GI: denies: Abdominal Pain, Nausea, Vomiting : reports: Frequency. 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 : Retention HEENT: None Psych: Depression Musculoskeletal: Fibromyalgia, Chronic back pain Derm: None - Past Surgical History Past Surgical History: Yes Ortho: Carpal Tunnel surgery, Other /BROKE HANDLER: Dilation and currettage, Hysterectomy - Present Medications Home Medications: Ambulatory Orders Medication Instructions Recorded Confirmed Pregabalin [Lyrica] 150 mg PO BID 10/05/17 09/14/23 Terazosin [Hytrin] 20 mg PO QPM 10/05/17 09/14/23 Albuterol Sulf [Ventolin Hfa 1 - 2 puffs INH Q4HR PRN #1 inhaler 07/12/19 09/14/23 Inhaler] Ipratropium/Albuterol Sulfate 1 neb INH DAILY 12/16/19 09/14/23 [Iprat-Albut 0.5-3(2.5) mg/3 ml] Cyclobenzaprine [Flexeril] 10 mg PO TID PRN 09/27/22 09/14/23 Doxepin [SINEquan] 50 mg PO HS 09/27/22 09/14/23 Furosemide [Lasix] 80 mg PO DAILY 09/27/22 09/14/23 Ketoconazole [Nizoral A-D] 125 ml TP DAILY 09/27/22 09/14/23 Meclizine HCl [Dramamine] 50 mg PO DAILY PRN 09/27/22 09/14/23 Rivaroxaban [Xarelto] 20 mg PO DAILY 09/27/22 09/14/23 Spironolactone [Aldactone] 12.5 mg PO DAILY 09/27/22 09/14/23 diazePAM [Valium] 5 mg PO TID PRN #15 tablet 09/27/22 09/14/23 metFORMIN [Glucophage] 500 mg PO ONCE 09/27/22 09/14/23 Acetaminophen [Acetaminophen Extra See Rx Instructions .ROUTE .COMPLEX 02/28/23 09/14/23 Strength] Ascorbic Acid/Ascorbate Sodium See Rx Instructions .ROUTE .COMPLEX 02/28/23 09/14/23 [Vitamin C 500 mg Tablet Chew] Cholecalciferol (Vitamin D3) See Rx Instructions .ROUTE .COMPLEX 02/28/23 09/14/23 [Vitamin D3] Ferrous Sulfate [Feosol] See Rx Instructions .ROUTE .COMPLEX 02/28/23 09/14/23 Fluticasone [Flonase] See Rx Instructions .ROUTE .COMPLEX 02/28/23 09/14/23 Guaifen/Phenyleph/Acetaminophn [Ra See Rx Instructions .ROUTE .COMPLEX 02/28/23 09/14/23 Mucus Relief Cold-Sinus Max] Ipratropium [Atrovent] See Rx Instructions .ROUTE .COMPLEX 02/28/23 09/14/23 Levalbuterol Tartrate See Rx Instructions .ROUTE .COMPLEX 02/28/23 09/14/23 [Levalbuterol Tartrate Hfa] Levothyroxine [Synthroid] See Rx Instructions .ROUTE .COMPLEX 02/28/23 09/14/23 Magnesium See Rx Instructions .ROUTE .COMPLEX 02/28/23 09/14/23 Metoprolol Succinate [Toprol Xl] See Rx Instructions .ROUTE .COMPLEX 02/28/23 09/14/23 Pantoprazole [Protonix] See Rx Instructions .ROUTE .COMPLEX 02/28/23 09/14/23 Potassium Citrate [Potassium] See Rx Instructions .ROUTE .COMPLEX 02/28/23 09/14/23 Vitamin B Complex See Rx Instructions .ROUTE .COMPLEX 02/28/23 09/14/23 Tirzepatide [Mounjaro] See Rx Instructions .ROUTE .COMPLEX 09/14/23 09/14/23 - Allergies Allergies/Adverse Reactions: Allergies Allergy/AdvReac Type Severity Reaction Status Date / Time carisoprodol [From Soma] Allergy Unknown Verified 03/09/24 22:07 latex Allergy Rash Verified 03/09/24 22:07 phenytoin Allergy Unknown Verified 03/09/24 22:07 - Social History Does the pt smoke?: No Smoking Status: Never smoker Does the pt drink ETOH?: Yes Does the pt have substance abuse?: No - Immunizations Immunizations are current?: Yes - POLST Patient has POLST: No POLST Status: Full Code PD ED PE NORMAL - Vitals Vital signs reviewed: Yes - General General: No acute distress, Well developed/nourished, Other (blunted affect) - HEENT HEENT: Atraumatic, PERRL, EOMI - Neck Neck: Supple, no meningeal sign, No bony TTP - Cardiac Cardiac: No murmur, Other (tachy to 110) - Respiratory Respiratory: No respiratory distress, Clear bilaterally - Abdomen Abdomen: Soft, Non tender - Back Back: No CVA TTP, No spinal TTP - Derm Derm: Normal color, Warm and dry, No rash - Extremities Extremities: No deformity, No edema - 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, No motor deficit, No sensory deficit, Normal speech Eye Opening: Spontaneous Motor: Obeys Commands Verbal: Oriented GCS Score: 15 - Psych Psych: Normal mood, Other (flat affect) Results - Vitals Vitals: Vital Signs - 24 hr 03/09/24 03/09/24 03/10/24 22:07 22:29 00:33 Temperature 37.6 C Heart Rate 105 H 102 H 96 Respiratory 16 20 18 Rate Blood Pressure 153/104 H 139/94 H 122/84 H O2 Saturation 93 97 94 03/10/24 01:34 Temperature Heart Rate 88 Respiratory 16 Rate Blood Pressure 125/81 H O2 Saturation 98 Oxygen O2 Source Room air - Labs Labs: Laboratory Tests 03/09/24 03/09/24 03/09/24 22:20 22:20 22:20 WBC 9.3 RBC 4.77 Hgb 13.3 Hct 41.9 MCV 87.8 MCH 27.9 MCHC 31.7 L RDW 13.9 Plt Count 236 MPV 10.4 Neut # (Auto) 6.3 Lymph # (Auto) 2.2 Bacon # (Auto) 0.7 Eos # (Auto) 0.1 Baso # (Auto) 0.0 Absolute Nucleated RBC 0.00 Nucleated RBC % 0.0 Sodium 139 Potassium 3.4 L Chloride 103 Carbon Dioxide 28 Anion Gap 8.0 BUN 10 Creatinine 0.7 Estimated GFR (MDRD) 92 Glucose 70 L Lactic Acid 2.8 H Calcium 10.1 Total Bilirubin 0.2 AST 14 ALT 18 Alkaline Phosphatase 56 Total Protein 7.9 Albumin 4.7 Globulin 3.2 Albumin/Globulin Ratio 1.5 Lipase 24 Procedures - IVC sono (time) 2213 Bedside IVC sono: IVC measures (cm) (1.02), Dehydration (est 1-2 liter deficit) PD Medical Decision Making - ED course Complexity details: reviewed results, re-evaluated patient, considered differential, d/w patient Reviewed Lab Results: We reviewed a complete blood count showing a normal white blood cell count of 9.3 normal hemoglobin hematocrit and platelets. Chemistries showed a serum potassium low at 3.4 lactic acid elevated at 2.8 normal kidney and liver function.These laboratory results were reassuring for absence of an overwhelming infection and consistent with the patient's level of dehydration. ED course: 43-year-old Bree Rodney is under aggressive treatment for diabetes after spending more than 5 days in the ICU with diabetes [id number]. She has been carefully monitored by her primary care doctor. Today she appears to have some significant dehydration associated with a low blood sugar. It appears her diabetes is under control and medication adjustments are indicated. I have asked the patient to follow-up with her primary care doctor regarding medication adjustment. Departure - Departure Disposition: 01 Home, Self Care Clinical Impression: Dehydration, Hypoglycemia Condition: Stable Instructions: ED Dehydration, ED Diabetes Hypoglycemia Oral Agent, ED Diabetes Hypoglycemia Insulin React Follow-Up: MONO BERNARDO [Physician No Access] - Comments: Bree, today we found that you are significantly dehydrated and had low blood sugar. This is likely a result of the combination of the medications you are currently on. These are aggressive treatment for your diabetes and a follow-up with your primary care physician is indicated to adjust your doses. Call your doctor tomorrow for further advice. Forms: PCP List Discharge Date/Time: 03/10/24 01:35
[2024-03-09] MEDS: SODIUM CHLORIDE 0.9% 1,000 ML IV STA (22:42)
[2024-03-09 22:52] LABS: ALBUMIN 4.7 g/dL (3.2-5.5); ALBUMIN/GLOBULIN RATIO 1.5 (1.0-2.2); BILIRUBIN,TOTAL 0.2 mg/dL (0.2-1.0); CALCIUM 10.1 mg/dL (8.5-10.3); CREATININE 0.7 mg/dL (0.6-1.3); POTASSIUM 3.4 mmol/L (3.5-4.5); TOTAL PROTEIN 7.9 g/dL (6.4-8.9)
[2024-03-10] MEDS: SODIUM CHLORIDE 0.9% 1,000 ML IV STA (00:01)
[2024-03-10] MEDS ORDERED: DEXTROSE 40% GEL 37.5 GM TUBE ONE (01:12)
[2024-03-10] MEDS: DEXTROSE 40% GEL 37.5 GM TUBE PO STA (01:13)
[2024-03-10 01:35] VITALS: BP 125/81; O2SAT 98
== END 2024-03-10 01:35 | disposition home or self-care (01) ==
LOC: EDUNIT# → ED 22:03
DX: E11.649 Type 2 diabetes mellitus with hypoglycemia without coma (principal); E86.0 Dehydration; R74.02 Elevation of levels of lactic acid dehydrogenase [LDH]; I10 Essential (primary) hypertension; E03.9 Hypothyroidism, unspecified; Z79.899 Other long term (current) drug therapy; Z79.01 Long term (current) use of anticoagulants; Z79.84 Long term (current) use of oral hypoglycemic drugs; Z91.040 Latex allergy status
CPT/HCPCS: 36415; 80053; 83605; 83690; 85025; 96360; 96361; 99284

== ENCOUNTER 2024-03-13 00:12 | Outpatient (CLI) | payer OTHER, MEDICARE | END 2024-03-13 23:59 | disposition EMS.NT | LOC: EMS 00:12 | DX: F68.10 Factitious disorder imposed on self, unspecified (principal) ==

== ENCOUNTER 2024-03-15 00:16 | Outpatient (CLI) | payer OTHER, MEDICARE | END 2024-03-15 00:17 | disposition critical access hospital (66) | LOC: EMS 00:16 | DX: E16.2 Hypoglycemia, unspecified (principal) | CPT/HCPCS: A0425; A0427 ==

== ENCOUNTER 2024-03-15 00:34 | Emergency (ER) | payer OTHER, MEDICARE ==
--- NOTE | 2024-03-15 00:52 | ED Physician Documentation ---
"PD HPI ALTERED MENTAL STATUS - Stated complaint Stated Complaint: HYPOGLYCEMIA, MALAISE, RACING HEART - Chief complaint Chief Complaint: General - History obtained from History obtained from: Patient, EMS (reported on pt blood sugars and response to |IV dextrose, and vital signs.) - History of Present Illness Timing - onset: How many hours ago (2) Timing - duration: Hours (2) Timing - details: Abrupt onset (She states has been having low blood sugar episodes primarily in the mornings but some at night. She felt shaky and lightheaded and called EMS. Blood sugar in the 40s improved with dextrose and she felt better. Onset was about an hour after her evening Levemir insulin.), Still present Quality / character: Disoriented, Other (weak and shaky) Associated symptoms: No: Fever, Headache Contributing factors: Diabetic, Recent illness (has flare of IBS a week ago and seen in ED for IV fluids. BS found low and attributed to illness with instructions to see PCP for dose adjustment on her insulins. She has not been able to get into her PCP as yet.). No: Recent med change (She was initially found hyper glycemic and started insulins in September or October. She had also started on Monjauro a about 5 months ago with increased dose 3 months ago. She has had some mild weight loss. 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 was low in 40s.), D50 (and then D10 infusion.) Review of Systems Constitutional: denies: Fever, Chills Nose: denies: Rhinorrhea / runny nose, Congestion Throat: denies: Sore throat Respiratory: denies: Dyspnea, Cough GI: denies: Abdominal Pain, Vomiting : denies: Dysuria PD PAST MEDICAL HISTORY - Past Medical History Cardiovascular: Hypertension, Pulmonary embolism Respiratory: Asthma, Sleep apnea Neuro: None Endocrine/Autoimmune: Type 2 diabetes, HyPOthyroidism, Other GI: GERD 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 HEENT: None Psych: Depression Musculoskeletal: Fibromyalgia, Chronic back pain Derm: None - Past Surgical History Past Surgical History: Yes Ortho: Carpal Tunnel surgery, Other /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 [place] [employer]ASS[employer]: Dilation and currettage, Hysterectomy - Present Medications Home Medications: Ambulatory Orders Medication Instructions Recorded Confirmed Pregabalin [Lyrica] 150 mg PO BID 10/05/17 09/14/23 Terazosin [Hytrin] 20 mg PO QPM 10/05/17 09/14/23 Albuterol Sulf [Ventolin Hfa 1 - 2 puffs INH Q4HR PRN #1 inhaler 07/12/19 09/14/23 Inhaler] Ipratropium/Albuterol Sulfate 1 neb INH DAILY 12/16/19 09/14/23 [Iprat-Albut 0.5-3(2.5) mg/3 ml] Cyclobenzaprine [Flexeril] 10 mg PO TID PRN 09/27/22 09/14/23 Doxepin [SINEquan] 50 mg PO HS 09/27/22 09/14/23 Furosemide [Lasix] 80 mg PO DAILY 09/27/22 09/14/23 Ketoconazole [Nizoral A-D] 125 ml TP DAILY 09/27/22 09/14/23 Meclizine HCl [Dramamine] 50 mg PO DAILY PRN 09/27/22 09/14/23 Rivaroxaban [Xarelto] 20 mg PO DAILY 09/27/22 09/14/23 Spironolactone [Aldactone] 12.5 mg PO DAILY 09/27/22 09/14/23 diazePAM [Valium] 5 mg PO TID PRN #15 tablet 09/27/22 09/14/23 metFORMIN [Glucophage] 500 mg PO ONCE 09/27/22 09/14/23 Acetaminophen [Acetaminophen Extra See Rx Instructions .ROUTE .COMPLEX 02/28/23 09/14/23 Strength] Ascorbic Acid/Ascorbate Sodium See Rx Instructions .ROUTE .COMPLEX 02/28/23 09/14/23 [Vitamin C 500 mg Tablet Chew] Cholecalciferol (Vitamin D3) See Rx Instructions .ROUTE .COMPLEX 02/28/23 09/14/23 [Vitamin D3] Ferrous Sulfate [Feosol] See Rx Instructions .ROUTE .COMPLEX 02/28/23 09/14/23 Fluticasone [Flonase] See Rx Instructions .ROUTE .COMPLEX 02/28/23 09/14/23 Guaifen/Phenyleph/Acetaminophn [Ra See Rx Instructions .ROUTE .COMPLEX 02/28/23 09/14/23 Mucus Relief Cold-Sinus Max] Ipratropium [Atrovent] See Rx Instructions .ROUTE .COMPLEX 02/28/23 09/14/23 Levalbuterol Tartrate See Rx Instructions .ROUTE .COMPLEX 02/28/23 09/14/23 [Levalbuterol Tartrate Hfa] Levothyroxine [Synthroid] See Rx Instructions .ROUTE .COMPLEX 02/28/23 09/14/23 Magnesium See Rx Instructions .ROUTE .COMPLEX 02/28/23 09/14/23 Metoprolol Succinate [Toprol Xl] See Rx Instructions .ROUTE .COMPLEX 02/28/23 09/14/23 Pantoprazole [Protonix] See Rx Instructions .ROUTE .COMPLEX 02/28/23 09/14/23 Potassium Citrate [Potassium] See Rx Instructions .ROUTE .COMPLEX 02/28/23 09/14/23 Vitamin B Complex See Rx Instructions .ROUTE .COMPLEX 02/28/23 09/14/23 Tirzepatide [Mounjaro] See Rx Instructions .ROUTE .COMPLEX 09/14/23 09/14/23 - Allergies Allergies/Adverse Reactions: Allergies Allergy/AdvReac Type Severity Reaction Status Date / Time carisoprodol [From Soma] Allergy Unknown Verified 03/15/24 00:53 latex Allergy Rash Verified 03/15/24 00:53 phenytoin Allergy Unknown Verified 03/15/24 00:53 - Social History Does the pt smoke?: No Smoking Status: Never smoker Does the pt drink ETOH?: Yes Does the pt have substance abuse?: No - Immunizations Immunizations are current?: Yes - POLST Patient has POLST: No POLST Status: Full Code PD ED PE NORMAL - Vitals Vital signs reviewed: Yes - General General: Alert and oriented X 3, No acute distress, Well developed/nourished - Neck Neck: Supple, no meningeal sign, No adenopathy - Cardiac Cardiac: No murmur. No: RRR (mild tachycardia on arrival. Regular. ) - Respiratory Respiratory: No respiratory distress, Clear bilaterally - Abdomen Abdomen: Normal bowel sounds, Soft, Non tender, Non distended - Derm Derm: Normal color - Neuro Neuro: Alert and oriented X 3, No motor deficit, No sensory deficit, Normal speech Eye Opening: Spontaneous Motor: Obeys Commands Verbal: Oriented GCS Score: 15 Results - Vitals Vitals: Vital Signs - 24 hr 03/15/24 03/15/24 00:41 02:47 Temperature 37 C Heart Rate 111 H 94 Respiratory 16 18 Rate Blood Pressure 162/104 H O2 Saturation 97 100 Oxygen O2 Source Room air - Labs Labs: Laboratory Tests 03/15/24 03/15/24 03/15/24 00:45 00:45 01:40 WBC 8.5 RBC 4.68 Hgb 13.1 Hct 42.0 MCV 89.7 MCH 28.0 MCHC 31.2 L RDW 14.1 Plt Count 246 MPV 10.7 Neut # (Auto) 5.8 Lymph # (Auto) 2.0 Ray # (Auto) 0.6 Eos # (Auto) 0.1 Baso # (Auto) 0.0 Absolute Nucleated RBC 0.00 Nucleated RBC % 0.0 Sodium 140 Potassium 3.4 L Chloride 102 Carbon Dioxide 30 Anion Gap 8.0 BUN 8 Creatinine 0.6 Estimated GFR (MDRD) 110 Glucose 101 Calcium 9.8 Phosphorus 3.5 Magnesium 2.0 Total Bilirubin 0.2 AST 12 ALT 15 Alkaline Phosphatase 52 Total Protein 7.3 Albumin 4.3 Globulin 3.0 Albumin/Globulin Ratio 1.4 Lipase 26 TSH 3.24 Urine Color YELLOW Urine Clarity CLEAR Urine pH 6.0 Ur Specific [place] 1.025 Urine Protein NEGATIVE Urine Glucose (UA) >=1000 H Urine Ketones TRACE Urine Occult Blood NEGATIVE Urine Nitrite NEGATIVE Urine Bilirubin NEGATIVE Urine Urobilinogen 0.2 (NORMAL) Ur Leukocyte Esterase NEGATIVE Ur Microscopic Review NOT INDICATED Urine Culture Comments NOT INDICATED PD Medical Decision Making - ED course Complexity details: reviewed results, re-evaluated patient (her blood sugar was up to 120s on EMS arrival. We turned off the D10 to see how pt did and was given PO sandwich. Concern is for long acting insulin and will need watching longer. Repeat sugars down at 70-80s over 3 hours plus. Seems stable and not needing IV supplements.), considered differential (has had less appetite the past month due to weight loss meds. No change in med per se. IBS flare last week. No URI. Seems less calories in setting same insulin. Will have pt lower levimir insulin from 40 to 30 units daily. Some high is better than too low. Can adjust back up to 35 if needed. ), d/w patient, other (report from EMS) Departure - Departure Disposition: 01 Home, Self Care Clinical Impression: Altered mental status, Hypoglycemia Condition: Stable Record reviewed to determine appropriate education?: Yes Follow-Up: MONO BERNARDO [Primary Care Provider] - Comments: Decrease your Levemir insulin from the current 40 units down to 30 units nightly. Continue checking your sugars as usual. Our blood sugar monitor was actually reading pretty close with your Dexcom sensor. I wonder if you are fingerstick monitor at home is the one that is off compared to your Dexcom. In any event at the moment, your blood sugar was low and you said it has been running low. I presume it is related to perhaps less calorie intake from the desired effect of the weight loss medicine. A little bit high is better than too low in the acute short-term setting. That is why would suggest the amount of reduction of your Levemir. Continue your other usual medicines. If your sugars are then running relatively high in the next several days or week, you could creep the dosing back up but I would go higher than 35. Contact your primary care office regarding any further plan. Forms: PCP List"
[2024-03-15 01:03] LABS: BASOPHILS % (AUTO) 0.4 %; EOSINOPHILS # (AUTO) 0.1 10^3/uL (0.0-0.7); EOSINOPHILS % (AUTO) 0.6 %; HGB - HEMOGLOBIN 13.1 g/dL (12.0-16.0); LYMPHOCYTES % (AUTO) 23.4 %; MEAN CORPUSCULAR HGB CONC 31.2 g/dL (32.0-36.0); MEAN CORPUSCULAR VOLUME 89.7 fL (81.0-99.0); MEAN PLATELET VOLUME 10.7 fL (7.9-10.8); MONOCYTES # (AUTO) 0.6 10^3/uL (0.0-1.0); MONOCYTES % (AUTO) 6.5 %; NEUTROPHILS # (AUTO) 5.8 10^3/uL (1.5-6.6); NEUTROPHILS % (AUTO) 68.7 %; PLT - PLATELET COUNT 246 10^3/uL (130-450); RED BLOOD COUNT 4.68 10^6/uL (4.20-5.40); RED CELL DISTRIBUTION WIDTH 14.1 % (12.0-15.0); WHITE BLOOD COUNT 8.5 x10^3/uL (4.8-10.8)
[2024-03-15 01:11] VITALS: BP 162/104
[2024-03-15 01:21] LABS: ALBUMIN 4.3 g/dL (3.2-5.5); ALBUMIN/GLOBULIN RATIO 1.4 (1.0-2.2); BILIRUBIN,TOTAL 0.2 mg/dL (0.2-1.0); CALCIUM 9.8 mg/dL (8.5-10.3); CREATININE 0.6 mg/dL (0.6-1.3); PHOSPHORUS 3.5 mg/dL (2.5-5.0); POTASSIUM 3.4 mmol/L (3.5-4.5); TOTAL PROTEIN 7.3 g/dL (6.4-8.9)
[2024-03-15 01:31] LABS: THYROID STIMULATING HORMONE 3.24 uIU/mL (0.34-5.60)
[2024-03-15 02:08] LABS: BILIRUBIN,URINE NEGATIVE (NEGATIVE); GLUCOSE, URINE (UA) >=1000 mg/dL (NEGATIVE); KETONES,URINE (UA) TRACE mg/dL (NEGATIVE); LEUKOCYTE ESTERASE, URINE NEGATIVE (NEGATIVE); NITRITE,URINE NEGATIVE (NEGATIVE); OCCULT BLOOD,URINE NEGATIVE (NEGATIVE); PROTEIN,URINE NEGATIVE (NEGATIVE); UROBILINOGEN,URINE 0.2 (NORMAL) E.U./dL (NORMAL)
[2024-03-15 02:11] LABS: CLARITY,URINE CLEAR (CLEAR)
[2024-03-15 02:58] VITALS: O2SAT 100
[2024-03-15 08:27] LABS: ESTIMATED AVERAGE GLUCOSE 128 mg/dL (70-100); HEMOGLOBIN A1c% 6.1 % (4.27-6.07)
== END 2024-03-15 05:37 | disposition home or self-care (01) ==
LOC: EDUNIT# → ED 00:34
DX: E11.649 Type 2 diabetes mellitus with hypoglycemia without coma (principal); R41.82 Altered mental status, unspecified; I10 Essential (primary) hypertension; E03.9 Hypothyroidism, unspecified; K58.9 Irritable bowel syndrome, unspecified; F32.A Depression, unspecified; M79.7 Fibromyalgia; Z86.711 Personal history of pulmonary embolism; Z79.84 Long term (current) use of oral hypoglycemic drugs; Z79.01 Long term (current) use of anticoagulants; I45.10 Unspecified right bundle-branch block
CPT/HCPCS: 36415; 80053; 81001; 81003; 83036; 83690; 83735; 84100; 84443; 85025; 87086; 93005; 99283; 99284

== ENCOUNTER 2024-03-21 14:38 | Outpatient (CLI) | payer OTHER, MEDICARE ==
[2024-03-21 14:35] VITALS: BP 89/62
--- NOTE | 2024-03-21 14:35 | SLEEP CARE CONSULTATION ---
Information from patient questionnaire entered by Hanna Muñoz. I have reviewed and concur with the information entered by Hanna Muñoz. This document represents the service I personally performed and the decisions made by , Carli Mcdaniel ARNP. History of Present Illness Service Date and Time: 03/21/2024 1420 Previous diagnosis: Extremely Severe, Obstructive Sleep Apnea-Hypopnea Syndrome AHI: 133.2 (04/10/23) Reason for follow up: six month (F/U) Equipment type: BiPAP (AirCurve 10 VAuto; s/u 06/01/2021) Equipment obtained from: [employer] ([employer]) Mask style: Full face Backup mask available: Yes Last cushion change: 1 week Prior sleep studies: Yes Year and Where: 2021 titration study Type of Sleep Study: Polysomnography (COMPLETED 04/10/23) HPI additional information: SUKHDEV DORMAN was diagnosed to have extremely severe, AHI 133.2, obstructive sleep apnea-hypopnea syndrome and returned today for BIPAP therapy six month follow-up. Sleep Study - Results Type of Sleep Study: Polysomnography (COMPLETED 04/10/23) Prior sleep studies: Yes Year and Where: 2021 titration study CPAP Compliance Data - Data Reviewed with Patient Average duration of nightly device use: 5 HRS 28 MINS Compliance rate %: 55 (09/20/23-03/17/24; 105/180 days used) Current pressure setting (cmH2O): 21/15 with 4 pressure support Average residual AHI: 0.9 Central apnea: 0.1 Obstructive apnea: 0.3 Hypopnea: 0.5 Average large leak: 1.4 L/min On Oxygen: Yes (3 L) Oxygen usage: Nocturnal Subjective Missed days of use due to: reports: illness (Covid) Patient concerns: reports: dry mouth, nose, throat (DRY MOUTH). denies: aerophagia, mask discomfort, air blowing in eyes, mask leak noise, condensation in mask/hose, nasal congestion, epistaxis Observed to snore while using device: Yes (snoring through the mask, all the time continue) Current pressure setting perceived as: comfortable On therapy, patient: reports: sleeping better, awakening more refreshed, being more awake and alert during the day, more rested overall. denies: drowsiness while driving Initial [place] Sleepiness Scale score: 14 Current [place] Sleepiness Scale score: 7 (03/21/24) Allergies and Home Medications Known drug allergies: Yes (as listed) Drug allergies reviewed: Yes Home medication list reviewed: Yes (Lispro Injections) Allergy and home medication list: Allergies carisoprodol [From Soma] Allergy (Verified 03/15/24 00:53) Unknown latex Allergy (Verified 03/15/24 00:53) Rash phenytoin Allergy (Verified 03/15/24 00:53) Unknown Home Medications Lispro See Rx Instructions .ROUTE .COMPLEX 03/21/24 [History Confirmed 03/21/24] Review of Systems Review of systems same as previous: No (ICU 09/2023 DUE TO HYPERGLYCEMIC EPISODE) Physical Exam Vital signs obtained and entered by: HANNA Blood Pressure: 89/62 (PER PT) Height: 5 ft 5 in (PER PT) Weight: 290 lb (PER PT) Body Mass Index: 48.2 BMI Classification: Morbidly Obese Impression and Plan 1. Obstructive Sleep Apnea-Hypopnea Syndrome, extremely severe, with fair treatment compliance and good apnea control. On BIPAP therapy, the patient has better sleep quality and is more rested overall. She has significant improvement of her sleep apnea and is satisfied with her PAP therapy. Her has heard some snoring through the mask. She gets some dry mouth as well. Her residual AHI is at 0.9. She may be oral venting in her mask which can cause increase noise from air leaking through her mouth. She voiced understanding. She has brought her compliance up from 39% to 55%. She still complains of feeling tired during the day but is still averaging 5.5 hours of sleep nightly because she waits up for to come home from work before going to bed and then gets up early to take care of her dogs. I encouraged her to try to got to sleep earlier to get more sleep to reduce her daytime tiredness. She says it is a habit and will try to change to get more sleep. Patient's apnea severity and rationale for treatment to reduce apnea, improve sleep quality and reduce cardiovascular and cerebrovascular events was reviewed. I also reviewed the benefit of consistent device use of BIPAP for diabetes, gastric reflux, depression/anxiety. 2. Obesity, unspecified. Currently patients BMI is 48.2. Obesity increases the risk of apnea, BiPAP pressure requirements and overall health risks especially cardiovascular and diabetes. Thus patient is advised to lose weight. 3. Hypoxemia, nocturnal. Patient continues to use 3L oxygen bled in through her BiPAP. * Continue BiPAP pressure at 21/15 cmH2O * Notify me if snoring with mask or feeling that the pressure is too much or too little * Attempt to lose weight * Call this office if any problems using BiPAP * Return for follow up in 12 months, or sooner if concerns arise Counseling Topics: Weight loss health impact Follow up with Sleep Care in: 1 year Visit Type: Telehealth Video Video Type: Doximity Patient Location: Home Location of Provider: Office Patient agrees and consents to this telehealth visit type: Yes Patient agrees to have their insurance billed: Yes Time Spent with Patient (minutes): 21 Provider Statement: I spent 100% of the Telehealth Video Call with the patient with greater than 50% spent counseling the patient and coordination of care.
== END 2024-03-21 14:39 | disposition home or self-care (01) ==
LOC: SC 14:38
PROVIDERS: ATTEND Nurse Practitioner Family
DX: G47.33 Obstructive sleep apnea (adult) (pediatric) (principal); R09.02 Hypoxemia; Z99.81 Dependence on supplemental oxygen; E66.01 Morbid (severe) obesity due to excess calories; Z68.42 Body mass index [BMI] 45.0-49.9, adult

== ENCOUNTER 2024-04-13 23:28 | Emergency (ER) | payer OTHER, MEDICARE ==
[2024-04-13 23:44] VITALS: BP 147/97; O2SAT 97
[2024-04-14] MEDS: KETOROLAC 30 MG/ML VIAL IM STA (00:47)
[2024-04-14] MEDS: CYCLOBENZAPRINE 10 MG TABLET PO STA (00:48)
--- NOTE | 2024-04-14 00:49 | ED Physician Documentation ---
History of Present Illness - Stated complaint Stated Complaint: HEADACHE/NECK PX - Chief complaint Chief Complaint: Neuro - History obtained from History obtained from: Patient - Additonal information Additional information: 43-year-old woman presents with bilateral posterior headache radiating to the bilateral neck for the past 3 days, waxing and waning in severity without associated features. Denies lightheadedness, vomiting, diarrhea, vision changes, photophobia, focal neurological deficit. She does note that she has been slightly nauseous.No exacerbating or relieving features. No improvement with Tylenol. 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, Hysterectomy - Present Medications Home Medications: Ambulatory Orders Medication Instructions Recorded Confirmed Pregabalin [Lyrica] 150 mg PO BID 10/05/17 03/21/24 Terazosin [Hytrin] 20 mg PO QPM 10/05/17 03/21/24 Albuterol Sulf [Ventolin Hfa 1 - 2 puffs INH Q4HR PRN #1 inhaler 07/12/19 03/21/24 Inhaler] Ipratropium/Albuterol Sulfate 1 neb INH DAILY 12/16/19 03/21/24 [Iprat-Albut 0.5-3(2.5) mg/3 ml] Cyclobenzaprine [Flexeril] 10 mg PO TID PRN 09/27/22 03/21/24 Doxepin [SINEquan] 50 mg PO HS 09/27/22 03/21/24 Furosemide [Lasix] 80 mg PO DAILY 09/27/22 03/21/24 Ketoconazole [Nizoral A-D] 125 ml TP DAILY 09/27/22 03/21/24 Meclizine HCl [Dramamine] 50 mg PO DAILY PRN 09/27/22 03/21/24 Rivaroxaban [Xarelto] 20 mg PO DAILY 09/27/22 03/21/24 Spironolactone [Aldactone] 12.5 mg PO DAILY 09/27/22 03/21/24 diazePAM [Valium] 5 mg PO TID PRN #15 tablet 09/27/22 03/21/24 metFORMIN [Glucophage] 500 mg PO ONCE 09/27/22 03/21/24 Acetaminophen [Acetaminophen Extra See Rx Instructions .ROUTE .COMPLEX 02/28/23 03/21/24 Strength] Ascorbic Acid/Ascorbate Sodium See Rx Instructions .ROUTE .COMPLEX 02/28/23 03/21/24 [Vitamin C 500 mg Tablet Chew] Cholecalciferol (Vitamin D3) See Rx Instructions .ROUTE .COMPLEX 02/28/23 03/21/24 [Vitamin D3] Ferrous Sulfate [Feosol] See Rx Instructions .ROUTE .COMPLEX 02/28/23 03/21/24 Fluticasone [Flonase] See Rx Instructions .ROUTE .COMPLEX 02/28/23 03/21/24 Guaifen/Phenyleph/Acetaminophn [Ra See Rx Instructions .ROUTE .COMPLEX 02/28/23 03/21/24 Mucus Relief Cold-Sinus Max] Ipratropium [Atrovent] See Rx Instructions .ROUTE .COMPLEX 02/28/23 03/21/24 Levalbuterol Tartrate See Rx Instructions .ROUTE .COMPLEX 02/28/23 03/21/24 [Levalbuterol Tartrate Hfa] Levothyroxine [Synthroid] See Rx Instructions .ROUTE .COMPLEX 02/28/23 03/21/24 Magnesium See Rx Instructions .ROUTE .COMPLEX 02/28/23 03/21/24 Metoprolol Succinate [Toprol Xl] See Rx Instructions .ROUTE .COMPLEX 02/28/23 03/21/24 Pantoprazole [Protonix] See Rx Instructions .ROUTE .COMPLEX 02/28/23 03/21/24 Potassium Citrate [Potassium] See Rx Instructions .ROUTE .COMPLEX 02/28/23 03/21/24 Vitamin B Complex See Rx Instructions .ROUTE .COMPLEX 02/28/23 03/21/24 Tirzepatide [Mounjaro] See Rx Instructions .ROUTE .COMPLEX 09/14/23 03/21/24 Lispro See Rx Instructions .ROUTE .COMPLEX 03/21/24 03/21/24 methocarbamoL [Robaxin] 500 mg PO Q6H #20 tablet 04/14/24 - Allergies Allergies/Adverse Reactions: Allergies Allergy/AdvReac Type Severity Reaction Status Date / Time carisoprodol [From Soma] Allergy Unknown Verified 03/15/24 00:53 latex Allergy Rash Verified 03/15/24 00:53 phenytoin Allergy Unknown Verified 03/15/24 00:53 - Social History Does the pt smoke?: No Smoking Status: Never smoker Does the pt drink ETOH?: Yes Does the pt have substance abuse?: No - Immunizations Immunizations are current?: Yes - POLST Patient has POLST: No POLST Status: Full Code PD ED PE NORMAL - Vitals Vital signs reviewed: Yes - General General: Alert and oriented X 3, No acute distress, Well developed/nourished - HEENT HEENT: Atraumatic, PERRL, EOMI, Moist mucous membranes, Pharynx benign - Neck Neck: Supple, no meningeal sign, Other (Bilateral trapezius muscle tenderness to palpation) - Neuro Neuro: Alert and 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 Normal neurologic exam. Pain improved status post IM Toradol and oral Robaxin. Prescription sent to pharmacy. Symptomatic care discussed and return precautions given. She can follow-up routinely with her primary care provider. Departure - Departure Disposition: 01 Home, Self Care Clinical Impression: Headache, Neck pain Condition: Stable Instructions: ED Headache Tension Prescriptions: methocarbamoL [Robaxin] 500 mg PO Q6H #20 tablet Comments: You were seen in the emergency department for headache and neck pain. Prescription sent to the [facility] in [place]. Please follow-up with your primary care provider and return to the emergency department if you have any new or worsening symptoms or other concerns. Forms: PCP List
[2024-04-14] MEDS ORDERED: methocarbamoL 500 MG TABLET PO STA (00:50)
== END 2024-04-14 01:02 | disposition home or self-care (01) ==
LOC: ED 23:28
DX: R51.9 Headache, unspecified (principal); M54.2 Cervicalgia; I10 Essential (primary) hypertension; E11.9 Type 2 diabetes mellitus without complications; E03.9 Hypothyroidism, unspecified; M79.7 Fibromyalgia; G47.30 Sleep apnea, unspecified; Z86.711 Personal history of pulmonary embolism; Z79.01 Long term (current) use of anticoagulants; Z79.899 Other long term (current) drug therapy; Z79.84 Long term (current) use of oral hypoglycemic drugs
CPT/HCPCS: 96372; 99283; A9270